=== PATIENT | male | born 1960 | race Caucasian/White ===

== ENCOUNTER → 2017-10-03 15:28 | Outpatient (CLI) | payer OTHER, SELFPAY | PROVIDERS: Family Provider Family Medicine; PCP Family Medicine; Visit Provider Family Medicine | DX: N41.0 Acute prostatitis (principal) | CPT/HCPCS: 87086 ==

== ENCOUNTER → 2018-04-12 16:28 | Outpatient (CLI) | payer OTHER, SELFPAY ==
[2017-07-09 08:09] VITALS: BMI 24.7
[2018-04-12 18:41] LABS: Anion Gap 7 (5-15); BUN 17 mg/dL (7-18); Calcium,Total 8.6 mg/dL (8.5-10.1); Chloride 108 mmol/L (98-107); Creatinine, Serum 1.06 mg/dL (0.70-1.30); EST Glomerular Filtration Rate 77 mL/min (>60); Est Glom Filt Rate - Afr Amer 93 mL/min (>60); Glucose 85 mg/dL (74-106); PSA,Total - Annual Screen 2.54 ng/mL (0.00-4.00); Potassium 3.8 mmol/L (3.5-5.1); Sodium Level 142 mmol/L (136-145)
== END ==
PROVIDERS: Family Provider Family Medicine; PCP Family Medicine; Visit Provider Family Medicine
DX: I10 Essential (primary) hypertension (principal); Z12.5 Encounter for screening for malignant neoplasm of prostate
CPT/HCPCS: 36415; 80048; 84153; G0103

== ENCOUNTER → 2018-04-24 07:01 | Outpatient (CLI) | payer OTHER, SELFPAY ==
--- NOTE | 2018-04-24 07:23 | MRI_ITS ---
STUDY: MRI LUMBAR SPINE WITHOUT CONTRAST REASON FOR EXAM: Male, 58 years old. lumbago,sciatica, numbness off and on bilat legs; hx prior surgery 2014 TECHNIQUE: Standardized fat and water weighted pulse sequences were obtained in the sagittal and axial planes. COMPARISON: 10/16/2014 FINDINGS: T12-L1: Normal endplates. Normal disc height, hydration and morphology. Normal bilateral facet joints. Normal central canal and bilateral lateral recesses. Normal bilateral intervertebral neural foramina. Normal lumbar lordosis. There is no substantial scoliosis. Normal conus medullaris that terminates at the L1 level. L1-2: Disc desiccation. Bilateral facet hypertrophy without compressive sequelae. L2-3: Bulging annulus and broad right paracentral disc protrusion without compressive sequelae. L3-4: Bulging annulus and bilateral facet hypertrophy with mild central canal and bilateral foraminal stenoses. L4-5: Disc space narrowing and desiccation with discogenic endplate changes and anterior osteophytes. Bulging annulus and bilateral facet hypertrophy with mild bilateral foraminal stenoses. L5-S1: Disc space narrowing and desiccation with discogenic endplate changes and anterior osteophytes. Left laminotomy defect. Bulging annulus and bilateral facet hypertrophy with mild bilateral foraminal stenoses. Normal visualized sacral ala. Normal visualized paraspinous soft tissue structures. MRI/Spine Lumbar (Routine) IMPRESSION: Multilevel degenerative disease as described. No evidence of nerve root impingement. Electronically Signed: Adán Liu MD at 9:16 EST Tel , Service support ,
--- OUTSIDE RECORDS SUMMARY | 2018-06-17 05:00 | XMS RPT_ITS ---
:1960 Author Organization OHIP Care Team Providers Name Role Phone ALCIDES VARGAS (PA) Attending Unavailable HARSHA DUARTE Referring Unavailable ALCIDES VARGAS (PA) Referring Unavailable JOSHUA MCDOWELL Admitting Unavailable JOSHUA MCDOWELL Attending Unavailable ALCIDES VARGAS (PA) Referring Unavailable OUMAR MONK (OD) Attending Unavailable TIESHA CHOI Attending Unavailable TIESHA CHOI Referring Unavailable OUMAR MONK (OD) Attending Unavailable Abiola Chiu Attending Unavailable Harsha Duarte Referring Unavailable Harsha Duarte Primary Care Unavailable Harsha Duarte Attending Unavailable Harsha Duarte Primary Care Unavailable Harsha Duarte Referring Unavailable Harsha Duarte Attending Unavailable Harsha Duarte Primary Care Unavailable Harsha Duarte Attending Unavailable Harsha Duarte Referring Unavailable Harsha Duarte Primary Care Unavailable PROBLEMS PROBLEMS DATE TYPE CONDITION / CODE ATTENDING STATUS SOURCE 10/04/2017 Unknown N41.0 - Acute Felicia, Active [place] prostatitis / [facility] N41.0(ICD-10) Hospital Repository 10/04/2017 Unknown 601.0 - Acute Felicia, Active [place] prostatitis / [facility] 601.0(ICD-9) Hospital Repository 07/08/2017 Active Diverticulitis of JOSHUA MCDOWELL Active [place] intestine, part T Clinic Main unspecified, without [place] perforation or Repository abscess without bleeding / K57.92(ICD-10) 06/20/2017 Active Lower abdominal NA Active [place] pain, unspecified / [facility] R10.30(ICD-10) [place] Repository PROCEDURES PROCEDURES No Procedure Records FoundRESULTS RESULTS SPINE LUMBAR Observed: 04/24/2018 Status: F Source: [place] (ROUTINE) 7:23 AM [facility] REPOSITORY [facility] Imaging Services [address] [place] [address] Spine Lumbar (Routine) MR#: [id number] Acct: [id number] Name: RAFAEL UNGER Rep #: [id number] : 1960 M 58 From: Adán Liu MD PCP: Harsha Duarte MD Status: REG CLI Study: Spine Lumbar (Routine) Date of Exam: 04/24/18 Exam# [id number] Ordering Dr: Syed Duarte MD STUDY: MRI LUMBAR SPINE WITHOUT CONTRAST REASON FOR EXAM: Male, 58 years old. lumbago,sciatica, numbness off and on bilat legs; hx prior surgery 2014 TECHNIQUE: Standardized fat and water weighted pulse sequences were obtained in the sagittal and axial planes. COMPARISON: 10/16/2014 FINDINGS: T12-L1: Normal endplates. Normal disc height, hydration and morphology. Normal bilateral facet joints. Normal central canal and bilateral lateral recesses. Normal bilateral intervertebral neural foramina. Normal lumbar lordosis. There is no substantial scoliosis. Normal conus medullaris that terminates at the L1 level. L1-2: Disc desiccation. Bilateral facet hypertrophy without compressive sequelae. L2-3: Bulging annulus and broad right paracentral disc protrusion without compressive sequelae. L3-4: Bulging annulus and bilateral facet hypertrophy with mild central canal and bilateral foraminal stenoses. L4-5: Disc space narrowing and desiccation with discogenic endplate changes and anterior osteophytes. Bulging annulus and bilateral facet hypertrophy with mild bilateral foraminal stenoses. L5-S1: Disc space narrowing and desiccation with discogenic endplate changes and anterior osteophytes. Left laminotomy defect. Bulging annulus and bilateral facet hypertrophy with mild bilateral foraminal stenoses. Normal visualized sacral ala. Normal visualized paraspinous soft tissue structures. MRI/Spine Lumbar (Routine) IMPRESSION: Multilevel degenerative disease as described. No evidence of nerve root impingement. Electronically Signed: Adán Liu MD at 9:16 EST Tel , Service support , CC: Harsha Duarte MD Pv Installer Tech: Signed BASIC METABOLIC Collected: 04/12/2018 Status: F Source: [place] PROFILE (BMP) 4:29 PM [facility] REPOSITORY TYPE CODE TESTS RESULT OUT OF RANGE REFERENCE UNITS LAB L501.0100 74-106 mg/dL Normal GLU 85 Result Comment: Please note revised GLUCOSE reference range effective 2017. LAB L501.1000 7-18 mg/dL Normal BUN 17 LAB L501.1100 0.70-1.30 mg/dL Normal CREAT,SERUM 1.06 Result Comment: The validity of the calculated GFR AND GFRAA in patients over 70 years has not been determined. Clinical correlation is essential. LAB L501.1110 >60 mL/min Normal EST GFR 77 Result Comment: Non- GFR Calc LAB L501.1115 >60 mL/min Normal EST GFR - AA 93 Result Comment: GFR Calc LAB L501.1300 10-20 RATIO Normal BUN/CRE 16.0 LAB L501.2200 8.5-10.1 mg/dL CA Normal 8.6 LAB L501.5300 136-145 mmol/L NA Normal 142 LAB L501.5600 3.5-5.1 mmol/L K Normal 3.8 LAB L501.5900 98-107 mmol/L High CL 108 LAB L501.6100 21.0-32.0 mmol/L Normal CO2 27.0 LAB L501.6200 5-15 Normal GAP 7 Performed By: #### L500.2500, L501.9910 #### [facility] [address] [place], [address] PSA,TOTAL - ANNUAL Collected: 04/12/2018 Status: F Source: [place] SCREEN 4:29 PM [facility] REPOSITORY TYPE CODE TESTS RESULT OUT OF RANGE REFERENCE UNITS LAB L501.9910 0.00-4.00 ng/mL Normal PSA,TOT 2.54 SCREEN Result Comment: This test was performed using the TPSA assay method for the 9+ chemistry system. Values obtained with different assay methods cannot be used interchangably. When changing PSA assays in the course of monitoring a patient, additional sequential testing should be carried out to confirm baseline values. Performed By: #### L500.2500, L501.9910 #### [facility] [address] [place], [address] PROGRESS Observed: 02/01/2018 Status: COMPLETED Source: [place] 10:17 AM [facility] REPOSITORY HNO ID: [id number] Author: Oumar (Od) Lissette Service: (none) Author Type: COMMUNITY AIDE Type: Progress Notes Filed: 02/01/2018 10:18 AM Note Text: ASSESSMENT/PLAN: 1. Vitreous floaters of both eyes - ICD9: 379.24, ICD10: H43.393 (primary diagnosis) Patient was given both written and verbal information on flashes and floaters. Patient was instructed to call the office ([phone]) immediately upon noticing flashes of light, increase in floaters, or changes in vision. 2. Punctate keratitis, bilateral - ICD9: 370.21, ICD10: H16.143 Blink Lubricating Eye Drops, 1 drop, three times a day, both eyes. 3. S/P LASIK (laser assisted in situ keratomileusis) of both eyes - ICD9: V45.69, ICD10: Z98.890 Stable / Observe Oumar Monk, JAY I have confirmed and edited as necessary the relevant ophthalmic history, review of systems, surgical history, and ophthalmological examination findings as obtained by the ophthalmic technical staff. I have seen and examined Rafael Unger. I have discussed the examination findings, diagnosis, and treatment options with Rafael Unger and/or his family. I have also reviewed and agree with the assessment and plan as stated above and agree with all its relevant components. I gave the patient the opportunity to ask questions about the findings, diagnosis, and treatment options. PROGRESS Observed: 12/16/2017 Status: COMPLETED Source: [place] 4:49 PM [facility] REPOSITORY O ID: [id number] Author: Oumar (Jay) Lissette Service: (none) Author Type: COMMUNITY AIDE Type: Progress Notes Filed: 12/16/2017 4:50 PM Note Text: ASSESSMENT/PLAN: 1. Vitreous floaters of both eyes - ICD9: 379.24, ICD10: H43.393 (primary diagnosis) Patient was given both written and verbal information on flashes and floaters. Patient was instructed to call the office ([phone]) immediately upon noticing flashes of light, increase in floaters, or changes in vision. 2. Punctate keratitis, bilateral - ICD9: 370.21, ICD10: H16.143 Blink Lubricating Eye Drops, 1 drop, four times a day, both eyes. 3. S/P LASIK (laser assisted in situ keratomileusis) of both eyes - ICD9: V45.69, ICD10: Z98.890 Stable / Observe Oumar Monk, OD I have confirmed and edited as necessary the relevant ophthalmic history, review of systems, surgical history, and ophthalmological examination findings as obtained by the ophthalmic technical staff. I have seen and examined Rafael Unger. I have discussed the examination findings, diagnosis, and treatment options with Rafael Unger and/or his family. I have also reviewed and agree with the assessment and plan as stated above and agree with all its relevant components. I gave the patient the opportunity to ask questions about the findings, diagnosis, and treatment options. Observed: 10/03/2017 Status: F Source: [place] CULTURE, URINE 3:30 PM [facility] REPOSITORY Order Date: 10/03/17 Order Info: 630-4 - CUUR Urine Culture Culture exhibits no growth. Performed By: #### M100.0650 #### [facility] [address] [place], [address] PROGRESS Observed: 09/22/2017 Status: COMPLETED Source: [place] 12:05 PM [facility] REPOSITORY HNO ID: [id number] Author: Oumar Monk (Od) Service: (none) Author Type: COMMUNITY AIDE Type: Progress Notes Filed: 09/22/2017 12:06 PM Note Text: ASSESSMENT/PLAN: 1. Subconjunctival hemorrhage of left eye - ICD9: 372.72, ICD10: H11.32 (primary diagnosis) Ice packs x 10 minutes x 2-3 Times per day Left eye 2. Vitreous floaters of both eyes - ICD9: 379.24, ICD10: H43.393 Stable / Observe 3. S/P LASIK (laser assisted in situ keratomileusis) of both eyes - ICD9: V45.69, ICD10: Z98.890 Stable / Observe Oumar Monk, JAY I have confirmed and edited as necessary the relevant ophthalmic history, review of systems, surgical history, and ophthalmological examination findings as obtained by the ophthalmic technical staff. I have seen and examined Rafael Noe Cornel. I have discussed the examination findings, diagnosis, and treatment options with Rafael Unger and/or his family. I have also reviewed and agree with the assessment and plan as stated above and agree with all its relevant components. I gave the patient the opportunity to ask questions about the findings, diagnosis, and treatment options. CNCO Observed: 07/23/2017 Status: COMPLETED Source: [place] 12:00 AM [facility] REPOSITORY Letter Text Department of General Surgery [address] [place], [place] [address] 07/23/2017 Harsha Duarte MD - (Active), In Basket (Active) - User (Inactive) ? [address] ? [facility] [address] ? [phone] (Ph) ? Re: Rafael Unger : [address] Duarte: Thank you for allowing me to participate in the care of your patient, Rafael Unger. I saw Rafael on 07/23/2017 and performed lower endoscopy. Enclosed is a copy of my procedure dictation for Rafael. The colonoscopy was unremarkable. The patient falls into a high risk category. I recommend 5 year follow-up endoscopy Again, thank you for the referral of Rafael Unger. If I can be of any assistance to you in the future, please don't hesitate to call. Sincerely yours, Joshua Mcdowell MD, FACS URGENT CARE VISIT Observed: 07/09/2017 Status: F Source: [place] REPORT 8:38 AM [facility] [address] [place] [address] [address] [place] [address] OFFICE VISIT Date of Service: 07/09/17 MR#: [id number] Acct: [id number] Name: RAFAEL UNGER Rep #: [id number] : 1960 Provider: Abiola Chiu Age/Sex: 57/M Location: [facility] Status: Signed Intake Vital Signs07/09/17 Height 6 ft 3 in Intake Visit Reasons: Cough Is patient in pain?: No Allergies ANTIDEPRESSANTS Adverse Reaction (Uncoded 07/09/17 08:10) Other ANTIHISTAMINES Adverse Reaction (Uncoded 07/09/17 08:10) Other Medications Metoprolol Tartrate [Lopressor (Beta Deb)] 25 mg PO BID 12/01/14 [History Confirmed 07/09/17] azithromycin 250 mg tablet See Label Instructions PO .COMPLEX #6 tab 05/07/17 [Rx Confirmed 07/09/17] buspirone 5 mg tablet 5 mg PO ONCE 05/07/17 [History Confirmed 07/09/17] ibuprofen 200 mg capsule 200 mg PO ONCE 05/07/17 [History Confirmed 07/09/17] amoxicillin 875 mg tablet See Label Instructions PO BID 10 Days #20 tab 07/09/17 [Rx Confirmed 07/09/17] [facility] Medical History HTN (hypertension), benign (Chronic) Social History Smoking Status: Never smoker HPI HPI Details: RAFAEL UNGER, is a 57 M who presents to the office today for here today for an urgent appointment for sinusitis. He states that his symptoms started approximately a week to 10 days ago. He does have a history of chronic sinusitis and which she had surgery for in the past. He states that he has been working around concrete dust at work and this is been an irritant. He has tried to use saline spray at home with no relief. He is intolerant to antihistamines. He notes that he has a significant cough that keeps him up at night. He has constant drainage. He does have a headache. He does have some body aches. His throat does hurt. ROS Const Constitutional: Positive for body ache, fatigue, fever(s) and headache(s) Eyes Eyes: No visual disturbances or eye pain ENT ENT: Positive for headache(s), nasal congestion, nasal discharge, sinus pressure, post nasal drip and sore throat Resp Respiratory: Positive for cough Cardio Cardiology: No chest pain at rest, chest pain with exertion or shortness of breath Gastro GI: No diarrhea, nausea/dyspepsia or Vomiting blood/hematemesis Neuro Neurology: Positive for headache(s); no visual disturbances Endo Endocrine: Positive for fatigue Exam Const General: cooperative, no acute distress Orientation: alert, oriented x3 HENMT Head: normal to inspection, normocephalic Ears: TM's normal bilaterally Nose: mucous membranes and turbinates abnormal erythematous, nasal discharge purulent Face and sinus: sinus tenderness frontal and maxillary Throat: postnasal drainage Eyes Sclera: sclerae normal Cornea: corneas normal Pupils: PERRL EOM: EOM intact bilaterally Neck Neck: no lymphadenopathy, trachea midline, supple Neck mass: No Thyroid: thyroid normal Resp Effort AND Inspection: normal respiratory effort Auscultation: Bilateral: Clear to Auscultation Cardio Palpation: normal PMI Rate: regular rate Rhythm: regular rhythm Heart Sounds: S1 normal, S2 normal, no click, no gallops, no murmurs, no rubs GI Auscultation: normal bowel sounds Percussion: normal to percussion Palpation: soft, no hepatosplenomegaly, nontender Skin General: no rashes or lesions noted Neuro General: alert, oriented x3, CN's II-XI intact bilaterally, no focal motor deficits Assessment AND Plan Problems 1. Acute recurrent pansinusitis J01.41 Plan Advised patient to keep himself hydrated. Advised that he use his saline spray in addition to his Flonase. Advised that if he continues to have issues with sinusitis that he consider seeing ENT again. We will treat patient with amoxicillin for 10 days. Medications New: Coding Level of Care Code Off vis,est,level 4 Diagnoses Acute recurrent pansinusitis J01.41 Sinusitis location: pansinusitis Chronicity: acute Recurrence: recurrent 07/09/17 0838 <Electronically signed by Abiola CARDOSO> Date Abiola CARDOSO Cosigner Signature: Date (if applicable) CC: NURSING PROG Observed: 07/08/2017 Status: COMPLETED Source: [place] 8:50 AM [facility] REPOSITORY HNO ID: [id number] Author: Conchis Thomason RN Service: (none) Author Type: Registered Nurse Type: Nursing Progress Note Filed: 07/08/2017 8:55 AM Note Text: Patient did not experience a fall prior to discharge. Patient did not experience a burn prior to discharge. Conchis Thomason RN PT ED Observed: 07/08/2017 Status: COMPLETED Source: [place] 8:33 AM [facility] REPOSITORY HNO ID: [id number] Author: Conchis Thomason RN Service: (none) Author Type: Registered Nurse Type: Patient Education Filed: 07/08/2017 8:33 AM Note Text: POST OP LEARNING RESPONSE INSTRUCTION PROVIDED TO: Patient and family member METHOD OF INSTRUCTION: Individual instruction Written instruction - handouts Verbal instruction PATIENT / FAMILY RESPONSE: Information received as demonstrated by interest and questions FOLLOW-UP PLAN: Follow up phone call. Contact information given. SUPPLEMENTAL MATERIAL: Procedure discharge instructions REFERRAL (RECOMMENDATION): None Electronically Signed By: Conchis Thomason RN In Department: AMBULATORY SURGERY NURSING PROG Observed: 07/08/2017 Status: COMPLETED Source: [place] 8:08 AM [facility] REPOSITORY HNO ID: [id number] Author: Shelby WellsRnDeloris Singh RN Service: Nursing Author Type: Registered Nurse Type: Nursing Progress Note Filed: 07/08/2017 8:08 AM Note Text: Preoperative order for IV Antibiotic Prophylaxis is N/A. Patient did not experience a fall within the Intraoperative procedural area. Patient did not experience a burn within the Intraoperative procedural area. Shelby Singh RN NURSING PROG Observed: 07/08/2017 Status: COMPLETED Source: [place] 8:08 AM [facility] REPOSITORY HNO ID: [id number] Author: Conchis Thomason RN Service: (none) Author Type: Registered Nurse Type: Nursing Progress Note Filed: 07/08/2017 8:28 AM Note Text: Arrived in phase II via cart. Left lateral position. Sedated, but responds to verbal stimuli. Color normal; skin warm and dry. Respirations wnl and unlabored. Abdomen soft and with + bowel sounds in quads X 4. Family at bedside. Patient resting comfortably. Dr. Mcdowell at bedside to review procedure and recommendations . Conchis Thomason RN NURSING PROG Observed: 07/08/2017 Status: COMPLETED Source: [place] 7:44 AM [facility] REPOSITORY HNO ID: [id number] Author: Conchis Thomason RN Service: (none) Author Type: Registered Nurse Type: Nursing Progress Note Filed: 07/08/2017 7:56 AM Note Text: [facility] PRE-OP NURSING HAND OFF NOTE SBAR Hand off given to Shelby Singh RN. Hand off was communicated verbally and at the patient's bedside and all questions were answered. FALLS/ARNETT Patient did not experience a fall within the Preoperative area. Patient did not experience a burn within the Preoperative area. Conchis Thomason RN HISTORY PHYSICAL Observed: 07/08/2017 Status: COMPLETED Source: [place] 6:57 AM [facility] REPOSITORY HNO ID: [id number] Author: Joshua Mcdowell Service: General Surgery Author Type: Physician Type: HANDP Filed: 07/08/2017 6:57 AM Note Text: HISTORY AND PHYSICAL ? Rafael Unger 1960 ? REFERRING PHYSICIAN: Harsha Duarte, * ? CHIEF COMPLAINT: family history of colon cancer ? HPI: The patient is a 57 year old male referred for endoscopy. Rafael notes a family history of colon cancer as well as a personal history of polyps. His last screening colonoscopy was in 11/[address] Mcdowell with findings of sigmoid diverticulosis, otherwise normal with five-year follow-up recommended. The patient notes that he is currently being treated for a possible diverticulitis episode, and that he had a similar episode about three months ago. He notes lower abdominal discomfort, points to infraumbilical area with some radiation to left side of abdomen. Notes no particular aggravating or alleviating factors. He states he was started on Augmentin this past Tuesday and has noticed some improvement, denies pain at rest currently. Denies fever or chills. Denies nausea, vomiting, blood in stools or changes in bowel habits. He has not had laboratory or imaging studies. The patient notes no upper GI complaints currently. He denies cardiac or respiratory issues, and denies any problems with sedation in the past. ? PAST?MEDICAL?HISTORY PAST MEDICAL HISTORY Diagnosis Date - Anxiety ? - Environmental allergies ? - Family history of malignant neoplasm of gastrointestinal tract ? ? ? PAST?SURGICAL?HISTORY PAST SURGICAL HISTORY Procedure Laterality Date - CARPAL TUNNEL ? ? ? left - COLONOSCOP W/ OR W/O [facility] SPEC ? 06/17/09 ? Repeat in - CUSTOM BASIC PRK/LASIK SURGERY ? ? ? both eyes - Deviated septum ? ? - EGD ? 11/28/12 - EGD W/O [facility] SPECIMEN W/BX ? 01-30-10 - EXCISION GANGLION CYST, FOOT ? ? ? right - G-ESOPH REFLX TST W/ELECTROD ? 01-30-10 - hemmorrhoidectomy ? ? - LAP CHOLECYSTECT/CHOLANGIOGRAPHY ? 12/26/12 ? normal IOC - RT AND LT HEART CATHETERIZATION ? 2003 ? ? ? CURRENT?MEDICATIONS ? Current Outpatient Prescriptions: amoxicillin-clavulanic acid (AUGMENTIN) 875-125 mg per tablet Take 1 tablet by mouth twice daily. busPIRone HCl 7.5 mg tablet once daily. metoprolol tartrate, short acting, (LOPRESSOR) 25 mg tablet Take 12.5 mg by mouth twice daily. ? No current facility-administered medications for this visit. ? ALLERGIES: Antihistimine ? PERSONAL HISTORY: SOCIAL?HISTORY Social History Marital status: Spouse name: Years of education: Number of children: ? Social History Main Topics Smoking status: Never Smoker ? Smokeless status: Current User Types: Chew Comment: 46 years Alcohol use: No Comment: 2-3 beer per day,quit Drug use: No ? FAMILY HISTORY: FAMILY?HISTORY FAMILY HISTORY Problem Relation Age of Onset - Arthritis Mother ? - Asthma Son ? - Breast Cancer Maternal Aunt ? - Cancer Maternal Aunt ? ? ? bone cancer - Colon Cancer Father ? - Colon Cancer Maternal Uncle ? - Diabetes Mother ? - Diabetes Maternal Grandmother ? - Heart Maternal Uncle ? - Heart Maternal Grandmother ? - Hypertension Mother ? - Hypertension Maternal Grandmother ? - Hypertension Maternal Grandfather ? - Ischemic Heart Disease Maternal Uncle ? - Prostate Cancer Maternal Grandfather ? - Stroke Maternal Grandfather ? ? ? REVIEW OF SYMPTOMS: The review of systems data was entered by the nurse and reviewed by me ? Nursing Notes: Jose Peter LPN 06/20/2017 9:55 AM Signed REVIEW OF SYSTEMS: General: The patient denies fatigue, denies weight loss, denies weight gain, denies feeling hot, and denies feelings of cold. Eyes: The patient denies glaucoma, NOTES eye injury/surgery, does not wear glasses or contacts. Ear/Nose/Throat: The patient denies allergies, denies hayfever, NOTES ear infections, and denies bloody noses. Cardiovascular: The patient denies chest pain, denies heart disease, NOTES high blood pressure,denies cardiac stent, denies prior heart attack, denies irregular heart beat, denies high cholesterol, denies poor circulation, denies heart failure, other cardiac issues, denies claudication, denies cold feet, denies peripheral arterial stent. Respiratory: The patient denies tuberculosis, denies pneumonia, denies frequent cough, denies pulmonary embolism, denies shortness of breath, and denies coughing up blood. Gastrointestinal: The patient denies difficulty swallowing, denies acid reflux, denies ulcers, denies vomiting, denies jaundice/hepatitis, denies gallbladder problems, denies black or tarry stools, denies hemorrhoids, denies bleeding from rectum, NOTES diverticulitis, NOTES constipation, denies diarrhea, denies loss of stool control, and denies hernias. Kidney/Bladder: The patient denies kidney stones, denies urine infections, and denies bloody urine. Skin: The patient denies a history of skin cancer, denies bleeding/changing moles, and denies a history of skin rash. Neurologic: The patient denies a history of epilepsy/convulsions, denies headaches, NOTES head/spinal injuries, and denies stroke/TIA. Psychiatric: The patient denies psychiatric medications, denies depression, and denies voices, denies substance abuse. Endocrine: The patient denies thyroid disorders, denies diabetes, and denies hormonal problems. Hematologic: The patient denies a history of bruising, denies bleeding, and denies anemia, denies blood clots. Infections: The patient denies a history of measles and mumps, denies rheumatic fever, and denies sexually transmitted diseases. Musculoskeletal: The patient NOTES back pain/injury, denies back problems, NOTES sciatica, denies knee/foot trouble, NOTES arthritis, or denies gout. ? ? When was patient's last Mammogram screening? N/A ? Last Colonoscopy: 2012 ? Jose Vargas PA-C ? ?? PHYSICAL EXAMINATION: ? General: The patient is 57 year old male, well nourished, well hydrated in no acute distress. The patient is oriented to time, place, and person. ? VITALS: Blood pressure 126/80, pulse 60, weight 91.2 kg (201 lb). Body mass index is 26.52 kg/(m2). ? HEENT: Normal cephalic, ataumatic, pupils are equally round, sclera are anicteric, mucous membranes are moist, oropharynx is clear. Neck has no masses, asymmetry or lymphadenopathy. ? Respiratory: Clear to auscultation and percussion. Normal respiratory excursion and pattern. ? Cardiac: Examination is regular rate and rhythm. ? Abdominal exam: Soft, +mild diffuse TTP infraumbilical area and lower abdomen without rebound or guarding. No hepatosplenomegaly. No palpable hernias. ? Rectal exam: exam deferred ? Extremities: no clubbing, cyanosis or edema. No adenopathy. ? Other: ? LABORATORY VALUES: As Noted ? RADIOLOGIC STUDIES: As Noted ? Assessment IMPRESSION: lower abdominal pain, patient currently being treated empirically for possible diverticulitis. Family history of colon cancer ? PLAN: Due to the concern for possible diverticulitis, will obtain laboratory studies today, if abnormal would plan for CT scan prior to colonoscopy. Will plan to delay colonoscopy 5-6 weeks to allow possible inflammation to resolve. We discussed the risks and benefits of the planned endoscopy. I have informed the patient that complications can occur including failure to complete the endoscopy and perforation. The patient had the opportunity to ask questions concerning the planned endoscopy. My staff has also explained the procedure to the patient in understandable terms and has given the patient printed material concerning the procedure. The patient freely consents to surgery. ? I plan to use golytely bowel preparation for endoscopy ? Diagnoses: (R10.30) Lower abdominal pain, unspecified (primary encounter diagnosis) (Z80.0) Family history of colon cancer ? This note will be forwarded to Dr. Harsha Duarte MD. ?? Return to Clinic: The patient is instructed to follow-up with me 1 week post operatively. ? Alcides Vargas PA-C PT ED Observed: 07/08/2017 Status: COMPLETED Source: [place] 6:31 AM [facility] REPOSITORY HNO ID: [id number] Author: Conchis WellsRn) SHAUNNA Thomason Service: (none) Author Type: Registered Nurse Type: Patient Education Filed: 07/08/2017 6:31 AM Note Text: Discharge Instructions were reviewed pre-operatively with the patient. All questions and concerns were addressed. Conchis Thomason RN PRE OP LEARNING ASSESSMENT PROCEDURE/SURGERY: GI PROCEDURES: Colonoscopy READINESS TO LEARN COGNITIVE ABILITY: Alert and oriented MOTIVATION TO LEARN: Interested FAMILY SUPPORT: Unable to assess - Family not present PATIENT LEARNS BEST BY: Multiple Methods FACTORS AFFECTING LEARNING: None PHYSICAL LIMITATIONS AFFECTING LEARNING: None Electronically Signed By: Conchis Thomason RN In Department: AMBULATORY SURGERY HOSP Observed: 06/21/2017 Status: COMPLETED Source: [place] 12:00 AM [facility] REPOSITORY Patient:Rafael Unger MRN: <[id number]> Height:6' 1(1.854 m) Weight:201 lb 1 oz (91.2 kg) Outpatient Medications as of 07/08/17: busPIRone HCl 7.5 mg tablet metoprolol tartrate, short acting, (LOPRESSOR) 25 mg tablet Admission/Clinic Administered Medications as of 07/08/17: lactated ringers infusion Problem List: Carpal tunnel syndrome [G56.00] Osteoarthritis of hand [M19.049] Raynaud's phenomenon [I73.00] GERD (gastroesophageal reflux disease) [K21.9] Family history of colon cancer [Z80.0] Abdominal pain, right upper quadrant [R10.11] Cholelithiasis [K80.20] Other vitreous opacities - Both Eyes [H43.399] Tear film insufficiency, unspecified - Both Eyes [H04.129] Acute conjunctivitis, unspecified - Right Eye [H10.30] S/P LASIK (laser assisted in situ keratomileusis) of both eyes [Z98.890] Chronic pain syndrome [G89.4] Pain disorders related to psychological factors [F45.41] Lumbar post-laminectomy syndrome [M96.1] 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): Lew Almonte Surg Coord 06/21/2017 4:40 PM Signed 07-08-2017 Colon [facility] Lew Almonte Surg Coord Lew Almonte Surg Coord 07/04/2017 3:50 PM Signed Please send Golytely to [facility] pharmacy in [facility] Lew Almonte Surg Coord Alcides Vargas PA-C 07/04/2017 4:00 PM Signed Prescription e-filed Progress Notes ([facility]): Lew Almonte Surg Coord 06/20/2017 8:49 AM Signed Patient to call and schedule after lab work comes back. Patient has all colonoscopy information and direct number to call once he is ready to schedule Lew Almonte Surg Coord Jose Peter LPN 06/20/2017 2:04 PM Signed ----- Message from Alcidse Vargas (Pa) sent at 06/20/2017 1:54 PM EST ----- Please notify patient labs within normal limits, will hold off on imaging studies at this time. If his lower abdominal pain worsens or he develops fever or chills, he should notify us immediately. Otherwise as long as this is resolving we will get him set up for a colonoscopy in 5-6 weeks Jose Peter DINORA 06/20/2017 2:05 PM Signed Detailed message left with information. PROGRESS Observed: 06/20/2017 Status: COMPLETED Source: [place] 2:51 PM [facility] [place] REPOSITORY HNO ID: [id number] Author: Alcides Vargas (Pa) Service: (none) Author Type: Physician Economic Manager Type: Progress Notes Filed: 06/20/2017 3:14 PM Note Text: HISTORY AND PHYSICAL Rafael Kusum Cornel 1960 REFERRING PHYSICIAN: Harsha Duarte, * CHIEF COMPLAINT: family history of colon cancer HPI: The patient is a 57 year old male referred for endoscopy. Rafael notes a family history of colon cancer as well as a personal history of polyps. His last screening colonoscopy was in 11/[address] Mcdowell with findings of sigmoid diverticulosis, otherwise normal with five-year follow-up recommended. The patient notes that he is currently being treated for a possible diverticulitis episode, and that he had a similar episode about three months ago. He notes lower abdominal discomfort, points to infraumbilical area with some radiation to left side of abdomen. Notes no particular aggravating or alleviating factors. He states he was started on Augmentin this past Tuesday and has noticed some improvement, denies pain at rest currently. Denies fever or chills. Denies nausea, vomiting, blood in stools or changes in bowel habits. He has not had laboratory or imaging studies. The patient notes no upper GI complaints currently. He denies cardiac or respiratory issues, and denies any problems with sedation in the past. PAST MEDICAL HISTORY Diagnosis Date - Anxiety - Environmental allergies - Family history of malignant neoplasm of gastrointestinal tract PAST SURGICAL HISTORY Procedure Laterality Date - CARPAL TUNNEL left - COLONOSCOP W/ [place] W/O [facility] SPEC 06/17/09 Repeat in - CUSTOM BASIC PRK/LASIK SURGERY both eyes - Deviated septum - EGD 11/28/12 - EGD W/O [facility] SPECIMEN W/BX 01-30-10 - EXCISION GANGLION CYST, FOOT right - G-ESOPH REFLX TST W/ELECTROD 01-30-10 - hemmorrhoidectomy - LAP CHOLECYSTECT/CHOLANGIOGRAPHY 12/26/12 normal IOC - RT AND LT HEART CATHETERIZATION 2003 Current Outpatient Prescriptions: amoxicillin-clavulanic acid (AUGMENTIN) 875-125 mg per tablet Take 1 tablet by mouth twice daily. busPIRone HCl 7.5 mg tablet once daily. metoprolol tartrate, short acting, (LOPRESSOR) 25 mg tablet Take 12.5 mg by mouth twice daily. No current facility-administered medications for this visit. ALLERGIES: Antihistimine PERSONAL HISTORY: Social History Marital status: Spouse name: Years of education: Number of children: Social History Main Topics Smoking status: Never Smoker Smokeless status: Current User Types: Chew Comment: 46 years Alcohol use: No Comment: 2-3 beer per day,quit Drug use: No FAMILY HISTORY: FAMILY HISTORY Problem Relation Age of Onset - Arthritis Mother - Asthma Son - Breast Cancer Maternal Aunt - Cancer Maternal Aunt bone cancer - Colon Cancer Father - Colon Cancer Maternal Uncle - Diabetes Mother - Diabetes Maternal Grandmother - Heart Maternal Uncle - Heart Maternal Grandmother - Hypertension Mother - Hypertension Maternal Grandmother - Hypertension Maternal Grandfather - Ischemic Heart Disease Maternal Uncle - Prostate Cancer Maternal Grandfather - Stroke Maternal Grandfather REVIEW OF SYMPTOMS: The review of systems data was entered by the nurse and reviewed by me Nursing Notes: Jose Peter LPN 06/20/2017 9:55 AM Signed REVIEW OF SYSTEMS: General: The patient denies fatigue, denies weight loss, denies weight gain, denies feeling hot, and denies feelings of cold. Eyes: The patient denies glaucoma, NOTES eye injury/surgery, does not wear glasses or contacts. Ear/Nose/Throat: The patient denies allergies, denies hayfever, NOTES ear infections, and denies bloody noses. Cardiovascular: The patient denies chest pain, denies heart disease, NOTES high blood pressure,denies cardiac stent, denies prior heart attack, denies irregular heart beat, denies high cholesterol, denies poor circulation, denies heart failure, other cardiac issues, denies claudication, denies cold feet, denies peripheral arterial stent. Respiratory: The patient denies tuberculosis, denies pneumonia, denies frequent cough, denies pulmonary embolism, denies shortness of breath, and denies coughing up blood. Gastrointestinal: The patient denies difficulty swallowing, denies acid reflux, denies ulcers, denies vomiting, denies jaundice/hepatitis, denies gallbladder problems, denies black or tarry stools, denies hemorrhoids, denies bleeding from rectum, NOTES diverticulitis, NOTES constipation, denies diarrhea, denies loss of stool control, and denies hernias. Kidney/Bladder: The patient denies kidney stones, denies urine infections, and denies bloody urine. Skin: The patient denies a history of skin cancer, denies bleeding/changing moles, and denies a history of skin rash. Neurologic: The patient denies a history of epilepsy/convulsions, denies headaches, NOTES head/spinal injuries, and denies stroke/TIA. Psychiatric: The patient denies psychiatric medications, denies depression, and denies voices, denies substance abuse. Endocrine: The patient denies thyroid disorders, denies diabetes, and denies hormonal problems. Hematologic: The patient denies a history of bruising, denies bleeding, and denies anemia, denies blood clots. Infections: The patient denies a history of measles and mumps, denies rheumatic fever, and denies sexually transmitted diseases. Musculoskeletal: The patient NOTES back pain/injury, denies back problems, NOTES sciatica, denies knee/foot trouble, NOTES arthritis, or denies gout. When was patient's last Mammogram screening? N/A Last Colonoscopy: 2012 Jose Vargas PA-C PHYSICAL EXAMINATION: General: The patient is 57 year old male, well nourished, well hydrated in no acute distress. The patient is oriented to time, place, and person. VITALS: Blood pressure 126/80, pulse 60, weight 91.2 kg (201 lb). Body mass index is 26.52 kg/(m2). HEENT: Normal cephalic, ataumatic, pupils are equally round, sclera are anicteric, mucous membranes are moist, oropharynx is clear. Neck has no masses, asymmetry or lymphadenopathy. Respiratory: Clear to auscultation and percussion. Normal respiratory excursion and pattern. Cardiac: Examination is regular rate and rhythm. Abdominal exam: Soft, +mild diffuse TTP infraumbilical area and lower abdomen without rebound or guarding. No hepatosplenomegaly. No palpable hernias. Rectal exam: exam deferred Extremities: no clubbing, cyanosis or edema. No adenopathy. Other: LABORATORY VALUES: As Noted RADIOLOGIC STUDIES: As Noted Assessment IMPRESSION: lower abdominal pain, patient currently being treated empirically for possible diverticulitis. Family history of colon cancer PLAN: Due to the concern for possible diverticulitis, will obtain laboratory studies today, if abnormal would plan for CT scan prior to colonoscopy. Will plan to delay colonoscopy 5-6 weeks to allow possible inflammation to resolve. We discussed the risks and benefits of the planned endoscopy. I have informed the patient that complications can occur including failure to complete the endoscopy and perforation. The patient had the opportunity to ask questions concerning the planned endoscopy. My staff has also explained the procedure to the patient in understandable terms and has given the patient printed material concerning the procedure. The patient freely consents to surgery. I plan to use golytely bowel preparation for endoscopy Diagnoses: (R10.30) Lower abdominal pain, unspecified (primary encounter diagnosis) (Z80.0) Family history of colon cancer This note will be forwarded to Dr. Harsha Duarte MD. Return to Clinic: The patient is instructed to follow-up with me 1 week post operatively. Alcides Vargas PA-C [facility] CBC AND DIFF Collected: 06/20/2017 Status: F Source: [place] 8:51 AM [facility] REPOSITORY TYPE CODE TESTS RESULT OUT OF REFERENCE UNITS RANGE LAB WWBC 3.70-11.00 k/uL [place] WBC 5.92 LAB WRBC 4.20-6.00 m/uL [place] RBC 4.76 LAB WHGB 13.0-17.0 g/dL [place] Hemoglobin 14.4 LAB WHCT 39.0-51.0 % [place] Hematocrit 42.6 LAB WMCV 80.0-100.0 fL [place] MCV 89.5 LAB WMCH 26.0-34.0 pg [place] MCH 30.3 LAB WMCHC 30.5-36.0 g/dL [place] MCHC 33.8 LAB WRDW 11.5-15.0 % [place] RDW 12.6 LAB WPLT 150-400 k/uL [place] Platelet Cnt 298 LAB WMPV 9.0-12.7 fL [place] MPV 9.4 Result Comment: Test performed at: [facility], [address] [place] [address]. LAB WNEUT % [place] Neut% 62.6 LAB WLYMP % [place] Lymp% 26.4 LAB WMONOC % [place] Furnas% 7.4 LAB WEOS % [place] Eos% 2.9 LAB WBASO % [place] Baso% 0.7 LAB WANEUT 1.45-7.50 k/uL [place] Abs Neut 3.71 LAB WALYMP 1.00-4.00 k/uL [place] Abs Lymp 1.56 LAB WAMONO <0.87 k/uL [place] Abs Furnas 0.44 LAB WAEOS <0.46 k/uL [place] Abs Eos 0.17 LAB WABASO <0.11 k/uL [place] Abs Baso 0.04 CNOV Observed: 06/20/2017 Status: COMPLETED Source: [place] 8:15 AM [facility] REPOSITORY Office Visit (GENSWS) RAFAEL UNGER ([id number]) 1960 [facility] Date Time Provider Department 06/20/17 8:15 AM ALCIDES VARGAS) GENSWS During your visit today, we recorded the following information about you: Pulse Blood pressure Weight 60/minute 126/80 91.2 kg Jose Rome FARIAS 06/20/2017 9:55 AM Signed REVIEW OF SYSTEMS: General: The patient denies fatigue, denies weight loss, denies weight gain, denies feeling hot, and denies feelings of cold. Eyes: The patient denies glaucoma, NOTES eye injury/surgery, does not wear glasses or contacts. Ear/Nose/Throat: The patient denies allergies, denies hayfever, NOTES ear infections, and denies bloody noses. Cardiovascular: The patient denies chest pain, denies heart disease, NOTES high blood pressure,denies cardiac stent, denies prior heart attack, denies irregular heart beat, denies high cholesterol, denies poor circulation, denies heart failure, other cardiac issues, denies claudication, denies cold feet, denies peripheral arterial stent. Respiratory: The patient denies tuberculosis, denies pneumonia, denies frequent cough, denies pulmonary embolism, denies shortness of breath, and denies coughing up blood. Gastrointestinal: The patient denies difficulty swallowing, denies acid reflux, denies ulcers, denies vomiting, denies jaundice/hepatitis, denies gallbladder problems, denies black or tarry stools, denies hemorrhoids, denies bleeding from rectum, NOTES diverticulitis, NOTES constipation, denies diarrhea, denies loss of stool control, and denies hernias. Kidney/Bladder: The patient denies kidney stones, denies urine infections, and denies bloody urine. Skin: The patient denies a history of skin cancer, denies bleeding/changing moles, and denies a history of skin rash. Neurologic: The patient denies a history of epilepsy/convulsions, denies headaches, NOTES head/spinal injuries, and denies stroke/TIA. Psychiatric: The patient denies psychiatric medications, denies depression, and denies voices, denies substance abuse. Endocrine: The patient denies thyroid disorders, denies diabetes, and denies hormonal problems. Hematologic: The patient denies a history of bruising, denies bleeding, and denies anemia, denies blood clots. Infections: The patient denies a history of measles and mumps, denies rheumatic fever, and denies sexually transmitted diseases. Musculoskeletal: The patient NOTES back pain/injury, denies back problems, NOTES sciatica, denies knee/foot trouble, NOTES arthritis, or denies gout. When was patient's last Mammogram screening? N/A Last Colonoscopy: 2012 Jose Vargas PA-C 06/20/2017 3:14 PM Signed HISTORY AND PHYSICAL Rafael Noe Cornel 1960 REFERRING PHYSICIAN: Harsha Duarte, * CHIEF COMPLAINT: family history of colon cancer HPI: The patient is a 57 year old male referred for endoscopy. Rafael notes a family history of colon cancer as well as a personal history of polyps. His last screening colonoscopy was in 11/[address] Mcdowell with findings of sigmoid diverticulosis, otherwise normal with five-year follow- up recommended. The patient notes that he is currently being treated for a possible diverticulitis episode, and that he had a similar episode about three months ago. He notes lower abdominal discomfort, points to infraumbilical area with some radiation to left side of abdomen. Notes no particular aggravating or alleviating factors. He states he was started on Augmentin this past Tuesday and has noticed some improvement, denies pain at rest currently. Denies fever or chills. Denies nausea, vomiting, blood in stools or changes in bowel habits. He has not had laboratory or imaging studies. The patient notes no upper GI complaints currently. He denies cardiac or respiratory issues, and denies any problems with sedation in the past. PAST MEDICAL HISTORY Diagnosis Date - Anxiety - Environmental allergies - Family history of malignant neoplasm of gastrointestinal tract PAST SURGICAL HISTORY Procedure Laterality Date - CARPAL TUNNEL left - COLONOSCOP W/ [place] W/O [facility] SPEC 06/17/09 Repeat in - CUSTOM BASIC PRK/LASIK SURGERY both eyes - Deviated septum - EGD 11/28/12 - EGD W/O [facility] SPECIMEN W/BX 01-30-10 - EXCISION GANGLION CYST, FOOT right - G-ESOPH REFLX TST W/ELECTROD 01-30-10 - hemmorrhoidectomy - LAP CHOLECYSTECT/CHOLANGIOGRAPHY 12/26/12 normal IOC - RT ANDamp; LT HEART CATHETERIZATION 2003 Current Outpatient Prescriptions: amoxicillin-clavulanic acid (AUGMENTIN) 875-125 mg per tablet Take 1 tablet by mouth twice daily. busPIRone HCl 7.5 mg tablet once daily. metoprolol tartrate, short acting, (LOPRESSOR) 25 mg tablet Take 12.5 mg by mouth twice daily. No current facility-administered medications for this visit. ALLERGIES: Antihistimine PERSONAL HISTORY: Social History Marital status: Spouse name: Years of education: Number of children: Social History Main Topics Smoking status: Never Smoker Smokeless status: Current User Types: Chew Comment: 46 years Alcohol use: No Comment: 2-3 beer per day,quit Drug use: No FAMILY HISTORY: FAMILY HISTORY Problem Relation Age of Onset - Arthritis Mother - Asthma Son - Breast Cancer Maternal Aunt - Cancer Maternal Aunt bone cancer - Colon Cancer Father - Colon Cancer Maternal Uncle - Diabetes Mother - Diabetes Maternal Grandmother - Heart Maternal Uncle - Heart Maternal Grandmother - Hypertension Mother - Hypertension Maternal Grandmother - Hypertension Maternal Grandfather - Ischemic Heart Disease Maternal Uncle - Prostate Cancer Maternal Grandfather - Stroke Maternal Grandfather REVIEW OF SYMPTOMS: The review of systems data was entered by the nurse and reviewed by me Nursing Notes: Jose Peter LPN 06/20/2017 9:55 AM Signed REVIEW OF SYSTEMS: General: The patient denies fatigue, denies weight loss, denies weight gain, denies feeling hot, and denies feelings of cold. Eyes: The patient denies glaucoma, NOTES eye injury/surgery, does not wear glasses or contacts. Ear/Nose/Throat: The patient denies allergies, denies hayfever, NOTES ear infections, and denies bloody noses. Cardiovascular: The patient denies chest pain, denies heart disease, NOTES high blood pressure,denies cardiac stent, denies prior heart attack, denies irregular heart beat, denies high cholesterol, denies poor circulation, denies heart failure, other cardiac issues, denies claudication, denies cold feet, denies peripheral arterial stent. Respiratory: The patient denies tuberculosis, denies pneumonia, denies frequent cough, denies pulmonary embolism, denies shortness of breath, and denies coughing up blood. Gastrointestinal: The patient denies difficulty swallowing, denies acid reflux, denies ulcers, denies vomiting, denies jaundice/hepatitis, denies gallbladder problems, denies black or tarry stools, denies hemorrhoids, denies bleeding from rectum, NOTES diverticulitis, NOTES constipation, denies diarrhea, denies loss of stool control, and denies hernias. Kidney/Bladder: The patient denies kidney stones, denies urine infections, and denies bloody urine. Skin: The patient denies a history of skin cancer, denies bleeding/changing moles, and denies a history of skin rash. Neurologic: The patient denies a history of epilepsy/convulsions, denies headaches, NOTES head/spinal injuries, and denies stroke/TIA. Psychiatric: The patient denies psychiatric medications, denies depression, and denies voices, denies substance abuse. Endocrine: The patient denies thyroid disorders, denies diabetes, and denies hormonal problems. Hematologic: The patient denies a history of bruising, denies bleeding, and denies anemia, denies blood clots. Infections: The patient denies a history of measles and mumps, denies rheumatic fever, and denies sexually transmitted diseases. Musculoskeletal: The patient NOTES back pain/injury, denies back problems, NOTES sciatica, denies knee/foot trouble, NOTES arthritis, or denies gout. When was patient's last Mammogram screening? N/A Last Colonoscopy: 2012 Jose Vargas PA-C PHYSICAL EXAMINATION: General: The patient is 57 year old male, well nourished, well hydrated in no acute distress. The patient is oriented to time, place, and person. VITALS: Blood pressure 126/80, pulse 60, weight 91.2 kg (201 lb). Body mass index is 26.52 kg/(m2). HEENT: Normal cephalic, ataumatic, pupils are equally round, sclera are anicteric, mucous membranes are moist, oropharynx is clear. Neck has no masses, asymmetry or lymphadenopathy. Respiratory: Clear to auscultation and percussion. Normal respiratory excursion and pattern. Cardiac: Examination is regular rate and rhythm. Abdominal exam: Soft, +mild diffuse TTP infraumbilical area and lower abdomen without rebound or guarding. No hepatosplenomegaly. No palpable hernias. Rectal exam: exam deferred Extremities: no clubbing, cyanosis or edema. No adenopathy. Other: LABORATORY VALUES: As Noted RADIOLOGIC STUDIES: As Noted Assessment IMPRESSION: lower abdominal pain, patient currently being treated empirically for possible diverticulitis. Family history of colon cancer PLAN: Due to the concern for possible diverticulitis, will obtain laboratory studies today, if abnormal would plan for CT scan prior to colonoscopy. Will plan to delay colonoscopy 5-6 weeks to allow possible inflammation to resolve. We discussed the risks and benefits of the planned endoscopy. I have informed the patient that complications can occur including failure to complete the endoscopy and perforation. The patient had the opportunity to ask questions concerning the planned endoscopy. My staff has also explained the procedure to the patient in understandable terms and has given the patient printed material concerning the procedure. The patient freely consents to surgery. I plan to use golytely bowel preparation for endoscopy Diagnoses: (R10.30) Lower abdominal pain, unspecified (primary encounter diagnosis) (Z80.0) Family history of colon cancer This note will be forwarded to Dr. Harsha Duarte MD. Return to Clinic: The patient is instructed to follow-up with me 1 week post operatively. Alcides Vargas PA-C Referring Provider: HARSHA DUARTE [[id number]] Allergies As of Date: 06/20/2017 Noted Allergy Reaction ANTIHISTIMINE 07/22/2010 14 - Other: See Comments Comments: Reports becoming too energetic Date Reviewed: 06/20/2017 Reviewed by: Alcides Vargas (Pa) - Fully Assessed Reason for Visit: family history of colon cancer [Other] Primary Visit Diagnosis:Lower abdominal pain, unspecified [R10.30] Other Visit Diagnosis:Family history of colon cancer [Z80.0] Order(s):POOJA CBC AND DIFF [SQWCBCDF] Order #: [id number] FUTURE COLONOSCOPY - DIAGNOSTIC [[id number]] Order #: [id number] FUTURE Prescriptions as of 06/20/2017 Sig: AMOXICILLIN 875 MG-POTASSIUM * Take 1 tablet by mouth twice * BUSPIRONE 7.5 MG TABLET once daily. 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] INVALID FOR* Raynaud's phenomenon [I73.00] INVALID FOR* GERD (gastroesophageal reflux disease) [K21.9] INVALID FOR* Family history of colon cancer [Z80.0] INVALID FOR* Abdominal pain, right upper quadrant [R10.11] INVALID FOR* Cholelithiasis [K80.20] INVALID FOR* Other vitreous opacities - Both Eyes [H43.399] INVALID FOR* Tear film insufficiency, unspecified - Both Eye*INVALID FOR* Acute conjunctivitis, unspecified - Right Eye [*INVALID FOR* S/P LASIK (laser assisted in situ keratomileusi*INVALID FOR* Chronic pain syndrome [G89.4] INVALID FOR* Pain disorders related to psychological factors*INVALID FOR* Lumbar post-laminectomy syndrome [M96.1] INVALID FOR* Pain disorder associated with psychological and*INVALID FOR* Midline low back pain without sciatica [M54.5] INVALID FOR* Left leg pain [M79.605] INVALID FOR* Constipation [K59.00] INVALID FOR* Vitreous floaters of both eyes [H43.393] INVALID FOR* Dry eye syndrome [H04.129] INVALID FOR* Acute bacterial conjunctivitis of left eye [H10*INVALID FOR* Optic disc cupping [H47.239] INVALID FOR* Glaucoma suspect of both eyes [H40.003] INVALID FOR* Visit Notes: >> Jose Peter LPN Mon Jun 20, 2017 9:54 AM Status: Signed REVIEW OF SYSTEMS: General: The patient denies fatigue, denies weight loss, denies weight gain, denies feeling hot, and denies feelings of cold. Eyes: The patient denies glaucoma, NOTES eye injury/surgery, does not wear glasses or contacts. Ear/Nose/Throat: The patient denies allergies, denies hayfever, NOTES ear infections, and denies bloody noses. Cardiovascular: The patient denies chest pain, denies heart disease, NOTES high blood pressure,denies cardiac stent, denies prior heart attack, denies irregular heart beat, denies high cholesterol, denies poor circulation, denies heart failure, other cardiac issues, denies claudication, denies cold feet, denies peripheral arterial stent. Respiratory: The patient denies tuberculosis, denies pneumonia, denies frequent cough, denies pulmonary embolism, denies shortness of breath, and denies coughing up blood. Gastrointestinal: The patient denies difficulty swallowing, denies acid reflux, denies ulcers, denies vomiting, denies jaundice/hepatitis, denies gallbladder problems, denies black or tarry stools, denies hemorrhoids, denies bleeding from rectum, NOTES diverticulitis, NOTES constipation, denies diarrhea, denies loss of stool control, and denies hernias. Kidney/Bladder: The patient denies kidney stones, denies urine infections, and denies bloody urine. Skin: The patient denies a history of skin cancer, denies bleeding/changing moles, and denies a history of skin rash. Neurologic: The patient denies a history of epilepsy/convulsions, denies headaches, NOTES head/spinal injuries, and denies stroke/TIA. Psychiatric: The patient denies psychiatric medications, denies depression, and denies voices, denies substance abuse. Endocrine: The patient denies thyroid disorders, denies diabetes, and denies hormonal problems. Hematologic: The patient denies a history of bruising, denies bleeding, and denies anemia, denies blood clots. Infections: The patient denies a history of measles and mumps, denies rheumatic fever, and denies sexually transmitted diseases. Musculoskeletal: The patient NOTES back pain/injury, denies back problems, NOTES sciatica, denies knee/foot trouble, NOTES arthritis, or denies gout. When was patient's last Mammogram screening? N/A Last Colonoscopy: 2012 Jose Rome [facility] Encounter Status:Closed by ALCIDES VARGAS PA-C on 06/20/17 ALLERGIES ALLERGIES DATE TYPE / CODE NAME / CODE REACTION SEVERITY SOURCE Miscellaneous ANTIDEPRESSANTS Other Unknown [place] 8 Allergy/[id number]( [facility] SNOM[facility]) Hospital Repository Miscellaneous ANTIHISTAMINES Other Unknown [place] 8 Allergy/[id number]( [facility] SNOM[facility]) Hospital Repository DRUG/[id number](SNO ANTIHISTIMINE OTHER: SEE [place] [address]) [facility] Repository ENCOUNTERS ENCOUNTERS ADMIT/DISCHARGE ACCOUNT ADMITTING ENCOUNTER LOCATION SOURCE NUMBER CLASS 04/24/2018 [id number] [facility] ing:MRI Repository 04/12/2018 [id number] [facility] ing:MFPLAB Repository 02/01/2018/02/03/[id number] Repository 12/16/2017/12/20/[id number] Repository 10/03/2017 [id number] [facility] ing:LABSPEC Repository 09/22/2017/09/24/[id number] Repository 07/09/2017/07/09/19 [id number] Ambulatory BMSBuilding:Dani [place] 18 MS.NOW [facility] Repository 07/08/2017/07/08/19 [id number] JEREMIAS, Ambulatory [address] Repository 06/20/2017/06/21/19 [id number] Ambulatory [address] Repository 06/20/2017/06/20/19 [id number] Ambulatory [address] Repository PAYERS PAYERS ENCOUNTER GUARANTOR PAYER SUBSCRIBER SOURCE 04/24/2018 RAFAEL Noe Primary Insurance:MED RAFAEL E [place] [id number] MUTUAL TPAPolicy THOMPSONDOB: [facility] Number: [id number] [id number] Repository [address]Lwz: (330) Date:6243-17-89YS [phone] (HP) [address]CTQZTIVEK, [place] [address]BE: CHECK WEBSITE 04/24/2018 Secondary NOT GIVENUNK [place]ja Insurance:SELF PAY [facility] Number: Effective Repository Date:2018-04-19 04/12/2018 RAFAEL Noe Primary Insurance:MED RAFAEL E [place]ja [id number] MUTUAL TPAPolicy THOMPSONDOB: [facility] Number: [id number], [place] [id number] Repository [address]Tlc: (330) Date:1886-35-21JS [phone] (HP) [address]WDRQKGZBY, [place] [address]RY: CHECK WEBSITE 04/12/2018 Secondary NOT GIVENUNK [place]ja Insurance:SELF PAY [facility] Number: Effective Repository Date:2018-04-12 10/03/2017 RAFAEL E Primary Insurance:MED RAFAEL E [place] [id number] MUTUAL TPAPolicy THOMPSONDOB: [facility] Number: [id number], [place] [id number] Repository [address]38[address]Wru: Date:7264-31-81EI [phone] [address]VZGLBIAMN, [place] -4 (HP) [phone]: CHECK WEBSITE 10/03/2017 Secondary NOT GIVENUNK [place] Insurance:SELF PAY [facility] Number: Effective Repository Date:2017-10-03 07/09/2017 RAFAEL Noe Primary Insurance:MED RAFAEL [place] [id number] [place] TPAPolicy THOMPSONDOB: [facility] Number: [id number], [place] [id number] Repository [address]Kcm: Date:7936-40-31DO [phone]~330 [address]MKEBICTWQ, [place] -4 () [phone]: CHECK WEBSITE 07/09/2017 Secondary NOT GIVENOSMIN [place] Insurance:SELF PAY [facility] Number: Effective Repository Date:2017-07-09
== END ==
PROVIDERS: Family Provider Family Medicine; PCP Family Medicine; Referring Provider Family Medicine; Visit Provider Family Medicine
DX: M54.40 Lumbago with sciatica, unspecified side (principal)
CPT/HCPCS: 72148

== ENCOUNTER → 2018-05-10 16:43 | Outpatient (CLI) | payer OTHER, SELFPAY ==
[2017-07-09 08:09] VITALS: BMI 24.7
--- NOTE | 2018-05-10 16:45 | RAD_ITS ---
STUDY: X-RAY - CERVICAL SPINE REASON FOR EXAM: Male, 58 years old. Pain TECHNIQUE: 10/17/2014 view(s) of the cervical spine were obtained. COMPARISON: 10/04/2014 FINDINGS: There is no evidence of fracture or dislocation in the cervical spine. The dens is intact. The vertebral body heights are well-maintained. There are stable mild degenerative changes. The prevertebral soft tissues are unremarkable. There is no radiodense foreign body. RAD/Cerv Spine 4 or 5 Views IMPRESSION: No fracture or dislocation in the cervical spine. Stable mild degenerative changes. Electronically Signed: Kofi Luis, at 15:36 EST Tel , Service support ,
== END ==
PROVIDERS: Family Provider Family Medicine; PCP Family Medicine; Referring Provider Nurse Practitioner Family; Visit Provider Nurse Practitioner Family
DX: M54.2 Cervicalgia (principal)
CPT/HCPCS: 72050

== ENCOUNTER → 2018-05-29 07:02 | Outpatient (CLI) | payer OTHER, SELFPAY ==
[2018-05-29 10:23] LABS: Hematocrit 43.2 % (40-54); Hemoglobin 14.4 g/dl (13.0-16.5); Mean Corp Hgb Conc 33.3 g/gl (32-36); Mean Corpuscular Hgb 29.6 pg (27.0-32.0); Mean Corpuscular Volume 88.9 fL (80-94); Mean Platelet Vol. 10.3 fl (6.2-12.0); Platelet Count 251 K/mm3 (150-450); RBC Distribution Width CV 12.9 % (11.6-14.6); RBC Distribution Width SD 41.7 fl (35.1-43.9); Red Blood Count 4.86 M/mm3 (4.6-6.2); White Blood Count 5.9 K/mm3 (4.4-11.0)
[2018-05-29 10:27] LABS: Scan Indicated on CBC? Y/N NO
[2018-05-29 10:42] LABS: Progesterone Level 0.18 ng/mL (See Comment); Vitamin B12 566 pg/mL (211-911); Vitamin D,25 Hydroxy 35.8 ng/mL (29.95-100.01)
[2018-05-29 10:46] LABS: Homocysteine 9.2 umol/L (3.2-10.7)
[2018-05-29 10:53] LABS: ALB/GLOB Ratio 1.2 RATIO (0.9-2.4); AST(SGOT) 28 U/L (15-37); Alanine Aminotransfer ALT/SGPT 58 U/L (16-61); Albumin, Serum 4.2 g/dL (3.2-5.0); Alkaline Phosphatase 71 U/L (45-117); Anion Gap 8 (5-15); BUN 16 mg/dL (7-18); BUN/Creat Ratio 15.5 RATIO (10-20); CRP, High Sensitivity Cardiac 0.78 mg/L; Calcium,Total 8.8 mg/dL (8.5-10.1); Chloride 107 mmol/L (98-107); Cholesterol 234 mg/dL (200); Creatinine, Serum 1.03 mg/dL (0.70-1.30); EST Glomerular Filtration Rate 79 mL/min (>60); Est Glom Filt Rate - Afr Amer 96 mL/min (>60); Estradiol 23.5 pg/mL; Follicle Stimulating Hormone 4.1 mIU/mL; Free T3 2.8 pg/mL (2.18-3.98); Globulin 3.4 g/dL (2.2-4.2); Glucose 94 mg/dL (74-106); High Density Lipoprotein 49 mg/dL; Iron 125 ug/dL (65-175); Luteinizing Hormone 3.3 mIU/mL; Magnesium 2.1 mg/dL (1.6-2.6); Protein, Total 7.6 g/dL (6.4-8.2); Sodium Level 140 mmol/L (136-145); T4 Free Direct 0.89 ng/dL (0.76-1.46); T4 Total, Thyroxin 8.8 ug/dL (4.5-12.1); Thyroid Stim Hormone (TSH) 2.04 uIU/mL (0.358-3.74); Triglycerides 161 mg/dL; Very Low Density Lipoprotein 32 mg/dL (5-40)
[2018-06-01 08:13] LABS: DHEA Sulfate 9.7 ug/dL (48.9-344.2); Insulin Like Growth Factor 169 ng/mL (54-194); Testosterone, % Free 1.35 % (1.50-4.20)
[2018-06-01 14:41] LABS: Sex Hormone-binding Globulin 64.5 nmol/L (19.3-76.4); Testosterone, Total 526 ng/dL (264-916)
== END ==
PROVIDERS: Family Provider Family Medicine; PCP Family Medicine
DX: R53.82 Chronic fatigue, unspecified (principal)
CPT/HCPCS: 36415; 80053; 80061; 82306; 82533; 82607; 82627; 82670; 82746; 83001; 83002; 83036; 83090; 83540; 83735; 84144; 84146; 84270; 84305; 84402; 84403; 84436; 84439; 84443; 84481; 85027; 86141; 82626

== ENCOUNTER → 2018-07-26 11:03 | Outpatient (CLI) | payer OTHER, SELFPAY ==
--- NOTE | 2018-07-26 11:17 | MRI_ITS ---
STUDY: MRI CERVICAL SPINE WITHOUT CONTRAST REASON FOR EXAM: Male, 58 years old. Neck pain with numbness on left side TECHNIQUE: Standardized fat and water weighted pulse sequences were obtained in the sagittal and axial planes. COMPARISON: October 17, 2014 FINDINGS: Normal foramen magnum and brainstem-cervical cord junction. Normal craniovertebral junction. Normal anterior atlantoaxial articulation. Normal odontoid process. Decreased cervical lordosis. Normal vertebral bodies and posterior osseous elements. C2-3: Normal endplates. Normal disc height, signal and morphology. Normal central canal and intervertebral neural foramina. C3-4: Normal endplates. Normal disc height, signal and minimal bulging of the disc. Normal central canal and intervertebral neural foramina. C4-5: Normal endplates. Normal disc height, signal and morphology. Normal central canal. Mild left neural foraminal encroachment secondary to bony hypertrophy. C5-6: Normal endplates. Normal disc height, signal and mild bulging of the disc with small right posterolateral/foraminal disc protrusion.. Normal central canal. Mild right neuroforaminal stenosis. C6-7: Normal endplates. Normal disc height, signal and morphology. Normal central canal and intervertebral neural foramina. C7-T1: Normal endplates. Normal disc height, signal and morphology. Normal central canal and intervertebral neural foramina. Normal cervical cord. Normal visualized soft tissue structures. There is mild progression of the disc disease at C5-6 when compared with prior study MRI/Spine Cervical (Routine) IMPRESSION: No evidence for acute fracture or subluxation. Minimal bulging of the disc at C3-4 without spinal stenosis Mild left neuroforaminal stenosis at C4-5 secondary to bony hypertrophy Spinal stenosis at C6-7 greater on the right secondary to right posterolateral/foraminal disc protrusion and bony hypertrophy Electronically Signed: Owen Royal MD at 22:37 EST , Service support ,
== END ==
PROVIDERS: Family Provider Family Medicine; PCP Family Medicine; Referring Provider Anesthesiology Pain Medicine; Visit Provider Anesthesiology Pain Medicine
DX: M50.30 Other cervical disc degeneration, unspecified cervical region (principal); M47.812 Spondylosis without myelopathy or radiculopathy, cervical region
CPT/HCPCS: 72141

== ENCOUNTER → 2018-08-30 07:04 | Outpatient (CLI) | payer OTHER, SELFPAY ==
[2018-08-30 10:30] LABS: Hematocrit 39.8 % (40-54); Hemoglobin 13.6 g/dl (13.0-16.5); Mean Corp Hgb Conc 34.2 g/gl (32-36); Mean Corpuscular Hgb 30.4 pg (27.0-32.0); Mean Corpuscular Volume 88.8 fL (80-94); Mean Platelet Vol. 10.1 fl (6.2-12.0); Platelet Count 272 K/mm3 (150-450); RBC Distribution Width CV 13.4 % (11.6-14.6); RBC Distribution Width SD 43.2 fl (35.1-43.9); Red Blood Count 4.48 M/mm3 (4.6-6.2); White Blood Count 4.7 K/mm3 (4.4-11.0)
[2018-08-30 10:32] LABS: Scan Indicated on CBC? Y/N NO
[2018-08-30 10:53] LABS: Progesterone Level 0.08 ng/mL (See Comment); Vitamin B12 330 pg/mL (211-911); Vitamin D,25 Hydroxy 59.7 ng/mL (29.95-100.01)
[2018-08-30 12:11] LABS: ALB/GLOB Ratio 1.3 RATIO (0.9-2.4); AST(SGOT) 27 U/L (15-37); Alanine Aminotransfer ALT/SGPT 36 U/L (16-61); Albumin, Serum 4.1 g/dL (3.2-5.0); Alkaline Phosphatase 54 U/L (45-117); Anion Gap 7 (5-15); BUN 16 mg/dL (7-18); BUN/Creat Ratio 14.7 RATIO (10-20); Calcium,Total 8.8 mg/dL (8.5-10.1); Chloride 108 mmol/L (98-107); Cholesterol 206 mg/dL (200); Creatinine, Serum 1.09 mg/dL (0.70-1.30); EST Glomerular Filtration Rate 74 mL/min (>60); Est Glom Filt Rate - Afr Amer 90 mL/min (>60); Estradiol 13.7 pg/mL; Globulin 3.1 g/dL (2.2-4.2); Glucose 99 mg/dL (74-106); High Density Lipoprotein 48 mg/dL; Potassium 4.1 mmol/L (3.5-5.1); Protein, Total 7.2 g/dL (6.4-8.2); Sodium Level 142 mmol/L (136-145); Triglycerides 119 mg/dL; Very Low Density Lipoprotein 24 mg/dL (5-40)
[2018-09-04 09:06] LABS: Testosterone, % Free 1.85 % (1.50-4.20); Testosterone, Free 7.97 ng/dL (5.00-21.00)
[2018-09-04 09:59] LABS: DHEA Sulfate 174.7 ug/dL (48.9-344.2); Testosterone, Total 431 ng/dL (264-916)
== END ==
PROVIDERS: Family Provider Family Medicine; PCP Family Medicine; Referring Provider Registered Nurse; Visit Provider Registered Nurse
DX: R53.83 Other fatigue (principal)
CPT/HCPCS: 36415; 80053; 80061; 82306; 82607; 82627; 82670; 82746; 84144; 84402; 84403; 85027; 82626

== ENCOUNTER 2018-11-09 07:00 | Outpatient (RCR) | payer OTHER, SELFPAY ==
--- NOTE | 2018-10-11 11:45 | HP.PTEVAL_ITS ---
Patient's Visit Information MERLENE GUNTER is a 58 year old M referred to Physical Therapy by Syed Duarte MD with a diagnosis of cervicalDDD, L UT tightness.. Date of Evaluation: 10/11/18 Physical Therapist: Ronny Marsh, DPT, OCS, CSCS - Visit Plan Frequency: 2-3x /Week Duration: 4-6 Weeks Plan: Pt shown stretches of UT, cervical flexion, lev scap, rhomboids and mid trap today adn ball roll on rhomboids for self release all to be done 30 4 x daily. Will see Dry needling therapist for DN as found appropriate a nd manual as needed as well as progression of stretches and postural strenghtening as needed. - Subjective Findings: Got issues with L arm. it tingles at times in the whole arem adn part of L face. This is insidious in onset and about 14 years old. Worsening and is now constant. Getting more intense. Has had multiple injections in neck and shoulders and massage and chirpractic. Some of them help for a while. Comes back in a few days. Had MRI of neck this year which showed OA and bulging discs. Pushing on c45. Scans of head in past when it started and they were fine. Dull achy numb pain in the arm L neck down to arm down to hand. Had therapy prior for this which helps temporarily. gets golf sized knots under L shoulder blade. 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 Sleep is OK. Has h/o back surgery. Works all the time. Basic aDLsa re oK. - Pain L arm Pain Intensity (Out of 10): 3 Pain Intensity Range: 2, 4 Comment: work worsens - Objective Posture is forward head slightly but otherwise unremarkable, better than normal posture. Tender to the touch minimally in R>L UT but more so in mid traps and rhomboids R>L with palpable knots. L UT and rhomboids mildly tight. UE aROM is WNL but stiff and sore elevating OH trasniently. Strength is 5/5 except L ext rotation which is 4+ with mild scapular discomfort. Sensation UE is WNL to gross light touch in UE. reflexes 2/3 in bi and tri. repeated motion unremarkable today with full cervical ROM without pain or symptom changes with flexion or extension/retraction. - c/s compression. - VAT - Goals Goal 1:: rid knots in LB Goal Time Frame: 4-6 Weeks Goal 2:: Pt feel 75% better overall with L arm symptoms and scapular tightness. Goal Time Frame: 4-6 Weeks Goal 3:: I in appropriate management of condition with stretches and ex. Goal Time Frame: 4-6 Weeks - Rehabilitation Potential Rehabilitation Potential: Fair - Anticipated Interventions Patient/Client Instruction: Educate patient on: Condition, Plan of Care For the Purpose of:: To decrease pain, To increase tolerance to act ivity/condition/position Therapeutic Exercise to Include: Strength training, Flexibilty training, Passive ROM, Active ROM For the Purpose of:: To decrease pain, To increase tolerance to activity/condition/position, To improve ability of physical actions for home/community/work/leisure Manual Therapy Techniques to Include: Soft tissue mobilization Comment: dry needle as appropriate For the Purpose of:: To increase tolerance to activity/condition/position, To improve ability of physical actions for home/community/work/leisure Thank you for the opportunity to evaluate your patient. For Medicare and Medicare HMO plans, please review the plan of care and approve it. It will need to be FAXED BACK to us at [phone] for Medicare purposes. For Medicare only, by signing this I certify the plan of care. Please let me know if there are questions or concerns regarding this plan of care. Physician Signature: Date:
--- NOTE | 2018-11-09 07:22 | HP.PTREVAL ---
Syed Duarte MD, It has been my pleasure to treat MERLENE GUNTER over the last 4 visits for cervicalDDD, L UT tightness.. Please see the progress note below for an update on the physical therapy plan of care! Subjective: Pt. reports having [address] and being put back in by local chiropractor. Pt. reprots ribs are doing much better, but still has some tightness in his L UT/levator scap region and in his low back as well. Objective/Function: No issues noted post PT this date. Pt. continues to progress with DN, manual activities. Plan Plan: Pt. has done well with PT. Pt. is now to trial exercises and stretching on own for 2-3 weeks. If we starts to regress he is to come back and follow up, if I have not heard from him in ~1 month I will DC him back to physician. Goals Goal 1:: rid knots in LB Goal Time Frame: 4-6 Weeks Goal Progress: Goal Met Goal 2:: Pt feel 75% better overall with L arm symptoms and scapular tightness. Goal Time Frame: 4-6 Weeks Goal Progress: Goal Met Goal 3:: I in appropriate management of condition with stretches and ex. Goal Time Frame: 4-6 Weeks Goal Progress: Goal Met Anticipated Interventions Patient/Client Instruction: Educate patient on: Condition, Plan of Care For the Purpose of:: To decrease pain, To increase tolerance to activity/condition/position Therapeutic Exercise to Include: Strength training, Flexibilty training, Passive ROM, Active ROM For the Purpose of:: To decrease pain, To increase tolerance to activity/condition/position, To improve ability of physical actions for home/community/work/leisure Manual Therapy Techniques to Include: Soft tissue mobilization Comment: dry needle as appropriate For the Purpose of:: To increase tolerance to activity/condition/position, To improve ability of physical actions for home/community/work/leisure Please do not hesitate to contact me at [phone] by phone or if you have questions or concerns regarding this new plan of care! Sincerely, Isaias Palomo DPT
== END 2018-11-09 19:00 | disposition home or self-care (01) ==
LOC: PT 07:00
PROVIDERS: Family Provider Family Medicine; PCP Family Medicine; Visit Provider Family Medicine
DX: M50.30 Other cervical disc degeneration, unspecified cervical region (principal); M62.9 Disorder of muscle, unspecified; R20.2 Paresthesia of skin
CPT/HCPCS: 97014; 97110; 97140; 97162; G0283

== ENCOUNTER → 2018-12-23 | Outpatient (CLI) | payer OTHER, SELFPAY ==
[2018-12-23 07:46] LABS: Hematocrit 42.7 % (40-54); Hemoglobin 14.1 g/dL (13.0-16.5); Mean Corpuscular Hgb 30.3 pg (27.0-32.0); Mean Corpuscular Volume 91.6 fL (80-94); Mean Platelet Vol. 9.5 fl (6.2-12.0); Platelet Count 243 K/mm3 (150-450); RBC Distribution Width CV 12.7 % (11.6-14.6); RBC Distribution Width SD 42.4 fl (35.1-43.9); Red Blood Count 4.66 M/mm3 (4.6-6.2)
[2018-12-23 08:43] LABS: ALB/GLOB Ratio 1.3 RATIO (0.9-2.4); AST(SGOT) 26 U/L (15-37); Alanine Aminotransfer ALT/SGPT 46 U/L (16-61); Albumin, Serum 3.9 g/dL (3.2-5.0); Alkaline Phosphatase 65 U/L (45-117); Anion Gap 5 (5-15); BUN 18 mg/dL (7-18); BUN/Creat Ratio 16.8 RATIO (10-20); Calcium,Total 8.6 mg/dL (8.5-10.1); Chloride 108 mmol/L (98-107); Cholesterol 210 mg/dL (200); Creatinine, Serum 1.07 mg/dL (0.70-1.30); EST Glomerular Filtration Rate 76 mL/min (>60); Est Glom Filt Rate - Afr Amer 91 mL/min (>60); Estradiol < 11.0 pg/mL; Globulin 3.1 g/dL (2.2-4.2); Glucose 95 mg/dL (74-106); High Density Lipoprotein 49 mg/dL; Potassium 4.2 mmol/L (3.5-5.1); Sodium Level 142 mmol/L (136-145); Triglycerides 103 mg/dL; Very Low Density Lipoprotein 21 mg/dL (5-40)
[2018-12-25 09:42] LABS: Progesterone Level 0.03 ng/mL (See Comment); Vitamin B12 234 pg/mL (211-911); Vitamin D,25 Hydroxy 62.8 ng/mL (29.95-100.01)
[2018-12-26 09:07] LABS: Testosterone, % Free 1.68 % (1.50-4.20)
[2018-12-26 16:39] LABS: DHEA Sulfate 35.3 ug/dL (48.9-344.2); Testosterone, Total 536 ng/dL (264-916)
== END | disposition home or self-care (01) ==
LOC: LAB 07:10
PROVIDERS: Family Provider Family Medicine; PCP Family Medicine
DX: R53.82 Chronic fatigue, unspecified (principal); E29.1 Testicular hypofunction
CPT/HCPCS: 36415; 80053; 80061; 82306; 82607; 82627; 82670; 82746; 84144; 84402; 84403; 85027; 82626

== ENCOUNTER → 2019-02-01 09:49 | Outpatient (CLI) | payer OTHER, SELFPAY ==
--- NOTE | 2019-02-01 09:53 | RAD_ITS ---
STUDY: X-RAY - RIGHT FOOT CLINICAL: Male, 59 years old. Pain. TECHNIQUE: 3 view(s) of the foot. COMPARISON: None. FINDINGS: There is a plantar calcaneal spur. Normal talus and tarsal bones. There is minimal arthrosis of the visualized subtalar, talonavicular, calcaneocuboid, tarsal and tarsometatarsal articulations. Normal metatarsi. There is degenerative arthrosis of the metatarsophalangeal joint of the hallux . Normal tibial and fibular sesamoid bones. Normal interphalangeal joint of the great toe. Normal phalanges of the great toe. Normal second through fifth metatarsophalangeal joints. Normal interphalangeal joints and phalanges of the lesser toes. The soft tissue structures are unremarkable. RAD/Foot min 3 Views IMPRESSION: Mild arthrosis of the right foot. Electronically Signed: Pascual Duran DO at 21:02 EDT Tel [phone], Service support ,
== END ==
PROVIDERS: Family Provider Family Medicine; PCP Family Medicine; Referring Provider Podiatrist; Visit Provider Podiatrist
DX: M19.071 Primary osteoarthritis, right ankle and foot (principal)
CPT/HCPCS: 73630

== ENCOUNTER → 2019-03-21 15:48 | Outpatient (CLI) | payer OTHER, SELFPAY ==
--- NOTE | 2019-03-21 15:54 | MRI_ITS ---
STUDY: MRI RIGHT FOREFOOT WITH AND WITHOUT CONTRAST REASON FOR EXAM: Male, 59 years old. Pain. TECHNIQUE: Standardized fat and water weighted pulse sequences were obtained in all 3 orthogonal planes, post contrast administration. IV Dotarem 20 was administered for the contrast portion of the examination. COMPARISON: X-ray February 01, 2018 FINDINGS: There is arthrosis of the metatarsophalangeal joint of the hallux. There is moderate joint effusion with synovial enhancement. There is spurring with edema and enhancement of the distal first metatarsal and the first proximal phalanx. There are subchondral cysts or erosions of the first metatarsal head, series 7 image 21/40. Normal tibial and fibular sesamoids, with normal sesamoids-first metatarsal articulations. Normal interphalangeal joint of the hallux. Normal medial and lateral heads of the flexor hallucis brevis tendons. Normal flexor and extensor hallucis longus tendons. Normal second through fifth metatarsophalangeal (MTP) joints. Normal interphalangeal joints of the second through fifth toes. Normal proximal, middle and distal phalanges of the second through fifth toes. Normal flexor and extensor tendons of the second through fifth toes. Normal first through fourth intermetatarsal spaces. There is cyst or erosion of the fifth metatarsal head, series 7 image 14/40. Normal intrinsic muscles of the forefoot. There is no demonstrated soft tissue abnormality. MRI/Lower Ext No Joint W/WO Cont IMPRESSION: Arthritic change at the first MTP joint with edema and enhancement, cysts or erosions, and effusion with synovitis suggesting inflammatory component. Electronically Signed: Tony Villa MD at 17:51 EDT , Service support ,
== END ==
PROVIDERS: Family Provider Family Medicine; PCP Family Medicine; Referring Provider Podiatrist; Visit Provider Podiatrist
DX: D49.2 Neoplasm of unspecified behavior of bone, soft tissue, and skin (principal)
CPT/HCPCS: 73720; A9575

== ENCOUNTER → 2019-04-25 08:51 | Outpatient (CLI) | payer OTHER, SELFPAY ==
[2019-04-25 10:09] LABS: Hematocrit 42.5 % (40-54); Mean Corp Hgb Conc 32.9 g/dL (32-36); Mean Platelet Vol. 9.9 fl (6.2-12.0); Platelet Count 266 K/mm3 (150-450); RBC Distribution Width CV 12.7 % (11.6-14.6); Red Blood Count 4.67 M/mm3 (4.6-6.2); White Blood Count 5.1 K/mm3 (4.4-11.0)
[2019-04-25 10:49] LABS: ALB/GLOB Ratio 1.3 RATIO (0.9-2.4); AST(SGOT) 42 U/L (15-37); Alanine Aminotransfer ALT/SGPT 69 U/L (16-61); Albumin, Serum 4.2 g/dL (3.2-5.0); Alkaline Phosphatase 71 U/L (45-117); Anion Gap 6 (5-15); BUN 16 mg/dL (7-18); BUN/Creat Ratio 15.4 RATIO (10-20); Calcium,Total 8.6 mg/dL (8.5-10.1); Chloride 109 mmol/L (98-107); Cholesterol 231 mg/dL (200); Creatinine, Serum 1.04 mg/dL (0.70-1.30); EST Glomerular Filtration Rate 78 mL/min (>60); Est Glom Filt Rate - Afr Amer 94 mL/min (>60); Globulin 3.2 g/dL (2.2-4.2); Glucose 91 mg/dL (74-106); High Density Lipoprotein 54 mg/dL; PSA,Total - Annual Screen 2.27 ng/mL (0.00-4.00); Potassium 4.6 mmol/L (3.5-5.1); Protein, Total 7.4 g/dL (6.4-8.2); Sodium Level 141 mmol/L (136-145); Triglycerides 98 mg/dL; Very Low Density Lipoprotein 20 mg/dL (5-40)
[2019-04-25 11:17] LABS: Progesterone Level 0.04 ng/mL (See Comment); Vitamin B12 593 pg/mL (211-911); Vitamin D,25 Hydroxy 64.4 ng/mL (29.95-100.01)
[2019-04-28 14:07] LABS: Testosterone, % Free 2.05 % (1.50-4.20); Testosterone, Free 12.46 ng/dL (5.00-21.00)
[2019-04-30 20:27] LABS: DHEA Sulfate 12.3 ug/dL (48.9-344.2); Testosterone, Total 608 ng/dL (264-916)
== END ==
PROVIDERS: Family Provider Family Medicine; PCP Family Medicine; Referring Provider Family Medicine; Visit Provider Nurse Practitioner Family
DX: Z00.00 Encounter for general adult medical examination without abnormal findings (principal)
CPT/HCPCS: 36415; 80053; 80061; 82306; 82607; 82627; 82670; 82746; 84144; 84153; 84402; 84403; 85027; 82626; G0103

== ENCOUNTER → 2019-11-13 16:39 | Outpatient (CLI) | payer OTHER, SELFPAY ==
[2019-06-24 10:40] VITALS: BMI 24.7
--- NOTE | 2019-11-13 16:43 | RAD_ITS ---
STUDY: X-RAY - LUMBAR SPINE REASON FOR EXAM: Male, 59 years old. Acute exacerbation of chronic low back pain TECHNIQUE: 5 view(s) of the lumbar spine were obtained. COMPARISON: 2016 FINDINGS: There is straightening of the normal lumbar lordosis. There is no substantial scoliosis. There is a normal alignment of the vertebrae. There is multilevel endplate spondylosis of the lumbar vertebrae. There is multi-level degenerative disc disease with multi-level disc space narrowing. There is no demonstrated fracture. The soft tissue structures are unremarkable. RAD/L/S Spine Min 4 Views IMPRESSION: Degenerative changes of the spine, as detailed above. Electronically Signed: David Caldwell MD at 7:40 EDT , Service support ,
[2019-11-13 16:50] LABS: Bacteria 0 SEEN /hpf (None Seen); Mucous, Urine 0 SEEN /hpf (<or=2+); Red Blood Cells-Urine 0 SEEN /hpf (0-5); White Blood Cells 0 SEEN /hpf (0-5)
[2019-11-13 18:01] LABS: Absolute Lymphocyte Count 2.48 X10^3/uL (0.83-4.51); Absolute Neutrophil Count 4.2 X10^3/uL (2.0-7.7); Basophil# 0.05 X10^3/uL; Basophil% 0.7 % (0-1); Eosinophil# 0.26 X10^3/uL; Eosinophils% 3.4 % (0-5); Hematocrit 41.7 % (40-54); Hemoglobin 13.7 g/dL (13.0-16.5); Lymphocyte # 2.48 X10^3/ul (4.0); Lymphocyte % 32.7 % (19-41); Mean Corp Hgb Conc 32.9 g/dL (32-36); Mean Corpuscular Hgb 30.4 pg (27.0-32.0); Mean Corpuscular Volume 92.5 fL (80-94); Monocyte# 0.59 X10^3/uL; Monocyte% 7.8 % (0-10); NRBC Flagged by Analyzer 0 % (0-5); Neutrophil # 4.18 X10^3/uL (2.7-7.7); Neutrophil % 55.1 % (47-70); Platelet Count 262 K/mm3 (150-450); RBC Distribution Width CV 13.1 % (11.6-14.6); RBC Distribution Width SD 43.7 fl (35.1-43.9); Red Blood Count 4.51 M/mm3 (4.6-6.2); White Blood Count 7.6 K/mm3 (4.4-11.0)
[2019-11-13 18:03] LABS: Color, Urine Straw (Yellow); Glucose, Dipstick Normal (Normal); Ketone-Dipstick Negative (Negative); Leukocyte Esterase-Dipstick Negative /ul (Negative); Nitrite-Dipstick Negative (Negative); Occult Blood-Urine Negative /ul (Negative); Protein-Dipstick Negative (Negative); Urine Bilirubin Dipstick Negative (Negative); Urine Clarity Clear (Clear); Urine Urobilinogen Normal (Normal)
[2019-11-13 18:15] LABS: Erythrocyte Sedimentation Rate 1 mm/hr (0-20)
[2019-11-13 18:29] LABS: Squamous Epithelial Cells - UA 0-5 SEEN /hpf (0-5)
[2019-11-13 18:55] LABS: ALB/GLOB Ratio 1.2 RATIO (0.9-2.4); AST(SGOT) 29 U/L (15-37); Alanine Aminotransfer ALT/SGPT 48 U/L (16-61); Albumin, Serum 4.2 g/dL (3.2-5.0); Alkaline Phosphatase 73 U/L (45-117); Anion Gap 5 (5-15); BUN 18 mg/dL (7-18); BUN/Creat Ratio 16.5 RATIO (10-20); CRP < 2.90 mg/L (0.0-3.0); Calcium,Total 9.3 mg/dL (8.5-10.1); Chloride 103 mmol/L (98-107); Creatinine, Serum 1.09 mg/dL (0.70-1.30); EST Glomerular Filtration Rate 74 mL/min (>60); Est Glom Filt Rate - Afr Amer 89 mL/min (>60); Globulin 3.5 g/dL (2.2-4.2); Glucose 81 mg/dL (74-106); Potassium 3.7 mmol/L (3.5-5.1); Protein, Total 7.7 g/dL (6.4-8.2); Sodium Level 139 mmol/L (136-145)
== END ==
PROVIDERS: PCP Family Medicine; Referring Provider Family Medicine; Visit Provider Family Medicine
DX: M54.5 Low back pain (principal)
CPT/HCPCS: 36415; 72110; 80053; 81001; 85025; 85652; 86140; 87086

== ENCOUNTER → 2020-02-16 07:14 | Outpatient (CLI) | payer OTHER, SELFPAY ==
[2019-06-24 10:40] VITALS: BMI 24.7
[2020-02-16 08:21] LABS: Anion Gap 3 (5-15); BUN 14 mg/dL (7-18); BUN/Creat Ratio 11.9 RATIO (10-20); Calcium,Total 8.8 mg/dL (8.5-10.1); Chloride 108 mmol/L (98-107); Cholesterol 217 mg/dL (200); Creatinine, Serum 1.18 mg/dL (0.70-1.30); EST Glomerular Filtration Rate 67 mL/min (>60); Est Glom Filt Rate - Afr Amer 81 mL/min (>60); Glucose 94 mg/dL (74-106); High Density Lipoprotein 43 mg/dL; PSA,Total - Annual Screen 3.42 ng/mL (0.00-4.00); Potassium 4.2 mmol/L (3.5-5.1); Sodium Level 140 mmol/L (136-145); Triglycerides 138 mg/dL; Very Low Density Lipoprotein 28 mg/dL (5-40)
== END ==
PROVIDERS: PCP Family Medicine; Referring Provider Family Medicine; Visit Provider Family Medicine
DX: Z00.00 Encounter for general adult medical examination without abnormal findings (principal)
CPT/HCPCS: 36415; 80048; 80061; 84153; G0103

== ENCOUNTER → 2021-03-07 07:10 | Outpatient (CLI) | payer OTHER, SELFPAY ==
[2021-03-07 07:48] LABS: AST(SGOT) 23 U/L (15-37); Alanine Aminotransfer ALT/SGPT 42 U/L (16-61); Albumin, Serum 3.7 g/dL (3.2-5.0); Alkaline Phosphatase 71 U/L (45-117); Anion Gap 5 (5-15); BUN 17 mg/dL (7-18); BUN/Creat Ratio 14.7 RATIO (10-20); Calcium,Total 8.9 mg/dL (8.5-10.1); Chloride 107 mmol/L (98-107); Cholesterol 215 mg/dL (200); Creatinine, Serum 1.16 mg/dL (0.70-1.30); EST Glomerular Filtration Rate 68 mL/min (>60); Est Glom Filt Rate - Afr Amer 83 mL/min (>60); Globulin 3.6 g/dL (2.2-4.2); Glucose 103 mg/dL (74-106); High Density Lipoprotein 45 mg/dL; PSA,Total - Annual Screen 4.01 ng/mL (0.00-4.00); Potassium 4.4 mmol/L (3.5-5.1); Protein, Total 7.3 g/dL (6.4-8.2); Sodium Level 140 mmol/L (136-145); Triglycerides 158 mg/dL; Very Low Density Lipoprotein 32 mg/dL (5-40)
== END ==
PROVIDERS: PCP Family Medicine; Referring Provider Family Medicine; Visit Provider Family Medicine
DX: I10 Essential (primary) hypertension (principal); Z12.5 Encounter for screening for malignant neoplasm of prostate; K58.9 Irritable bowel syndrome, unspecified
CPT/HCPCS: 36415; 80053; 80061; 84153; G0103

== ENCOUNTER 2021-06-09 16:49 | Outpatient (CLI) | payer OTHER, SELFPAY | END 2021-06-09 23:59 | disposition short-term general hospital (02) | PROVIDERS: PCP Family Medicine; Referring Provider Family Medicine; Visit Provider Family Medicine | DX: U07.1 COVID-19 (principal) | CPT/HCPCS: 87635; U0003; U0005 ==

== ENCOUNTER 2021-06-13 09:29 | Outpatient (CLI) | payer OTHER, SELFPAY ==
[2021-06-13 09:38] VITALS: BP 142/104; PULSE 68; RESP 16; TEMP 36.4; O2SAT 99; BMI 27.7
[2021-06-13] MEDS: 0.9% Saline Lock 10 ML Syringe IV (09:43)
[2021-06-13 10:14] VITALS: BP 141/93; PULSE 60; RESP 16; TEMP 36.8; O2SAT 99
[2021-06-13 11:00] VITALS: BP 155/101; PULSE 56; RESP 16; TEMP 36.6; O2SAT 95
== END 2021-06-13 23:59 | disposition home or self-care (01) ==
LOC: MS3OUT 09:29 → MS3 09:30
PROVIDERS: PCP Family Medicine; Referring Provider Nurse Practitioner Adult Health; Visit Provider Nurse Practitioner Adult Health
DX: Z23 Encounter for immunization (principal); U07.1 COVID-19
CPT/HCPCS: J7050; M0245; Q0245; A4216

== ENCOUNTER → 2021-11-13 | Outpatient (CLI) | payer OTHER, SELFPAY ==
--- NOTE | 2021-11-13 17:44 | CT_ITS ---
EXAM: CT CHEST WITH INTRAVENOUS CONTRAST CLINICAL INDICATION: PAIN, TECHNIQUE: Helically acquired images were obtained of the chest with intravenous contrast. This CT exam was performed using one or more of the following dose reduction techniques: automated exposure control, adjustment of the mA and/or kV according to patient size, and/or use of iterative reconstruction technique. This report was created using [employer] report generation technology. CONTRAST: isovue 370 75 ml RADIATION DOSE: CTDIvol = 18.9 mGy, DLP = 541.25 mGy-cm COMPARISON: CT abdomen and pelvis 01/19/2015 FINDINGS: LUNGS AND PLEURAL SPACES: Unremarkable. No mass. No consolidation or edema. No pleural effusion or thickening. No pneumothorax. HEART: Unremarkable. Heart size is normal. No pericardial effusion. No significant coronary artery calcifications. MEDIASTINUM: Unremarkable. No mediastinal or hilar adenopathy. Esophagus is unremarkable. No hiatal hernia. THYROID: Unremarkable. No thyroid lesions. BONES/JOINTS: Unremarkable. No suspicious lytic or blastic abnormality. VASCULATURE: Unremarkable. Thoracic aorta is non-dilated. No thoracic aortic dissection. No obvious central pulmonary embolism although this study was not performed with the pulmonary embolism protocol. LIVER: Poorly defined 15 mm hypodensity in the inferior right lobe of the liver. This is stable since 2015 and is likely benign. ACR White Paper guidelines (Morris Chapel, et al. JACR 2017; 14(11):2236-3160.) suggest no follow-up is necessary. OTHER FINDINGS: No acute findings in the chest. CT/Chest WITH Contrast IMPRESSION: No acute findings in the chest. Electronically Signed: Blayne Mccormack MD at 22:04 EDT ,
[2021-11-13 17:50] LABS: CREATININE FINGERSTICK 1.3 mg/dL (0.70-1.30); EGFR FINGERSTICK > 60.0000 mL/min (>60)
== END | disposition home or self-care (01) ==
LOC: CT 17:40
PROVIDERS: PCP Family Medicine; Visit Provider Family Medicine
DX: R07.89 Other chest pain (principal)
CPT/HCPCS: 71260; Q9967

== ENCOUNTER → 2021-12-07 | Outpatient (CLI) | payer OTHER, SELFPAY ==
--- NOTE | 2021-12-07 12:36 | RAD_ITS ---
STUDY: XR Knee Complete 4 Views or More 12/07/2021 5:19 PM REASON FOR EXAM: Male, 61 years old. PAIN left knee pain TECHNIQUE: XR Knee Complete 4 Views or More LEFT COMPARISON: None FINDINGS: Normal visualized distal femur. Normal visualized proximal tibia and fibula. Normal proximal tibiofibular articulation. Normal medial femorotibial compartment. Normal lateral femorotibial compartment. Normal patellofemoral articulation. The soft tissue structures are unremarkable. RAD/Knee 4 or More Views IMPRESSION: There are no acute findings. Electronically Signed: Blayne Mccormack MD at 17:19 EDT ,
== END | disposition home or self-care (01) ==
PROVIDERS: PCP Family Medicine; Referring Provider Family Medicine; Visit Provider Family Medicine
DX: M25.562 Pain in left knee (principal)
CPT/HCPCS: 73564

== ENCOUNTER → 2022-02-02 | Outpatient (CLI) | payer OTHER, SELFPAY ==
--- NOTE | 2022-02-02 15:20 | RAD_ITS ---
STUDY: X-RAY CHEST REASON FOR EXAM: Male, 62 years old. Cough 3 days. TECHNIQUE: Frontal and lateral views of the chest. COMPARISON: None. FINDINGS: Low volume inspiration with patchy opacities at both bases, right greater than left, most compatible with atelectasis. Early/developing pneumonia cannot be excluded and follow-up chest imaging to resolution recommended. There is no demonstrated pleural abnormality. Cardiomegaly. Normal mediastinum and markell. Normal visualized pulmonary arteries. Aortic tortuosity. Normal visualized thoracic spine. Normal visualized ribs, clavicles, and shoulders. There is no demonstrated abnormality of the visualized soft tissue structures of the upper abdomen. RAD/Chest PA and Lateral IMPRESSION: Cardiomegaly with low volume inspiration and bilateral patchy opacities, right greater than left, most compatible with atelectasis. Early/developing pneumonia cannot be excluded and follow up chest imaging to resolution recommended. Electronically Signed: Soham Taveras, at 9:25 EDT ,
== END | disposition home or self-care (01) ==
LOC: MTRAD 15:18
PROVIDERS: PCP Family Medicine; Referring Provider Family Medicine; Visit Provider Family Medicine
DX: J39.9 Disease of upper respiratory tract, unspecified (principal)
CPT/HCPCS: 71046

== ENCOUNTER → 2022-02-08 | Outpatient (CLI) | payer OTHER, SELFPAY ==
--- NOTE | 2022-02-08 16:56 | RAD_ITS ---
INDICATION: PNEUMONIA EXAMINATION/TECHNIQUE: X-RAY - XR Chest 2 Views COMPARISON: 02/02/2022. FINDINGS: LINES/DEVICES: None. LUNGS: Peribronchial cuffing bilateral hilar prominence is seen. This demonstrates no significant change in comparison to the prior study. Mild perihilar bronchovascular prominence is seen that demonstrates no change, the bronchovascular markings otherwise unremarkable with no evidence of focal infiltrate or consolidation. No evidence of pneumothorax or pleural effusion. The costophrenic angles are clear bilaterally. MEDIASTINUM AND CARDIOVASCULAR STRUCTURES: Cardiac silhouette not enlarged. BONES AND SOFT TISSUES: Unremarkable. RAD/Chest PA and Lateral IMPRESSION: Peribronchial cuffing and perihilar prominence demonstrate no change, no evidence of acute cardiopulmonary disease is seen. Electronically Signed: Cosmo Phelps MD at 10:18 EDT ,
== END | disposition home or self-care (01) ==
LOC: MTRAD 16:55
PROVIDERS: PCP Family Medicine; Referring Provider Family Medicine; Visit Provider Family Medicine
DX: J18.9 Pneumonia, unspecified organism (principal)
CPT/HCPCS: 71046

== ENCOUNTER → 2022-03-05 | Outpatient (CLI) | payer OTHER, SELFPAY ==
--- NOTE | 2022-03-05 07:05 | RAD_ITS ---
STUDY: X-RAY CHEST REASON FOR EXAM: Male, 62 years old. Pneumonia. TECHNIQUE: PA and lateral views of the chest. COMPARISON: 02/08/2022 FINDINGS: The lungs are clear and expanded. There is evidence of peribronchial thickening and perihilar prominence unchanged from prior study. There is no demonstrated pleural abnormality. Normal size heart. Normal mediastinum and markell. Normal visualized pulmonary arteries. Normal visualized aortic arch and descending thoracic aorta. No osseous changes. There is no demonstrated abnormality of the visualized soft tissue structures of the upper abdomen. RAD/Chest PA and Lateral IMPRESSION: Stable findings when compared to prior study. Question bronchitis versus reactive airway disease. Electronically Signed: Pascual Duran DO at 16:15 EDT ,
[2022-03-05 10:53] LABS: ALB/GLOB Ratio 1.1 RATIO (0.9-2.4); AST(SGOT) 21 U/L (15-37); Alanine Aminotransfer ALT/SGPT 42 U/L (16-61); Albumin, Serum 3.8 g/dL (3.2-5.0); Alkaline Phosphatase 69 U/L (45-117); Anion Gap 5 (5-15); BUN 12 mg/dL (7-18); BUN/Creat Ratio 10.8 RATIO (10-20); Chloride 109 mmol/L (98-107); Cholesterol 200 mg/dL (200); Creatinine, Serum 1.11 mg/dL (0.70-1.30); EST Glomerular Filtration Rate 72 mL/min (>60); Est Glom Filt Rate - Afr Amer 87 mL/min (>60); Globulin 3.6 g/dL (2.2-4.2); Glucose 95 mg/dL (74-106); High Density Lipoprotein 45 mg/dL; PSA,Total- Diagnostic 3.53 ng/mL (0.0-4.0); Potassium 4.3 mmol/L (3.5-5.1); Protein, Total 7.4 g/dL (6.4-8.2); Sodium Level 141 mmol/L (136-145); Triglycerides 131 mg/dL; Very Low Density Lipoprotein 26 mg/dL (5-40)
[2022-03-07 11:37] LABS: PSA, Free 0.89 ng/mL; PSA, Free % 29.1 % (.)
== END | disposition home or self-care (01) ==
LOC: MTLAB 07:05
PROVIDERS: PCP Family Medicine; Referring Provider Family Medicine; Visit Provider Family Medicine
DX: J18.9 Pneumonia, unspecified organism (principal); R97.20 Elevated prostate specific antigen [PSA]; I10 Essential (primary) hypertension
CPT/HCPCS: 71046; 80053; 80061; 84153; 84154

== ENCOUNTER 2022-04-23 17:44 | Outpatient (CLI) | payer OTHER, SELFPAY ==
--- NOTE | 2022-04-23 17:50 | CT_ITS ---
STUDY: CT ABDOMEN WITHOUT CONTRAST REASON FOR EXAM: Male, 62 years old. History esophageal reflux disease. RADIATION DOSAGE (If Supplied By Facility): CTDIvol = ( 15.86 ) mGy, DLP = ( 725.27 ) mGycm TECHNIQUE: Transaxial images were obtained without intravenous contrast, and without oral contrast. Sagittal and coronal images were reconstructed. Individualized dose optimization techniques were used for this CT. COMPARISON: January 19, 2015. FINDINGS: The visualized lung bases are unremarkable. The visualized portions of the heart are within normal limits. Normal liver. Normal gallbladder and extrahepatic biliary system. Normal spleen. Normal pancreas. Normal bilateral adrenal glands. Normal right kidney. Normal left kidney. Normal bilateral ureters. Normal visualized stomach. Normal small intestine. Sigmoid diverticulosis without acute inflammatory change. The proximal colon is unremarkable. The appendix is visualized and appears normal. Normal abdominal aorta. Normal inferior vena cava. Normal retroperitoneum. The upper urinary bladder appears grossly normal. Normal abdominal wall. Normal osseous structures. CT/Abdomen without IV Contrast IMPRESSION: 1. No evidence of acute intraabdominal process. 2. Diverticulosis without inflammatory change. This appears stable. Electronically Signed: Pascual Duran DO at 18:21 EST ,
== END 2022-04-23 23:59 | disposition home or self-care (01) ==
PROVIDERS: PCP Family Medicine; Visit Provider Family Medicine
DX: K21.9 Gastro-esophageal reflux disease without esophagitis (principal); K57.90 Diverticulosis of intestine, part unspecified, without perforation or abscess without bleeding
CPT/HCPCS: 74150

== ENCOUNTER → 2022-08-13 | Outpatient (CLI) | payer OTHER, SELFPAY ==
[2022-08-13 10:05] LABS: Absolute Lymphocyte Count 1.61 X10^3/uL (0.83-4.51); Absolute Neutrophil Count 2.9 X10^3/uL (2.0-7.7); Basophil# 0.04 X10^3/uL; Basophil% 0.8 % (0-1); Eosinophil# 0.13 X10^3/uL; Eosinophils% 2.5 % (0-5); Hematocrit 42.3 % (40-54); Hemoglobin 13.8 g/dL (13.0-16.5); Lymphocyte # 1.61 X10^3/ul (0.83-4.51); Lymphocyte % 31.6 % (19-41); Mean Corp Hgb Conc 32.6 g/dL (32-36); Mean Corpuscular Hgb 30.4 pg (27.0-32.0); Mean Corpuscular Volume 93.2 fL (80-94); Mean Platelet Vol. 9.9 fl (6.2-12.0); Monocyte# 0.39 X10^3/uL; Monocyte% 7.6 % (0-10); NRBC Flagged by Analyzer 0 % (0-5); Neutrophil # 2.92 X10^3/uL (2.7-7.7); Neutrophil % 57.3 % (47-70); Platelet Count 298 K/mm3 (150-450); RBC Distribution Width SD 44.3 fl (35.1-43.9); Red Blood Count 4.54 M/mm3 (4.6-6.2); White Blood Count 5.1 K/mm3 (4.4-11.0)
[2022-08-13 10:29] LABS: ALB/GLOB Ratio 1.1 RATIO (0.9-2.4); AST(SGOT) 28 U/L (15-37); Alanine Aminotransfer ALT/SGPT 45 U/L (16-61); Albumin, Serum 3.9 g/dL (3.2-5.0); Alkaline Phosphatase 63 U/L (45-117); Anion Gap 8 (5-15); BUN 18 mg/dL (7-18); Calcium,Total 9.3 mg/dL (8.5-10.1); Chloride 105 mmol/L (98-107); Cholesterol 189 mg/dL (200); EST Glomerular Filtration Rate 81 mL/min (>60); Est Glom Filt Rate - Afr Amer 98 mL/min (>60); Globulin 3.5 g/dL (2.2-4.2); Glucose 95 mg/dL (74-106); High Density Lipoprotein 58 mg/dL; Potassium 4.4 mmol/L (3.5-5.1); Protein, Total 7.4 g/dL (6.4-8.2); Sodium Level 140 mmol/L (136-145); Triglycerides 80 mg/dL; Very Low Density Lipoprotein 16 mg/dL (5-40)
[2022-08-13 11:46] LABS: Vitamin B12 > 2000 pg/mL (211-911)
== END | disposition home or self-care (01) ==
LOC: MTLAB 07:00
PROVIDERS: PCP Family Medicine; Referring Provider Family Medicine; Visit Provider Family Medicine
DX: Z00.00 Encounter for general adult medical examination without abnormal findings (principal); V70.0XXA Driver of bus injured in collision with pedestrian or animal in nontraffic accident, initial encounter
CPT/HCPCS: 36415; 80053; 80061; 82306; 82607; 85025

== ENCOUNTER 2023-08-27 08:24 | Outpatient (CLI) | payer OTHER, SELFPAY ==
[2023-08-27 09:54] LABS: ALB/GLOB Ratio 1.1 RATIO (0.9-2.4); AST(SGOT) 25 U/L (15-37); Alanine Aminotransfer ALT/SGPT 38 U/L (16-61); Albumin, Serum 3.7 g/dL (3.2-5.0); Alkaline Phosphatase 57 U/L (45-117); Anion Gap 5 (5-15); BUN 15 mg/dL (7-18); BUN/Creat Ratio 13.3 RATIO (10-20); Calcium,Total 8.8 mg/dL (8.5-10.1); Chloride 109 mmol/L (98-107); Cholesterol 234 mg/dL (200); Creatinine, Serum 1.13 mg/dL (0.70-1.30); EST Glomerular Filtration Rate 70 mL/min (>60); Est Glom Filt Rate - Afr Amer 84 mL/min (>60); Globulin 3.4 g/dL (2.2-4.2); Glucose 102 mg/dL (74-106); High Density Lipoprotein 49 mg/dL; PSA,Total - Annual Screen 3.64 ng/mL (0.00-4.00); Potassium 4.3 mmol/L (3.5-5.1); Protein, Total 7.1 g/dL (6.4-8.2); Sodium Level 140 mmol/L (136-145); Triglycerides 146 mg/dL; Very Low Density Lipoprotein 29 mg/dL (5-40)
[2023-08-29 09:22] LABS: Vitamin B12 806 pg/mL (211-911); Vitamin D,25 Hydroxy 49.5 ng/mL
== END 2023-08-27 23:59 | disposition home or self-care (01) ==
PROVIDERS: PCP Family Medicine; Referring Provider Family Medicine; Visit Provider Family Medicine
DX: Z00.00 Encounter for general adult medical examination without abnormal findings (principal)
CPT/HCPCS: 36415; 80053; 80061; 82306; 82607; 84153; G0103

== ENCOUNTER → 2024-06-25 | Outpatient (CLI) | payer OTHER, SELFPAY ==
[2024-06-25 16:49] LABS: PSA,Total- Diagnostic 5.63 ng/mL (0.0-4.0)
== END | disposition home or self-care (01) ==
LOC: LAB 15:05
PROVIDERS: PCP Family Medicine; Referring Provider Urology; Visit Provider Urology
DX: R97.20 Elevated prostate specific antigen [PSA] (principal)
CPT/HCPCS: 36415; 84153

== ENCOUNTER → 2024-07-03 | Outpatient (CLI) | payer OTHER, SELFPAY ==
--- NOTE | 2024-07-03 | IMM_PTH ---
PATIENT: MERLENE GUNTER LOC: [facility] U#:[id number] AGE/SX: 64/M ROOM: RE07/03/[address]: Dr. Immanuel Centeno MD : 1960 BED: DIS: 07/03/2024 SPEC #: [id number] RECD: 07/05/24 11:15 STATUS: CHANEL REQ #: [id number] MADDY: 07/03/24 00:[address]: Immanuel Centeno DEPT: IMMUNOHISTOCHEMISTRY RECD BY: Juan Miguel Crowder ENTERED: 07/05/24 11:16 SP TYPE: IMMUNO OTHR DR: Dr. Pacheco Duarte MD Tissues: E - PROSTATE LEFT F - PROSTATE LEFT Procedures: 34BE12 (add) P40 (add) P40 (initial) PHYSICIAN & INSTITUTION [place] [id number] SPECIMEN INFORMATION: Tissue Source: E- Left mid, F- Left base Clinical Info: Elevated PSA Specimen Number: [id number] E, F CPT code: 30913,24986l1 METHODOLOGY: Deparaffinized sections of prefer/formalin-fixed tissue or PAP/DQ stained slides are incubated with monoclonal/polyclonal antibodies/oligonucleotide probes. Localization is made via biotin free immunoperoxidase method. Appropriate controls are performed and reacted as expected. Results on target cell population are indicated in the following table: RESULTS: ANTIBODY / CLONE RESULT Block E P40 (BC28) positive 34BE12 (34BE12) positive Block F P40 (BC28) positive 34BE12 (34BE12) positive These tests were developed and their performance characteristics determined by [facility]. They may not have been cleared or approved by the U.S. Food and Drug Administration. The FDA has determined that such clearance or approval is not necessary. The above immunohistochemical/dualISH markers are ordered and reviewed by the Pathologist. INTERPRETATION: E. Prostate, left mid, core biopsy: Focal high-grade prostatic intraepithelial neoplasia (HGPIN). F. Prostate, left base, core biopsy: Focal high-grade prostatic intraepithelial neoplasia (HGPIN). 07/06/2024
--- NOTE | 2024-07-03 08:00 | PROSBIL_PTH ---
PATIENT: MERLENE GUNTER LOC: [facility] U#:[id number] AGE/SX: 64/M ROOM: RE07/03/[address]: Dr. Immanuel Centeno MD : 1960 BED: DIS: 07/03/2024 SPEC #: [id number] RECD: 07/03/24 15:34 STATUS: CHANEL RELauren #: [id number] MADDY: 07/03/24 08:[address]: Immanuel Centeno DEPT: SURGICAL PATHOLOGY RECD BY: Addie Ledezma ENTERED: 07/04/24 09:37 SP TYPE: PROST BX ROBIN DR: Dr. Pacheco Duarte MD Tissues: A - PROSTATE RIGHT B - PROSTATE RIGHT C - PROSTATE RIGHT D - PROSTATE LEFT E - PROSTATE LEFT F - PROSTATE LEFT Procedures: PROSTATE BX HEADER OPERATION: Prostate biopsy PRE-OP DIAGNOSIS: Elevated PSA TISSUE SUBMITTED: A - Right apex, B - Right mid, C - Right base, D - Left apex, E - Left mid, F - Left base MICROSCOPIC DIAGNOSIS A. Right prostate, apex, core biopsy: Prostatic tissue, negative for malignancy. B. Right prostate, mid, core biopsy: Prostatic tissue, negative for malignancy. C. Right prostate, base, core biopsy: Prostatic tissue, negative for malignancy. D. Left prostate, apex, core biopsy: Prostatic tissue, negative for malignancy. Focal mild chronic inflammation. E. Left prostate, mid, core biopsy: Focal high-grade prostatic intraepithelial neoplasia (HGPIN). See comment. F. Left prostate, base, core biopsy: Focal high-grade prostatic intraepithelial neoplasia (HGPIN). See comment. 07/05/2024 COMMENT E, F. Immunohistochemistry ([id number]) supports the above diagnosis. MICROSCOPIC DESCRIPTION Slides are reviewed. GROSS DESCRIPTION A - Received is one container designated prostate, right apex. The specimen consists of one elongated fragments of light knapp-white soft tissue measuring 1 cm in length and 0.1 cm in diameter. The specimen is totally submitted in one cassette. B - Received is one container designated prostate, right mid. The specimen consists of one elongated fragments of light knapp-white soft tissue measuring 1 cm in length and 0.1 cm in diameter. The specimen is totally submitted in one cassette. C - Received is one container designated prostate, right base. The specimen consists of one elongated fragments of light knapp-white soft tissue measuring 0.7 cm in length and 0.1 cm in diameter. The specimen is totally submitted in one cassette. D - Received is one container designated prostate, left apex. The specimen consists of one elongated fragments of light knapp-white soft tissue measuring 0.5 cm in length and 0.1 cm in diameter. The specimen is totally submitted in one cassette. E - Received is one container designated prostate, left mid. The specimen consists of one elongated fragments of light knapp-white soft tissue measuring 0.5 cm in length and 0.1 cm in diameter. The specimen is totally submitted in one cassette. F - Received is one container designated prostate, left base. The specimen consists of one elongated fragments of light knapp-white soft tissue measuring 0.4 cm in length and 0.1 cm in diameter. The specimen is totally submitted in one cassette. / SJ.mr 07/04/2024 TC:5 CPT: 04478 x6
== END | disposition home or self-care (01) ==
LOC: LABSPEC 15:38
PROVIDERS: PCP Family Medicine; Referring Provider Urology; Visit Provider Urology
DX: R97.20 Elevated prostate specific antigen [PSA] (principal)
CPT/HCPCS: 88305; 88341; 88342; G0416

== ENCOUNTER 2024-08-31 07:07 | Outpatient (CLI) | payer OTHER, SELFPAY ==
[2024-08-31 10:30] LABS: Hemoglobin 14.4 g/dL (13.0-16.5); Mean Corp Hgb Conc 33.5 g/dL (32-36); Mean Corpuscular Hgb 31.8 pg (27.0-32.0); Mean Corpuscular Volume 94.9 fL (80-94); Mean Platelet Vol. 9.7 fl (6.2-12.0); Platelet Count 272 K/mm3 (150-450); RBC Distribution Width CV 12.7 % (11.6-14.6); RBC Distribution Width SD 43.8 fl (35.1-43.9); Red Blood Count 4.53 M/mm3 (4.6-6.2); White Blood Count 7.5 K/mm3 (4.4-11.0)
[2024-08-31 11:16] LABS: ALB/GLOB Ratio 1.8 RATIO (0.9-2.4); AST(SGOT) 25 U/L (<=37); Alanine Aminotransfer ALT/SGPT 34 U/L (<=46); Albumin, Serum 4.5 g/dL (3.4-4.8); Alkaline Phosphatase 54 U/L (40-129); Anion Gap 12 (5-15); BUN 15 mg/dL (4-19); BUN/Creat Ratio 14.6 RATIO (10-20); Calcium,Total 9.5 mg/dL (7.6-11.0); Carbon Dioxide 24.7 mmol/L (21.0-32.0); Chloride 104 mmol/L (98-108); Cholesterol 252 mg/dL (<=200); Creatinine, Serum 1.02 mg/dL (0.70-1.20); EST Glomerular Filtration Rate 83 (>60); Globulin 2.5 g/dL (2.2-4.2); Glucose 94 mg/dL (70-99); High Density Lipoprotein 56 mg/dL; Low Density Lipoprotein Calc. 163 mg/dL; Potassium 4.5 mmol/L (3.3-5.1); Protein, Total 6.9 g/dL (5.9-8.4); Sodium Level 140 mmol/L (133-145); Total Bilirubin 0.74 mg/dL (0.00-1.30); Triglycerides 168 mg/dL; Very Low Density Lipoprotein 34 mg/dL (5-40); Vitamin D,25 Hydroxy 58.1 ng/mL (30-100); cholesterol:hdl ratio screen 4.52
[2024-09-02 04:06] LABS: PSA, Free 1.26 ng/mL
== END 2024-08-31 23:59 | disposition home or self-care (01) ==
LOC: MTLAB 07:08
PROVIDERS: PCP Family Medicine; Referring Provider Family Medicine; Visit Provider Family Medicine
DX: I10 Essential (primary) hypertension (principal); R97.20 Elevated prostate specific antigen [PSA]; M79.7 Fibromyalgia; E56.9 Vitamin deficiency, unspecified
CPT/HCPCS: 36415; 80053; 80061; 82306; 84153; 84154; 85027

== ENCOUNTER 2024-10-03 09:39 | Day surgery (SDC) | payer OTHER, SELFPAY ==
[2024-10-03] VITALS (8 sets, daily range): BP systolic 122–133; BP diastolic 82–94; PULSE 61–67; RESP 16–20; TEMP 36.2–36.7; O2SAT 92–95; BMI 26.9
[2024-10-03] MEDS: Lactated Ringers 1,000 ML 15 ML IV (10:32)
--- NOTE | 2024-10-03 10:54 | PCM.PRE.AN2 ---
ASA Classification* ASA Classification ASA Classification: 2 Assessment & Plan Anesthesia* Anesthesia Assessment Anesthesia Assessment: Discussed sedation and/or anesthesia options, risks, benefits, and alternatives with patient/parents/legal guardian/POA. Questions invited. The patient/parents/legal guardian/POA seems to understand and agrees to proceed with anesthesia plan. Reviewed the physical assessment, medical history, allergy history and patient home medications list prior to surgery/procedure/anesthetic and documented any changes. Performed airway and anesthesia risk assessments. Anesthesia Type Anesthesia Type: General (Patient chewed tobacco 830. Will not be able to go until 2:30 PM.) History Source History Obtained from:: Patient and Chart Anesthesia Focused Assessment* Temperature: 97.2 F Pulse Rate: 63 Blood Pressure: 130/84 Respiratory Rate: 16 Pulse Ox: 95 Oxygen Delivery Method: Room Air Airway Assessment Mouth opens: >3 cm Mallampati Score: II Teeth Condition: Caps/Crowns (Patient has a couple crowns. They are tight) Neck Range of motion (ROM): Full ROM Focused Labs Anesthesia Preop lab: CBC WBC 7.5 K/mm3 (4.4-11.0) 08/31/24 07:12 08/31/24 RBC 4.53 M/mm3 (4.6-6.2) L 08/31/24 07:12 08/31/24 Hgb 14.4 g/dL (13.0-16.5) 08/31/24 07:12 08/31/24 Hct 43.0 % (40-54) 08/31/24 07:12 08/31/24 Plt Count 272 K/mm3 (150-450) 08/31/24 07:12 08/31/24 CHEMISTRY Potassium 4.5 mmol/L (3.3-5.1) 08/31/24 07:12 08/31/24 Sodium 140 mmol/L (133-145) 08/31/24 07:12 08/31/24 Magnesium 2.1 mg/dL (1.6-2.6) 05/29/18 07:09 05/29/18 BUN 15 mg/dL (4-19) 08/31/24 07:12 08/31/24 Creatinine 1.02 mg/dL (0.70-1.20) 08/31/24 07:12 08/31/24 Glucose 94 mg/dL (70-99) 08/31/24 07:12 08/31/24 TSH 2.04 uIU/mL (0.358-3.74) 05/29/18 07:09 05/29/18 COAG Pre-Assessment Diagnosis/Proposed Procedure Planned Operative Procedure(s): Ultrasound Guided Transperineal Prostate Biospy Anesthesia History Anesthesia History - women's ministry director: Anesthesia History - women's ministry director Hx Hospitalization No 09/26/24 13:48 Any Problems With Anesthesia No 09/26/24 13:48 Cholinesterase deficiency No 09/26/24 13:48 You/Your Family Experience No 09/26/24 13:48 fever (hyperthermia) with Relationship Recent Exposure to Contagious No 10/03/24 10:15 Disease Does patient have nerve No 09/26/24 13:48 stimulator Patient instructed to have device shut off --Does patient have Pacemaker No 10/03/24 10:15 or ICD? When Was Last Pacemaker Check QUESTION #4 FULL TEXT: You/Your Family Experience fever (hyperthermia) with Anesthesia Last Oral Intake Last Oral intake: Last Oral Intake NPO since 08:30 10/03/24 10:15 Meds taken in AM with sips of Yes 10/03/24 10:15 water? Meds patient instructed to take am of surgery Any additional information?: Yes NPO since: 08:00 (Patient has metoprolol at 8 AM.) Meds taken in AM with sips of water?: Yes PONV PONV - women's ministry director: PONV - women's ministry director Female No 09/26/24 13:48 HX of Motion Sickness No 09/26/24 13:48 HX of N/V After Surgery No 09/26/24 13:48 Non-Smoker Yes 09/26/24 13:48 Duration of Surgery greater No 09/26/24 13:48 than 60 minutes Number of Risk Factors 1 09/26/24 13:48 PONV Score Low Risk 09/26/24 13:48 Height & Weight Height & Weight: Anesthesia: Height & Weight Height 6 ft 1 in 10/03/24 10:15 Weight: 92.4 kg 10/03/24 10:15 Body Mass Index (BMI) 26.9 10/03/24 10:15 Respiratory Assessment Respiratory Assessment - women's ministry director: Respiratory Tract Infection Hx - women's ministry director Hx Respiratory Tract Infection No 09/26/24 13:48 STOP Sleep Apnea STOP Sleep Apnea - women's ministry director: STOP Sleep Apnea - women's ministry director Hx Hypertension Yes: CONTROLLED ON MED 09/26/24 13:48 Hx Sleep Apnea No 09/26/24 13:48 CPAP BIPAP Do you snore loudly (louder No 09/26/24 13:48 than talking or can be heard Do you often feel tired/ No 09/26/24 13:48 fatigued/ sleepy during daytime? Has anyone observed you stop No 09/26/24 13:48 breathing during sleep? STOP Results Negative 09/26/24 13:48 QUESTION #5 FULL TEXT : Do you snore loudly (louder than talking or can be heard through closed doors)? Tobacco Use History Tobacco Use History - women's ministry director: Tobacco Use History - women's ministry director Tobacco Use Smoking Status Never smoker 09/26/24 13:48 Hx Tobacco Use Yes 09/26/24 13:48 Years Smoking Packs Smoked per Day Smoking Cessation Date was within the last 15 years Hx Smoking Cessation Date Hx Smoking Cessation Counseling Hematologic Medial History Hematologic Hx - women's ministry director: Hematologic Medical Hx - business services analyst Hx of Blood Transfusion No 09/26/24 13:48 Hx of Transfusion in last 3 No 09/26/24 13:48 Months Date of Last Transfusion (if within last 3 months) Ever experience any problems No 09/26/24 13:48 with transfusion(s)? Specify any problems Hx of Preganancy in last 3 N/A 09/26/24 13:48 Months Nurse Filling Out Transfusion VCHRISTIN 09/26/24 13:48 & Questions: Date: 09/26/24 09/26/24 13:48 Time: 13:49 09/26/24 13:48 Patient unable to answer at this time (ie. confused, unrespo /Reproduction History /Reproductive History - women's ministry director: /Reproductive Hx- women's ministry director Hx Now Gestational Age (in weeks): EDC: Hx Hx Para Hx Section SAB Active Medications Active Medications: Current Medications Generic Name Dose Route Start Last Admin Trade Name Freq PRN Reason Stop Dose Admin Cefazolin Sodium 2 gm/ Sodium 110 mls @ 150 mls/hr 10/03/24 12:05 Chloride IV 10/03/24 12:48 INTRAOP ONE Lactated Ringer's 1,000 mls @ 15 mls/hr 10/03/24 10:00 10/03/24 10:32 IV 15 mls/hr .Q48H ALFREDO Administration PFSH Medical History Wears hearing aid Depression Anxiety Back pain Injury of back History of diverticulitis Chewing tobacco dependence History of stress test HTN (hypertension), benign Home Medications ?Medication ?Instructions ?Recorded ?Last Taken ?Type metoprolol tartrate 25 mg tablet 12.5 mg PO BID 12/01/14 10/03/24 06:00 History cholecalciferol (vit D3) 1,000 1 tab PO DAILY 09/26/24 Unknown History unit-vitamin K2 (MK4) 100 mcg tablet (K2 Plus D3) cyanocobalamin (vitamin B-12) 50 50 mcg PO DAILY 09/26/24 Unknown History mcg tablet (Vitamin B-12) linaclotide 145 mcg capsule 145 mcg PO DAILY 09/26/24 Unknown History (Linzess) magnesium glycinate (LC-655) 150 mg PO DAILY 09/26/24 Unknown History zinc gluconate 30 mg tablet 30 mg PO DAILY 09/26/24 Unknown History Allergy/AdvReac Type Severity Reaction Status Date / Time Histamine H2 Inhibitors AdvReac anxiety Verified 10/03/24 10:05 Phenylpiperazine AdvReac NEEDS Verified 10/03/24 10:05 Antidepressant FOLLOW-UP Tetracyclic Antidepressants AdvReac NEEDS Verified 10/03/24 10:05 FOLLOW-UP Tricyclic Antidepressants AdvReac NEEDS Verified 10/03/24 10:05 and Tricy FOLLOW-UP Surgical History History of cardiac catheterization Hx of hemorrhoidectomy History of carpal tunnel surgery of left wrist Hx laparoscopic cholecystectomy History of uvulectomy History of back surgery Social History Smoking Status: Never smoker Review of Systems (Anesthesia) ROS Narrative System reviewed and no additional complaints, except as documented.
--- NOTE | 2024-10-03 12:05 | PROSBIL_PTH ---
PATIENT: MERLENE GUNTER LOC: [facility] [place] U#:[id number] AGE/SX: 64/M ROOM: RE10/03/[address]: Dr. Immanuel Centeno MD : 1960 BED: DIS: 10/03/2024 SPEC #: [id number] RECD: 10/03/24 17:52 STATUS: CHANEL REQ #: [id number] MADDY: 10/03/24 12:[address]: Immanuel Centeno DEPT: SURGICAL PATHOLOGY RECD BY: Juan Miguel Crowder ENTERED: 10/04/24 09:14 SP TYPE: PROST BX ROBIN DR: Dr. Pacheco Duarte MD Tissues: A - PROSTATE RIGHT B - PROSTATE LEFT C - PROSTATE LEFT D - PROSTATE LEFT E - PROSTATE BIOPSY F - PROSTATE RIGHT G - PROSTATE LEFT Procedures: PROSTATE BX Immunohistochemical Stains HEADER OPERATION: Ultrasound guided transperineal prostate biopsy PRE-OP DIAGNOSIS: Elevated PSA, abnormal MRI TISSUE SUBMITTED: A- Right anterior, B- Left mid, C- Left anterior, D- Left posterior, E- Right posterior, F- Deep right anterior, G- Deep left anterior MICROSCOPIC DIAGNOSIS A. Prostate, right anterior, biopsy: * Benign prostate tissue. * Focal acute inflammation. B. 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 C. Prostate, left anterior, biopsy: * Benign prostate tissue. D. Prostate, left posterior, biopsy: * Focal atypical small acinar proliferation. * IHC for 34be12 supports the diagnosis. E. Prostate, right posterior, biopsy: * Benign prostate tissue. F. Prostate, deep right anterior, biopsy: * Benign fibromuscular stroma with scant adipose. * No glandular epithelium observed. G. Prostate, deep left anterior, biopsy: * Benign fibromuscular stroma. * No glandular epithelium seen. MICROSCOPIC DESCRIPTION Slides are reviewed All matched controls reacted appropriately. These tests were developed and their performance characteristics determined by [facility]. They may not have been cleared or approved by the U.S. Food and Drug Administration. The FDA has determined that such clearance or approval is not necessary.? The above immunohistochemical/dualISH?markers are ordered and reviewed by the Pathologist.. GROSS DESCRIPTION A. Received in formalin in a container labeled with the patient's name, date of , and right anterior prostate biopsy are 5 white and wispy core biopsies of soft tissue ranging from 1.1 x 0.1 cm to 1.5 x 0.1 cm. Submitted in toto as follows:A1. 3 coresA2. 2 cores B. Received in formalin in a container labeled with the patient's name, date of , and left mid prostate biopsy are 2 white and wispy core biopsies of soft tissue measuring 1.0 x 0.1 cm and 1.8 x 0.1 cm. Submitted in toto in B1. C. Received in formalin in a container labeled with the patient's name, date of , and left anterior prostate biopsy are 3 white and wispy core biopsies of soft tissue ranging from 0.7 x 0.1 cm to 1.3 x 0.1 cm. Submitted in toto in C1. D. Received in formalin in a container labeled with the patient's name, date of , and left posterior prostate biopsy are 2 white and wispy core biopsies of soft tissue each measuring 1.1 x 0.1 cm. Submitted in toto in D1. E. Received in formalin in a container labeled with the patient's name, date of , and right posterior prostate biopsy are 2 white and wispy core biopsies of soft tissue measuring 0.6 x 0.1 cm and 1.2 x 0.1 cm. Submitted in toto in E1. F. Received in formalin in a container labeled with the patient's name, date of , and deep right anterior prostate is a 0.5 x 0.1 cm core biopsy of white and wispy soft tissue. Submitted in toto in F1. G. Received in formalin in a container labeled with the patient's name, date of , and deep left anterior prostate biopsy is a 0.6 x 0.1 cm white and wispy core biopsy of soft tissue. Submitted in toto in G1. [facility] 10-04-2024 CPT:39106n8, 20720
--- NOTE | 2024-10-03 15:13 | PCM.HP.STD ---
HPI - General General Date of Service: 10/03/24 Chief Complaint: Elevated PSA abnormal MRI HPI Narrative MERLENE GUNTER, is a 64 M who presents for a perineal prostate biopsy has an abnormal MRI with anterior lesion seen in the MRI [place] do a perineal approach for a prostate biopsy in hopes of getting better biopsies of the anterior sample of the prostate this will be done under general anesthesia. [facility] Medical History Wears hearing aid Depression Anxiety Back pain Injury of back History of diverticulitis Chewing tobacco dependence History of stress test HTN (hypertension), benign Home Medications ?Medication ?Instructions ?Recorded ?Last Taken ?Type metoprolol tartrate 25 mg tablet 12.5 mg PO BID 12/01/14 10/03/24 06:00 History cholecalciferol (vit D3) 1,000 1 tab PO DAILY 09/26/24 Unknown History unit-vitamin K2 (MK4) 100 mcg tablet (K2 Plus D3) cyanocobalamin (vitamin B-12) 50 50 mcg PO DAILY 09/26/24 Unknown History mcg tablet (Vitamin B-12) linaclotide 145 mcg capsule 145 mcg PO DAILY 09/26/24 Unknown History (Linzess) magnesium glycinate (LC-655) 150 mg PO DAILY 09/26/24 Unknown History zinc gluconate 30 mg tablet 30 mg PO DAILY 09/26/24 Unknown History Allergy/AdvReac Type Severity Reaction Status Date / Time Histamine H2 Inhibitors AdvReac anxiety Verified 10/03/24 10:05 Phenylpiperazine AdvReac NEEDS Verified 10/03/24 10:05 Antidepressant FOLLOW-UP Tetracyclic Antidepressants AdvReac NEEDS Verified 10/03/24 10:05 FOLLOW-UP Tricyclic Antidepressants AdvReac NEEDS Verified 10/03/24 10:05 and Tricy FOLLOW-UP Surgical History History of cardiac catheterization Hx of hemorrhoidectomy History of carpal tunnel surgery of left wrist Hx laparoscopic cholecystectomy History of uvulectomy History of back surgery Social History Smoking Status: Never smoker Vital Signs Vital Signs Vital Signs: 10/03/24 10:15 10/03/24 10:15 10/03/24 11:01 Temperature 97.2 F L 97.2 F L Temperature Source Temporal Pulse Rate 63 63 Respiratory Rate 16 16 Respiratory Pattern Normal Blood Pressure 130/84 H 130/84 H Blood Pressure Mean 99 Blood Pressure Source Monitor Blood Pressure Position Semi-Fowlers Blood Pressure Location Left Arm Pulse Ox 95 95 Oxygen Delivery Method Room Air Room Air Weight Weight: 92.4 kg Body Mass Index (BMI) 26.9
--- NOTE | 2024-10-03 15:14 | PCM.DC ---
Discharge Instructions Diet Discharge Diet: No restrictions DC O2, CPAP, BIPAP needs Home O2 Discharge instructions: No Dressing / Incision Discharge Activity: Return to Normal Activity and May Not Drive (while taking narcotic pain medications.) Dressing / Incision Call your doctor if you observe: Fever of 101 or Higher Follow Up Care Please Follow Up With: Immanuel Centeno MD When: Call [phone] for an appointment Test Results: Test results from this visit will be discussed in further detail at your follow-up appointment, if applicable. Discharge Plan Admission Attending Provider: Immanuel Centeno Primary Care Provider: Pacheco Duarte Instructions Print Language: [place] Discharge Orders/Prescriptions Prescriptions: No Action metoprolol tartrate 25 MG tablet 12.5 mg PO BID zinc gluconate 30 mg tablet 30 mg PO DAILY Vitamin B-12 50 mcg tablet 50 mcg PO DAILY K2 Plus D3 1,000-100 unit-mcg tablet 1 tab PO DAILY LC-655 118 mg magnesium capsule 150 mg PO DAILY Linzess 145 mcg capsule 145 mcg PO DAILY Referrals / Follow Up: Pacheco Duarte MD [Primary Care Provider] - Disposition Disposition (needs filled in before D/C Order can be placed): Home, Self Care
[2024-10-03] MEDS: Cefazolin 2 GM in 0.9% Normal Saline (100mL Bag) 100 ML IV (16:05)
--- NOTE | 2024-10-03 16:13 | PCM.OPRPT ---
Operative Report (Standard) Operative Information Date of Procedure: 10/03/24 Pre-Operative Diagnosis: Elevated PSA abnormal MRI Post-Operative Diagnosis: The same Surgery/Procedure Performed: Transperineal prostate biopsy photogrammetry airplane pilot: No Type of Anesthesia: General RN Documented Start/Stop Times: Operation Date: 10/03/24 12:05 Case Time Into Pre-Op 10/03/24 09:54 Procedure Start Time: 16:02 Procedure Stop Time: 16:13 Select all DRAINS/GRAFTS/IMPLANTS that apply: None Estimated Blood Loss: 1 Specimen collected: Yes Description of specimen(s) removed: Prostate tissue Description of surgery: Indication 64-year-old male history of elevated PSA MRI was read as anterior lesions on the prostate so today we will do a transperineal prostate biopsy deceiving get a bit better sampling of the anterior part of the prostate. Patient was taken back to the operating room after induction of anesthesia he was placed in dorsolithotomy position. The perineum was prepped and draped in usual fashion using trans bipolar biplanar trans rectal ultrasound probe placed into the rectum could see the prostate and then guide the needles we then did biopsies transperitoneally to the prostate we did at the right anterior right mid and right posterior left anterior left mid left posterior and deep left anterior and deep right anterior after all the biopsies were done pressure was held in the perineum patient's anesthetic was versed taken back to PACU in good condition plan to see him back in a few weeks to review the results of the biopsies. Surgical Findings: Normal size prostate tissue sent off Complications Complications: No Admit VTE Documentation VTE Present on Admission: No VTE Mechan Device Prophylaxis: SCD's VTE Pharm Prophylaxis ordered?: No
--- NOTE | 2024-10-03 16:24 | PCM.POST.ANE ---
Anesthesia: Postop Eval I Current Vital Signs Temperature: 97.5 F Pulse Rate: 67 Blood Pressure: 125/94 Respiratory Rate: 20 Pulse Ox: 95 Oxygen Delivery Method: Room Air Assessment Airway patent: Yes Spontaneous unlabored respirations: Yes Mental status: Awake and Calm nausea: No Vomiting: No Anesthesia Complication: No Fluid Hydration Crystalloid volume administer (ml): 900 Total IV fluid infused: 900 Progress Note Anesthesia document: Postop Eval 1 completed: Yes
--- NOTE | 2024-10-03 17:55 | POSTOPAN2_ITS ---
Anesthesia Postop Eval I Sum Postop Eval Completion status Anesthesia document: Postop Eval 1 completed: Yes Anesthesia Postop Eval I Summary Anesthesia Postop Eval I Summary: Anesthesia Postop Eval I: Assessment Summary Airway patent Yes 10/03/24 16:24 [email or web address] [email or web address] Spontaneous unlabored Yes 10/03/24 16:24 [email or web address] [email or web address] respirations Mental status Awake,Calm 10/03/24 16:24 [email or web address] [email or web address] nausea No 10/03/24 16:24 [email or web address] Vomiting No 10/03/24 16:24 [email or web address] [email or web address] Anesthesia Postop Eval I: Fluid Summary Crystalloid volume administer 900 10/03/24 16:24 [email or web address] (ml) Colloids volume administered ( ml) Blood Product volume administered (ml) Total IV fluid infused 900 10/03/24 16:24 [email or web address] [email or web address] Anesthesia Postop Eval I: Summary Notes Anesthesia Complication No 10/03/24 16:24 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
--- NOTE | 2024-10-03 17:55 | PCM.POSTANE2 ---
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
== END 2024-10-03 17:17 | disposition home or self-care (01) ==
LOC: SDC 09:40 → AC 09:43
PROVIDERS: PCP Family Medicine; Referring Provider Urology; Visit Provider Urology
PROC: (CPT 55700; principal; 2024-10-03 11:55)
DX: R97.20 Elevated prostate specific antigen [PSA] (principal); R93.89 Abnormal findings on diagnostic imaging of other specified body structures; I10 Essential (primary) hypertension; Z90.49 Acquired absence of other specified parts of digestive tract; Z87.19 Personal history of other diseases of the digestive system
CPT/HCPCS: 55700; 00902; 88305; 88342; G0416; J2405

== ENCOUNTER → 2025-01-05 | Outpatient (CLI) | payer OTHER, SELFPAY ==
--- OUTSIDE RECORDS SUMMARY | 2025-01-05 07:16 | XMS RPT_ITS | CCD ---
Author Organization [facility] Care Team Providers Care Hospice Case Manager Name Role Phone Kristyn Manning LPN N Unavailable Kristyn Manning LPN Unavailable [phone] Felicia LYLES, Harsha Gautam Primary Care Provider Harsha Duarte MD Primary Care Provider Harsha Duarte MD Primary Care Provider Harsha Duarte MD Primary Care Provider Harsha Duarte MD Primary Care Provider Harsha Duarte MD Primary Care Provider TIESHA CHOI Attending Unavailable SELF Referring Unavailable HARSHA DUARTE Primary Care UnavailPRASANNA Kraft Attending Unavailable TIESHA CHOI Referring Unavailable HARSHA DUARTE Primary Care Unavailkyler SAUCEDO MD, DR IMMANUEL HAGER Attending Matilda DUARTE MD, DR MCLEOD Primary Care Matilda DUARTE MD, DR MCLEOD Primary Care IMMANUEL Joseph Attending Unavailable IMMANUEL SAUCEDO Attending Unavailable FELICIA LYLES, DR MCLEOD Primary Care IMMANUEL Joseph Admitting Unavailable Harsha Duarte Primary Care Unavailable Harsha Duarte Attending Unavailable Harsha Duarte Referring Unavailable Harsha Duarte Referring Unavailable Harsha Duarte Primary Care Unavailable Judy Oconnor Attending Unavailable Kofi Delaney Attending Unavailable Harsha Duarte Primary Care Unavailable Kofi Delaney Attending Unavailable Harsha Duarte Primary Care Unavailable Refugio, Luke Attending Unavailable [facility], [facility] Referring Unavailable [place] Unavailable JacoboImmanuel Attending Unavailable Jacobo, Immanuel Hager Referring Unavailable [place] Unavailable Jacobo, Immanuel Hager Attending Unavailable [place] Unavailable Jacobo, Magno Referring Unavailable Jacobo, Immanuel Hager Attending Unavailable Jacobo, Magno Referring Unavailable [place] Unavailable [place], [place] Attending Unavailable [place] Referring Unavailable [facility], [place] Primary Care Unavailable Allergies Allergy Classification Reported Allergen(s) Allergy Type Date of Onset Reaction(s) Facility (2 sources) ANTIHISTIMINES drug allergy Hyperactivity [facility] Work Phone: (10 sources) Antihistimine; Translations: [ANTIHISTIMINE] Drug Intolerance 07-23-19 11 Other: See Comments [facility] (5 sources) Antidepressants Propensity to adverse reactions 06-10-19 Other [facility] (5 sources) Antihistamines Propensity to adverse reactions 06-10-19 22 Other [facility] (2 sources) traZODone Drug Allergy 04-09-20 Intolerance [facility] (1 source) Histamine H2 Inhibitors Propensity to adverse reactions 04-09-20 23 NEEDS FOLLOW-UP [facility] (2 sources) Tetracyclic Antidepressants Propensity to adverse reactions 04-09-20 23 Intolerance [facility] (1 source) Tricyclic Antidepressants and Tricy Propensity to adverse reactions 04-09-20 NEEDS FOLLOW-UP [facility] (1 source) Histamine Drug Allergy 04-09-[address] [facility] (1 source) Histamine H>2< antagonist Drug Allergy 04-09-[address] [facility] (1 source) Tricyclic Antidepressants And Tricyclic Compounds Drug Allergy 04-09-[address] [facility] (1 source) Citalopram Drug Allergy 12-12-19 [facility] Repository (1 source) Doxepin Drug Allergy 12-12-19 [facility] Repository (1 source) fentaNYL Drug Allergy 12-12-19 [facility] Repository (1 source) Histamine Drug Allergy 12-12-19 [facility] Repository (1 source) Sertraline Drug Allergy 12-12-19 [facility] Repository (1 source) venlafaxine Drug Allergy 12-12-19 [facility] Repository (1 source) zolpidem Drug Allergy 12-12-19 [facility] Repository (1 source) Tricyclic Antidepressants and Tricy Drug allergy (disorder) 12-12-19 [facility] Repository (1 source) Tetracyclic Antidepressants Drug allergy (disorder) 12-12-19 [facility] Repository (1 source) Phenylpiperazine Antidepressant Drug allergy (disorder) 12-12-19 [facility] Repository Medications Current Medications Medication Drug Class(es) Dates Sig (Normalized) Sig (Original) benoxinate hydrochloride 4 mg/ml / fluorescein sodium 2.5 mg/ml ophthalmic solution (1 source) Diagnostic Dye Start: 02-17-2022 End: 02-17-2022 fluorescein-benox inate 0.25-0.4 % 1 Drop (FLURESS) benzonatate 200 mg oral capsule (1 source) Non-narcotic Antitussive Start: 04-09-2023 take 200 mg by mouth three times daily Benzonatate Active 200 MG PO THREE TIMES A DAY April 09, 2023 1:00am busPIRone hydrochloride 5 mg oral tablet (17 sources) Start: 05-07-2017 take 10 mg by mouth twice daily Buspirone Active 10 MG PO TWICE A DAY May 07, 2017 1:00am Start: 12-15-2015 End: 01-31-2023 take 10 mg by mouth three times daily busPIRone HCl 7.5 mg tablet Take 10 mg by mouth three times daily. 0 12/15/2015 01/31/2023 Discontinued (Other) Start: 12-15-2015 take 10 mg by mouth once daily busPIRone HCl 7.5 mg tablet Take 10 mg by mouth once daily. 0 12/15/2015 Active Start: 12-13-2011 take 1 tablet by olivia twice daily BUSPIRONE HCL 15 MG TABS One tablet by mouth twice daily BUSPIRONE HCL [id number] Jasmyn Molina MD Start: 07-22-2011 take 1 tablet by olivia th twice daily BUSPIRONE HCL 7.5 MG TABS One tablet by mouth twice daily BUSPIRONE HCL [id number] Monse Rosales Comment on above: Take 10 mg by mouth once daily. Take 10 mg by mouth three times daily. dexamethasone 6 mg oral tablet (1 source) Corticosteroid Start: 04-09-20 take 6 mg by mouth once daily Dexamethasone Active 6 MG PO DAILY April 09, 2023 1:00am ibuprofen 200 mg oral capsule (12 sources) Nonsteroidal Anti-inflammatory Drug Start: 05-07-20 take 200 mg by mouth once Ibuprofen Active 200 MG PO ONCE May 07, 2017 1:00am Start: 11-13-2016 ADDAPRIN 200 M G TABS as directed IBUPROFEN [id number] Kristyn Iverson Kerri VARGASN Start: 06-08-2011 IBUPROFEN TABS IBUPROFEN TABS [id number] Monse Rosales Start: 06-08-2011 End: 12-13-2011 IBUPROFEN TABS 20 04/28/23 IBUPROFEN TABS [id number] Jasmyn Molina MD linaclotide 0.072 mg oral capsule (3 sources) Guanylate Cyclase-C Agonist Start: 11-22-2022 LINZESS 72 mcg capsule as needed (patient only takes as needed). 11/22/2022 Active LORazepam 0.5 mg oral tablet (4 sources) Benzodiazepine Start: 12-24-2021 LORazepam (ATIVAN) 0.5 mg as needed (as needed). 12/24/2021 Active Comment on above: as needed. omeprazole 40 mg delayed release oral capsule (13 sources) Proton Pump Inhibitor Start: 06-13-2021 End: 01-31-2023 take 40 mg by mouth once daily Omeprazole Active 40 MG PO DAILY June 13, 2021 1:00am Comment on above: Take 40 mg by mouth once daily. phenylephrine hydrochloride 25 mg/ml ophthalmic solution (3 sources) alpha-1 Adrenergic Agonist Start: 12-30-2023 End: 12-30-2023 PHENYLephrine 2.5 % 1 Drop (AK-DILATE, SIVA-SYNEPHRINE) Start: 02-17-2022 End: 02-17-2022 PHENYLephrine 2.5 % 1 Drop ( AK-DILATE, SIVA-SYNEPHRINE) proparacaine hydrochloride 5 mg/ml ophthalmic solution (5 sources) Local Anesthetic Start: 08-07-2024 End: 08-07-2024 proparacaine 0.5 % 1 Drop (ALCAINE) Start: 12-30-2023 End: 12-30-2023 proparacaine 0.5 % 1 Drop (A LCAINE) Start: 01-31-2023 End: 01-31-2023 proparacaine 0.5 % 1 Drop (A LCAINE) Start: 02-17-2022 End: 02-17-2022 proparacaine 0.5 % 1 Drop (A LCAINE) tropicamide 10 mg/ml ophthalmic solution (5 sources) Anticholinergic Start: 08-07-2024 End: 08-07-2024 tropicamide 1 % 1 Drop (MYDRIACYL) Start: 12-30-2023 End: 12-30-2023 tropicamide 1 % 1 Drop (MYDR IACYL) Start: 01-31-2023 End: 01-31-2023 tropicamide 1 % 1 Drop (MYDR IACYL) Start: 02-17-2022 End: 02-17-2022 tropicamide 1 % 1 Drop (MYDR IACYL) Completed/Discontinued Medications Medication Drug Class(es) Dates Sig (Normalized) Sig (Original) amoxicillin 500 mg oral capsule (12 sources) Penicillin-class Antibacterial Start: 06-24-2019 End: 07-01-2019 take 500 mg by mouth twice daily Amoxicillin Discontinued 500 MG PO TWICE A DAY 14 June 24, 2019 1:00am July 01, 2019 1:08am Start: 07-09-2017 End: 07-19-2017 take 1 tablet by mouth twice daily Amoxicillin Discontinued 0 PO TWICE A DAY 20 July 09, 2017 1:00am July 19, 2017 1:05am 1 tab PO BID azithromycin 250 mg oral tablet (6 sources) Macrolide Antimicrobial Start: 05-07-2017 End: 06-24-2019 Azithromycin Discontinued 0 PO .COMPLEX May 07, 2017 1:00am June 24, 2019 11:27am take 2 tablets today and then one for the next 4 days buPROPion hydrochloride 75 mg oral tablet (4 sources) Aminoketone Start: 06-28-2011 End: 07-22-2011 BUPROPION HCL 75 MG TABS BUPROPION HCL [id number] Monse Rosales clonazePAM 0.5 mg oral tablet (8 sources) Benzodiazepine Start: 12-13-2011 End: 05-07-2017 take 0.5 mg by mouth twice daily Clonazepam Discontinued 0.5 MG PO TWICE A DAY December 01, 2014 12:00am May 07, 2017 11:48am diclofenac sodium 0.01 mg/mg topical gel (2 sources) Nonsteroidal Anti-inflammatory Drug Start: 12-13-2011 VOLTAREN 1 % GEL 2gram apply to affected area twice daily to three times a day DICLOFENAC SODIUM [id number] Jasmyn Molina MD Start: 12-13-2011 VOLTAREN 1 % G EL 2gram apply to affected area twice daily to three times a day DICLOFENAC SODIUM [id number] Jasmyn Molina MD DULoxetine 60 mg delayed release oral capsule (6 sources) Serotonin and Norepinephrine Reuptake Inhibitor Start: 12-01-2014 End: 05-07-2017 take 60 mg by mouth once daily Duloxetine Discontinued 60 MG PO DAILY December 01, 2014 12:00am May 07, 2017 11:49am hydrocortisone 10 mg/ml / neomycin 3.5 mg/ml / polymyxin b 23218 unt/ml otic solution (2 sources) Aminoglycoside Antibacterial, Polymyxin-class Antibacterial, Corticosteroid Start: 11-13-2016 End: 11-20-2016 CORTISPORIN 3.5-04743-8 SOLN 4 drops left ear three times per day NEOMYCIN-POLYMYXIN -HC [id number] Taras Alonso Noriega ASSOCIATE PROFESSOR OF MEDICINE-C Start: 11-13-2016 End: 11-20-2016 CORTISPORIN 3.5-27435-3 SOLN 4 drops left ear three times per day AJBTDFMN-FCOWPBOLM-EQ [id number] Taras Celeste Noriega ASSOCIATE PROFESSOR OF MEDICINE-C 24 hr HYDROmorphone hydrochloride 16 mg extended release oral tablet (6 sources) Opioid Agonist Start: 12-01-2014 End: 05-07-2017 take 16 mg by mouth once daily Hydromorphone Discontinued 16 MG PO DAILY December 01, 2014 12:00am May 07, 2017 11:49am meloxicam 7.5 mg oral tablet (6 sources) Nonsteroidal Anti-inflammatory Drug Start: 12-01-2014 End: 05-07-2017 take 7.5 mg by mouth once daily Meloxicam Discontinued 7.5 MG PO DAILY December 01, 2014 12:00am May 07, 2017 11:48am metoprolol tartrate 75 mg oral tablet (17 sources) beta-Adrenergic Deb Start: 11-13-2016 METOPROLOL TARTRATE 75 MG TABS as directed METOPROLOL TARTRATE [id number] Kristyn Manning DINORA Start: 12-01-2014 take 12.5 mg by mout h twice daily Metoprolol Tartrate Active 12.5 MG PO TWICE A DAY December 01, 2014 12:00am metoprolol tartr ate, short acting, (LOPRESSOR) 25 mg tablet Take 12.5 mg by mouth twice daily. Active Comment on above: Take 12.5 mg by mout h twice daily. metroNIDAZOLE 500 mg oral tablet (6 sources) Nitroimidazole Antimicrobial Start: 06-24-19 End: 07-01-19 take 1 tablet by mouth twice daily Metronidazole (Flagyl) 500 mg tablet Discontinued 500 MG PO TWICE A DAY 03 12June 24, 2019 1:00am July 01, 2019 1:08am polyethylene glycol 3350 822945 mg / potassium chloride 2970 mg / sodium bicarbonate 6740 mg / sodium chloride 5860 mg / sodium sulfate 06838 mg powder for oral solution (4 sources) Osmotic Laxative Start: 10-07-19 End: 01-12-20 peg 3350-Electrolytes (GOLYTELY) 236-22.74-6.74 -5.86 gram suspension Refer to printed prep instructions from your provider. 4000 mL 0 10/06/2021 01/11/2022 Discontinued Comment on above: Refer to printed pre p instructions from your provider. prazosin 1 mg oral capsule (7 sources) alpha-Adrenergic Deb Start: 07-23-19 End: 02-01-20 take 1 capsule by mouth once daily prazosin (MINIPRESS) 1 mg cap Take 1 mg by mouth once daily. 0 07/22/2021 01/31/2023 Discontinued (Other) Comment on above: Take 1 mg by mouth o nce daily. tiZANidine 4 mg oral tablet (1 source) Central alpha-2 Adrenergic Agonist Start: 02-05-20 End: 10-07-19 take 1 tablet by mouth once daily at bedtime tiZANidine (ZANAFLEX) 4 mg tablet Take 4 mg by mouth daily at bedtime. 0 02/04/2021 10/06/2021 Discontinued Comment on above: Take 4 mg by mouth d aily at bedtime. Problems Active Problems Problem Classification Problem Date Documented Date Episodic/Chronic Cataract (1 source) Bilateral age-related nuclear cataracts; Translations: [Age-related nuclear cataract, bilateral] 08-07-2024 Chronic Diverticulosis and diverticulitis (1 source) Diverticular disease; Translations: [Diverticulosis of intestine, part unspecified, without perforation or abscess without bleeding] Chronic Esophageal disorders (12 sources) Gastroesophageal reflux disease without esophagitis; Translations: [Gastro-esophageal reflux disease without esophagitis] Onset: 11-28-2012 Chronic Essential hypertension (19 sources) Hypertensive disorder; Translations: [Essential hypertension] Onset: 02-03-2019 11-13-2016 Chronic Glaucoma (9 sources) Suspected bilateral glaucoma; Translations: [Preglaucoma, unspecified, bilateral] Onset: 01-20-2017 01-20-2017 Chronic Inflammation; infection of eye (except that caused by tuberculosis or sexually transmitteddisease) (11 sources) Bilateral punctate keratitis of eyes; Translations: [Punctate keratitis, bilateral] Onset: 12-16-2017 12-16-2017 Chronic Miscellaneous mental health disorders (18 sources) Pain disorder with psychological factor; Translations: [Pain disorder with related psychological factors] Onset: 03-12-2015 03-12-2015 Chronic Osteoarthritis (9 sources) Degenerative joint disease of thumb; Translations: [Primary osteoarthritis, unspecified hand] Onset: 09-16-2010 09-16-2010 Chronic Other and unspecified benign neoplasm (1 source) Tubular adenoma ; Translations: [Benign neoplasm, unspecified site] Episodic Other circulatory disease (9 sources) Raynaud's phenomenon; Translations: [Raynaud's syndrome without gangrene] Onset: 09-16-2010 09-16-2010 Chronic Other eye disorders (9 sources) Vitreous opacities; Translations: [Other vitreous opacities, unspecified eye] Onset: 01-14-2014 01-14-2014 Chronic Other eye disorders (13 sources) Bilateral vitreous floaters; Translations: [Other vitreous opacities, bilateral] Onset: 01-20-2016 01-20-2016 Chronic Other eye disorders (9 sources) Optic cupping; Translations: [Glaucomatous optic atrophy, unspecified eye] Onset: 01-20-2017 01-20-2017 Chronic Other eye disorders (4 sources) Bilateral posterior vitreous detachment; Translations: [Vitreous degeneration, bilateral] Onset: 12-30-2023 12-30-2023 Chronic Other eye disorders (20 sources) Tear film insufficiency; Translations: [Dry eye syndrome of unspecified lacrimal gland] Onset: 01-14-2014 01-14-2014 Episodic Other eye disorders (3 sources) Bilateral pinguecula of eyes; Translations: [Pinguecula, bilateral] Episodic Other nervous system disorders (15 sources) Carpal tunnel syndrome; Translations: [Carpal tunnel syndrome, unspecified upper limb] Onset: 08-27-2010 Resolved: 06-09-2011 06-09-2011 Chronic Other nervous system disorders (9 sources) Chronic pain syndrome; Translations: [Chronic pain syndrome] Onset: 03-12-2015 03-12-2015 Chronic Other screening for suspected conditions (not mental disorders or infectious disease) (1 source) Elevated prostate specific antigen [PSA]; Translations: [Elevated prostate specific antigen [PSA]] Onset: 10-09-2024 Episodic Spondylosis; intervertebral disc disorders; other back problems (9 sources) Lumbar post-laminectomy syndrome; Translations: [Postlaminectomy syndrome, not elsewhere classified] Onset: 03-25-2015 03-25-2015 Chronic Unclassified (2 sources) Sprain of unspecified acromioclavicular joint; Translations: [Sprain of unspecified acromioclavicular joint] Onset: 12-13-2011 12-13-2011 Viral infection (6 sources) Disease caused by 2019-nCoV; Translations: [COVID-19] 06-10-2021 Episodic Past or Other Problems Problem Classification Problem Date Documented Da te Episodic/Chronic Abdominal pain (15 sources) Right upper quadrant pain; Translations: [Right upper quadrant pain] Onset: 12-20-2012 12-20-2012 Episodic Biliary tract disease (9 sources) Biliary calculus; Translations: [Calculus of gallbladder without cholecystitis without obstruction] Onset: 12-20-2012 12-20-2012 Episodic Blindness and vision defects (3 sources) Visual disturbance; Translations: [Unspecified visual disturbance] Onset: 12-30-2023 12-30-2023 Episodic Inflammation; infection of eye (except that caused by tuberculosis or sexually transmitteddisease) (18 sources) Acute conjunctivitis; Translations: [Unspecified acute conjunctivitis, unspecified eye] Onset: 04-03-2014 04-03-2014 Episodic Other connective tissue disease (9 sources) Pain in left lower limb; Translations: [Pain in left leg] Onset: 03-25-2015 03-25-2015 Episodic Other ear and sense organ disorders (2 sources) Acute otitis externa; Translations: [Unspecified acute noninfective otitis externa, left ear] Onset: 11-13-2016 11-13-2016 Episodic Other eye disorders (9 sources) Subconjunctival hemorrhage of left eye; Translations: [Conjunctival hemorrhage, left eye] Onset: 09-22-2017 09-22-2017 Episodic Other eye disorders (9 sources) Subconjunctival hemorrhage of right eye; Translations: [Conjunctival hemorrhage, right eye] Onset: 07-30-2019 07-30-2019 Episodic Other gastrointestinal disorders (9 sources) Constipation; Translations: [Constipation, unspecified] Onset: 03-28-2015 03-28-2015 Episodic Other injuries and conditions due to external causes (9 sources) Foreign body in right cornea; Translations: [Foreign body in cornea, right eye, initial encounter] Onset: 04-02-2020 04-02-2020 Episodic Residual codes; unclassified (12 sources) Family history of cancer of colon; Translations: [Family history of malignant neoplasm of digestive organs] Onset: 11-28-2012 Episodic Spondylosis; intervertebral disc disorders; other back problems (11 sources) Neck pain; Translations: [Low back pain] Onset: 03-25-2015 04-14-2011 Episodic Superficial injury; contusion (4 sources) Contusion of abdominal wall; Translations: [Contusion of foot] Onset: 11-06-2010 11-06-2010 Episodic Results Test Name Value Interpretation Reference Range Facility Surgery Visit Reporton 12-11 Surgery Visit Report [facility] [address] [place] [address] OFFICE VISIT Date of Service: 12/11/24 MR#: [id number] Acct: [id number] Name: MERLENE UNGER Rep #: [id number] : 1960 Provider: Dr. Judy hanley MD Age/Sex: 64/M Location: [facility] Status: Signed Intake Vital Signs 11/21/24 14:55 12/11/24 09:28 Height 6 ft 1 in 6 ft 1 in Weight: 205 lb 209 lb BMI 27.0 27.6 BP 124/76 H 150/86 H Blood Pressure Location Lt brachial Rt brachial Position Sitting Sitting Respiration 16 18 Pulse 82 Pulse Source Monitor Intake Visit Reasons: INGUINAL HERNIA Chief Complaint: inguinal hernia Fashion Illustrator Required: No Is patient in pain?: No Allergies citalopram (From Celexa) Allergy (Mild, Verified 12/11/24 09:35) Nausea/Vom/Diarrhea doxepin Allergy (Mild, Verified 12/11/24 09:35) Constipation fentanyl Allergy (Mild, Verified 12/11/24 09:35) Itching sertraline (From Zoloft) Allergy (Mild, Verified 12/11/24 09:35) Other venlafaxine (From Effexor) Allergy (Mild, Verified 12/11/24 09:35) Other zolpidem (From Ambien) Allergy (Mild, Verified 12/11/24 09:35) Other Histamine H2 Inhibitors Adverse Reaction (Verified 12/11/24 09:35) anxiety Phenylpiperazine Antidepressant Adverse Reaction (Verified 12/11/24 09:35) NEEDS FOLLOW-UP Tetracyclic Antidepressants Adverse Reaction (Verified 12/11/24 09:35) NEEDS FOLLOW-UP Tricyclic Antidepressants and Tricy Adverse Reaction (Verified 12/11/24 09:35) NEEDS FOLLOW-UP Medications ???Medication ???Instructions ???Recorded ???Confirmed ???Type metoprolol tartrate 25 mg tablet 12.5 mg PO BID 12/01/14 12/11/24 H istory cholecalciferol (vit D3) 1,000 1 tab PO DAILY 09/26/24 12/11/24 H istory unit-vitamin K2 (MK4) 100 mcg tablet (K2 Plus D3) cyanocobalamin (vitamin B-12) 50 50 mcg PO DAILY 09/26/24 12/11/24 History mcg tablet (Vitamin B-12) linaclotide 145 mcg capsule 145 mcg PO DAILY 09/26/24 12/11/24 History (Linzess) magnesium glycinate (LC-655) 150 mg PO DAILY 09/26/24 12/11/24 History zinc gluconate 30 mg tablet 30 mg PO DAILY 09/26/24 12/11/24 H istory lorazepam 0.5 mg tablet 0.5 mg PO QHS PRN anxiety 30 days 10/10/24 12/11/24 Rx #30 tabs tamsulosin 0.4 mg capsule 0.8 mg PO QDAY 10/10/24 12/11/24 H istory calcium carb, citrate, malate mg PO 12/11/24 12/11/24 History diclofenac sodium 1 % topical gel 4.5 inch topical ONCE 12/11/24 History Have you fallen in the past year?: No PFSH Medical History (Updated 12/12/24 @ 12:[address] Judy Oconnor MD) Bilateral inguinal hernia Prostate cancer Alcohol use disorder Panic disorder Wears hearing aid Depression Anxiety Back pain Injury of back History of diverticulitis Chewing tobacco dependence History of stress test HTN (hypertension), benign Surgical History (Updated 12/11/24 @ 09:27 by Love Montilla) H/O prostate biopsy History of cardiac catheterization Hx of hemorrhoidectomy History of carpal tunnel surgery of left wrist Hx laparoscopic cholecystectomy History of uvulectomy History of back surgery Family History (Updated 12/11/24 @ 09:28 by Love Montilla) Father Colon cancer Mother Breast cancer Colon cancer Grandfather Cancer prostate Grandmother Diabetes Social History (Updated 12/11/24 @ 09:28 by Love Montilla) Smoking Status: Never smoker Smokeless tobacco user: chewing tobacco alcohol intake: former HPI HPI HPI: 64-year-old male presents due to MRI calling bilateral inguinal hernias. Patient states he does have occasional suprapubic pressure denies any bulge in either groin. Patient is currently getting worked up for prostate cancer. Patient is on Flomax but does state that he does have a weak urinary stream. ROS General General: Yes weight change and fatigue; No appetite, colon cancer or breast cancer HEENT HEENT: No difficulty swallowing, eye injury, eye surgery, swollen glands or hoarseness Endo Endocrine: No thyroid disease, diabetes mellitus, thyroid cancer, Hair loss, heat intolerance or cold intolerance Skin Skin: No rash or changing moles Musc Musculoskeletal: No back problems, arthritis, rheumatoid arthritis, gout or joint pain Cardio Cardiovascular: No murmur, pacemaker, heart disease, atrial fibrillation, high blood pressure, heart attack, heart stent, palpitations, shortness of breath with exertion or chest pain Psych Psychiatric: Yes anxiety; No depression or hearing voices Resp Respiratory: No shortness of breath, No sleep apnea, No cough, No COPD, No asthma, No emphysema and No wheezing Gastro Gastrointestinal: Yes abdominal pain, No nausea or vomiting, No diarrhea, Yes constipation, No blood in stool, No acid reflux, No hemorrhoids, (more content not included)... Normal [facility] MR/BMS.BPon 11-21-2024 MR/BMS.BP [facility] [address] [place] [address], [address] [place] [address] OFFICE VISIT Date of Service: 11/21/24 MR#: [id number] Acct: [id number] Name: MERLENE UNGER Rep #: [id number] : 1960 Provider: Dr. Kofi Niño se DO Age/Sex: 64/M [place] [facility]: Signed Intake Vital Signs 10/10/24 15:01 11/21/24 14:55 Height 6 ft 1 in 6 ft 1 in Weight: 208 lb 205 lb BMI 27.4 27.0 BP 121/84 H 124/76 H Blood Pressure Location Lt brachial Lt brachial Position Sitting Sitting Respiration 16 16 Pulse 76 82 Pulse Source Monitor Monitor BP Intake Visit Reasons: 6 wk FU Accompanied by: Self Allergies Histamine H2 Inhibitors Adverse Reaction (Verified 11/21/24 14:58) anxiety Phenylpiperazine Antidepressant Adverse Reaction (Verified 11/21/24 14:58) NEEDS FOLLOW-UP Tetracyclic Antidepressants Adverse Reaction (Verified 11/21/24 14:58) NEEDS FOLLOW-UP Tricyclic Antidepressants and Tricy Adverse Reaction (Verified 11/21/24 14:58) NEEDS FOLLOW-UP Medications ???Medication ???Instructions ???Recorded ???Confirmed ???Type metoprolol tartrate 25 mg tablet 12.5 mg PO BID 12/01/14 11/21/24 H istory cholecalciferol (vit D3) 1,000 1 tab PO DAILY 05/07/25 07/02/25 H istory unit-vitamin K2 (MK4) 100 mcg tablet (K2 Plus D3) cyanocobalamin (vitamin B-12) 50 50 mcg PO DAILY 09/26/24 11/21/24 History mcg tablet (Vitamin B-12) linaclotide 145 mcg capsule 145 mcg PO DAILY 09/26/24 11/21/24 History (Linzess) magnesium glycinate (LC-655) 150 mg PO DAILY 09/26/24 11/21/24 History zinc gluconate 30 mg tablet 30 mg PO DAILY 09/26/24 11/21/24 H istory lorazepam 0.5 mg tablet 0.5 mg PO QHS PRN anxiety 30 days 10/10/24 11/21/24 Rx #30 tabs tamsulosin 0.4 mg capsule 0.8 mg PO QDAY 10/10/24 11/21/24 H istory [facility] History (Updated 10/11/24 @ 06:[address] Kofi Delaney, DO) Alcohol use disorder Panic disorder Wears hearing aid Depression Anxiety Back pain Injury of back History of diverticulitis Chewing tobacco dependence History of stress test HTN (hypertension), benign Surgical History History of cardiac catheterization Hx of hemorrhoidectomy History of carpal tunnel surgery of left wrist Hx laparoscopic cholecystectomy History of uvulectomy History of back surgery Social History Smoking Status: Never smoker HPI History of Present Illness History provided by: patient HPI: Rafael Unger is a 64 year old male who presents today for follow up evaluation. Patient reports that he was diagnosed with prostate cancer in recent past. Will now actively surveil. Does find it hard that friends seem more concerned for him than his family outside his . Has taken about 10 lorazepam in the last 6 weeks. Has also had some increased stress regarding having put father in law in the longterm in the last 6 months or so. Lorazepam is still effective when he takes. Denies SI/HI or AVH. Review of Systems Constitutional Denies: fever(s), chills, change in weight or fatigue Eyes Denies: change in vision or blurry vision Ears, Nose, Mouth, Throat Denies: throat pain, neck pain or change in hearing Cardiovascular Denies: chest pain, palpitations or dyspnea Respiratory Denies: dyspnea, cough or wheezing Gastrointestinal Denies: abdominal pain, nausea, vomiting, diarrhea or constipation Genitourinary Denies: dysuria or urinary frequency Musculoskeletal Denies: back pain, neck pain, joint pain or muscle weakness Integumentary/Breast Denies: rash or new lesions Neurological Denies: headache(s), dizziness or confusion Endocrine Denies: fatigue or excessive sweating Hematologic/Lymphatic Denies: easy bruising or easy bleeding Allergic/Immunologic Denies: wheezing Exam Mental Status Exam - Psych Appearance casually dressed and no apparent distress Attitude cooperative and calm Activity/Motor Behavior MSE activity/motor behavior finding no adventitious movements Speech regular rate, regular volume and regular prosody Mood anxious Affect congruent Thought Process linear, logical and coherent Thought Content no delusions and no hallucinations Suicidal Ideation none Homicidal Ideation none Attention intact Concentration intact Sensorium/Orientation awake, alert and oriented x3 Memory/Cognition other (appropriate for stated age) Insight good Judgement good Assessment Plan Assessment Plan (1) Panic disorder: Plan: - Has had some increased anxiety secondary to recent prostate cancer diagnosis; however managing better than expected from himself - Continue to use lorazepam as needed (2) Alcohol use disorder: (more content not included)... Normal [facility] MR/BMS.BPon 10-10-2024 MR/BMS.BP [address], [address] [place] [address] OFFICE VISIT Date of Service: 10/10/24 MR#: [id number] Acct: [id number] Name: MERLENE UNGER Rep #: [id number] : 1960 Provider: Dr. Kofi Niño se, DO Age/Sex: 64/M [place] [facility]: Signed Intake Vital Signs 04/09/23 08:10 10/03/24 10:15 10/10/24 14:55 10/10/24 15:01 Height 6 ft 1 in 6 ft 1 in 6 ft 1 in Weight: 208 lb 208 lb BMI 27.4 27.4 BP 121/84 H 121/84 H Blood Pressure Location Lt brachial Lt brachial Position Sitting Sitting Respiration 16 16 Pulse 76 76 Pulse Source Monitor Monitor BP Intake Visit Reasons: New PT Accompanied by: Self Allergies Histamine H2 Inhibitors Adverse Reaction (Verified 10/10/24 14:57) anxiety Phenylpiperazine Antidepressant Adverse Reaction (Verified 10/10/24 14:57) NEEDS FOLLOW-UP Tetracyclic Antidepressants Adverse Reaction (Verified 10/10/24 14:57) NEEDS FOLLOW-UP Tricyclic Antidepressants and Tricy Adverse Reaction (Verified 10/10/24 14:57) NEEDS FOLLOW-UP Medications ???Medication ???Instructions ???Recorded ???Confirmed ???Type metoprolol tartrate 25 mg tablet 12.5 mg PO BID 12/01/14 10/10/24 H istory cholecalciferol (vit D3) 1,000 1 tab PO DAILY 09/26/24 10/10/24 H istory unit-vitamin K2 (MK4) 100 mcg tablet (K2 Plus D3) cyanocobalamin (vitamin B-12) 50 50 mcg PO DAILY 09/26/24 10/10/24 History mcg tablet (Vitamin B-12) linaclotide 145 mcg capsule 145 mcg PO DAILY 09/26/24 10/10/24 History (Linzess) magnesium glycinate (LC-655) 150 mg PO DAILY 09/26/24 10/10/24 History zinc gluconate 30 mg tablet 30 mg PO DAILY 09/26/24 10/10/24 H istory lorazepam 0.5 mg tablet 0.5 mg PO QHS PRN anxiety 30 days 10/10/24 10/10/24 Rx #30 tabs tamsulosin 0.4 mg capsule 0.8 mg PO QDAY 10/10/24 10/10/24 H istory PFSH Medical History (Updated 10/11/24 @ 06:[address] Kofi Delaney, DO) Alcohol use disorder Panic disorder Wears hearing aid Depression Anxiety Back pain Injury of back History of diverticulitis Chewing tobacco dependence History of stress test HTN (hypertension), benign Surgical History History of cardiac catheterization Hx of hemorrhoidectomy History of carpal tunnel surgery of left wrist Hx laparoscopic cholecystectomy History of uvulectomy History of back surgery Social History Smoking Status: Never smoker HPI History of Present Illness History provided by: patient Chief complaint: Anxiety HPI: Rafael Unger is a 64 year old male who presents today for new patient evaluation. Patient admits to being referred by his PCP, Dr. Duarte. Patient admits to having longstanding history of anxiety, since about 2007. Remembers having a panic attack when driving on [address] towards [place]. Stopped in the ER in [place] and had workup which was largely normal. Ended up having cardiac workup which was also largely normal. Had another similar episode when driving [place] a long bridge [place] driving into to [place]. Was drinking a fair amount of beer around this same time, but has since stopped drinking entirely. Tried several antidepressants and felt that all of them caused significant side effects. These include sertraline, citalopram, duloxetine, effexor. Eventually trialed lorazepam which has been effective. Largely utilizes lorazepam now PRN when he knows that he is going somewhere. Just recently had some blood work in June and found that his PSA was elevated and now has concern that he may have prostate cancer. Has been getting worked up for this and is awaiting results. Has been taking lorazepam with more frequently since this time. Sleep: if gets 6 hours this is a good night Interest: is able to find bridger in things, back pain can limit this Guilt: denies Energy: largely good Concentration: fair to good Appetite: appetite has been largely stable, has been losing weight without trying Psychomotor: WNL Suicide: denies any current or memory Memory: really good Anxiety: admits to having panic attacks as above Obsessions: denies Compulsions: denies Trey:denies symptoms of trey in the past PTSD: admits to losing father to colon cancer in April 1996 Psychosis: denies history of auditory or visual hallucinations, denies disorganized thoughts, denies disorganized speech Developmental History Developmental History: Siblings - 2 brothers Born/Raised - [place] and 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 Normal [facility] Urgent Care Visit Reporton 0 10-06-2024 Urgent Care Visit Report [facility] [address], [address] [place] [address] OFFICE VISIT Date of Service: 10/06/24 MR#: [id number] Acct: [id number] Name: MERLENE UNGER Rep #: [id number] : 1960 Provider: WALKER Collado Age/Sex: 64/M Location[place] [facility] Status: Signed Intake Vital Signs 10/03/24 10:15 10/06/24 08:07 Height 6 ft 1 in BP 120/70 Position Sitting Pulse 58 L Temp 98.4 F Temp Source Oral Pulse Oximetry (%) 98 Oxygen Delivery Method room air Intake Visit Reasons: COUGH, CONGESTION Accompanied by: Self Allergies Histamine H2 Inhibitors Adverse Reaction (Verified 10/06/24 08:11) anxiety Phenylpiperazine Antidepressant Adverse Reaction (Verified 10/06/24 08:11) NEEDS FOLLOW-UP Tetracyclic Antidepressants Adverse Reaction (Verified 10/06/24 08:11) NEEDS FOLLOW-UP Tricyclic Antidepressants and Tricy Adverse Reaction (Verified 10/06/24 08:11) NEEDS FOLLOW-UP Medications ???Medication ???Instructions ???Recorded ???Confirmed ???Type metoprolol tartrate 25 mg tablet 12.5 mg PO BID 12/01/14 10/06/24 H istory cholecalciferol (vit D3) 1,000 1 tab PO DAILY 09/26/24 10/06/24 H istory unit-vitamin K2 (MK4) 100 mcg tablet (K2 Plus D3) cyanocobalamin (vitamin B-12) 50 50 mcg PO DAILY 09/26/24 10/06/24 History mcg tablet (Vitamin B-12) linaclotide 145 mcg capsule 145 mcg PO DAILY 09/26/24 10/06/24 History (Linzess) magnesium glycinate (LC-655) 150 mg PO DAILY 09/26/24 10/06/24 History zinc gluconate 30 mg tablet 30 mg PO DAILY 09/26/24 10/06/24 H istory benzonatate 100 mg capsule 100 mg PO TID PRN cough #21 caps 0 10/06/24 10/06/24 Rx Nurse's Note: Patient has a cough and he is congested. Patient states this has been going on since Tue. [facility] Medical History Wears hearing aid Depression Anxiety Back pain Injury of back History of diverticulitis Chewing tobacco dependence History of stress test HTN (hypertension), benign Surgical History History of cardiac catheterization Hx of hemorrhoidectomy History of carpal tunnel surgery of left wrist Hx laparoscopic cholecystectomy History of uvulectomy History of back surgery Social History Smoking Status: Never smoker HPI HPI Details: MERLENE UNGER, is a 64 M who presents to the office today for evaluation of cough and sore throat. Patient states that his symptoms have been mild and persistent for the past 2-3 days. He states that following prostate biopsy on Tuesday he noticed increased coughing (dry tickle) and PND. He states that he was on Cipro at the time of the procedure and has completed it since, he denies other treatment for current symptoms. He denies nasal congestion, ear pain, SOB, wheezing, chest pain, and fever. ROS Const Constitutional: No chills or fever(s) ENT ENT: Positive for post nasal drip and sore throat; No ear or mastoid pain, ear discharge, nasal congestion, sinus pressure, sinus pain or nasal discharge Resp Respiratory: Positive for cough; No chest congestion, excessive phlegm production, shortness of breath or wheezing Cardio Cardiology: No chest pain at rest, chest pain with exertion, dyspnea on exertion, irregular heart rhythm or palpitations Aller/Imm Allergy/Immunologic: No seasonal allergy symptoms or wheezing Exam Const General: cooperative and no acute distress HENMT Ears: external ears normal and TM's normal bilaterally Nose: nares normal, nasal mucous membranes and turbinates normal and no nasal discharge Face and sinus: sinuses nontender Mouth: oral mucosae normal Throat: posterior oropharynx normal Neck Lymphatic: no lymphadenopathy noted Resp Auscultation: Bilateral: Clear to Auscultation Cardio Rate: regular rate Rhythm: regular rhythm Heart Sounds: S1 normal and S2 normal Coding Level of Care Code Established Pt Off vis,est,level 2 Patient Type Established History Problem Focused Exam Problem Focused Medical Decision Making Low Complexity Diagnoses Acute cough R05.1 Cough type: acute Assessment and Plan Assessment and Plan (1) Cough: Status: Acute Qualifiers: Cough type: acute Qualified Code(s): R05.1 - Acute cough Plan: Well appearing on exam without concerning features. Suspect seasonal allergies or viral source based on normal exam and short duration of symptoms. Provide benzonatate for antitussive effect along with OTC options for sinus congestion. F/u with PCP or back in the [facility] with persistent or worsening symptoms despite management. Medications: New benzonatate 100 mg PO TID PRN 21 caps 0RF cough (more content not included)... Normal [facility] Discharge Instructionon 09-20 Discharge Instruction [facility] Medical Records Department [address] [place] [address] Instructions for Home/Discharge Instructions 10/03/24 1514 MR#: [id number] Acct: [id number] Name: MERLENE UNGER Rep #: [id number] : 1960 64 From: Immanuel Saucedo MD PCP: Dr. Harsha Duarte MD Status:REG SDC Discharge Instructions Diet Discharge Diet: No restrictions DC O2, CPAP, BIPAP needs Home O2 Discharge instructions: No Dressing / Incision Discharge Activity: Return to Normal Activity and May Not Drive (while taking narcotic pain medications.) Dressing / Incision Call your doctor if you observe: Fever of 101 or Higher Follow Up Care Please Follow Up With: Immanuel Saucedo MD When: Call [phone] for an appointment Test Results: Test results from this visit will be discussed in further detail at your follow-up appointment, if applicable. Discharge Plan Admission Attending Provider: Immanuel Saucedo Primary Care Provider: Harsha Duarte Instructions Print Language: German Discharge Orders/Prescriptions Prescriptions: No Action metoprolol tartrate 25 MG tablet 12.5 mg PO BID zinc gluconate 30 mg tablet 30 mg PO DAILY Vitamin B-12 50 mcg tablet 50 mcg PO DAILY K2 Plus D3 1,000-100 unit-mcg tablet 1 tab PO DAILY LC-655 118 mg magnesium capsule 150 mg PO DAILY Linzess 145 mcg capsule 145 mcg PO DAILY Referrals / Follow Up: Harsha Duarte MD [Primary Care Provider] - Disposition Disposition (needs filled in before D/C Order can be placed): Home, Self Care 10/03/24 1514 Immanuel Saucedo MD CC: Dr. Harsha Duarte MD Signed [facility] Immunohistochemical Stainson 10-03-2024 Immunohistochemical Stains Patient Age/Sex Location Account Attending Physician MERLENE UNGER 64/M [facility] [id number] Dr. Immanuel Saucedo MD Specimen: [id number] Received: 10/03/24 Status: CHANEL Lepe Num: [id number] Spec Type: PROST BX Subm Dr: Dr. Immanuel Saucedo MD HEADER OPERATION: Ultrasound guided transperineal prostate biopsy PRE-OP DIAGNOSIS: Elevated PSA, abnormal MRI TISSUE SUBMITTED: A- Right anterior, B- Left mid, C- Left anterior, D- Left posterior, E- Right posterior, F- Deep right anterior, G- Deep left anterior MICROSCOPIC DIAGNOSIS A. Prostate, right anterior, biopsy: * Benign prostate tissue. * Focal acute inflammation. B. Prostate, left mid, biopsy: * Adenocarcinoma [place] 3+3=6, 1 of 2 cores, involving 7% of the tissue. C. Prostate, left anterior, biopsy: * Benign prostate tissue. D. Prostate, left posterior, biopsy: * Focal atypical small acinar proliferation. * IHC for [id number] supports the diagnosis. E. Prostate, right posterior, biopsy: * Benign prostate tissue. F. Prostate, deep right anterior, biopsy: * Benign fibromuscular stroma with scant adipose. * No glandular epithelium observed. G. Prostate, deep left anterior, biopsy: * Benign fibromuscular stroma. * No glandular epithelium seen. MICROSCOPIC DESCRIPTION Slides are reviewed All matched controls reacted appropriately. These tests were developed and their performance characteristics determined by [facility]. They may not have been cleared or approved by the U.S. Food and Drug Administration. The FDA has determined that such clearance or approval is not necessary.??? The above immunohistochemical/dual WILY???markers are ordered and reviewed by the Pathologist.. Patient Age/Sex Location Account Attending Physician MERLENE UNGER 64/M [facility] [id number] Dr. Immanuel Saucedo MD GROSS DESCRIPTION A. Received in formalin in a container labeled with the patient's name, date of , and right anterior prostate biopsy are 5 white and wispy core biopsies of soft tissue ranging from 1.1 x 0.1 cm to 1.5 x 0.1 cm. Submitted in toto as follows:A1. 3 coresA2. 2 cores B. Received in formalin in a container labeled with the patient's name, date of , and left mid prostate biopsy are 2 white and wispy core biopsies of soft tissue measuring 1.0 x 0.1 cm and 1.8 x 0.1 cm. Submitted in toto in B1. C. Received in formalin in a container labeled with the patient's name, date of , and left anterior prostate biopsy are 3 white and wispy core biopsies of soft tissue ranging from 0.7 x 0.1 cm to 1.3 x 0.1 cm. Submitted in toto in C1. D. Received in formalin in a container labeled with the patient's name, date of , and left posterior prostate biopsy are 2 white and wispy core biopsies of soft tissue each measuring 1.1 x 0.1 cm. Submitted in toto in D1. E. Received in formalin in a container labeled with the patient's name, date of , and right posterior prostate biopsy are 2 white and wispy core biopsies of soft tissue measuring 0.6 x 0.1 cm and 1.2 x 0.1 cm. Submitted in toto in E1. F. Received in formalin in a container labeled with the patient's name, date of , and deep right anterior prostate is a 0.5 x 0.1 cm core biopsy of white and wispy soft tissue. Submitted in toto in F1. G. Received in formalin in a container labeled with the patient's name, date of , and deep left anterior prostate biopsy is a 0.6 x 0.1 cm white and wispy core biopsy of soft tissue. Submitted in toto in G1. [facility] 10-04-2024 [facility]:[id number], [id number] Patient Age/Sex Location Account Attending Physician MERLENE UNGER 64/M [facility] [id number] Dr. Immanuel Saucedo MD Signed (signature on file) Dr. Bella Gerber MD 10/08/24 1402 Normal [facility] Comment on above: Performed By: #### P BOBY #### [facility] [address] [place], [place], [id number] MR/POSTOP.ANEon 10-03-2024 MR/POSTOP.[facility] Medical Records Department [address] [place] [address] Anesthesia Postop Eval I 10/03/241623 MR#: [id number] Acct: [id number] Name: MERLENE UNGER Rep #: [id number] : 1960 64 From: Abraham Peraza CRNA PCP: Dr. Harsha Duarte MD Status:[facility] Y Race: C Location: [place] [address] Anesthesia: Postop Eval I Current Vital Signs Temperature: 97.5 F Pulse Rate: 67 Blood Pressure: 125/94 Respiratory Rate: 20 Pulse Ox: 95 Oxygen Delivery Method: Room Air Assessment Airway patent: Yes Spontaneous unlabored respirations: Yes Mental status: Awake and Calm nausea: No Vomiting: No Anesthesia Complication: No Fluid Hydration Crystalloid volume administer (ml): 900 Total IV fluid infused: 900 Progress Note Anesthesia document: Postop Eval 1 completed: Yes 10/03/241623 Date Abraham Cisneros Signature: Date CC: Signed Normal [facility] MR/ERPWOWVQ7as 10-03-2024 /POST[address] Medical Records Department [address] [place] [address] Anesthesia Postop Eval II 10/03/24 1755 MR#: [id number] Acct: [id number] Name: MERLENE UNGER LAXMI Rep #: [id number] : 1960 64 From: Conner Guzman MD PCP: Dr. Harsha Duarte MD Status:[facility] Y Race: C Location[place] [facility] Anesthesia Postop Eval I Sum Postop Eval Completion status Anesthesia document: Postop Eval 1 completed: Yes Anesthesia Postop Eval I Summary Anesthesia Postop Eval I Summary: Anesthesia Postop Eval I: Assessment Summary Airway patent Yes 10/03/24 16:24 PRESALES CONSULTANT.PKEL Spontaneous unlabored Yes 10/03/24 16:24 PRESALES CONSULTANT.PKEL respirations Mental status Awake,Calm 10/03/24 16:24 PRESALES CONSULTANT.PKEL nausea No 10/03/24 16:24 PRESALES CONSULTANT.PKEL Vomiting No 10/03/24 16:24 PRESALES CONSULTANT.PKEL Anesthesia Postop Eval I: Fluid Summary Crystalloid volume administer 900 10/03/24 16:24 PRESALES CONSULTANT.PKEL (ml) Colloids volume administered ( ml) Blood Product volume administered (ml) Total IV fluid infused 900 10/03/24 16:24 PRESALES CONSULTANT.PKEL Anesthesia Postop Eval I: Summary Notes Anesthesia Complication No 10/03/24 16:24 PRESALES CONSULTANT.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 10/03/24 1756 Date Conner Guzman MD Cosigner Signature: Date CC: Signed Normal [facility] Operative Reporton 5 Operative Report [facility] Medical Records Department [address] [place] [id number] Operative Report 10/03/24 1613 MR#: [id number] Acct: [id number] Name: MERLENE UNGER Rep #: [id number] : 1960 64 From: Immanuel Saucedo MD PCP: Dr. Hasrha Duarte MD Status:[facility] Location: [place] [address] Operative Report (Standard) Operative Information Date of Procedure: 10/03/24 Pre-Operative Diagnosis: Elevated PSA abnormal MRI Post-Operative Diagnosis: The same Surgery/Procedure Performed: Transperineal prostate biopsy antenna installer: No Type of Anesthesia: General RN Documented Start/Stop Times: Operation Date: 10/03/24 12:05 Case Time Into Pre-Op 10/03/24 09:54 Procedure Start Time: 16:02 Procedure Stop Time: 16:13 Select all DRAINS/GRAFTS/IMPLANTS that apply: None Estimated Blood Loss: 1 Specimen collected: Yes Description of specimen(s) removed: Prostate tissue Description of surgery: Indication 64-year-old male history of elevated PSA MRI was read as anterior lesions on the prostate so today we will do a transperineal prostate biopsy deceiving get a bit better sampling of the anterior part of the prostate. Patient was taken back to the operating room after induction of anesthesia he was placed in dorsolithotomy position. The perineum was prepped and draped in usual fashion using trans bipolar biplanar trans rectal ultrasound probe placed into the rectum could see the prostate and then guide the needles we then did biopsies transperitoneally to the prostate we did at the right anterior right mid and right posterior left anterior left mid left posterior and deep left anterior and deep right anterior after all the biopsies were done pressure was held in the perineum patient's anesthetic was versed taken back to PACU in good condition plan to see him back in a few weeks to review the results of the biopsies. Surgical Findings: Normal size prostate tissue sent off Complications Complications: No Admit VTE Documentation VTE Present on Admission: No VTE Mechan Device Prophylaxis: SCD's VTE Pharm Prophylaxis ordered?: No 10/03/24 1615 Cosigner Signature (if applicable): CC: Dr. Harsha Duarte MD; Dr. Immanuel Saucedo MD Signed [facility] MRI PROSTATE W/ +W/O CONTRAS Ton 09-24-2024 MRI PROSTATE W/ +W/O CONTRAST ORIGINAL EXAMINATION: MRI OF THE PROSTATE WITH AND WITHOUT CONTRAST09/19/2024 3:24 pm MRI pelvis with and without contrast (Prostate protocol) TECHNIQUE: MRI of the prostate with and without contrast including 3D post processing on an independent bettermarks workstation with active physician supervision and interpretation. Precontrast T1 weighted images were obtained from the superior iliac crest to the inferior pubic ramus. Subsequently, 3 planes of high resolution T2 weighted imaging was performed. 18 mL of MultiHance was administered. High B value diffusion-weighted images were obtained through the prostate. Dynamic contrast enhancement images were performed after the administration of IV contrast. Furthermore, postcontrast T1 images through the pelvis were performed. This test is designed to evaluate for clinically significant prostate cancer defined as Trenton 7 or greater including either Trenton 4 + 3, or Delisa 3 + 4 with a significant Trenton 4 component. Patients with Trenton 7 (3 + 4) cancer without significant Delisa 4 component, and Delisa 6 or less prostate cancer are not expected to have significant abnormal imaging findings. COMPARISON: None. HISTORY: ORDERING SYSTEM PROVIDED HISTORY: Reason for Exam: ELEVATED PSA FINDINGS: RIGHT PERIPHERAL ZONE: ------ -------- Right base and mid gland: MERLIN 1: Centered upon the right anterior peripheral zone of the gland base extending to the mid gland and the anterior transition zone of the mid gland is a 1.4 x 0.7 x 0.9 cm T2 hypointense lesion with associated restricted diffusion. There is no definite suspicious early contrast enhancement. PI-RADS 4. The lesion abuts and mildly blurs the adjacent capsule. Microinvasion cannot be excluded. (11:14). Right apex: No evidence of clinically significant neoplasm. LEFT PERIPHERAL ZONE: ------ -------- Left base: No evidence of clinically significant neoplasm. Left mid: There is T1 hyperintensity within the posteromedial right peripheral zone of the midgland, most consistent with hemorrhage. No evidence of clinically significant neoplasm. Left apex: No evidence of clinically significant neoplasm. ------ --------- Central gland: MERLIN 2: Within the left anterior transition zone of the gland base is a 1.1 x 0.9 x 0.9 cm of T2 hypointensity within a largely circumscribed nodule with associated restricted diffusion and early contrast enhancement, possibly an atypical nodule, PI-RADS 3. (11:14). Multiple additional circumscribed heterogenous nodules are seen within the central gland most compatible with BPH change (PI-RADS 2 - clinically significant cancer is unlikely to be present). Seminal vesicles: Unremarkable. Adjacent structures/Neurovascular Bundle: Unremarkable. Lymph nodes: No lymphadenopathy. Bones: No suspicious osseus lesion. Prostate volume: The prostate measures 5.2 x 4.1 x 4.9 cm.. This corresponds to a volume of 57 cc. Other: Colonic diverticulosis. Small left larger than right fat containing inguinal hernias. IMPRESSION: 1. PI-RADS 4 lesion in the right anterior peripheral zone extending to the adjacent right anterior transition zone. The lesion abuts and mildly blurs the adjacent capsule. Microinvasion cannot be excluded. 2. PI-RADS 3 lesion within the left anterior transition zone of the gland base. 3. No lymphadenopathy or suspicious osseous lesion. Interpreted by: Liz Lozano Preliminary Report By: Liz Lozano Electronically signed By Liz Lozano Dictated Date: 09/24/2024 6:26:39 AM Prelim Date: 09/24/2024 8:55:45 AM Sign Date: 09/24/2024 8:55:45 AM Ordering Provider: IMMANUEL Abobtt [facility] XR FOREIGN BODY LOC EYE BILA Claritzazoe 09-19-2024 XR FOREIGN BODY LOC EYE BILATERAL ORIGINAL EXAMINATION: XR OR FOREIGN BODY 09/19/2024 1:26 pm COMPARISON: None. HISTORY: ORDERING SYSTEM PROVIDED HISTORY: Reason for Exam: MRI CLEARANCE, PRIOR METAL REMOVED FROM EYES FINDINGS: Dental amalgam is present. No additional radiodense foreign bodies visualized. IMPRESSION: No radiodense foreign bodies visualized. I have personally reviewed the images of this examination and agree with the resident's findings and interpretation. Interpreted by: Prasanna Roland MD Preliminary Report By: Tennille Dolan Electronically signed By Prasanna Roland MD Dictated Date: 09/19/2024 2:00:39 PM Prelim Date: 09/19/2024 2:02:37 PM Sign Date: 09/19/2024 2:02:37 PM Ordering Provider: IMMANUEL Abbott [facility] PSA Total+%Freeon 09-02-2024 PSA, FREE 1.26 ng/mL Normal N/A [facility] Comment on above: Order Comment: Order Date: 08/08/24Order Info: [id number] - PSAT%F Result Comment: Esme MARTE methodology. Performed By: #### L 3110.0500, L500.4100, L500.4050, L100.0500 ####[facility] [address] [place], [address](015) PSA, FREE % 17.0 Normal . [facility] Comment on above: Order Comment: Order Date: 08/08/24Order Info: [id number] - PSAT%F Result Comment: The table below lists the probability of prostate cancer for men with non-suspicious VIKASH results and total PSA between 4 and 10 ng/mL, by patient age (Ranjit et al, HIGINIO 1998, 279:1542). % Free PSA 50-64 yr 65-75 yr 0.00-10.00% 56% 55% 10.01-15.00% 24% 35% 15.01-20.00% 17% 23% 20.01-25.00% 10% 20% >25.00% 5% 9% Please note: Ranjit et al did not make specific recommendations regarding the use of percent free PSA for any other population of men. Performed at: - [address] [id number] Position Clerk: Matt Vieira PhD, Phone: [phone] Performed By: #### L 3110.0500, L500.4100, L500.4050, L100.0500 ####[facility] [address] [place], [address] PSA, TOTAL ULTR 7.400 ng/mL Abnormal 0.000-4.000 [facility] Comment on above: Order Comment: Order Date: 08/08/24Order Info: [id number] - PSAT%F Result Comment: Esme law ECLVILMA methodology. According to the [employer] [place] [employer], Serum PSA should decrease and remain at undetectable levels after radical prostatectomy. The AUA defines biochemical recurrence as an initial PSA value 0.200 ng/mL or greater followed by a subsequent confirmatory PSA value 0.200 ng/mL or greater. Values obtained with different assay methods or kits cannot be used interchangeably. Results cannot be interpreted as absolute evidence of the presence or absence of malignant disease. Performed By: #### L 3110.0500, L500.4100, L500.4050, L100.0500 ####[facility] [address] [place], [place], [id number] CBC-Complete Blood Cnt No Di ffon 08-31-2024 Erythrocyte distribution width (RBC) [Ratio] 12.7 % Normal 11.6-14.6 [facility] Comment on above: Order Comment: Order Date: 08/08/24 Order Info: [id number] - CBC Performed By: #### L 3110.0500, L500.4100, L500.4050, L100.0500 #### [facility] [address] [place], [address] Hematocrit (Bld) [Volume fraction] 43.0 % Normal 40-54 [facility] Comment on above: Order Comment: Order Date: 08/08/24 Order Info: [id number] - CBC Performed By: #### L 3110.0500, L500.4100, L500.4050, L100.0500 #### [facility] [address] [place], [place], [address] Hemoglobin (Bld) [Mass/Vol] 14.4 g/dL Normal 13.0-16.5 [facility] Comment on above: Order Comment: Order Date: 08/08/24 Order Info: [id number] - CBC Performed By: #### L 3110.0500, L500.4100, L500.4050, L100.0500 #### [facility] [address] [place], [address] MCH (RBC) [Entitic mass] 31.8 pg Normal 27.0-32.0 [facility] Comment on above: Order Comment: Order Date: 08/08/24 Order Info: [id number] - CBC Performed By: #### L 3110.0500, L500.4100, L500.4050, L100.0500 #### [facility] [address] [place], [address] MCHC (RBC) [Mass/Vol] 33.5 g/dL Normal 32-36 [facility] Comment on above: Order Comment: Order Date: 08/08/24 Order Info: [id number] - CBC Performed By: #### L 3110.0500, L500.4100, L500.4050, L100.0500 #### [facility] [address] [place], [address] MCV (RBC) [Entitic vol] 94.9 fL High 80-94 [facility] Comment on above: Order Comment: Order Date: 08/08/24 Order Info: [id number] - CBC Performed By: #### L 3110.0500, L500.4100, L500.4050, L100.0500 #### [facility] [address] [place], [address] Platelet mean volume (Bld) [Entitic vol] 9.7 fL Normal 6.2-12.0 [facility] Comment on above: Order Comment: Order Date: 08/08/24 Order Info: [id number] - CBC Performed By: #### L 3110.0500, L500.4100, L500.4050, L100.0500 #### [facility] [address] [place], [address] Platelets (Bld) [#/Vol] 272 10*3/uL Normal 150-450 [facility] Comment on above: Order Comment: Order Date: 08/08/24 Order Info: [id number] - CBC Performed By: #### L 3110.0500, L500.4100, L500.4050, L100.0500 #### [facility] [address] [place], [address] RBC (Bld) [#/Vol] 4.53 10*6/uL Low 4.6-6.2 [facility] Comment on above: Order Comment: Order Date: 08/08/24 Order Info: [id number] - CBC Performed By: #### L 3110.0500, L500.4100, L500.4050, L100.0500 #### [facility] [address] [place], [address] RDW SD 43.8 fl Normal 35.1-43.9 [facility] Comment on above: Order Comment: Order Date: 08/08/24 Order Info: [id number] - CBC Performed By: #### L 3110.0500, L500.4100, L500.4050, L100.0500 #### [facility] [address] [place], [address] WBC (Bld) [#/Vol] 7.5 10*3/uL Normal 4.4-11.0 [facility] Comment on above: Order Comment: Order Date: 08/08/24 Order Info: [id number] - CBC Performed By: #### L 3110.0500, L500.4100, L500.4050, L100.0500 #### [facility] [address] [place], [address] Comprehensive Metabolic Prof ilon 08-31-2024 Albumin [Mass/Vol] 4.5 g/dL Normal 3.4-4.8 [facility] Comment on above: Order Comment: Order Date: 08/08/24Order Info: [id number] - CMPOrder Info: [id number] - LIPID Performed By: #### L 3110.0500, L500.4100, L500.4050, L100.0500 ####[facility] [address] [place], [address] Albumin/Globulin [Mass ratio] 1.8 {ratio} Normal 0.9-2.4 [facility] Comment on above: Order Comment: Order Date: 08/08/24Order Info: [id number]- - CMPOrder Info: [id number] - LIPID Performed By: #### L 3110.0500, L500.4100, L500.4050, L100.0500 ####[facility] [address] [place], [address] ALK PHOS 54 U/L Normal 40-129 [facility] Comment on above: Order Comment: Order Date: 08/08/24Order Info: [id number]- - CMPOrder Info: [id number] - LIPID Performed By: #### L 3110.0500, L500.4100, L500.4050, L100.0500 ####[facility] [address] [place], [address] ALT [Catalytic activity/Vol] 34 U/L Normal <=46 [facility] Comment on above: Order Comment: Order Date: 08/08/24Order Info: [id number]- - CMPOrder Info: [id number] - LIPID Performed By: #### L 3110.0500, L500.4100, L500.4050, L100.0500 ####[facility] [address] [place], [address] AST [Catalytic activity/Vol] 25 U/L Normal <=37 [facility] Comment on above: Order Comment: Order Date: 08/08/24Order Info: [id number]- - CMPOrder Info: [id number] - LIPID Performed By: #### L 3110.0500, L500.4100, L500.4050, L100.0500 ####[facility] [address] [place], [address] Bilirubin [Mass/Vol] 0.74 mg/dL Normal 0.00-1.30 [facility] Comment on above: Order Comment: Order Date: 08/08/24Order Info: [id number] - CMPOrder Info: [id number] - LIPID Performed By: #### L 3110.0500, L500.4100, L500.4050, L100.0500 ####[facility] [address] [place], [address] BUN/CRE 14.6 RATIO Normal 10-20 [facility] Comment on above: Order Comment: Order Date: 08/08/24Order Info: [id number] - CMPOrder Info: [id number] - LIPID Performed By: #### L 3110.0500, L500.4100, L500.4050, L100.0500 ####[facility] [address] [place], [address] Calcium [Mass/Vol] 9.5 mg/dL Normal 7.6-11.0 [facility] Comment on above: Order Comment: Order Date: 08/08/24Order Info: [id number] - CMPOrder Info: [id number] - LIPID Performed By: #### L 3110.0500, L500.4100, L500.4050, L100.0500 ####[facility] [address] [place], [address] Chloride [Moles/Vol] 104 mmol/L Normal 98-108 [facility] Comment on above: Order Comment: Order Date: 08/08/24Order Info: [id number] - CMPOrder Info: [id number] - LIPID Performed By: #### L 3110.0500, L500.4100, L500.4050, L100.0500 ####[facility] [address] [place], [address] CO2 [Moles/Vol] 24.7 mmol/L Normal 21.0-32.0 [facility] Comment on above: Order Comment: Order Date: 08/08/24Order Info: [id number] - CMPOrder Info: [id number] - LIPID Performed By: #### L 3110.0500, L500.4100, L500.4050, L100.0500 ####[facility] [address] [place], [address] Creatinine [Mass/Vol] 1.02 mg/dL Normal 0.70-1.20 [facility] Comment on above: Order Comment: Order Date: 08/08/24Order Info: [id number] - CMPOrder Info: [id number] - LIPID Performed By: #### L 3110.0500, L500.4100, L500.4050, L100.0500 ####[facility] [address] [place], [address] GAP 12 Normal 5-15 [facility] Comment on above: Order Comment: Order Date: 08/08/24Order Info: [id number] - CMPOrder Info: [id number] - LIPID Performed By: #### L 3110.0500, L500.4100, L500.4050, L100.0500 ####[facility] [address] [place], [address] GFR/1.73 sq M.predicted among non-blacks MDRD (S/P/Bld) [Vol rate/Area] 83 mL/min/{1.73_m2} Normal >60 [facility] Comment on above: Order Comment: Order Date: 08/08/24Order Info: [id number] - CMPOrder Info: [id number] - LIPID Result Comment: mL/m in/1.73m2 CKD-EPI Creatinine Equation (2020) Performed By: #### L 3110.0500, L500.4100, L500.4050, L100.0500 ####[facility] [address] [place], [address] Globulin (S) [Mass/Vol] 2.5 g/dL Normal 2.2-4.2 [facility] Comment on above: Order Comment: Order Date: 08/08/24Order Info: [id number] - CMPOrder Info: [id number] - LIPID Performed By: #### L 3110.0500, L500.4100, L500.4050, L100.0500 ####[facility] [address] [place], [address] Glucose [Mass/Vol] 94 mg/dL Normal 70-99 [facility] Comment on above: Order Comment: Order Date: 08/08/24Order Info: [id number] - CMPOrder Info: [id number] - LIPID Performed By: #### L 3110.0500, L500.4100, L500.4050, L100.0500 ####[facility] [address] [place], [address] Potassium [Moles/Vol] 4.5 mmol/L Normal 3.3-5.1 [facility] Comment on above: Order Comment: Order Date: 08/08/24Order Info: [id number] - CMPOrder Info: [id number] - LIPID Performed By: #### L 3110.0500, L500.4100, L500.4050, L100.0500 ####[facility] [address] [place], [address] Sodium [Moles/Vol] 140 mmol/L Normal 133-145 [facility] Comment on above: Order Comment: Order Date: 08/08/24Order Info: [id number] - CMPOrder Info: [id number] - LIPID Performed By: #### L 3110.0500, L500.4100, L500.4050, L100.0500 ####[facility] [address] [place], [address] T PROT 6.9 g/dL Normal 5.9-8.4 [facility] Comment on above: Order Comment: Order Date: 08/08/24Order Info: [id number] - CMPOrder Info: [id number] - LIPID Performed By: #### L 3110.0500, L500.4100, L500.4050, L100.0500 ####[facility] [address] [place], [address] Urea nitrogen [Mass/Vol] 15 mg/dL Normal 4-19 [facility] Comment on above: Order Comment: Order Date: 08/08/24Order Info: [id number] - CMPOrder Info: [id number] - LIPID Performed By: #### L 3110.0500, L500.4100, L500.4050, L100.0500 ####[facility] [address] [place], [address] Lipid Profileon 08-31-2024 CHOL:HDL 4.52 Normal [facility] Comment on above: Order Comment: Order Date: 08/08/24Order Info: [id number] - CMPOrder Info: [id number] - LIPID Performed By: #### L 3110.0500, L500.4100, L500.4050, L100.0500 ####[facility] [address] [place], [address] Cholesterol [Mass/Vol] 252 mg/dL High <=200 [facility] Comment on above: Order Comment: Order Date: 08/08/24Order Info: [id number] - CMPOrder Info: [id number] - LIPID Result Comment: Chol esterol level, Desirable <200 mg/dL Borderline high cholesterol 200-239 mg/dL High cholesterol >=240 mg/dL Recommendations of the NCEP Adult Treatment Panel for the following risk-cutoff thresholds for the [place] population. Performed By: #### L 3110.0500, L500.4100, L500.4050, L100.0500 ####[facility] [address] [place], [address] Cholesterol in HDL [Mass/Vol] 56 mg/dL Normal [facility] Comment on above: Order Comment: Order Date: 08/08/24Order Info: [id number] - CMPOrder Info: [id number] - LIPID Result Comment: Cindy onal Cholesterol Education Program (NCEP) guidelines: <40 mg/dL: Low HDL-cholesterol (major risk factor for CHD) >= 60 mg/dL: High HDL-cholesterol (negative risk factor for CHD) HDL-cholesterol is affected by a number of factors, e.g. smoking, exercise, hormones, sex and age. Performed By: #### L 3110.0500, L500.4100, L500.4050, L100.0500 ####[facility] [address] [place], [address] Cholesterol in LDL [Mass/Vol] 163 mg/dL Normal [facility] Comment on above: Order Comment: Order Date: 08/08/24Order Info: [id number] - CMPOrder Info: [id number] - LIPID Result Comment: Bord dunuzr=756-507 mg/dL Higher Pszv=709 mg/dL or greater Performed By: #### L 3110.0500, L500.4100, L500.4050, L100.0500 ####[facility] [address] [place], [address] Cholesterol in VLDL [Mass/Vol] 34 mg/dL Normal 5-40 [facility] Comment on above: Order Comment: Order Date: 08/08/24Order Info: [id number] - CMPOrder Info: [id number] - LIPID Performed By: #### L 3110.0500, L500.4100, L500.4050, L100.0500 ####[facility] [address] [place], [address] Triglyceride [Mass/Vol] 168 mg/dL Normal [facility] Comment on above: Order Comment: Order Date: 08/08/24Order Info: [id number] - CMPOrder Info: [id number] - LIPID Result Comment: The drugs N-Acetylcysteine and Metamizole may falsely depress this assay. Normal range: <150 mg/dL Borderline High: 150-199 mg/dL High: 200-499 mg/dL Very High: >500 mg/dL Performed By: #### L 3110.0500, L500.4100, L500.4050, L100.0500 ####[facility] [address] [place], [place], [address] Vitamin D,25 Hydroxyon 08-31 Vitamin D 25-OH 58.1 ng/mL Normal 30-100 [facility] Comment on above: Order Comment: Order Date: 08/08/24Order Info: [id number] - CMPOrder Info: [id number] - LIPID Result Comment: Eva min D Status Deficiency: <20 ng/mL (50nmol/L) Insufficiency: 20-30 ng/mL (50-75 nmol/L) Sufficiency: 30-100 ng/mL (75-250 nmol/L) Toxicity: >100 ng/mL (>250 nmol/L) Performed By: #### L 506.1001 ####[facility] [address] [place], [place], [id number] PT D/C Summary (1)on 025 PT D/C Summary (1) [facility] Physical Therapy [facility] [address] [place] [address] / REHABILITATION SERVICES DISCHARGE SUMMARY MR#: [id number] Acct: [id number] Name: MERLENE UNGER Rep #: [id number] : 1960 64 From: Blayne Patten PT, ATC Referring Dr.: Dr. Harsha Duarte MD Status: REG [facility] Insurance: [facility] SEL[employer] PAY INSURANCE Discharge Summary D/C summary: It has been my pleasure to treat MERLENE UNGER referred by Dr. Harsha Duarte MD, with the diagnosis of L shoulder rot cuff/biceps strain for a total of 4 visit(s). Discharge Date: Please see the following information for a summary of their discharge status. Subjective Subjective: Pt reports his pain is about the same overall Pain L shoulder: Pain Intensity (Out of 10): 4 Overall Improvement % Improvement: 10 Objective Objective/Function: L shoulder pain ranges from 0-4/10 Pt is I with HEP L shoulder ROM: flex= 155, abd= 140 degrees L shoulder MMT: flex= 17, abd= 30, ER= 12, IR= 26 #F Goals Goal 1:: Pt will be I with HEP in 2 visits Goal Progress: Goal Met Goal 2:: Decrease L shoulder pain x 50% to aid with sleep Goal Progress: Not Progressing Goal 3:: Increase L shoulder flex and abd ROM x 20-30 degrees to aid with overhead lifting Plan Plan: Discontinue Skilled PT at this time. Continue with HEP. Return to doctor. D/C Information d/c sentence: If there are questions or concerns regarding this patient's physical therapy, please feel free to call me at [phone]. Thank you for the referral of this patient. Sincerely, Blayne Patten, PT, ATC Balance/Gait/Functional tests Balance/Special Test Scores Quick DASH Score: 29.5450 Improvement % Improvement: 10 08/08/24 0800 CC: Dr. Harsha Duarte MD [facility] Signed Normal [facility] PT D/C Summary (1) [facility] Physical Therapy [facility] [address] [place] [address] [address] [place] [address] / REHABILITATION SERVICES DISCHARGE SUMMARY MR#: [id number] Acct: [id number] Name: MERLENE UNGER Rep #: [id number] : 1960 64 From: Blayne Patten PT, ATC Referring Dr.: Dr. Harsha Duarte MD Status: REG [facility]CR Insurance: [facility] SELF PAY INSURANCE Discharge Summary D/C summary: It has been my pleasure to treat MERLENE UNGER referred by Dr. Harsha Duarte MD, with the diagnosis of L shoulder rot cuff/biceps strain for a total of 4 visit(s). Discharge Date: Please see the following information for a summary of their discharge status. Subjective Subjective: Pt reports his pain is about the same overall Pain L shoulder: Pain Intensity (Out of 10): 4 Overall Improvement % Improvement: 10 Objective Objective/Function: L shoulder pain ranges from 0-4/10 Pt is I with HEP L shoulder ROM: flex= 155, abd= 140 degrees L shoulder MMT: flex= 17, abd= 30, ER= 12, IR= 26 #F Goals Goal 1:: Pt will be I with HEP in 2 visits Goal Progress: Goal Met Goal 2:: Decrease L shoulder pain x 50% to aid with sleep Goal Progress: Not Progressing Goal 3:: Increase L shoulder flex and abd ROM x 20-30 degrees to aid with overhead lifting Plan Plan: Discontinue Skilled PT at this time. Continue with HEP. Return to doctor. D/C Information d/c sentence: If there are questions or concerns regarding this patient's physical therapy, please feel free to call me at [phone]. Thank you for the referral of this patient. Sincerely, Blayne Patten PT, ATC Balance/Gait/Functional tests Balance/Special Test Scores Quick DASH Score: 29.5450 Improvement % Improvement: 10 08/08/24 0753 CC: Dr. Harsha Duarte MD [facility] Signed Normal [facility] [facility] OCT MACULA CIRRUS OU (BOTH E YES)on 08-07-2024 [facility] Radiology Study observation (narrative) [facility] Inital Evaluation (1) - PTon 07-27-2024 Inital Evaluation (1) - PT [facility] Physical Therapy [facility] [address] [place] [address] [address] [place] [address] / REHABILITATION SERVICES INITIAL EVALUATION MR#: [id number] Acct: [id number] Name: MERLENE UNGER Rep #: [id number] : 1960 64 From: Blayne Patten PT, ATC Referring Dr.: Dr. Harsha Duarte MD Status: REG RCR Insurance: [facility] SELF PAY INSURANCE Patient's Visit Information Visit Information Visit Information: MERLENE UNGER is a 64 year old M referred to Physical Therapy by Dr. Harsha Duarte MD with a diagnosis of L shoulder rot cuff/biceps strain. Date of Evaluation: 07/27/24 Physical Therapist: Blayne Patten PT, ATC Visit Plan Frequency: 2x /Week Duration: 1 Week Plan: Issue and instruct pt on HEP of rotator cuff strengthening and scap stab ex's over next 2 visits. Then follow up in one month. Subjective Subjective: Pt reports he awoke one morning approximately two weeks ago with his L shoulder swollen and in pain. 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 Pt notes he is L hand dominant. Pt denies L shoulder pain in the past. Pt reports he had a cortisone injection a couple weeks ago that has not made a difference. Pt reports he has not had any diagnostic tests at this time. Pt reports intermittent tingling and numbness down L UE. Pt reports he has difficulty with putting his hand in his pocket and with donning his coat secondary to L shoulder pain. Pt reports he has occasional sleep difficulty secondary to pain. Pt denies cervical spine pain at this time. 1/10 pain while sitting here at rest and after taking IBUprophen, 6/10 pain at worst. Pain L shoulder: Pain Intensity (Out of 10): 1 Pain Intensity Range: 6 Objective Objective: Neuro: B UE sensation is WNL to light touch Palpation: Pt is more sore in the upper trap region. No obvious deformity noted at this time. Pt is the most sore along the anterior GHJ. ROM: R shoulder flex= 180, abd= 180, ER= 50, IR= WNL; L shoulder flex= 150, abd= 130, ER= 45, IR= minimally limited MMT: R shoulder flex= 18, abd= 35, ER= 24, IR= 31 #F; L shoulder flex= 18, abd= 29, ER= 13, IR= 20 #F SPecial tests: Pos empty can, pos speeds test, pos HK Balance/Special Test Scores Quick DASH Score: 29.5450 Goals Goal 1:: Pt will be I with HEP in 2 visits Goal Time Frame: 1 Week Goal 2:: Decrease L shoulder pain x 50% to aid with sleep Goal Time Frame: 2-4 Weeks Goal 3:: Increase L shoulder flex and abd ROM x 20-30 degrees to aid with overhead lifting Goal Time Frame: 2-4 Weeks Rehabilitation Potential Physical Therapy Diagnosis: Pt has L shoulder pain, weakness, and limited ROM secondary to L shoulder strain Rehabilitation Potential: Good Anticipated Interventions Patient/Client Instruction: Educate patient on: Condition and Plan of Care For the Purpose of:: To improve self management Therapeutic Exercise to Include: Strength training, Endurance training, Active ROM and Scapular Strength/Stabilization For the Purpose of:: To decrease pain, To increase ROM and To improve muscle performance and motor function Text: Thank you for the opportunity to evaluate your patient. For Medicare and Medicare HMO plans, please review the plan of care and approve it. It will need to be FAXED BACK to us at [phone] for Medicare purposes. For Medicare only, by signing this I certify the plan of care. Please let me know if there are questions or concerns regarding this plan of care. Physician Signature: Date: ____ 07/27/24 0754 CC: Dr. Harsha Duarte MD [facility] Signed Normal [facility] [id number] (add)on 07-03-2024 [id number] (add) ---- Patient Age/Sex Location Account Attending Physician MERLENE UNGER/M LABSPEC [id number] Dr. Immanuel Saucedo MD Specimen: [id number] Received: 07/05/24 Status: CHANEL Lepe Num: [id number] Spec Type: IMMUNO Subm Dr: Dr. Immanuel Saucedo MD PHYSICIAN INSTITUTION [place] [address] SPECIMEN INFORMATION: Tissue Source: E- Left mid, F- Left base Clinical Info: Elevated PSA Specimen Number: [id number] E, F CPT code: 91994,45386g1 METHODOLOGY: Deparaffinized sections of prefer/formalin-fixed tissue or PAP/DQ stained slides are incubated with monoclonal/polyclonal antibodies/oligonucleoti de probes. Localization is made via biotin free immunoperoxidase method. Appropriate controls are performed and reacted as expected. Results on target cell population are indicated in the following table: RESULTS: ANTIBODY / CLONE RESULT Block E P40 (BC28) positive 34BE12 (34BE12) positive Block F P40 (BC28) positive 34BE12 (34BE12) positive These tests were developed and their performance characteristics determined by [facility]. They may not have been cleared or approved by the U.S. Food and Drug Administration. The FDA has determined that such clearance or approval is not necessary. The above immunohistochemical/dual WILY markers are ordered and reviewed by the Pathologist. INTERPRETATION: E. Prostate, left mid, core biopsy: Focal high-grade prostatic intraepithelial neoplasia (HGPIN). F. Prostate, left base, core biopsy: Focal high-grade prostatic intraepithelial neoplasia (HGPIN). 07/06/2024 Signed (signature on file) Dr. Todd Garcia MD 07/06/24 1150 Normal [facility] Comment on above: Performed By: #### P [id number]. ####[facility] [id number] [place], [place], [id number] PROSTATE BXon 07-03-2024 PROSTATE BX ---- Patient Age/Sex Location Account Attending Physician [facility] UNGER 64[id number]. Immanuel Saucedo MD Specimen: [id number] Received: 07/03/24 Status: CHANEL Lepe Num: [id number] Spec Type: PROST BX Subm Dr: Dr. Immanuel Saucedo MD HEADER OPERATION: Prostate biopsy PRE-OP DIAGNOSIS: Elevated PSA TISSUE SUBMITTED: A - Right apex, B - Right mid, C - Right base, D - Left apex, E - Left mid, F - Left base MICROSCOPIC DIAGNOSIS A. Right prostate, apex, core biopsy: Prostatic tissue, negative for malignancy. B. Right prostate, mid, core biopsy: Prostatic tissue, negative for malignancy. C. Right prostate, base, core biopsy: Prostatic tissue, negative for malignancy. D. Left prostate, apex, core biopsy: Prostatic tissue, negative for malignancy. Focal mild chronic inflammation. E. Left prostate, mid, core biopsy: Focal high-grade prostatic intraepithelial neoplasia (HGPIN). See comment. F. Left prostate, base, core biopsy: Focal high-grade prostatic intraepithelial neoplasia (HGPIN). See comment. SJ. 07/05/2024 COMMENT E, F. Immunohistochemistry ([id number]) supports the above diagnosis. MICROSCOPIC DESCRIPTION Slides are reviewed. GROSS DESCRIPTION A - Received is one container designated prostate, right apex. The specimen consists of one elongated fragments of light knapp-white soft tissue measuring 1 cm in length and 0.1 cm in diameter. The specimen is totally submitted in one cassette. B - Received is one container designated prostate, right mid. The specimen consists of one elongated fragments of light knapp-white soft tissue measuring 1 cm in length and 0.1 cm in diameter. The specimen is totally submitted in one cassette. Patient Age/Sex Location Account Attending Physician JANIMERLENEJosé Antonio HAIR 64/M LABSPEC [id number] Dr. Immanuel Saucedo MD C - Received is one container designated prostate, right base. The specimen consists of one elongated fragments of light knapp-white soft tissue measuring 0.7 cm in length and 0.1 cm in diameter. The specimen is totally submitted in one cassette. D - Received is one container designated prostate, left apex. The specimen consists of one elongated fragments of light knapp-white soft tissue measuring 0.5 cm in length and 0.1 cm in diameter. The specimen is totally submitted in one cassette. E - Received is one container designated prostate, left mid. The specimen consists of one elongated fragments of light knapp-white soft tissue measuring 0.5 cm in length and 0.1 cm in diameter. The specimen is totally submitted in one cassette. F - Received is one container designated prostate, left base. The specimen consists of one elongated fragments of light knapp-white soft tissue measuring 0.4 cm in length and 0.1 cm in diameter. The specimen is totally submitted in one cassette. / SJ.mr 07/04/2024 TC:5 CPT: 63098 x6 Patient Age/Sex Location Account Attending Physician MERLENE UNGER 64/M LABSPEC [id number] Dr. Immanuel Saucedo MD Signed (signature on file) Dr. Todd Garcia MD 07/06/24 0936 Normal [facility] Comment on above: Performed By: #### P PROSB #### [facility] [address] [place], [place], [id number] PSA,Total- Diagnosticon 02-0 PSA, DIAGNOSTIC 5.63 ng/mL High 0.0-4.0 [facility] Comment on above: Result Comment: This test was performed using the TPSA assay method for the [employer] chemistry system. Values obtained with different assay methods cannot be used interchangably. When changing PSA assays in the course of monitoring a patient, additional sequential testing should be carried out to confirm baseline values. Performed By: #### L [id number] ####[facility] [id number] [place], [place], [address] Basophil percentageOrdered B y: Harsha Duarte on 08-27-2023 Bilirubin [Mass/Vol] 0.80 mg/dL 0.20-1.00 [facility] Comment on above: For patients on eltr ombopag therapy, use of Dimension [place] TBIL is not recommended. Chloride [Moles/Vol] 109 mmol/L 98-107 [facility] Cholesterol [Mass/Vol] 234 mg/dL <200 [facility] Comment on above: <200 mg/dL Desirable 200-240 mg/dL Borderline >240 mg/dL High Risk Glucose [Mass/Vol] 102 mg/dL 74-106 [facility] Comment on above: Fasting Glucose resu lt from 100 to 125 mg/dL suggests IMPAIRED HOMEOSTASIS per A.D.A. criteria. Potassium [Moles/Vol] 4.3 mmol/L 3.5-5.1 [facility] Protein [Mass/Vol] 7.1 g/dL 6.4-8.2 [facility] Sodium [Moles/Vol] 140 mmol/L 136-145 [facility] Triglyceride [Mass/Vol] 146 mg/dL <199 [facility] Comment on above: The drugs N-Acetylcy steine and Metamizole may falsely depress this assay.Serum Triglycerides Reference Interval Normal <150 mg/dL Borderline high 150 - 199 mg/dL High 200 - 499 mg/dL Very High > or = 500 mg/dL Laboratory - Chemistry and C hemistry - challengeOrdered By: Harsha Duarte on 08-27-2023 Albumin/Globulin [Mass ratio] 1.1 {ratio} 0.9-2.4 [facility] ALP [Catalytic activity/Vol] 57 U/L 45-117 [facility] ALT [Catalytic activity/Vol] 38 U/L 16-61 [facility] Cholesterol in HDL [Mass/Vol] 49 mg/dL >40 [facility] Comment on above: The drugs N-Acetylcy steine and Metamizole may falsely depress this assay. Reference Range HDL <40 mg/dL Low HDL Cholesterol HDL >or= 60 mg/dL High HDL Cholesterol Cholesterol in LDL [Mass/Vol] 156 mg/dL 0-130 [facility] CO2 [Moles/Vol] 26.0 mmol/L 21.0-32.0 [facility] Cobalamin (Vitamin B12) [Mass/Vol] 806 pg/mL 211-911 [facility] Globulin (S) [Mass/Vol] 3.4 g/dL 2.2-4.2 [facility] Urea nitrogen/Creatinine [Mass ratio] 13.3 mg/mg 10-20 [facility] No Panel InformationOrdered By: Harsha Duarte on 08-27-2023 Estimated GFR (MDRD) Amer 84 mL/min >60 [facility] Comment on above: GFR Calc Estimated GFR (MDRD) Non-Af Amer 70 mL/min >60 [facility] Comment on above: Non- GFR Calc Prostate Specific Antigen Screen 3.64 ng/mL 0.00-4.00 [facility] Comment on above: This test was perfor med using the TPSA assay method for [employer] chemistry system. Values obtained with differentassay methods cannot be used interchangably.When changing PSA assays in the course of monitoring apatient, additional sequential testing should be carriedout to confirm baseline values. Vitamin D 25-Hydroxy 49.5 ng/mL [facility] Comment on above: Vitamin D 25(OH) Sta tus Range Deficiency <20 ng/mL (50nmol/L) Insufficiency 20 - 30 ng/mL (50 - 75 nmol/L) Sufficiency 30 - 100 ng/mL (75 - 250 nmol/L) Toxicity >100 ng/mL (>250 nmol/L) VLDL Cholesterol 29 mg/dL 5-40 [facility] Serum or plasma calcium suyapa urement (mass/volume)Ordered By: Harsha Duarte on 08-27-2023 Calcium [Mass/Vol] 8.8 mg/dL 8.5-10.1 [facility] Serum or plasma creatinine m easurement (mass/volume)Ordered By: Harsha Duarte on 08-27-2023 Creatinine [Mass/Vol] 1.13 mg/dL 0.70-1.30 [facility] Comment on above: The validity of the calculated GFR & GFRAA in patients over 70 years has not been determined. Clinical correlation is essential. Serum or plasma urea nitroge n measurement (mass/volume)Ordered By: Harsha Duarte on 08-27-2023 Urea nitrogen [Mass/Vol] 15 mg/dL 7-18 [facility] Thin prep Papanicolaou smear with manual screeningOrdered By: Harsha Duarte on 08-27-2023 Thin prep Papanicolaou smear with manual screening 3.7 g/dL 3.2-5.0 [facility] Thin prep Papanicolaou smear with manual screening 25 U/L 15-37 [facility] Thin prep Papanicolaou smear with manual screening 5 5-15 [facility] Absolute lymphocyte countOrd ered By: Dr. Duarte on 08-13-2022 Lymphocytes Auto (Unsp spec) [#/Vol] 1.61 10*3/uL 0.83-4.51 [facility] Basophil percentageOrdered B y: Dr. Duarte on 08-13-2022 Basophils/100 WBC (Bld) 0.8 % 0-1 [facility] Bilirubin [Mass/Vol] 0.80 mg/dL 0.20-1.00 [facility] Comment on above: For patients on eltr ombopag therapy, use of Dimension [place] TBIL is not recommended. Chloride [Moles/Vol] 105 mmol/L 98-107 [facility] Cholesterol [Mass/Vol] 189 mg/dL <200 [facility] Comment on above: <200 mg/dL Desirable 200-240 mg/dL Borderline >240 mg/dL High Risk Eosinophils/100 WBC (Bld) 2.5 % 0-5 [facility] Glucose [Mass/Vol] 95 mg/dL 74-106 [facility] Neutrophils (Bld) [#/Vol] 2.9 10*3/uL 2.0-7.7 [facility] Neutrophils/100 WBC (Bld) 57.3 % 47-70 [facility] Potassium [Moles/Vol] 4.4 mmol/L 3.5-5.1 [facility] Protein [Mass/Vol] 7.4 g/dL 6.4-8.2 [facility] Sodium [Moles/Vol] 140 mmol/L 136-145 [facility] Triglyceride [Mass/Vol] 80 mg/dL <199 [facility] Comment on above: The drugs N-Acetylcy steine and Metamizole may falsely depress this assay.Serum Triglycerides Reference Interval Normal <150 mg/dL Borderline high 150 - 199 mg/dL High 200 - 499 mg/dL Very High > or = 500 mg/dL WBC (Bld) [#/Vol] 5.1 10*3/uL 4.4-11.0 [facility] Blood erythrocytes count (nu mber/volume)Ordered By: Dr. Duarte on 08-13-2022 RBC (Bld) [#/Vol] 4.54 10*6/uL 4.6-6.2 [facility] Blood hemoglobin measurement (mass/volume)Ordered By: Dr. Duarte on 08-13-2022 Hemoglobin (Bld) [Mass/Vol] 13.8 g/dL 13.0-16.5 [facility] Blood lymphocytes/100 leukoc ytesOrdered By: Dr. Duarte on 08-13-2022 Lymphocytes/100 WBC (Bld) 31.6 % 19-41 [facility] Blood monocytes/100 leukocyt esOrdered By: Dr. Duarte on 08-13-2022 Monocytes/100 WBC (Bld) 7.6 % 0-10 [facility] Blood platelet mean volumeOr dered By: Dr. Duarte on 08-13-2022 Platelet mean volume (Bld) [Entitic vol] 9.9 fL 6.2-12.0 [facility] Determination of erythrocyte mean corpuscular volume (MCV)Ordered By: Dr. Duarte on 08-13-2022 MCV (RBC) [Entitic vol] 93.2 fL 80-94 [facility] Hematocrit Auto (Bld) [Volum e fraction]Ordered By: Dr. Duarte on 08-13-2022 Hematocrit (Bld) [Volume fraction] 42.3 % 40-54 [facility] Laboratory - Chemistry and C hemistry - challengeOrdered By: Dr. Duarte on 08-13-2022 ALP [Catalytic activity/Vol] 63 U/L 45-117 [facility] ALT [Catalytic activity/Vol] 45 U/L 16-61 [facility] CO2 [Moles/Vol] 27.0 mmol/L 21.0-32.0 [facility] Globulin (S) [Mass/Vol] 3.5 g/dL 2.2-4.2 [facility] Urea nitrogen/Creatinine [Mass ratio] 18.0 mg/mg 10-20 [facility] Laboratory - Hematology and Cell countsOrdered By: Dr. Duarte on 08-13-2022 Erythrocyte distribution width (RBC) [Entitic vol] 44.3 fL 35.1-43.9 [facility] Erythrocyte distribution width (RBC) [Ratio] 13.0 % 11.6-14.6 [facility] Immature granulocytes/100 WBC (Bld) 0.200 % 0.0-0.9 [facility] Comment on above: IG% - Immature Granu locytes (promyelocytes, myelocytes and metamyelocytes) > 1% indicates that a LEFT SHIFT is Present. MCH (RBC) [Entitic mass] 30.4 pg 27.0-32.0 [facility] Nucleated RBC/100 WBC (Bld) [Ratio] 0 % 0-5 [facility] MCHC Auto (RBC) [Mass/Vol]Or dered By: Dr. Duarte on 08-13-2022 MCHC (RBC) [Mass/Vol] 32.6 g/dL 32-36 [facility] No Panel InformationOrdered By: Dr. Duarte on 08-13-2022 Estimated GFR (MDRD) Amer 98 mL/min >60 [facility] Comment on above: GFR Calc Estimated GFR (MDRD) Non-Af Amer 81 mL/min >60 [facility] Comment on above: Non- GFR Calc Vitamin B12 Level > 2000 pg/mL 211-911 [facility] Vitamin D 25-Hydroxy 68.0 ng/mL [facility] Comment on above: Vitamin D 25(OH) Sta tus Range Deficiency <20 ng/mL (50nmol/L) Insufficiency 20 - 30 ng/mL (50 - 75 nmol/L) Sufficiency 30 - 100 ng/mL (75 - 250 nmol/L) Toxicity >100 ng/mL (>250 nmol/L) Platelets bldOrdered By: Dr. Duarte on 08-13-2022 Platelets (Bld) [#/Vol] 298 10*3/uL 150-450 [facility] Serum or plasma albumin suyapa urement (mass/volume)Ordered By: Dr. Duarte on 08-13-2022 Albumin [Mass/Vol] 3.9 g/dL 3.2-5.0 [facility] Serum or plasma albumin/glob ulin mass ratioOrdered By: Dr. Duarte on 08-13-2022 Albumin/Globulin [Mass ratio] 1.1 {ratio} 0.9-2.4 [facility] Serum or plasma calcium suyapa urement (mass/volume)Ordered By: Dr. Duarte on 08-13-2022 Calcium [Mass/Vol] 9.3 mg/dL 8.5-10.1 [facility] Serum or plasma cholesterol in HDL measurement (mass/volume)Ordered By: Dr. Duarte on 08-13-2022 Cholesterol in HDL [Mass/Vol] 58 mg/dL >40 [facility] Comment on above: The drugs N-Acetylcy steine and Metamizole may falsely depress this assay. Reference Range HDL <40 mg/dL Low HDL Cholesterol HDL >or= 60 mg/dL High HDL Cholesterol Serum or plasma cholesterol in VLDL measurement (mass/volume)Ordered By: Dr. Duarte on 08-13-2022 Cholesterol in VLDL [Mass/Vol] 16 mg/dL 5-40 [facility] Serum or plasma creatinine m easurement (mass/volume)Ordered By: Dr. Duarte on 08-13-2022 Creatinine [Mass/Vol] 1.00 mg/dL 0.70-1.30 [facility] Comment on above: The validity of the calculated GFR & GFRAA in patients over 70 years has not been determined. Clinical correlation is essential. Serum or plasma low density lipoprotein (LDL) cholesterol measurement (mass/volume)Ordered By: Dr. Duarte on 08-13-2022 Cholesterol in LDL [Mass/Vol] 115 mg/dL 0-130 [facility] Serum or plasma urea nitroge n measurement (mass/volume)Ordered By: Dr. Duarte on 08-13-2022 Urea nitrogen [Mass/Vol] 18 mg/dL 7-18 [facility] Thin prep Papanicolaou smear with manual screeningOrdered By: Dr. Duarte on 08-13-2022 Thin prep Papanicolaou smear with manual screening 28 U/L 15-37 [facility] Thin prep Papanicolaou smear with manual screening 8 5-15 [facility] Basophil percentageon 2021 Bilirubin [Mass/Vol] 0.80 mg/dL 0.20-1.00 [facility] Work Phone: Comment on above: For patients on eltr ombopag therapy, use of Dimension [place] TBIL is not recommended. Chloride [Moles/Vol] 109 mmol/L 98-[address] [facility] Work Phone: Cholesterol [Mass/Vol] 200 mg/dL <200 [facility] Work Phone: Comment on above: <200 mg/dL Desirable 200-240 mg/dL Borderline >240 mg/dL High Risk Glucose [Mass/Vol] 95 mg/dL 74-106 [facility] Work Phone: Potassium [Moles/Vol] 4.3 mmol/L 3.5-5.1 [facility] Work Phone: Protein [Mass/Vol] 7.4 g/dL 6.4-8.2 [facility] Work Phone: Sodium [Moles/Vol] 141 mmol/L 136-145 [facility] Work Phone: Triglyceride [Mass/Vol] 131 mg/dL <199 [facility] Work Phone: Comment on above: The drugs N-Acetylcy steine and Metamizole may falsely depress this assay.Serum Triglycerides Reference Interval Normal <150 mg/dL Borderline high 150 - 199 mg/dL High 200 - 499 mg/dL Very High > or = 500 mg/dL Laboratory - Chemistry and C hemistry - challengeon 03-05-2022 ALP [Catalytic activity/Vol] 69 U/L 45-117 [facility] Work Phone: ALT [Catalytic activity/Vol] 42 U/L 16-61 [facility] Work Phone: CO2 [Moles/Vol] 27.0 mmol/L 21.0-32.0 [facility] Work Phone: Globulin (S) [Mass/Vol] 3.6 g/dL 2.2-4.2 [facility] Work Phone: Urea nitrogen/Creatinine [Mass ratio] 10.8 mg/mg 10-20 [facility] Work Phone: No Panel Informationon 03-05 Estimated GFR (MDRD) Amer 87 mL/min >60 [facility] Work Phone: Comment on above: GFR Calc Estimated GFR (MDRD) Non-Af Amer 72 mL/min >60 [facility] Work Phone: Comment on above: Non- GFR Calc Percent Free Prostate Specific Ag 0.89 ng/mL N/A [facility] Work Phone: Comment on above: [employer] ECLIA methodol ogy. Prostate Specific Ag, Ultra-Sensitv 3.060 ng/mL 0.000-4.000 [facility] Work Phone: Comment on above: [employer] ECLIA methodol ogy.According to the [employer] [employer], Serum PSAshould decrease and remain at undetectable levels afterradical prostatectomy. The AUA defines biochemicalrecurrence as an initial PSA value 0.200 ng/mL or greaterfollowed by a subsequent confirmatory PSA value 0.200 ng/mLor greater. Values obtained with different assay methods orkits cannot be used interchangeably. Results cannot beinterpreted as absolute evidence of the presence or absenceof malignant disease. Prostate Specific Antigen Total 3.53 ng/mL 0.0-4.0 [facility] Work Phone: Comment on above: This test was perfor med using the TPSA assay method for the[employer] chemistry system. Values obtained with differentassay methods cannot be used interchangably.When changing PSA assays in the course of monitoring apatient, additional sequential testing should be carriedout to confirm baseline values. Serum or plasma albumin suyapa urement (mass/volume)on 03-05-2022 Albumin [Mass/Vol] 3.8 g/dL 3.2-5.0 [facility] Work Phone: Serum or plasma albumin/glob ulin mass ratioon 03-05-2022 Albumin/Globulin [Mass ratio] 1.1 {ratio} 0.9-2.4 [facility] Work Phone: Serum or plasma calcium suyapa urement (mass/volume)on 03-05-2022 Calcium [Mass/Vol] 9.0 mg/dL 8.5-10.1 [facility] Work Phone: Serum or plasma cholesterol in HDL measurement (mass/volume)on 03-05-2022 Cholesterol in HDL [Mass/Vol] 45 mg/dL >40 [facility] Work Phone: Comment on above: The drugs N-Acetylcy steine and Metamizole may falsely depress this assay. Reference Range HDL <40 mg/dL Low HDL Cholesterol HDL >or= 60 mg/dL High HDL Cholesterol Serum or plasma cholesterol in VLDL measurement (mass/volume)on 03-05-2022 Cholesterol in VLDL [Mass/Vol] 26 mg/dL 5-40 [facility] Work Phone: Serum or plasma creatinine m easurement (mass/volume)on 03-05-2022 Creatinine [Mass/Vol] 1.11 mg/dL 0.70-1.30 [facility] Work Phone: Comment on above: The validity of the calculated GFR & GFRAA in patients over 70 years has not been determined. Clinical correlation is essential. Serum or plasma free prostat e specific antigen/total prostate specific antigen ratioon 03-05-2022 Free PSA/Total PSA [Mass fraction] 29.1 % . [facility] Work Phone: Comment on above: The table below list s the probability of prostate cancer formen with non-suspicious VIKASH results and total PSA between4 and 10 ng/mL, by patient age (Ranjit et al, HIGINIO 1998,279:1542). % Free PSA 50-64 yr 65-75 yr 0.00-10.00% 56% 55% 10.01-15.00% 24% 35% 15.01-20.00% 17% 23% 20.01-25.00% 10% 20% >25.00% 5% 9%Please note: Ranjit et al did not make specific recommendations regarding the use of percent free PSA for any other population of men.Performed at: [facility] [id number] Director: Matt Vieira PhD, Phone: [phone] Serum or plasma low density lipoprotein (LDL) cholesterol measurement (mass/volume)on 03-05-2022 Cholesterol in LDL [Mass/Vol] 129 mg/dL 0-130 [facility] Work Phone: Serum or plasma urea nitroge n measurement (mass/volume)on 03-05-2022 Urea nitrogen [Mass/Vol] 12 mg/dL 7-18 [facility] Work Phone: Thin prep Papanicolaou smear with manual screeningon 03-05-2022 Thin prep Papanicolaou smear with manual screening 21 U/L 15-37 [facility] Work Phone: Thin prep Papanicolaou smear with manual screening 5 5-15 [facility] Work Phone: COLONOSCOPY SCREENINGon 11-21 [facility] EGD DIAGNOSTICon 12-15-2021 [facility] Basophil percentageon 2021 Creatinine [Mass/Vol] 1.3 mg/dL 0.70-1.30 [facility] Work Phone: No Panel Informationon 11-13 Bedside Estimated GFR (eGFR) > 60.0000 mL/min >60 [facility] Work Phone: Office Visit: UC: L ear pain on 11-13-2016 Documentation of current medications (procedure) Done Invalid Interpretation Code [facility] Work Phone: Protein mass conc Done [facility] Work Phone: Tobacco smoking status NHIS Current [facility] Work Phone: Tobacco smoking status NHIS Never smoker [facility] Work Phone: Tobacco use [facility] Never smoker Invalid Interpretation Code [facility] Work Phone: Vital Signs Date Time Vital Sign Value Performing Clinician Facility 01-11-2022 12:55-0400 Body height 185.4 cm Jillian Vargas PA-C Work Phone: [facility] 01-11-2022 12:55-0400 Body temperature 97.59 [degF] Jillian Vargas PA-C Work Phone: [facility] 01-11-2022 12:55-0400 Body weight 97.98 kg Jillian Catlett PA-C Work Phone: [facility] 01-11-2022 12:55-0400 Diastolic blood pressure 80 mm[Hg] Jillian Alicia PA-C Work Phone: [facility] 01-11-2022 12:55-0400 Heart rate 84 /min Jillian Alicia PA-C Work Phone: [facility] 01-11-2022 12:55-0400 Respiratory rate 14 /min Jillian Alicia PA-C Work Phone: [facility] 01-11-2022 12:55-0400 SaO2% (BldA) [Mass fraction] 99 % Jillian Catlett PA-C Work Phone: [facility] 01-11-2022 12:55-0400 Systolic blood pressure 116 mm[Hg] Jillian Alicia PA-C Work Phone: [facility] 12-15-2021 08:11-0400 Diastolic blood pressure 81 mm[Hg] Joshua Mcmahon MD Work Phone: [facility] 12-15-2021 08:11-0400 Heart rate 56 /min Joshua Mcmahon MD Work Phone: [facility] 12-15-2021 08:11-0400 Respiratory rate 16 /min Joshua Mcmahon MD Work Phone: [facility] 12-15-2021 08:11-0400 SaO2% (BldA) [Mass fraction] 94 % Joshua Mcmahon MD Work Phone: [facility] 12-15-2021 08:11-0400 Systolic blood pressure 122 mm[Hg] Joshua Mcmahon MD Work Phone: [facility] 12-15-2021 06:45-0400 Body temperature 97.3 [degF] Joshua Mcmahon MD Work Phone: [facility] 12-15-2021 06:45-0400 Body weight 99.3 kg Joshua Mcmahon MD Work Phone: [facility] 10-06-2021 14:23-0400 Body height 185.4 cm Joshua Mcmahon MD Work Phone: [facility] 10-06-2021 [id number] Body temperature 97.11 [degF] Joshua Mcmahon MD Work Phone: [facility] 10-06-2021 14:23-0400 Body weight 99.34 kg Joshua Mcmahon MD Work Phone: [facility] 10-06-2021 14:23-0400 Diastolic blood pressure 78 mm[Hg] Joshua Mcmahon MD Work Phone: [facility] 10-06-2021 14:23-0400 Heart rate 67 /min Joshua Mcmahon MD Work Phone: [facility] 10-06-2021 14:23-0400 Respiratory rate 16 /min Joshua Mcmahon MD Work Phone: [facility] 10-06-2021 14:23-0400 SaO2% (BldA) [Mass fraction] 97 % Joshua Mcmahon MD Work Phone: [facility] 10-06-2021 14:23-0400 Systolic blood pressure 112 mm[Hg] Joshua Mcmahon MD Work Phone: [facility] 11-13-2016 08:25-0400 BMI (Body Mass Index) 24.93 kg/m2 Kristyn Manning LPN [facility] Work Phone: 11-13-2016 08:25-0400 Body Temperature 98 [degF] Kristyn Manning LPN [facility] Work Phone: 11-13-2016 08:25-0400 BP Diastolic 82 mm[Hg] Kristyn Manning LPN [facility] Work Phone: 11-13-2016 08:25-0400 BP Systolic 118 mm[Hg] Kristyn Manning LPN [facility] Work Phone: 11-13-2016 08:25-0400 Height 185.42 cm Kristyn Manning LPN [facility] Work Phone: 11-13-2016 08:25-0400 Pulse (Heart Rate) 58 /min Kristyn Manning LPN [facility] Work Phone: 11-13-2016 08:25-0400 Pulse Oximetry 98 % Kristyn Manning LPN [facility] Work Phone: 11-13-2016 08:25-0400 Respiratory Rate 16 /min Kristyn Manning LPN [facility] Work Phone: 11-13-2016 08:25-0400 Weight 85.73 kg Kristyn Manning LPN [facility] Work Phone: 12-20-2011 15:09-0400 BSA (Body Surface Area) 2.15 m2 Kristyn Manning LPN [facility] Work Phone: Encounters Encounter Date Encounter Type Care Provider Facility Start: 12-11-2024 End: 12-11-2024 ambulatory Harsha Duarte Facility:[facility] Start: 11-21-2024 End: 11-21-2024 ambulatory Kofi Delaney Facility:[facility] Start: 10-10-2024 End: 10-10-2024 ambulatory Kofi Delaney Facility:[facility] Start: 10-06-2024 End: 10-06-2024 ambulatory Hira Huff Facility:[facility] Start: 10-03-2024 End: 10-03-2024 ambulatory Immanuel Saucedo Facility:[facility] Start: 09-19-2024 End: 09-19-[address] HARSHA DUARTE MD Facility:[facility] Start: 09-12-2024 ambulatory IMMANUEL SAUCEDO Facility:[facility] Start: 09-10-[address] IMMANUEL SAUCEDO MD Facility:[facility] Start: 08-31-2024 End: 08-31-2024 ambulatory Harsha Duarte Facility:[facility] Start: 08-08-2024 End: 08-08-2024 ambulatory Harsha Duarte Facility:[facility] Start: 08-07-2024 End: 08-07-2024 ambulatory PRASANNA SEBASTIAN Facility:[facility] Start: 08-07-2024 End: 08-07-2024 Patient encounter procedure Prasanna Sebastian OD Work Phone: Ophthalmology Comment on above: Vitreous floaters of both eyes (Primary Dx); Posterior vitreous detachment of both eyes; Dry eye syndrome of both eyes; Pinguecula, bilateral; S/P LASIK (laser assisted in situ keratomileusis) of both eyes; Age-related nuclear cataract of both eyes Start: 07-03-2024 End: 07-03-2024 [facility] Facility:[facility] Start: 06-25-2024 End: 06-25-2024 [facility] Facility:[facility] Start: 12-30-2023 End: 12-30-2023 ambulatory TIESHA CHOI Facility:[facility] Start: 12-30-2023 End: 12-30-2023 Patient encounter procedure Tiesha Choi MD Work Phone: Ophthalmology Comment on above: Visual disturbance o f right eye (Primary Dx); Vitreous floaters of both eyes; Posterior vitreous detachment of both eyes; S/P LASIK (laser assisted in situ keratomileusis) of both eyes; Essential hypertension Start: 08-27-2023 End: 08-27-2023 ambulatory [facility] Work Phone: Start: 08-27-2023 End: 08-27-2023 [facility] Start: 01-31-2023 End: 01-31-2023 Patient encounter procedure Pauline Yañez OD Work Phone: Ophthalmology Comment on above: Dry eye syndrome of both eyes (Primary Dx); Punctate keratitis, bilateral; Pinguecula, bilateral; S/P LASIK (laser assisted in situ keratomileusis) of both eyes; Vitreous floaters of both eyes Start: 08-13-2022 End: 08-13-2022 ambulatory [facility] Work Phone: Start: 08-13-2022 End: 08-13-2022 Patient encounter procedure [facility] Start: 04-23-2022 End: 04-23-2022 ambulatory [facility] Work Phone: Start: 04-23-2022 End: 04-23-2022 Patient encounter procedure [facility] Start: 03-05-2022 End: 03-05-2022 ambulatory [facility] Work Phone: Start: 03-05-2022 End: 03-05-2022 Patient encounter procedure [facility] Start: 02-17-2022 End: 02-17-2022 Patient encounter procedure Goyo Honeycutt MD Work Phone: Ophthalmology Comment on above: Dry eye syndrome of both eyes (Primary Dx); Punctate keratitis, bilateral; Pinguecula, bilateral; S/P LASIK (laser assisted in situ keratomileusis) of both eyes; Vitreous floaters of both eyes Start: 02-08-2022 End: 02-08-2022 Patient encounter procedure [facility] Start: 02-02-2022 End: 02-02-2022 Patient encounter procedure [facility] Start: 01-11-2022 End: 01-11-2022 Patient encounter procedure Jillian Vargas PA-C Work Phone: General Surgery Comment on above: Family history of co harshad cancer (Primary Dx); Tubular adenoma; Diverticulosis; Gastroesophageal reflux disease, unspecified whether esophagitis present Start: 12-15-2021 End: 12-15-2021 Subsequent hospital visit by physician Joshua Mcmahon MD Work Phone: Ambulatory Surgery Comment on above: Gastroesophageal ref lux disease without esophagitis [K21.9] Start: 12-07-2021 ambulatory Joshua harrell MD Work Phone: Ambulatory Surgery Start: 12-07-2021 End: 12-07-2021 Patient encounter procedure [facility] Start: 11-13-2021 End: 11-13-2021 Patient encounter procedure [facility] Start: 10-06-2021 End: 10-06-2021 Patient encounter procedure Joshua Mcmahon MD Work Phone: General Surgery Comment on above: Gastroesophageal ref lux disease without esophagitis (Primary Dx); Family history of colon cancer Start: 10-06-2021 Telephone encounter Joshua Mcmahon MD Work Phone: General Surgery Comment on above: 12/15/21 EGD & Colono scopy Dr. Mcmahon Procedures Date Procedure Procedure Detail Performing Clinician Start: 08-07-2024 Computerized ophthalmic imaging retina Prasanna Sebastian OD Work Phone: Start: 04-23-2022 CT of abdomen without contrast Start: 03-05-2022 Plain chest X-ray Start: 02-08-2022 Plain chest X-ray Start: 02-02-2022 Plain chest X-ray Start: 12-15-2021 Esophagogastroduodenoscopy transoral diagnostic Joshua Mcmahon MD Work Phone: Start: 12-15-2021 Colon ca scrn not hi rsk ind Joshua echols MD Work Phone: Start: 12-15-2021 Colonoscopy Joshua Mcmahon MD Work Phone: Start: 12-07-2021 Radiologic examination of knee Start: 11-13-2021 CT of thorax with contrast Start: 07-08-2017 Colonoscopy Joshua Mcmahon MD Work Phone: Start: 02-25-2015 Adult depression screening assessment Joshua Mcmahon MD Work Phone: Start: 01-15-2015 History of laser assisted in situ keratomileusis S/P LASIK (laser assisted in situ keratomileusis) of both eyes Joshua Mcmahon MD Work Phone: Start: 12-13-2011 End: 12-15-2011 Follow up Appt 1 week Jasmyn Molina MD Start: 12-13-2011 End: 12-15-2011 X-ray exam of shoulder Jasmyn Molina MD History of laser ass isted in situ keratomileusis S/P LASIK (laser assisted in situ keratomileusis) of both eyes Goyo Honeycutt MD Work Phone: History of laser ass isted in situ keratomileusis S/P LASIK (laser assisted in situ keratomileusis) of both eyes Pauline Yañez OD Work Phone: History of laser ass isted in situ keratomileusis S/P LASIK (laser assisted in situ keratomileusis) of both eyes Tiesha Choi MD Work Phone: History of laser ass isted in situ keratomileusis S/P LASIK (laser assisted in situ keratomileusis) of both eyes Prasanna Sebastian OD Work Phone: Plan of Treatment Date Care Activity Detail Author Start: 01-27-2036 RSV Vaccine (1 - 1-dose 75+ series) RSV Vaccine (1 - 1-dose 75+ series) [facility] Start: 02-16-2031 Urine microalbumin profile DTaP,Tdap,Td Vaccine (2 - Td or Tdap) [facility] Start: 12-15-[address] [facility] Start: 12-15-2026 COLORECTAL CANCER SCREENING COLORECTAL CANCER SCREENING [facility] Start: 12-15-2026 Screening for malignant neoplasm of colon [facility] Start: 08-09-2025 End: 08-09-2025 Patient encounter procedure 08/09/2025 8:00 AM EDT Office Visit [facility] [address] [place] [address] Prasanna Sebastian, OD [address] [place] [address] Dilated Fundus Exam Ophthalmology Comment on above: Dilated Fundus Exam Start: 08-07-2024 End: 08-07-2024 Patient encounter procedure 08/07/2024 8:00 AM EDT Office Visit [facility] [address] [place] [address] Maude Wharton, OD [address] [place] [address] pvd/floaters return in 6 months Ophthalmology Comment on above: pvd/floaters return in 6 months Start: 02-02-2024 End: 02-02-2024 Patient encounter procedure 02/02/2024 8:00 AM EDT Office Visit [facility] [address] [place] [address] Pauline Yañez, OD [address] [place] [address] Routine eye exam Ophthalmology Comment on above: Routine eye exam Start: 01-22-2024 Covid-19 Vaccine () Covid-19 Vaccine () [facility] Start: 01-22-2024 Influenza vaccination Influenza Vaccine (#1) [facility] Start: 01-21-2023 Covid-19 Vaccine () Covid-19 Vaccine () [facility] Start: 01-21-2023 Influenza vaccination INFLUENZA (#1) [facility] Start: 10-06-2022 BP CONTROLLED (<130/80) BP CONTROLLED (<130/80) [facility] Start: 07-08-[address] [facility] Start: 07-08-2022 COLORECTAL CANCER SCREENING COLORECTAL CANCER SCREENING [facility] Start: 05-23-2022 DEPRESSION ASSESSMENT DEPRESSION ASSESSMENT [facility] Start: 01-21-[address] [facility] Start: 07-25-2021 COVID-19 VACCINE (3 - Booster for Gabe series) COVID-19 VACCINE (3 - Booster for Gabe series) [facility] Start: 05-23-2021 DEPRESSION ASSESSMENT DEPRESSION ASSESSMENT [facility] Start: 05-22-2021 COVID-19 VACCINE (3 - Booster for Moderna series) COVID-19 VACCINE (3 - Booster for Moderna series) [facility] Start: 05-22-2021 COVID-19 VACCINE (3 - Moderna series) COVID-19 VACCINE (3 - Moderna series) [facility] Start: 2021 RSV Vaccine (1 - 1-dose 60+ series) RSV Vaccine (1 - 1-dose 60+ series) [facility] Start: 03-25-2018 DIABETES SCREEN DIABETES SCREEN [facility] Start: 03-25-2018 Diabetes Screening Diabetes Screening [facility] Start: 11-13-2016 End: 11-13-[address] [facility] Work Phone: Start: 02-26-2016 Adult depression screening assessment DEPRESSION SCREENING [facility] Start: 01-27-2016 PROSTATE CANCER SCREENING DISCUSSION PROSTATE CANCER SCREENING DISCUSSION [facility] Start: 01-27-2016 Prostate specific antigen measurement Prostate Cancer Screening Discussion [facility] Start: 12-13-2011 End: 12-15-2011 Follow up Appt 1 week Follow up Appt [address] [facility] Work Phone: Start: 12-13-2011 End: 12-15-2011 X-ray exam of shoulder X-Ray, Shoulder [facility] Work Phone: Start: 2011 Pneumococcal Vaccine: 50+ (1 of 1 - PCV) Pneumococcal Vaccine: 50+ (1 of 1 - PCV) [facility] Start: 2011 SHINGRIX VACCINE (1 of 2) SHINGRIX VACCINE (1 of 2) [facility] Start: 2006 COLOGUARD (FIT-DNA) COLOGUARD (FIT-DNA) [facility] Start: [address]AP[address] [facility] Start: 2006 FECAL OCCULT BLOOD FECAL OCCULT BLOOD [facility] Start: 2006 Screening for malignant neoplasm of colon [facility] Start: [address] [facility] Start: 01-27-1996 Lipid panel Lipid Screening [facility] Start: 01-27-1996 L[address] SCREEN L[address]ID SCREEN [facility] Start: 01-27-1980 Urine microalbumin profile DTAP,TDAP,TD (1 - Tdap) [facility] Start: 1979 ANNUAL PCP TEAM CHRONIC DISEASE VISIT ANNUAL PCP TEAM CHRONIC DISEASE VISIT [facility] Start: 1979 Anxiety Screening Anxiety Screening [facility] Start: 1979 BP CONTROLLED (<130/80) BP CONTROLLED (<130/80) [facility] Start: 1979 Depression Screening Depression Screening [facility] Start: 1979 HEPATITIS C SCREENING HEPATITIS C SCREENING [facility] Start: 1979 Hepatitis C screening Hepatitis C Screening [facility] Start: 1979 HIV SCREENING HIV SCREENING [facility] Start: 1979 HIV screening HIV Screening [facility] End: 10-06-2022 EGD DIAGNOSTIC EGD DIAGNOSTIC Endoscopy Routine Gastroesophageal reflux disease without esophagitis Family history of colon cancer 1 Occurrences starting 10/06/2021 until 10/06/2022 [facility] Work Phone: Comment on above: 1 Occurrences starting 10/06/2021 until 10/06/2022 Patient Education OTITIS%20EXTERNA [facility] Work Phone: End: 10-06-2022 Screening colonoscopy COLONOSCOPY SCREENING Endoscopy Routine Gastroesophageal reflux disease without esophagitis Family history of colon cancer 1 Occurrences starting 10/06/2021 until 10/06/2022 [facility] Work Phone: Comment on above: 1 Occurrences starting 10/06/2021 until 10/06/2022 SURGICAL PATHOLOGY [facility] Work Phone: Comment on above: Release Upon Ordering for 1 Occurrences starting 12/15/2021, 1 completed [facility] Payers Date Payer Category Payer Self-pay [id number] 2019 Private Health Insurance [employer] A ETNA CHOICE POS II [id number] 2019-Present [phone] [address] [place] [address] POS [id number] 2019 Private Health Insurance [id number] 2019 Private Health Insurance [id number] 2013 Unknown [id number] 1960 Unknown [id number] 27 1961 Unknown [id number] 27 1961 Unknown [id number] 27 Unknown [id number] 62 Unknown [id number] 62 Unknown [id number] 62 Unknown [id number] 62 Unknown [id number] 62 Unknown [id number] 62 Unknown [id number] 62 Unknown [id number] 62 Unknown [id number] 62 Social History Date Type Detail Facility Start: 07-22-2010 End: 01-11-2022 Tobacco smoking status KYIS Never smoked tobacco [facility] Start: 07-22-2010 End: 01-11-2022 Tobacco use and exposure User of smokeless tobacco [facility] History of tobacco use Chews Tobacco [facility] Start: 10-06-2021 Alcohol intake Current non-dr tool sharpener of alcohol (finding) [facility] Start: 10-06-2021 History SDOH Alcohol Comment 2-3 [facility] Start: 07-22-2010 End: 01-11-2022 Tobacco Comment [address] [facility] Start: 1960 Sex Assigned At Male C [facility] Start: 09-26-2021 End: 02-02-2022 Exposure to SARS-CoV-2 (event) Not sure [facility] Start: 06-10-2021 End: 04-09-2023 Tobacco smoking status NHIS Unknown if ever smoked [facility] Start: 11-22-2021 End: 12-02-2021 Exposure to SARS-CoV-2 (event) Unable to assess [facility] Work Phone: Start: 12-15-2021 End: 08-07-2024 Alcohol intake Current drinker of alcohol (finding) [facility] Start: 12-15-2021 History SDOH Alcohol Comment 2-[address] [facility] Start: 01-31-2023 End: 08-07-2024 History of [address] function [facility] Start: 01-31-2023 End: 08-07-[address] [facility] National Score (1-100), lower number is lower risk 52 [facility] Start: 10-05-2021 Gender identity Identifies as male gender (finding) [facility] Clinical Notes 10-06-2021 to 10-03-2024 Prasanna Sebastian, OD - 08/07/2024 8:18 AM Tiesha Oconnor MD - 12/30/2023 9:07 AM Pauline Lacey OD - 01/31/2023 8:59 AM Rose Honeycutt MD - 02/17/2022 8:53 AM EDTPatient Instructions Note Date & Type Note Facility 10-03-2024 Note [facility] Medical Records Department [address] [place] [address] History Physical Exam 10/03/24 1513 MR#: [id number] Acct: [id number] Name: MERLENE UNGER LAXMI Rep #: [id number] : 1960 64 From: Immanuel Saucedo MD PCP: Dr. Harsha Duarte MD Status:REG [facility] Location: [place] [address] HPI - General General Date of Service: 10/03/24 Chief Complaint: Elevated PSA abnormal MRI HPI Narrative MERLENE UNGER, is a 64 M who presents for a perineal prostate biopsy has an abnormal MRI with anterior lesion seen in the MRI [place] do a perineal approach for a prostate biopsy in hopes of getting better biopsies of the anterior sample of the prostate this will be done under general anesthesia. [facility] Medical History Wears hearing aid Depression Anxiety Back pain Injury of back History of diverticulitis Chewing tobacco dependence History of stress test HTN (hypertension), benign Home Medications ???Medication ???Instructions ???Recorded ???Last Taken ???Type metoprolol tartrate 25 mg tablet 12.5 mg PO BID 12/01/14 10/03/24 0 6:00 History cholecalciferol (vit D3) 1,000 1 tab PO DAILY 09/26/24 Unknown Hi story unit-vitamin K2 (MK4) 100 mcg tablet (K2 Plus D3) cyanocobalamin (vitamin B-12) 50 50 mcg PO DAILY 09/26/24 Unknown H istory mcg tablet (Vitamin B-12) linaclotide 145 mcg capsule 145 mcg PO DAILY 09/26/24 Unknown History (Linzess) magnesium glycinate (LC-655) 150 mg PO DAILY 09/26/24 Unknown H istory zinc gluconate 30 mg tablet 30 mg PO DAILY 09/26/24 Unknown Hi story Allergy/AdvReac Type Severity Reaction Status Date / Time Histamine H2 Inhibitors AdvReac anxiety Verified 10/03/24 10:05 Phenylpiperazine AdvReac NEEDS Verified 10/03/24 10:05 Antidepressant FOLLOW-UP Tetracyclic Antidepressants AdvReac NEEDS Verified 10/03/24 10:05 FOLLOW-UP Tricyclic Antidepressants AdvReac NEEDS Verified 10/03/24 10:05 and Tricy FOLLOW-UP Surgical History History of cardiac catheterization Hx of hemorrhoidectomy History of carpal tunnel surgery of left wrist Hx laparoscopic cholecystectomy History of uvulectomy History of back surgery Social History Smoking Status: Never smoker Vital Signs Vital Signs Vital Signs: 10/03/24 10:15 10/03/24 10:15 10/03/24 11:01 Temperature 97.2 F L 97.2 F L Temperature Source Temporal Pulse Rate 63 63 Respiratory Rate 16 16 Respiratory Pattern Normal Blood Pressure 130/84 H 130/84 H Blood Pressure Mean 99 Blood Pressure Source Monitor Blood Pressure Position Semi-Fowlers Blood Pressure Location Left Arm Pulse Ox 95 95 Oxygen Delivery Method Room Air Room Air Weight Weight: 92.4 kg Body Mass Index (BMI) 26.9 10/03/24 1514 Cosigner Signature (if applicable): CC: Dr. Harsha Duarte MD; Dr. Immanuel Saucedo MD Signed [facility] 08-07-2024 Note Date of Procedure 08/07/2024. 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 OCT Macula Interpretation Right Eye Normal without fluid. Left Eye Normal without fluid. Interval Change Right Eye Initial. Left Eye Initial. [facility]EISS 08-07-2024 Note HNO ID: [id number] Author: PRASANNA SEBASTIAN OD Service: ? Author Type: HUNTER SKIN DIVER Type: Progress Notes Filed: 08/07/2024 08:28 Note Text: ASSESSMENT/PLAN: 1. Vitreous floaters of both eyes - ICD9: 379.24, ICD10: H43.393 (primary diagnosis) 2. Posterior vitreous detachment of both eyes - ICD9: 379.21, ICD10: H43.813 - OCT MACULA CIRRUS OU (BOTH EYES) No fluid in both eyes. Educate patient on signs and symptoms of retinal detachment and to return to clinic with increase in flashes/floaters, or decrease in peripheral vision. Monitor. 3. Dry eye syndrome of both eyes - ICD9: 375.15, ICD10: H04.123 4. Pinguecula, bilateral - ICD9: 372.51, ICD10: H11.153 5. S/P LASIK (laser assisted in situ keratomileusis) of both eyes - ICD9: V45.69, ICD10: Z98.890 Educate patient on ultraviolet protection and yearly eye exams. Continue with Systane Complete three times a day in both eyes. Monitor. 6. Age-related nuclear cataract of both eyes: Educate patient on ultraviolet protection and yearly eye exams. Return to clinic sooner with changes in vision, or increase in glare with night time driving. Return to clinic with changes to vision, otherwise follow up yearly. Prasanna Sebastian, CORBY August 07, 2024 8:27 AM [facility] 08-07-2024 History of Presen t illness Narrative ASSESSMENT/PLAN: 1. Vitreous floaters of both eyes - ICD9: 379.24, ICD10: H43.393 (primary diagnosis) 2. Posterior vitreous detachment of both eyes - ICD9: 379.21, ICD10: H43.813 - OCT MACULA CIRRUS OU (BOTH EYES) No fluid in both eyes. Educate patient on signs and symptoms of retinal detachment and to return to clinic with increase in flashes/floaters, or decrease in peripheral vision. Monitor. 3. Dry eye syndrome of both eyes - ICD9: 375.15, ICD10: H04.123 4. Pinguecula, bilateral - ICD9: 372.51, ICD10: H11.153 5. S/P LASIK (laser assisted in situ keratomileusis) of both eyes - ICD9: V45.69, ICD10: Z98.890 Educate patient on ultraviolet protection and yearly eye exams. Continue with Systane Complete three times a day in both eyes. Monitor. 6. Age-related nuclear cataract of both eyes: Educate patient on ultraviolet protection and yearly eye exams. Return to clinic sooner with changes in vision, or increase in glare with night time driving. Return to clinic with changes to vision, otherwise follow up yearly. Prasanna Sebastian, CORBY August 07, 2024 8:27 AM documented in this encounter [facility] 12-30-2023 Note HNO ID: [id number] Author: TIESHA CHOI MD Service: ? Author Type: Physician Type: Progress Notes Filed: 12/30/2023 09:09 Note Text: ASSESSMENT/PLAN: 1. Visual disturbance of right eye - ICD9: 368.9, ICD10: H53.9 (primary diagnosis) Resolved/ monitor 2. Vitreous floaters of both eyes - ICD9: 379.24, ICD10: H43.393 3. Posterior vitreous detachment of both eyes - ICD9: 379.21, ICD10: H43.813 Patient was given both written and verbal information on flashes and floaters. Patient was instructed to call the office ([phone]) immediately upon noticing flashes of light, increase in floaters, or changes in vision. Please call the office ([phone]) immediately if you notice more flashes of light, a sudden increase in floaters, or a sudden change in vision. 4. S/P LASIK (laser assisted in situ keratomileusis) of both eyes - ICD9: V45.69, ICD10: Z98.890 -for high myopia -stable/ monitor 5. Essential hypertension - ICD9: 401.9, ICD10: I10 -continue to monitor with primary care physician I have confirmed and edited as necessary the relevant HPI, ophthalmic history, ROS, and the neuro exam findings as obtained by others. I have seen and examined Rafael Unger. I have discussed the case and the management of this patient's care with the Resident/Fellow, if applicable. I also have reviewed and agree with the assessment and plan as stated above and agree with all of its relevant components. Tiesha Choi MD [facility] 12-30-2023 History of Presen t illness Narrative ASSESSMENT/PLAN: 1. Visual disturbance of right eye - ICD9: 368.9, ICD10: H53.9 (primary diagnosis) Resolved/ monitor 2. Vitreous floaters of both eyes - ICD9: 379.24, ICD10: H43.393 3. Posterior vitreous detachment of both eyes - ICD9: 379.21, ICD10: H43.813 Patient was given both written and verbal information on flashes and floaters. Patient was instructed to call the office ([phone]) immediately upon noticing flashes of light, increase in floaters, or changes in vision. Please call the office ([phone]) immediately if you notice more flashes of light, a sudden increase in floaters, or a sudden change in vision. 4. S/P LASIK (laser assisted in situ keratomileusis) of both eyes - ICD9: V45.69, ICD10: Z98.890 -for high myopia -stable/ monitor 5. Essential hypertension - ICD9: 401.9, ICD10: I10 -continue to monitor with primary care physician I have confirmed and edited as necessary the relevant HPI, ophthalmic history, ROS, and the neuro exam findings as obtained by others. I have seen and examined Rafael Unger. I have discussed the case and the management of this patient's care with the Resident/Fellow, if applicable. I also have reviewed and agree with the assessment and plan as stated above and agree with all of its relevant components. Tiesha Choi MD documented in this encounter [facility] 01-31-2023 History of Presen t illness Narrative 1. Dry eye syndrome of both eyes 2. Punctate keratitis, bilateral Continue artificial tears 3 times daily Add warm compresses daily 3. Pinguecula, bilateral Stable- monitor 4. S/P LASIK (laser assisted in situ keratomileusis) of both eyes Doing well Continue to monitor Continue OTC readers 5. Vitreous floaters of both eyes Stable Warned patient about signs/symptoms of retinal pathology and to call immediately with any sudden increase in flashes/floaters or curtain/veil over vision Follow-up in 1 year for complete eye exam Pauline Yañez, OD January 31, 2023 8:59 AM documented in this encounter [facility] 02-17-2022 History of Presen t illness Narrative Assessment and Plan 1. Dry eye syndrome of both eyes 2. Punctate keratitis, bilateral 3. S/P LASIK (laser assisted in situ keratomileusis) of both eyes -with history of Subconjunctival hemorrhage -stable punctate epithelial erosions both eyes -artificial tears helping 4. Vitreous floaters of both eyes -stable occasional floater 5. History of cornea foreign body -residual scars Plan: -Retina precautions reviewed. Return to clinic as soon as possible if increased floaters, flashes, or shadows. -artificial tears twice a day both eyes -follow-up as scheduled in 1 year with dilated fundus exam both eyes, sooner as needed I have confirmed and edited as necessary the relevant ophthalmic history, ROS, and the neuro exam findings as obtained by others. I have seen and examined Rafael Unger. I have discussed the case and the management of this patient's care with the Resident/Fellow, if applicable. I also have reviewed and agree with the assessment and plan as stated above and agree with all of its relevant components. Goyo Honecyutt MD documented in this encounter [facility] 01-11-2022 Instructions Jillian Vargas PA-C - 01/11/2022 1:15 PM EDT -Recommend continuing omeprazole for at least 2 months, may consider going off of the medication at that time (discuss with prescribing Dr) -Dietary and lifestyle modifications as discussed-avoid alcohol, tobacco, caffeine and acidic foods. Avoid eating or drinking after 7 pm The following instructions are important for you related to your office visit today with the [facility]. INSTRUCTIONS FOLLOWING A POLYP FOUND AT COLONOSCOPY You were found to have adenomatous colon polyps. I recommend you undergo repeat endoscopy in 5 years. If you note bleeding, change in bowel habits, or other suspicious colon related symptoms before that time, those symptoms should be evaluated as necessary. If you have any difficulties or concerns, you should contact our office immediately. INSTRUCTIONS FOR PEPTIC ULCER DISEASE - ESOPHAGITIS I discussed with you the findings of your upper endoscopy. Your upper endoscopy demonstrated signs of acid reflux and stomach irritation Esophagitis may be a form of peptic irritation, with acid moving from the stomach to the esophagus (gastroesophageal reflux) Factors that increase acid production include smoking and stress. If you smoke, stopping smoking will often cure these issues without needing other medications. Over the counter medications including antiacids and acid reducing medications including H2 blockers (Zantac and the like) and proton pump inhibitors (prilosec, prevacid and the like) neutralize or prevent acid production. Prescription strength proton pump inhibitors (PPIs) may be necessary if your symptoms persist. Carafate may be added to PPI treatment in refractory cases. Avoiding smoking, alcohol and antiinflammatory medications are important in the successful treatment of reflux esophagitis and peptic diseases. Other factors that contribute to GERD and esophagitis are being overweight, eating large meals before laying down and certain foods. Weight loss will help improve many GERD complaints. Remaining upright after eating large meals and having a small supper will also help symptoms. Avoiding food that contribute to reflux - chocolate, caffeine, cheddar cheese may also help. Follow up upper endoscopy may be recommended to assure healing of the esophagus. New or worsening symptoms such are epigastric pain, burning, difficulty swallowing or food sticking should be relayed to your physician. Feeling full early after eating, or black, tarry, foul smelling stools are also worrisome. If you have any difficulties or concerns, you should contact our office immediately. If you note any additional difficulties, questions, or concerns, you should contact our office immediately @ [phone] and ask to be transferred to the General Surgery department. documented in this encounter [facility] 01-11-2022 History of Presen t illness Narrative FOLLOW UP VISIT - ENDOSCOPY NAME: Rafael Unger [employer] NO.: [id number] DATE OF SERVICE: 01/11/2022 : 1960 REFERRING PHYSICIAN: Harsha Duarte MD Rafael is a patient I am following with Dr. Mcmahon for GERD and family history of colon cancer. Dr. Mcmahon performed upper and lower endoscopy on 12/15/21. The patient was found to have gastritis and esophagitis on upper endoscopy. Colonoscopy showed sigmoid diverticulosis, as well as two small polyps in the transverse colon and hepatic flexure which were removed. Pathology demonstrated: FINAL DIAGNOSIS A. Stomach, antrum, biopsy: - Gastric antral mucosa with no diagnostic abnormalities. B. Esophagus, distal, biopsy: - Squamous mucosa with no diagnostic abnormalities. C. Esophagus, mid, biopsy: - Squamous mucosa with no diagnostic abnormalities. D. Colon, hepatic flexure, polyp, polypectomy: - Tubular adenoma. E. Colon, transverse, polyp, polypectomy: - Tubular adenoma. The patient notes no complaints since the procedure. VITALS: Blood pressure 116/80, pulse 84, temperature 36.4 C (97.6 F), temperature source Temporal, resp. rate 14, height 185.4 cm (6' 1), weight 98 kg (216 lb), SpO2 99 %. General: patient is alert, cooperative, pleasant and in no acute distress On examination, the abdomen is benign. Assessment IMPRESSION: s/p colonoscopy with polypectomy-small tubular adenomas x 2. Family history of colon cancer. GERD and appearance of gastritis with normal biopsies PLAN: The operative findings and pathology report were reviewed with the patient, and the patient has had the opportunity to ask questions and have questions answered. If the patient notes any problems or changes in bowel function, the patient should contact me immediately. Otherwise I recommend follow up endoscopy in 5 years. HM updated and recall letter generated. Patient verbalized understanding of all above and agreed with the plan Diagnoses: (Z80.0) Family history of colon cancer (primary encounter diagnosis) (D36.9) Tubular adenoma (K57.90) Diverticulosis (K21.9) Gastroesophageal reflux disease, unspecified whether esophagitis present I spent a total of 24 minutes on the date of the service which included preparing to see the patient, [id number] patient care, completing clinical documentation, obtaining and/or reviewing separately obtained history, counseling and educating the patient/family/caregiver, independently interpreting results (not separately reported), and communicating results to the patient/family/caregiver. Jillian Vargas PA-C documented in this encounter [facility] 12-15-2021 Nurse Note Pt received in PACU. Pt awake. Denies pain or nausea. Abd soft and non distended. Keli Forbes RN documented in this encounter [facility] 12-15-2021 History and physical note UPDATED PROCEDURAL SEDATION HISTORY AND PHYSICAL EXAMINATION SERVICE DATE: 12/15/2021 SERVICE TIME: 7:10 AM PHYSICAL EXAM MUST BE COMPLETED ON ADMISSION PROCEDURE: Procedure Indications: The History and Physical (completed in the past 30 days) has been reviewed and the patient has been examined. The contents accurately reflect the patient's condition with the following additions or revisions since the H&P was completed. ASA Class: ASA Class:: Patient with mild systemic disease Examination indicates no changes. AIRWAY: Airway Visualization of Uvula: Yes Mouth opening greater than 2 fingerbreadths: Yes Neck Full Range of Motion: Yes LUNGS: Lungs clear to auscultation CARDIAC: Regular rhythm,Regular rate Provisional Diagnosis/Treatment Plan: dysphagia, family history of colon cancer - EGD and Colonoscopy SEDATION GOAL: Moderate This H&P can be found in the attached. SIGNATURE: Joshua Mcmahon MD PATIENT NAME: Rafael Unger DATE: December 15, 2021 TIME: 7:10 AM Images from the original note were not included. HISTORY AND PHYSICAL Rafael Unger 1960 REFERRING PHYSICIAN: Harsha Duarte, * CHIEF COMPLAINT: New Patient (GERD) HPI: The patient is a 61 year old male referred for endoscopy. Rafael notes no history of colon complaints. The patient notes the following upper complaints: Rafael denies abdominal pain.. Rafael notes heartburn. Rafael notes dysphagia. Rafael denies a history of ulcers/ peptic ulcer disease. Rafael has undergone prior endoscopy. He has a family history of colon cancer. I had last performed colonoscopy 2017 which was unremarkable and recommended 5-year follow-up. I last performed upper endoscopy which demonstrated duodenitis in 2012. The patient is being seen by me today at the request of Dr. Harsha Duarte MD for my opinion and advice regarding reflux and dysphagia. PAST MEDICAL HISTORY PAST MEDICAL HISTORY Diagnosis Date Anxiety Environmental allergies Family history of malignant neoplasm of gastrointestinal tract Hypertension Mental disorder PAST SURGICAL HISTORY PAST SURGICAL HISTORY Procedure Laterality Date CARPAL TUNNEL left COLONOSCOPY FLX DX W/COLLJ SPEC WHEN PFRMD 06/17/2009 Repeat in COLONOSCOPY FLX DX W/COLLJ SPEC WHEN PFRMD 07/08/2017 repeat in 5 years due to family history CUSTOM BASIC PRK/LASIK SURGERY both eyes Deviated septum EGD 11/28/2012 EGD TRANSORAL BIOPSY SINGLE/MULTIPLE 01/30/2010 EXCISION GANGLION CYST, FOOT right GASTROESOPHAG REFLX TEST W/TELEMTRY PH ELTRD 01/30/2010 hemmorrhoidectomy LAPS SURG CHOLECYSTECTOMY W/CHOLANGIOGRAPHY 12/26/2012 normal IOC RT & LT HEART CATHETERIZATION 2004 TONSILLECTOMY & ADENOIDECTOMY <AGE 13 Bilateral 2013 CURRENT MEDICATIONS Current Outpatient Medications Medication Sig prazosin (MINIPRESS) 1 mg cap omeprazole (PRILOSEC) 40 mg capsule busPIRone HCl 7.5 mg tablet Take 10 mg by mouth once daily. metoprolol tartrate, short acting, (LOPRESSOR) 25 mg tablet Take 12.5 mg by mouth twice daily. peg 3350-Electrolytes (GOLYTELY) 236-22.74-6.74 -5.86 gram suspension Refer to printed prep instructions from your provider. tiZANidine (ZANAFLEX) 4 mg tablet Take 4 mg by mouth daily at bedtime. No current facility-administered medications for this visit. ALLERGIES: Antihistimine PERSONAL HISTORY: SOCIAL HISTORY Social History Tobacco Use Smoking status: Never Smoker Smokeless tobacco: Current User Types: Chew Tobacco comment: 46 years Vaping Use Vaping Use: Never used Substance Use Topics Alcohol use: No Comment: 2-3 Drug use: No FAMILY HISTORY: FAMILY HISTORY FAMILY HISTORY Problem Relation Age of Onset Arthritis Mother Diabetes Mother Hypertension Mother Asthma Son Breast Cancer Maternal Aunt Cancer Maternal Aunt bone cancer Colon Cancer Father Colon Cancer Maternal Uncle Diabetes Maternal Grandmother Heart Maternal Grandmother Hypertension Maternal Grandmother Heart Maternal Uncle Hypertension Maternal Grandfather Prostate Cancer Maternal Grandfather Stroke Maternal Grandfather Ischemic Heart Disease Maternal Uncle REVIEW OF SYMPTOMS: The review of systems data was entered by the nurse and reviewed by nm Nursing Notes: Morena Sutton 10/06/2021 2:29 PM Signed REVIEW OF SYSTEMS: General: The patient denies fatigue, denies weight loss, denies weight gain, denies feeling hot, and denies feelings of cold. Eyes: The patient denies glaucoma, denies eye injury/surgery, does not wear glasses or contacts. Ear/Nose/Throat: The patient denies allergies, denies hayfever, denies ear infections, and denies bloody noses. Cardiovascular: The patient denies chest pain, denies heart disease, denies high blood pressure,denies cardiac stent, denies prior heart attack, denies irregular heart beat, denies high cholesterol, denies poor circulation, denies heart failure, other cardiac issues, denies claudication, denies cold feet, denies peripheral arterial stent. Respiratory: The patient denies tuberculosis, denies pneumonia, denies frequent cough, denies pulmonary embolism, denies shortness of breath, and denies coughing up blood. Gastrointestinal: The patient denies difficulty swallowing, NOTES acid reflux, denies ulcers, denies vomiting, denies jaundice/hepatitis, denies gallbladder problems, denies black or tarry stools, denies hemorrhoids, denies bleeding from rectum, denies diverticulitis, denies constipation, denies diarrhea, denies loss of stool [...] patient NOTES back pain/injury, denies back problems, denies sciatica, denies knee/foot trouble, denies arthritis, or denies gout. When was patient's last Mammogram screening? N/A Last Colonoscopy: 07/08/2017 Morena Sutton PHYSICAL EXAMINATION: General: The patient is 61 year old male, well nourished, well hydrated in no acute distress. The patient is oriented to time, place, and person. VITALS: Blood pressure 112/78, pulse 67, temperature 36.2 C (97.1 F), temperature source Temporal, resp. rate 16, height 185.4 cm (6' 1), weight 99.3 kg (219 lb), SpO2 97 %. Body mass index is 28.89 kg/m . HEENT: Normal cephalic, ataumatic, pupils are equally round, sclera are anicteric, mucous membranes are moist, oropharynx is clear. Neck has no masses, asymmetry or lymphadenopathy. Thyroid is unremarkable. Respiratory: Clear to auscultation and percussion. Normal respiratory excursion and pattern. Cardiac: Examination is regular rate and rhythm. Abdominal exam: Soft, nontender, with no palpable masses. No hepatosplenomegaly. No palpable hernias. Rectal exam: exam deferred Extremities: no clubbing, cyanosis or edema. No adenopathy. Other: LABORATORY VALUES: As Noted RADIOLOGIC STUDIES: As Noted Assessment IMPRESSION: ERD, dysphagia, family history of colon cancer PLAN: I plan to perform upper and lower endoscopy. We discussed the risks and benefits of [...] use golytely bowel preparation for endoscopy Diagnoses: (K21.9) Gastroesophageal reflux disease without esophagitis (primary encounter diagnosis) (Z80.0) Family history of colon cancer A letter was sent to Dr. Harsha Duarte MD indicating the above finding for this patient. Return to Clinic: The patient is instructed to follow-up with me after the testing has been completed. Joshua Mcmahon MD documented in this encounter [facility] 10-07-2021 Miscellaneous Notes Called patient and informed soonest opening for [facility] with [facility] is indeed 12/15 - in which is patients scheduled day. Informed [facility] is booked out until March. Patient understood and is okay with 12/15 Radha Gray Patient called back asking if there was anything sooner. Patient willing to go to [place]. Please call patient and advise. 12/15/21 EGD & Colonoscopy Dr. Mcmahon at the [facility] with [facility] prep documented in this encounter [facility] 10-06-2021 History of Presen t illness Narrative HISTORY AND PHYSICAL Rafael Unger 1960 REFERRING PHYSICIAN: Harsha Duarte, * CHIEF COMPLAINT: New Patient (GERD) HPI: The patient is a 61 year old male referred for endoscopy. Rafael notes no history of colon complaints. The patient notes the following upper complaints: Rafael denies abdominal pain.. Rafael notes heartburn. Rafael notes dysphagia. Rafael denies a history of ulcers/ peptic ulcer disease. Rafael has undergone prior endoscopy. He has a family history of colon cancer. I had last performed colonoscopy 2017 which was unremarkable and recommended 5-year follow-up. I last performed upper endoscopy which demonstrated duodenitis in 2012. The patient is being seen by me today at the request of Dr. Harsha Duarte MD for my opinion and advice regarding reflux and dysphagia. PAST MEDICAL HISTORY Diagnosis Date Anxiety Environmental allergies Family history of malignant neoplasm of gastrointestinal tract Hypertension Mental disorder PAST SURGICAL HISTORY Procedure Laterality Date CARPAL TUNNEL left COLONOSCOPY FLX DX W/COLLJ SPEC WHEN PFRMD 06/17/2009 Repeat in COLONOSCOPY FLX DX W/COLLJ SPEC WHEN PFRMD 07/08/2017 repeat in 5 years due to family history CUSTOM BASIC PRK/LASIK SURGERY both eyes Deviated septum EGD 11/28/2012 EGD TRANSORAL BIOPSY SINGLE/MULTIPLE 01/30/2010 EXCISION GANGLION CYST, FOOT right GASTROESOPHAG REFLX TEST W/TELEMTRY PH ELTRD 01/30/2010 hemmorrhoidectomy LAPS SURG CHOLECYSTECTOMY W/CHOLANGIOGRAPHY 12/26/2012 normal IOC RT & LT HEART CATHETERIZATION 2004 TONSILLECTOMY & ADENOIDECTOMY <AGE 13 Bilateral 2014 Current Outpatient Medications Medication Sig prazosin (MINIPRESS) 1 mg cap omeprazole (PRILOSEC) 40 mg capsule busPIRone HCl 7.5 mg tablet Take 10 mg by mouth once daily. metoprolol tartrate, short acting, (LOPRESSOR) 25 mg tablet Take 12.5 mg by mouth twice daily. peg 3350-Electrolytes (GOLYTELY) 236-22.74-6.74 -5.86 gram suspension Refer to printed prep instructions from your provider. tiZANidine (ZANAFLEX) 4 mg tablet Take 4 mg by mouth daily at bedtime. No current facility-administered medications for this visit. ALLERGIES: Antihistimine PERSONAL HISTORY: Social History Tobacco Use Smoking status: Never Smoker Smokeless tobacco: Current User Types: Chew Tobacco comment: 46 years Vaping Use Vaping Use: Never used Substance Use Topics Alcohol use: No Comment: 2-3 Drug use: No FAMILY HISTORY: FAMILY HISTORY Problem Relation Age of Onset Arthritis Mother Diabetes Mother Hypertension Mother Asthma Son Breast Cancer Maternal Aunt Cancer Maternal Aunt bone cancer Colon Cancer Father Colon Cancer Maternal Uncle Diabetes Maternal Grandmother Heart Maternal Grandmother Hypertension Maternal Grandmother Heart Maternal Uncle Hypertension Maternal Grandfather Prostate Cancer Maternal Grandfather Stroke Maternal Grandfather Ischemic Heart Disease Maternal Uncle REVIEW OF SYMPTOMS: The review of systems data was entered by the nurse and reviewed by me Nursing Notes: Morena Sutton 10/06/2021 2:29 PM Signed REVIEW OF SYSTEMS: General: The patient denies fatigue, denies weight loss, denies weight gain, denies feeling hot, and denies feelings of cold. Eyes: The patient denies glaucoma, denies eye injury/surgery, does not wear glasses or contacts. Ear/Nose/Throat: The patient denies allergies, denies hayfever, denies ear infections, and denies bloody noses. Cardiovascular: The patient denies chest pain, denies heart disease, denies high blood pressure,denies cardiac stent, denies prior heart attack, denies irregular heart beat, denies high cholesterol, denies poor circulation, denies heart failure, other cardiac issues, denies claudication, denies cold feet, denies peripheral arterial stent. Respiratory: The patient denies tuberculosis, denies pneumonia, denies frequent cough, denies pulmonary embolism, denies shortness of breath, and denies coughing up blood. Gastrointestinal: The patient denies difficulty swallowing, NOTES acid reflux, denies ulcers, denies vomiting, denies jaundice/hepatitis, denies gallbladder problems, denies black or tarry stools, denies hemorrhoids, denies bleeding from rectum, denies diverticulitis, denies constipation, denies diarrhea, denies loss of stool [...] patient NOTES back pain/injury, denies back problems, denies sciatica, denies knee/foot trouble, denies arthritis, or denies gout. When was patient's last Mammogram screening? N/A Last Colonoscopy: 07/08/2017 Morena Sutton PHYSICAL EXAMINATION: General: The patient is 61 year old male, well nourished, well hydrated in no acute distress. The patient is oriented to time, place, and person. VITALS: Blood pressure 112/78, pulse 67, temperature 36.2 C (97.1 F), temperature source Temporal, resp. rate 16, height 185.4 cm (6' 1), weight 99.3 kg (219 lb), SpO2 97 %. Body mass index is 28.89 kg/m . HEENT: Normal cephalic, ataumatic, pupils are equally round, sclera are anicteric, mucous membranes are moist, oropharynx is clear. Neck has no masses, asymmetry or lymphadenopathy. Thyroid is unremarkable. Respiratory: Clear to auscultation and percussion. Normal respiratory excursion and pattern. Cardiac: Examination is regular rate and rhythm. Abdominal exam: Soft, nontender, with no palpable masses. No hepatosplenomegaly. No palpable hernias. Rectal exam: exam deferred Extremities: no clubbing, cyanosis or edema. No adenopathy. Other: LABORATORY VALUES: As Noted RADIOLOGIC STUDIES: As Noted Assessment IMPRESSION: ERD, dysphagia, family history of colon cancer PLAN: I plan to perform upper and lower endoscopy. We discussed the risks and benefits of [...] use golytely bowel preparation for endoscopy Diagnoses: (K21.9) Gastroesophageal reflux disease without esophagitis (primary encounter diagnosis) (Z80.0) Family history of colon cancer A letter was sent to Dr. Harsha Duarte MD indicating the above finding for this patient. Return to Clinic: The patient is instructed to follow-up with me after the testing has been completed. Joshua Mcmahon MD documented in this encounter [facility] 10-06-2021 Instructions Joshua Mcmahon MD - 10/06/2021 3:24 PM EDT Images from the original note were not included. Bowel Preparation Instructions for: Golytely, Nulytely, Trilyte or Colyte (polyethylene glycol 3350 and electrolytes) IF YOU DO NOT FOLLOW THESE DIRECTIONS, YOUR COLONOSCOPY WILL BE CANCELLED. [place] Instructions: Your bowel must be empty so that your doctor can clearly view your colon. Follow all of the instructions in this handout EXACTLY as they are written. Do NOT eat any solid food the ENTIRE day before your colonoscopy. Drink only clear liquids. Buy your bowel preparation at least 5 days before your colonoscopy. TRANSPORTATION on the Day of Your Exam A responsible person MUST be present with you at Check In prior to your colonoscopy and REMAIN in the endoscopy area until you are discharged. You are NOT ALLOWED to drive, take a taxi or bus, or leave the Endoscopy Center ALONE. If you do not have a responsible bicycle taxi driver (family member or friend) with you to take you home, your exam cannot be done with sedation and will be cancelled. Please bring a list of all of your current medications, including any Over-the Counter medications with you. Medications If you take insulin, diabetic medications or blood thinners such as Coumadin (warfarin), Plavix (clopidogrel), Ticlid (ticlopidine hydrochloride), Agrylin (anagrelide), Xarelto (Rivaroxaban), Pradaxa (Dabigatran), Eliquis (Apixaban), and Effient (Prasugrel). You MUST call the doctors who orders those medicines for instructions on altering the dosage before your colonoscopy. All other medications should be taken the day of the exam with a sip of water including ASPIRIN. Five (5) Days Before Your Colonoscopy Do NOT take medicines that stop diarrhea - such as Imodium, Kaopectate, or Pepto Bismol. Do NOT take fiber supplements - such as Metamucil, Citrucel, or Perdiem. Do NOT take products that contain iron - such as multi-vitamins (the label lists what is in the products). Do NOT take Vitamin E. Buy the prescription bowel preparation solution at your local pharmacy or drugstore pharmacy. 04/2019 Bowel Preparation Instructions for: Golytely, Nulytely, Trilyte or Colyte (polyethylene glycol 3350 and electrolytes) Three (3) Days Before Your Colonoscopy Do NOT eat high-fiber foods - such as popcorn, beans, seeds (flax, sunflower, quinoa), multigrain bread, nuts, salad/vegetables, or fresh and dried fruit. One (1) Day Before Your Colonoscopy Only drink clear liquids the ENTIRE DAY before your colonoscopy. Do NOT eat any solid foods. Drink at least 8 ounces of clear liquids every hour after waking up. The clear liquids you can drink include: Clear Liquid (NO RED LIQUIDS) DO NOT DRINK Gatorade, Pedialyte or Powerade Clear broth or bouillon Coffee or tea (no milk or non-dairy creamer) Carbonated and non-carbonated soft drinks Georgi-Aid or other fruit flavored drinks Strained fruit juices (no pulp) Jell-O, popsicles, hard candy Water Alcohol Milk or non-dairy creamers Noodles or vegetables in soup Juice with pulp Liquid you cannot see through The bowel preparation solution will be consumed in two parts. Mix the solution the evening before your colonoscopy and refrigerate before drinking. You may add the flavor pack that came with the bowel preparation. Do NOT add ice, sugar or any other flavorings to the solution. Part 1 At 6:00 PM - Evening before your colonoscopy Drink an 8-oz glass of bowel preparation every 10 minutes for a total of 8 glasses. You may continue to drink clear liquids until midnight. Part 2 On the day of your colonoscopy you may drink clear liquids up to (three) 3 hours before your procedure. 4 1/2 hours before your colonoscopy Drink an 8-oz glass of bowel preparation every 10 minutes for a total of 8 glasses. Fifteen (15) minutes later, drink an 8-oz glass of clear liquids every 15 minutes for a total of 2 glasses. You may continue to drink clear liquids up to (three) 3 hours before your exam. 3 04/[address] this encounter [facility] 10-06-2021 Nurse Note REVIEW OF SYSTEMS: General: The patient denies fatigue, denies weight loss, denies weight gain, denies feeling hot, and denies feelings of cold. Eyes: The patient denies glaucoma, denies eye injury/surgery, does not wear glasses or contacts. Ear/Nose/Throat: The patient denies allergies, denies hayfever, denies ear infections, and denies bloody noses. Cardiovascular: The patient denies chest pain, denies heart disease, denies high blood pressure,denies cardiac stent, denies prior heart attack, denies irregular heart beat, denies high cholesterol, denies poor circulation, denies heart failure, other cardiac issues, denies claudication, denies cold feet, denies peripheral arterial stent. Respiratory: The patient denies tuberculosis, denies pneumonia, denies frequent cough, denies pulmonary embolism, denies shortness of breath, and denies coughing up blood. Gastrointestinal: The patient denies difficulty swallowing, NOTES acid reflux, denies ulcers, denies vomiting, denies jaundice/hepatitis, denies gallbladder problems, denies black or tarry stools, denies hemorrhoids, denies bleeding from rectum, denies diverticulitis, denies constipation, denies diarrhea, denies loss of stool [...] patient NOTES back pain/injury, denies back problems, denies sciatica, denies knee/foot trouble, denies arthritis, or denies gout. When was patient's last Mammogram screening? N/A Last Colonoscopy: 07/08/2017 Morena Sutton documented in this encounter [facility] Evaluation note Diagnosis Gastroesophageal reflux disease without esophagitis- Primary Esophageal reflux Family history of colon cancer Family history of malignant neoplasm of gastrointestinal tract [facility] noteNo assessment information availableWLake [facility] Work Phone: Evaluation note* Diagnosis Gastroesophageal reflux disease without esophagitis Esophageal reflux Family history of colon cancer Family history of malignant neoplasm of gastrointestinal tract [facility] Diagnosis Family history of colon cancer- Primary Family history of malignant neoplasm of gastrointestinal tract Tubular adenoma Benign neoplasm of unspecified site Diverticulosis Diverticulosis of colon (without mention of hemorrhage) Gastroesophageal reflux disease, unspecified whether esophagitis present [facility] Diagnosis Dry eye syndrome of both eyes- Primary Punctate keratitis, bilateral Pinguecula, bilateral S/P LASIK (laser assisted in situ keratomileusis) of both eyes Vitreous floaters of both eyes [facility] Diagnosis Dry eye syndrome of both eyes- Primary Punctate keratitis, bilateral Pinguecula, bilateral S/P LASIK (laser assisted in situ keratomileusis) of both eyes Vitreous floaters of both eyes [facility] Diagnosis Visual disturbance of right eye- Primary Unspecified visual disturbance Vitreous floaters of both eyes Posterior vitreous detachment of both eyes Vitreous degeneration S/P LASIK (laser assisted in situ keratomileusis) of both eyes Essential hypertension Unspecified essential hypertension [facility] Diagnosis Vitreous floaters of both eyes- Primary Posterior vitreous detachment of both eyes Vitreous degeneration Dry eye syndrome of both eyes Pinguecula, bilateral S/P LASIK (laser assisted in situ keratomileusis) of both eyes Age-related nuclear cataract of both eyes Senile nuclear sclerosis documented in this encounter [facility] for referral (narrative)* Outpatient Procedure (Routine) - Authorized Specialty Diagnoses / Procedures Referred By Cori cho Referred To [facility] Diagnoses Gastroesophageal reflux disease without esophagitis Family history of colon cancer Procedures EGD DIAGNOSTIC ESOPHAGOGASTRODUODENOSC OPY TRANSORAL DIAGNOSTIC Joshua Mcmahon MD [address] [place] [address] [place] [address] Referral ID Status Reason Start Date Expiration Date Visits Requested Visits Authorized [id number] Authorized Auto-Generat ed Referral 10/06/2021 10/06/2022 1 1 * Outpatient Procedure (Routine) - Authorized Specialty Diagnoses / Procedures Referred By Cori cho Referred To [facility] Diagnoses Gastroesophageal reflux disease without esophagitis Family history of colon cancer Procedures COLONOSCOPY SCREENING COLONOSCOPY FLX DX W/COLLJ SPEC WHEN PFRMD Joshua Mcmahon MD [address] [place] [address] [place] [address] Referral ID Status Reason Start Date Expiration Date Visits Requested Visits Authorized [id number] Authorized Auto-Generat ed Referral 10/06/2021 10/06/2022 1 1 [facility] for referral (narrative)* Outpatient Procedure (Routine) - Closed Specialty Diagnoses / Procedures Referred By Cori cho Referred To [facility] Diagnoses Gastroesophageal reflux disease without esophagitis Family history of colon cancer Procedures EGD DIAGNOSTIC ESOPHAGOGASTRODUODENOSC OPY TRANSORAL DIAGNOSTIC Joshua Mcmahon MD [address] [place] [address] [address] Referral ID Status Reason Start Date Expiration Date V isits Requested Visits Authorized [id number] Closed Auto-Generate d Referral 10/06/2021 10/06/2022 1 1 * Outpatient Procedure (Routine) - Closed Specialty Diagnoses / Procedures Referred By Cori cho Referred To Contact [facility] Diagnoses Gastroesophageal reflux disease without esophagitis Family history of colon cancer Procedures COLONOSCOPY SCREENING COLONOSCOPY FLX DX W/COLLJ SPEC WHEN Joshua Baker MD [address] [place] [address] [address] Referral ID Status Reason Start Date Expiration Date V isits Requested Visits Authorized [id number] Closed Auto-Generate d Referral 10/06/2021 10/06/2022 1 1 [facility] for visit Narrative* Outpatient Procedure (Routine) - Closed Specialty Diagnoses / Procedures Referred By Cori cho Referred To Contact [facility] Diagnoses Gastroesophageal reflux disease without esophagitis Family history of colon cancer Procedures COLONOSCOPY SCREENING COLONOSCOPY FLX DX W/COLLJ SPEC WHEN Joshua Baker MD [address] [place] [address] [address] Referral ID Status Reason Start Date Expiration Date V isits Requested Visits Authorized [id number] Closed Auto-Generate d Referral 10/06/2021 10/06/[address] [facility] Advance Directives No Advanced Directives Records FoundDocuments on File Type Date Recorded Patient Multicultural Manager Expl anation Advance Directive(s) 07/08/2017 10:00 AM Advance Directive Response Recorded Date/ Time Living Will No October 04, 2014 1 1:42pm Power of Staffing Executive No October 04, 2014 11:42pm Documents on File Type Date Recorded Patient Multicultural Manager Expl anation Advance Directive(s) 07/08/2017 10:00 AM Documents on File Type Date Recorded Patient Multicultural Manager Expl anation Advance Directive(s) 12/15/2021 6:16 AM Advance Directive(s) 07/08/2017 10:00 AM Advance Directive Response Recorded Date/ Time Living Will No October 04, 2014 1 0:42pm Power of Staffing Executive No October 04, 2014 10:42pm Chief Complaint and Reason for Visit Chief Complaint CHEST DISCOMFORT Chief Complaint CHEST DISCOMFORT EORDER- cough EORDER LABS AND XRAY- pneumonia Chief Complaint EORDER- cough EORDER LABS AND XRAY- pneumonia Gastro-esophageal reflux disease without esophagit Chief Complaint Gastro-esophageal re flux disease without esophagit EORDER Chief Complaint NEED ORDER Medications Administered Section Inactive Administered Medications - up to 3 most recent administrations Medication Order MAR Action Action Date Dose Rate Site benzocaine 20% 1 [place] (TOPEX) 1 [place], TOPICAL, DIRECTED, Starting on Tue12/15/21 at 0730, Until Tue12/15/21 at 1129, DOSING DIRECTED BY PHYSICIAN FOR PROCEDURAL SEDATION ONLY - Pharmaceutical Waste: Aerosol -, Intraprocedure Given 12/15/2021 7:11 AM EDT 5 Sprays fentaNYL 50 mcg/mL 25-100 mcg injection (SUBLIMAZE) 25-100 mcg, INTRAVENOUS, DIRECTED, Starting on Tue12/15/21 at 0730, Until Tue12/15/21 at 1129, DOSING DIRECTED BY PHYSICIAN FOR PROCEDURAL SEDATION ONLY, Intraprocedure Given 12/15/2021 7:14 AM EDT 50 mcg Given by LIP 12/15/2021 7:12 AM EDT 50 mcg lactated ringers iv infusion 30 mL/hr, INTRAVENOUS, CONTINUOUS, Starting on Tue12/15/21 at 0700, Until Tue12/15/21 at 0752, Preprocedure New Bag/Syringe/Bottle 12/15/2021 6:40 AM EDT 30 mL/hr 30 mL/hr Wrist, Right midazolam (PF) 1-5 mg injection (VERSED) 1-5 mg, INTRAVENOUS, DIRECTED, Starting on Tue12/15/21 at 0730, Until Tue12/15/21 at 1129, DOSING DIRECTED BY PHYSICIAN FOR PROCEDURAL SEDATION ONLY, Intraprocedure Given by LIP 12/15/2021 7:30 AM EDT 1 mg Given by LIP 12/15/2021 7:16 AM EDT 1 mg Given 12/15/2021 7:14 AM EDT 1 mg Active Administered Medications - up to 3 most recent administrations Medication Order MAR Action Action Date Dose Rate Site PHENYLephrine 2.5 % 1 Drop (AK-DILATE, SIVA-SYNEPHRINE) 1 Drop, BOTH EYES, DIRECTED, Starting on Tue02/17/22 at 0830, Until Tue02/17/22 at 2028, Administer for dilation PROTECT FROM LIGHT Given 02/17/2022 8:21 AM EDT 1 Drop proparacaine 0.5 % 1 Drop (ALCAINE) 1 Drop, BOTH EYES, DIRECTED, Starting on Tue02/17/22 at 0830, Until Tue02/17/22 at 2028, Administer for pneumo tonometry, tonopen tonometry, or pachymetry. In the event of a proparacaine shortage, administer tetracaine 0.5% ophthalmic drops 1 drop in the left eye as directed for pneumo tonometry, tonopen tonometry, or pachymetry Given 02/17/2022 8:21 AM EDT 1 Drop tropicamide 1 % 1 Drop (MYDRIACYL) 1 Drop, BOTH EYES, DIRECTED, Starting on Tue02/17/22 at 0830, Until Tue02/17/22 at 2028, Administer for dilation Given 02/17/2022 8:21 AM EDT 1 Drop Active Administered Medications - up to 3 most recent administrations Medication Order MAR Action Action Date Dose Rate Site proparacaine 0.5 % 1 Drop (ALCAINE) 1 Drop, BOTH EYES, DIRECTED, Starting on Tue01/31/23 at 0900, Until Tue01/31/23 at 2058, Administer for pneumo tonometry, tonopen tonometry, or pachymetry. In the event of a proparacaine shortage, administer tetracaine 0.5% ophthalmic drops 1 drop in the left eye as directed for pneumo tonometry, tonopen tonometry, or pachymetry Given 01/31/2023 8:38 AM EDT 1 Drop tropicamide 1 % 1 Drop (MYDRIACYL) 1 Drop, BOTH EYES, DIRECTED, Starting on Tue01/31/23 at 0900, Until Tue01/31/23 at 2058, Administer for dilation Given 01/31/2023 8:38 AM EDT 1 Drop Summary Purpose Family History No Family History Records FoundNo Family History Records FoundNo Family History Records FoundNo Family History Records Found Additional Source Comments Source Comments (unrecognize d section and content) In the event this informatio n is protected by the Federal Confidentiality of Alcohol and Drug Abuse Patient Records regulations: The Federal rules restrict any use of the information to criminally investigate or prosecute any alcohol or drug abuse patient.[facility] the event this information is protected by the Federal Confidentiality of Alcohol and Drug Abuse Patient Records regulations: The Federal rules restrict any use of the information to criminally investigate or prosecute any alcohol or drug abuse patient.[facility] the event this information is protected by the Federal Confidentiality of Alcohol and Drug Abuse Patient Records regulations: The Federal rules restrict any use of the information to criminally investigate or prosecute any alcohol or drug abuse patient.[facility] the event this information is protected by the Federal Confidentiality of Alcohol and Drug Abuse Patient Records regulations: The Federal rules restrict any use of the information to criminally investigate or prosecute any alcohol or drug abuse patient.[facility] the event this information is protected by the Federal Confidentiality of Alcohol and Drug Abuse Patient Records regulations: The Federal rules restrict any use of the information to criminally investigate or prosecute any alcohol or drug abuse patient.[facility] the event this information is protected by the Federal Confidentiality of Alcohol and Drug Abuse Patient Records regulations: The Federal rules restrict any use of the information to criminally investigate or prosecute any alcohol or drug abuse patient.[facility] the event this information is protected by the Federal Confidentiality of Alcohol and Drug Abuse Patient Records regulations: The Federal rules restrict any use of the information to criminally investigate or prosecute any alcohol or drug abuse patient.[facility] the event this information is protected by the Federal Confidentiality of Alcohol and Drug Abuse Patient Records regulations: The Federal rules restrict any use of the information to criminally investigate or prosecute any alcohol or drug abuse patient.[facility] the event this information is protected by the Federal Confidentiality of Alcohol and Drug Abuse Patient Records regulations: The Federal rules restrict any use of the information to criminally investigate or prosecute any alcohol or drug abuse patient.[facility] Reason for Visit (unrecogniz ed section and content) Reason Comments New Patient GERD Reason Comments Follow Up Reason Comments Dry Eye Syndrome Follow Up Bilateral Punctate Keratitis Bilateral History of LASIK Vitreous Floaters Follow Up Bilateral Reason Comments 12/15/21 EGD & Colonoscopy Dr. Mcmahon Reason Comments Comprehensive Eye Exam Reason Comments Visual Disturbance Right eye off and on lasting 30 minutes Reason Comments Posterior Vitreous Detachment Follow Up Vitreous Floaters Follow Up Both eyes Care Teams (unrecognized sec tion and content) Hospice Case Manager Relationship Specialty Start Date End Date Harsha Duarte MD [address] [place] [address] PCP - General 05/26/09 Hospice Case Manager Relationship Specialty Start Date End Date Harsha Duarte MD [address] [place], [place] [address] PCP - General 05/26/09 Hospice Case Manager Relationship Specialty Start Date End Date Harsha Duarte MD [address] [place], [place] [id number] PCP - General 05/26/09 Hospice Case Manager Relationship Specialty Start Date End Date Harsha Duarte MD [address] [facility] [place], [place] [id number] PCP - General 05/26/09 Hospice Case Manager Relationship Specialty Start Date End Date Harsha Duarte MD [address] [facility] [place], [place] [id number] PCP - General 05/26/09 Hospice Case Manager Relationship Specialty Start Date End Date Harsha Duarte MD [address] [place] [address], [place] [id number] PCP - General 05/26/09 Team Status: Active Member Role Status Dates Dr. Syed Duarte MD Family Provider Active Dr. Syed Duarte MD Primary Care Provider Activ e Team Status: Inactive Member Role Status Dates Dr. Syed Duarte MD Primary Care Provider Activ e Syed MATA MD Attending Provider Active Team Status: Inactive Member Role Status Dates Dr. Syed Duarte MD Primary Care Provider, Attending Provider, Referring Provider Active Hospice Case Manager Relationship Specialty Start Date End Date Harsha Duarte MD [address] [place] [address], [place] [id number] PCP - General 05/26/09 Team Status: Active Member Role Status Dates Dr. Harsha Duarte MD Family Provider Active Dr. Harsha Duarte MD Primary Care Provider Acti ve Team Status: Inactive Member Role Status Dates Dr. Harsha Duarte MD Primary Care Provider, Attending Provider, Referring Provider Active Hospice Case Manager Relationship Specialty Start Date End Date Harsha Duarte MD [address] [place] [address], [place] [id number] PCP - General 05/26/09 Hospice Case Manager Relationship Specialty Start Date End Date Harsha Duarte MD [address] [place] [address] PCP - General 05/26/09 Goals (unrecognized section and content) Goals may be documented in a n alternate sectionGoals may be documented in an alternate sectionGoals may be documented in an alternate sectionGoals may be documented in an alternate sectionGoals may be documented in an alternate sectionGoals may be documented in an alternate section (unrecognized sect ion and content) No Status Records FoundNo Status Records FoundNo Status Records FoundNo Status Records Found INFORMATION SOURCE (unrecogn ized section and content) DATE CREATED AUTHOR 08/09/2024 [facility] DATE CREATED AUTHOR AUTHOR'S ORGANIZ ATION 09/10/2024 [facility] DATE CREATED AUTHOR AUTHOR'S ORGANIZ ATION 09/24/2024 [facility] DATE CREATED AUTHOR AUTHOR'S ORGANIZ ATION 12/14/2024 [facility] FOR RECORDS PERTAINING TO PATIENTS WHO ARE OR HAVE BEEN ENROLLED IN A CHEMICAL DEPENDENCY/SUBSTANCEABUSE PROGRAM, SOME INFORMATION MAY BE OMITTED. This clinical summary was aggregated from multiple sources. Caution should be exercised in using it in the provision of clinical care. This summary normalizes information from multiple sources, and as a consequence, information in this document may materially change the coding, format and clinical context of patient data. In addition, data may be omitted in some cases. CLINICAL DECISIONS SHOULD BE BASED ON THE PRIMARY CLINICAL RECORDS. [employer] provides no warranty or guarantee of the accuracy or completeness of information in this document.
[2025-01-05 09:04] LABS: PSA,Total- Diagnostic 7.62 ng/mL (0.00-4.00)
== END | disposition home or self-care (01) ==
LOC: LAB 07:14
PROVIDERS: PCP Family Medicine; Referring Provider Nurse Practitioner; Visit Provider Nurse Practitioner
DX: C61 Malignant neoplasm of prostate (principal)
CPT/HCPCS: 36415; 84153

== ENCOUNTER → 2025-01-30 | Outpatient (CLI) | payer OTHER, SELFPAY ==
--- NOTE | 2025-01-30 13:12 | MRI_ITS ---
EXAM: PELVIS W/WO CONTRAST 01/30/2025 CLINICAL HISTORY: RISING PSA LEVELS. History of prostate cancer TECHNIQUE: Procedure Code: [id number] Modality: MR Procedure: PELVIS W/WO CONTRAST Multiplanar and multisequence images were obtained intravenous gadolinium contrast. CONTRAST: Clariscan VOLUME: 18 mL COMPARISON: Previous MRI of the prostate dated 09/19/2024 FINDINGS: Image quality:Diagnostic PSA:7.62ng/mL Prostate size: 5.5 x 4.9 x 4.3cms Prostate volume: 60.68mL PSA density:0.126 ng/mL??? Prostate Peripheral zone: Lenticular shaped lesion in the right peripheral zone midgland measuring 20 by 12 mm and demonstrating slight peripheral restricted diffusion and enhancement. Remaining peripheral zone is within normal limits. T2 weighted imaging score:5 DWI score: 5 DCE: Negative PI-RADS: PI-RADS 5: very high (clinically significant cancer is highly likely to be present) Transitional zone: Benign prostatic hyperplasia with numerous nodules appreciated. There is a dominant well-circumscribed encapsulated nodule measuring 16 x 15 mm within the left transitional zone anterior and posterior towards the base and extending to the midgland with restricted diffusion, dark ADC map and positive contrast enhancement T2 weighted imaging score:3. DWI: 2 DCE: Positive PI-RADS: PI-RADS 5: very high (clinically significant cancer is highly likely to be present) Extra prostatic extension: Capsule is intact. Seminal vesicles: Normal. Neurovascular involvement: None. Lymphadenopathy: No lymphadenopathy. Bladder: Normal. Osseous structures: Normal. Gastrointestinal: Diverticulosis without active diverticulitis.. Soft tissues: Fat containing left inguinal hernia. MRI/Pelvis W/WO Contrast IMPRESSION: Peripheral zone: Previously described PI-RADS 4 lesion obscured by underlying h emorrhage with persistent suspicious features. No definitive evidence of microinvasion on today's exam. Prostatic capsule is bet ter delineated on today's study. No lymphadenopathy or neurovascular extension of disease. Hyperplastic nodule in the left transitional zone anterior gland base. PI-RADS 3: intermediate (the presence of clinically significant cancer is equivocal) Reading Location: [id number]
--- OUTSIDE RECORDS SUMMARY | 2025-01-30 20:49 | XMS RPT_ITS | CCD ---
Author Organization [facility] Care Team Providers Care Country Singer Name Role Phone Kristyn Manning LPN N Unavailable Kristyn Manning LPN Unavailable [phone] Harsha Duarte MD Primary Care Provider Harsha Duarte MD Primary Care Provider Harsha Duarte MD Primary Care Provider Harsha Duarte MD Primary Care Provider Harsha Duarte MD Primary Care Provider Harsha Duarte MD Primary Care Provider TIESHA CHOI Attending Unavailable SELF Referring Unavailable HARSHA DUARTE Primary Care UnavailPRASANNA Kraft Attending Unavailable TEISHA CHOI Referring Unavailable HARHSA DUARTE Primary Care Unavailkyler SAUCEDO MD, DR IMMANUEL DOUGLAS Attending Matilda DUARTE MD, DR MCLEOD Primary Care Matilda DUARTE MD, DR MCLEOD Primary Care IMMANUEL Joseph Attending Unavailable IMMANUEL SAUCEDO Attending Unavailable WENDY LYLES, DR MCLEOD Primary Care IMMANUEL Joseph Admitting Unavailable Immanuel Saucedo Referring Unavailable Harsha Duarte Primary Care Unavailable Immanuel Saucedo Attending Unavailable Harsha Duarte Primary Care Unavailable Immanuel Saucedo Attending Unavailable Immanuel Saucedo Referring Unavailable Harsha Duarte Attending Unavailable Harsha Duarte Referring Unavailable Harsha Duarte Primary Care Unavailable [place], Panfiloer Attending Unavailable [place], Christjoeler Referring Unavailable [place], [place] Primary Care Unavailable [place], Harrison Primary Care Unavailable Immanuel Saucedo Attending Unavailable Jacobo, Magno Referring Unavailable JacoboImmanuel Attending Unavailable [place], Carrier Clinicer Primary Care Unavailable JacoboImmanuel Referring Unavailable Kofi Delaney Attending Unavailable [place], [place] Primary Care Unavailable Hira Huff Attending Unavailable [place], Carrier Clinicer Referring Unavailable [place], [place] Primary Care Unavailable Kofi Delaney Attending Unavailable [place], [place] Primary Care Unavailable Kofi Delaney Attending Unavailable [facility], [place] Primary Care Unavailable [facility], Carrier Clinicer Referring Unavailable [facility], [place] Primary Care Unavailable Judy Oconnor Attending Unavailable [facility] Primary Care Unavailable [place] Attending Unavailable [place], Allyson Referring Unavailable Allergies Allergy Classification Reported Allergen(s) Allergy Type Date of Onset Reaction(s) Facility (2 sources) ANTIHISTIMINES drug allergy [facility] Work Phone: (10 sources) Antihistimine; Translations: [ANTIHISTIMINE] Drug Intolerance 07-23-19 11 Other: See Comments [facility] (5 sources) Antidepressants Propensity to adverse reactions 06-10-19 Other [facility] (5 sources) Antihistamines Propensity to adverse reactions 06-10-19 22 Other [facility] (2 sources) traZODone Drug Allergy 04-09-20 Intolerance [facility] (1 source) Histamine H2 Inhibitors Propensity to adverse reactions 04-09-20 NEEDS FOLLOW-UP [facility] (2 sources) Tetracyclic Antidepressants Propensity to adverse reactions 04-09-20 Intolerance [facility] (1 source) Tricyclic Antidepressants and Tricy Propensity to adverse reactions 04-09-20 NEEDS FOLLOW-UP [facility] (1 source) Histamine Drug Allergy 04-09-20 Intolerance [facility] (1 source) Histamine H>2< antagonist Drug Allergy 04-09-20 23 Intolerance [facility] (1 source) Tricyclic Antidepressants And Tricyclic Compounds Drug Allergy 04-09-20 23 Intolerance [facility] (1 source) Citalopram Drug Allergy 01-08-20 [facility] (1 source) Doxepin Drug Allergy 01-08-20 [facility] (1 source) fentaNYL Drug Allergy 01-08-20 [facility] (1 source) Histamine Drug Allergy 01-08-20 [facility] (1 source) Sertraline Drug Allergy 01-08-20 [facility] (1 source) venlafaxine Drug Allergy 01-08-20 [facility] (1 source) zolpidem Drug Allergy 01-08-20 [facility] (1 source) Tricyclic Antidepressants and Tricy Drug allergy (disorder) 01-08-20 [facility] (1 source) Tetracyclic Antidepressants Drug allergy (disorder) 01-08-20 [facility] (1 source) Phenylpiperazine Antidepressant Drug allergy (disorder) 01-08-20 [facility] Medications Current Medications Medication Drug Class(es) [...] Active Start: 12-13-2011 [facility] BUSPIRONE HCL 15 MG TABS One tablet by mouth twice daily BUSPIRONE HCL [id number] Jasmyn Molina MD Start: 07-22-2011 take 1 tablet by olivia twice daily BUSPIRONE HCL 7.5 MG TABS One tablet by mouth twice daily BUSPIRONE HCL [id number] Monse Rosales Comment on above: Take 10 [...] 200 M G TABS as directed IBUPROFEN [id number] Kristyn Manning LPN Start: 06-08-2011 IBUPROFEN TABS IBUPROFEN TABS [id number] Monse Rosales Start: 06-08-2011 End: 12-13-2011 IBUPROFEN TABS 04/28/23 IBUPROFEN TABS [id number] Jasmyn Molina MD linaclotide 0.072 mg oral [...] sources) alpha-1 Adrenergic Agonist Start: 12-30-2023 End: 08-09-2024 PHENYLephrine 2.5 % 1 Drop (AK-DILATE, SIVA-SYNEPHRINE) [...] BUPROPION HCL 75 MG TABS BUPROPION HCL [id number] Monse Luther Connie clonazePAM 0.5 mg oral tablet (8 sources) [...] to three times a day DICLOFENAC SODIUM [id number] Jasmyn Molina MD Start: 12-13-2011 VOLTAREN 1 % G EL 2gram apply to affected area twice daily to three times a day DICLOFENAC SODIUM 71083427513 Jasmyn Molina MD DULoxetine 60 mg delayed release oral capsule (6 sources) Serotonin and Norepinephrine Reuptake Inhibitor Start: 12-01-2014 End: 05-07-2017 take 60 mg by mouth once daily Duloxetine Discontinued 60 MG PO DAILY December 01, 2014 12:00am May 07, 2017 11:49am hydrocortisone 10 mg/ml / neomycin 3.5 mg/ml / polymyxin b 77608 unt/ml otic solution (2 sources) Aminoglycoside Antibacterial, Polymyxin-class Antibacterial, Corticosteroid Start: 11-13-2016 End: 11-20-2016 CORTISPORIN 3.5-30145-7 SOLN 4 drops left ear three times per day NEOMYCIN-POLYMYXIN -HC [id number] Taras Alonso Noriega DISASTER RECOVERY MANAGER-C Start: 11-13-2016 End: 11-20-2016 CORTISPORIN 3.5-28936-7 SOLN 4 drops left ear three times per day EKYKEIYD-ZQQXQUDLF-WA [id number] Taras Noriega DISASTER RECOVERY MANAGER-C 24 hr HYDROmorphone hydrochloride 16 mg extended [...] 75 MG TABS as directed METOPROLOL TARTRATE [id number] Kristyn Kishor Manning LPN Start: 12-01-2014 take 12.5 mg by mout [...] July 01, 2019 1:08am polyethylene glycol 3350 909606 mg / potassium chloride 2970 mg / sodium bicarbonate 6740 mg / sodium chloride 5860 mg / sodium sulfate 23798 mg powder for oral solution (4 sources) [...] Problem Classification Problem Date Documented Date Episodic/Chronic Anxiety disorders (1 source) Panic disorder [episodic paroxysmal anxiety]; Translations: [Panic disorder [episodic paroxysmal anxiety]] Onset: 01-07-2025 Chronic Cancer of prostate (2 sources) Malignant neoplasm of prostate; Translations: [Malignant neoplasm of prostate] Onset: 01-10-2025 Chronic Cataract (1 source) Bilateral age-related nuclear cataracts; [...] conditions (not mental disorders or infectious disease) (2 sources) Elevated prostate specific antigen [PSA]; Translations: [Elevated [...] Test Name Value Interpretation Reference Range Facility /[facility] 01-07-2025 [facility] [address] [place] [address], [address] [place] [address] OFFICE VISIT Date of Service: 01/07/25 MR#: [id number] Acct: [id number] Name: MERLENE UNGER Rep #: [id number] : 1960 Provider: Dr. Kofi Niño se, DO Age/Sex: 64/M Location[facility] Status: Signed Intake Vital Signs 11/21/24 14:55 12/11/24 09:28 01/07/25 10:55 Height 6 ft 1 in 6 ft 1 in 6 ft 1 in Weight: 205 lb 202 lb BMI 27.0 26.6 BP 124/76 H 146/82 H Blood Pressure Location Lt brachial Lt brachial Position Sitting Sitting Respiration 16 16 Pulse 82 71 Pulse Source Monitor Monitor BP Intake Visit Reasons: 1 M FU Accompanied by: Self Allergies citalopram (From Celexa) Allergy (Mild, Verified 01/07/25 11:00) Nausea/Vom/Diarrhea doxepin Allergy (Mild, Verified 01/07/25 11:00) Constipation fentanyl Allergy (Mild, Verified 01/07/25 11:00) Itching sertraline (From Zoloft) Allergy (Mild, Verified 01/07/25 11:00) Other venlafaxine (From Effexor) Allergy (Mild, Verified 01/07/25 11:00) Other zolpidem (From Ambien) Allergy (Mild, Verified 01/07/25 11:00) Other Histamine H2 Inhibitors Adverse Reaction (Verified 01/07/25 11:00) anxiety Phenylpiperazine Antidepressant Adverse Reaction (Verified 01/07/25 11:00) NEEDS FOLLOW-UP Tetracyclic Antidepressants Adverse Reaction (Verified 01/07/25 11:00) NEEDS FOLLOW-UP Tricyclic Antidepressants and Tricy Adverse Reaction (Verified 01/07/25 11:00) NEEDS FOLLOW-UP Medications ???Medication ???Instructions ???Recorded ???Confirmed ???Type metoprolol tartrate 25 mg tablet 12.5 mg PO BID 12/01/14 01/07/25 H istory cholecalciferol (vit D3) 1,000 1 tab PO DAILY 09/26/24 01/07/25 H istory unit-vitamin K2 (MK4) 100 mcg tablet (K2 Plus D3) cyanocobalamin (vitamin B-12) 50 50 mcg PO DAILY 09/26/24 01/07/25 History mcg tablet (Vitamin B-12) linaclotide 145 mcg capsule 145 mcg PO DAILY 09/26/24 01/07/25 History (Linzess) magnesium glycinate (LC-655) 150 mg PO DAILY 09/26/24 01/07/25 History zinc gluconate 30 mg tablet 30 mg PO DAILY 09/26/24 01/07/25 H istory tamsulosin 0.4 mg capsule 0.8 mg PO QDAY 10/10/24 01/07/25 H istory calcium carb, citrate, malate mg PO 12/11/24 01/07/25 History diclofenac sodium 1 % topical gel 4.5 inch topical ONCE 12/11/24 History amitriptyline 10 mg tablet 10 mg PO QHS #30 tabs 01/07/25 Rx lorazepam 0.5 mg tablet 0.5 mg PO QHS PRN anxiety 30 days 01/07/25 01/07/25 Rx #30 tabs PFSH Medical History (Updated 12/12/24 @ 12:44 [...] user: chewing tobacco alcohol intake: former HPI History of Present Illness History provided by: patient HPI: Rafael Unger is a 64 year old male who presents today for follow up evaluation. Patient reports that he has been doing ok. Recently went on a trip to [place] and was able to drive himself there and back which is a major positive. Has taken 0.25 mg lorazepam for the last 2 weeks to help with sleep but otherwise hadn't taken much otherwise. Did try melatonin in the past without any significant benefit. Getting about 7-8 hours at night. 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 Nearly feels restless on the days where he doesn't have something scheduled. Does believe he took another medication in the past for anxiety which worked but cannot necessarily remember which medication it was. Denies SI/HI or AVH. Review of Systems [...] Musculoskeletal Denies: back pain, neck pain, joint pa (more content not included)... Normal [facility] PSA,Total- Diagnosticon 12-21 PSA, DIAGNOSTIC 7.62 ng/mL High 0.00-4.00 [facility] Comment on above: Result Comment: This test was performed using the [employer] tPSA method. Measured values of a patient??sample can vary depending on the testing procedure used. PSA values determined on patient samples by different testing procedures cannot be used interchangeably. If there is a change in PSA assays while monitoring therapy, sequential testing should be performed to confirm baseline values. Performed By: #### L [id number] #### [facility] [address] [place], [address] Surgery Visit Reporton 12-11 Surgery Visit Report [facility] [address] [place] [address] OFFICE VISIT Date of Service: 12/11/24 MR#: [id number] Acct: [id number] Name: MERLENE UNGER Rep #: [id number] : 1960 Provider: Dr. 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 [facility] MR/BMS.BPon 11-21-2024 MR/BMS.BP [facility] [address], [address] [place] [address] OFFICE VISIT Date of Service: 11/21/24 MR#: [id number] Acct: [id number] Name: MERLENE UNGER Rep #: [id number] : 1960 Provider: Dr. Kofi Niño se, DO Age/Sex: 64/M Location: [facility] Status: Signed Intake Vital Signs 10/10/24 15:01 [...] D3) 1,000 1 tab PO DAILY 09/26/24 11/21/24 H istory unit-vitamin K2 (MK4) 100 mcg [...] mg PO QDAY 10/10/24 11/21/24 H istory [facility] Medical History (Updated 10/11/24 @ 06:42 by [...] having put father in law in the snf in the last 6 months or so. [...] use disorder: (more content not included)... Normal [facility] MR/BMS.BPon 10-10-2024 MR/BMS.BP [address], [address] [place] [address] OFFICE VISIT Date of Service: 10/10/24 MR#: [id number] Acct: [id number] Name: MERLENE UNGER Rep #: [id number] : 1960 Provider: Dr. Kofi Niño se, Age/Sex: 64/M Location: [facility] Status: Signed Intake Vital Signs 04/09/23 08:10 [...] panic attack when driving on [address] towards [place]. Stopped in the ER in [place] and had workup which was largely normal. Ended up having cardiac workup which was also largely normal. Had another similar episode when driving [place] a long [place] driving into to [place]. 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 Normal [facility] Urgent Care Visit Reporton 0 10-06-2024 Urgent Care Visit Report [facility] [address], [address] [place] [address] OFFICE VISIT Date of Service: 10/06/24 MR#: [id number] Acct: [id number] Name: MERLENE UNGER Rep #: [id number] : 1960 Provider: WALKER Collado Age/Sex: 64/M Location: [facility] Status: Signed Intake Vital Signs 10/03/24 10:15 [...] this has been going on since Tue. [facility] Medical History Wears hearing aid Depression Anxiety [...] 0RF cough (more content not included)... Normal [facility] Discharge Instructionon 09-20 Discharge Instruction [facility] Medical Records Department [address] [place] [address] Instructions for Home/Discharge Instructions 10/03/24 1514 MR#: [id number] Acct: [id number] Name: MERLENE UNGER Rep #: [id number] : 1960 64 From: Immanuel Saucedo MD PCP: Dr. Harsha Duarte MD Status:REG NCC Discharge Instructions Diet Discharge Diet: No restrictions DC O2, CPAP, BIPAP needs Home O2 Discharge instructions: No Dressing / Incision Discharge Activity: Return to Normal Activity and May Not Drive (while taking narcotic pain medications.) Dressing / Incision Call your doctor if you observe: Fever of 101 or Higher Follow Up Care Please Follow Up With: Immanuel Saucedo MD When: Call [phone] for an appointment Test Results: Test results from this visit will be discussed in further detail at your follow-up appointment, if applicable. Discharge Plan Admission Attending Provider: Immanuel Saucedo Primary Care Provider: Harsha Duarte Instructions Print Language: Iraqi Discharge Orders/Prescriptions Prescriptions: No Action metoprolol tartrate 25 MG tablet 12.5 mg PO BID zinc gluconate 30 mg tablet 30 mg PO DAILY Vitamin B-12 50 mcg tablet 50 mcg PO DAILY K2 Plus D3 1,000-100 unit-mcg tablet 1 tab PO DAILY LC-655 118 mg magnesium capsule 150 mg PO DAILY Linzess 145 mcg capsule 145 mcg PO DAILY Referrals / Follow Up: Hasrha Duarte MD [Primary Care Provider] - Disposition Disposition (needs filled in before D/C Order can be placed): Home, Self Care 10/03/24 1514 Immanuel Saucedo MD CC: Dr. Harsha Duarte MD Signed Normal [facility] Immunohistochemical Stainson 10-03-2024 Immunohistochemical Stains Patient Age/Sex Location Account Attending Physician MERLENE UNGER /M [facility] [id number] Dr. Immanuel Saucedo MD Specimen: [id number] Received: 10/03/24 Status: CHANEL Keithmyla Num: [id number] Spec Type: PROST BX Subm Dr: Dr. [...] B. Prostate, left mid, biopsy: * Adenocarcinoma Fleming 3+3=6, 1 of 2 cores, involving 7% [...] developed and their performance characteristics determined by [facility]. They may not have been cleared or approved by the U.S. Food and Drug Administration. The FDA has determined that such clearance or approval is not necessary.??? The above immunohistochemical/dual WILY???markers are ordered and reviewed by the Pathologist.. Patient Age/Sex Location Account Attending Physician MERLENE UNGER 64/M [facility] [id number] Dr. Immanuel Saucedo MD GROSS DESCRIPTION A. [...] soft tissue. Submitted in toto in G1. [facility] 10-04-2024 CPT:19470l0, 51378 Patient Age/Sex Location Account Attending Physician MERLENE UNGER 64/M [facility] [id number] Dr. Immanuel Saucedo MD Signed (signature on file) Dr. Bella Gerber MD 10/08/24 1402 [facility] Comment on above: Performed By: #### P [facility] #### [facility] [address] [place], [address] MR/POSTOP.ANEon 10-03-2024 MR/POSTOP.ANE [facility] Medical Records Department [address] [place] [address] Anesthesia Postop Eval I 10/03/24 1624 MR#: [id number] Acct: [id number] Name: MERLENE UNGER Rep #: [id number] : 1960 64 From: Abraham Peraza CRNA PCP: Dr. Harsha Duarte MD Status:[facility] Y Race: C Location: [place] [address] Anesthesia: Postop Eval I Current Vital Signs [...] Anesthesia document: Postop Eval 1 completed: Yes 10/03/24 1624 Date Abraham Cisneros Signature: Date CC: Signed Normal [facility] MR/[id number] 10-03-2024 MR/POSTOPAN2 [facility] Medical Records Department [address] [place] [address] Anesthesia Postop Eval II 10/03/24 1755 MR#: [id number] Acct: [id number] Name: MERLENE UNGER Rep #: [id number] : 1960 64 From: Conner Guzman MD PCP: Dr. Harsha Duarte MD Status:[facility] Y Race: C Location: [facility] Anesthesia Postop Eval I Sum Postop Eval Completion status Anesthesia document: Postop Eval 1 completed: Yes Anesthesia Postop Eval I Summary Anesthesia Postop Eval I Summary: Anesthesia Postop Eval I: Assessment Summary Airway patent Yes 10/03/24 16:24 GROCERY DELIVERER.PKEL Spontaneous unlabored Yes 10/03/24 16:24 GROCERY DELIVERER.PKEL respirations Mental status Awake,Calm 10/03/24 16:24 GROCERY DELIVERER.PKEL nausea No 10/03/24 16:24 GROCERY DELIVERER.PKEL Vomiting No 10/03/24 16:24 GROCERY DELIVERER.PKEL Anesthesia Postop Eval I: Fluid Summary Crystalloid volume administer 900 10/03/24 16:24 GROCERY DELIVERER.PKEL (ml) Colloids volume administered ( ml) Blood Product volume administered (ml) Total IV fluid infused 900 10/03/24 16:24 GROCERY DELIVERER.PKEL Anesthesia Postop Eval I: Summary Notes Anesthesia Complication No 10/03/24 16:24 GROCERY DELIVERER.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 10/03/24 1756 Date Conner Guzman MD Cosigner Signature: Date CC: Signed Normal [facility] Operative Reporton 5 Operative Report [facility] Medical Records Department [address] [place] [address] Operative Report 10/03/24 1613 MR#: [id number] Acct: [id number] Name: MERLENE UNGER Rep #: [id number] : 1960 64 From: Immanuel Saucedo MD PCP: Dr. Harsha Duarte MD Status:REG [facility] Location: [place] [address] Operative Report (Standard) Operative Information Date of Procedure: 10/03/24 Pre-Operative Diagnosis: Elevated PSA abnormal MRI Post-Operative Diagnosis: The same Surgery/Procedure Performed: Transperineal prostate biopsy cheese wrapper: No Type of Anesthesia: General RN Documented [...] Duarte MD; Dr. Immanuel Saucedo MD Signed [facility] MRI PROSTATE W/ +W/O CONTRAS Ton 09-24-2024 MRI PROSTATE W/ +W/O CONTRAST ORIGINAL EXAMINATION: MRI OF THE PROSTATE WITH AND WITHOUT CONTRAST09/19/2024 3:24 pm MRI pelvis with and without contrast (Prostate protocol) TECHNIQUE: MRI of the prostate with and without contrast including 3D post processing on an independent [employer] workstation with active physician supervision and interpretation. [...] for clinically significant prostate cancer defined as Delisa 7 or greater including either Delisa 4 + 3, or Delisa 3 + 4 with a significant Fleming 4 component. Patients with Fleming 7 (3 + 4) cancer without significant Fleming 4 component, and Fleming 6 or less prostate cancer are not [...] Date: 09/24/2024 8:55:45 AM Ordering Provider: IMMANUEL Abbott [facility] XR FOREIGN BODY LOC EYE BILA TERLety 09-19-2024 XR FOREIGN BODY LOC EYE BILATERAL [...] 09/19/2024 2:02:37 PM Ordering Provider: IMMANUEL Abbott [facility] PSA Total+%Freeon 09-02-2024 PSA, FREE 1.26 ng/mL Normal N/A [facility] Comment on above: Order Comment: Order Date: 08/08/24Order Info: 0756-1 - PSAT%F Result Comment: Esme MARTE methodology. Performed By: #### L 3110.0500, L500.4100, L500.4050, L100.0500 ####[facility] [address] [place], [address] PSA, FREE % 17.0 Normal . [facility] Comment on above: Order Comment: Order Date: 08/08/24Order Info: 0756-1 - PSAT%F Result Comment: The table below lists the probability of prostate cancer for men with non-suspicious VIKASH results and total PSA between 4 and 10 ng/mL, by patient age (Catalona et al, HIGINIO 1998, 279:1542). % Free PSA 50-64 yr 65-75 yr 0.00-10.00% 56% 55% 10.01-15.00% 24% 35% 15.01-20.00% 17% 23% 20.01-25.00% 10% 20% >25.00% 5% 9% Please note: Ranjit et al did not make specific recommendations regarding the use of percent free PSA for any other population of men. Performed at: [facility] [id number] Molding Engineer: Matt Vieira PhD, Phone: [phone] Performed By: #### L 3110.0500, L500.4100, L500.4050, L100.0500 ####[facility] [address] [place], [address] PSA, TOTAL ULTR 7.400 ng/mL Abnormal 0.000-4.000 [facility] Comment on above: Order Comment: Order Date: 08/08/24Order Info: 0756-1 - PSAT%F Result Comment: Esme law ECLIA methodology. According to the [employer], Serum PSA should decrease and [...] By: #### L 3110.0500, L500.4100, L500.4050, L100.0500 ####[facility] [id number] [place], [address] CBC-Complete Blood Cnt No Di ffon 08-31-2024 Erythrocyte distribution width (RBC) [Ratio] 12.7 % Normal 11.6-14.6 [facility] Comment on above: Order Comment: Order Date: 08/08/24Order Info: [id number] - CBC Performed By: #### L 3110.0500, L500.4100, L500.4050, L100.0500 ####[facility] [address] [place], [address](859) Hematocrit (Bld) [Volume fraction] 43.0 % Normal 40-54 [facility] Comment on above: Order Comment: Order Date: 08/08/24Order Info: [id number] - CBC Performed By: #### L 3110.0500, L500.4100, L500.4050, L100.0500 ####[facility] [address] [place], [address] Hemoglobin (Bld) [Mass/Vol] 14.4 g/dL Normal 13.0-16.5 [facility] Comment on above: Order Comment: Order Date: 08/08/24Order Info: [id number] - CBC Performed By: #### L 3110.0500, L500.4100, L500.4050, L100.0500 ####[facility] [address] [place], [address] MCH (RBC) [Entitic mass] 31.8 pg Normal 27.0-32.0 [facility] Comment on above: Order Comment: Order Date: 08/08/24Order Info: [id number] - CBC Performed By: #### L 3110.0500, L500.4100, L500.4050, L100.0500 ####[facility] [address] [place], [address] MCHC (RBC) [Mass/Vol] 33.5 g/dL Normal 32-36 [facility] Comment on above: Order Comment: Order Date: 08/08/24Order Info: [id number] - CBC Performed By: #### L 3110.0500, L500.4100, L500.4050, L100.0500 ####[facility] [address] [place], [address] MCV (RBC) [Entitic vol] 94.9 fL High 80-94 [facility] Comment on above: Order Comment: Order Date: 08/08/24Order Info: [id number] - CBC Performed By: #### L 3110.0500, L500.4100, L500.4050, L100.0500 ####[facility] [address] [place], [address] Platelet mean volume (Bld) [Entitic vol] 9.7 fL Normal 6.2-12.0 [facility] Comment on above: Order Comment: Order Date: 08/08/24Order Info: [id number] - CBC Performed By: #### L 3110.0500, L500.4100, L500.4050, L100.0500 ####[facility] [address] [place], [address] Platelets (Bld) [#/Vol] 272 10*3/uL Normal 150-450 [facility] Comment on above: Order Comment: Order Date: 08/08/24Order Info: [id number] - CBC Performed By: #### L 3110.0500, L500.4100, L500.4050, L100.0500 ####[facility] [address] [place], [address] RBC (Bld) [#/Vol] 4.53 10*6/uL Low 4.6-6.2 [facility] Comment on above: Order Comment: Order Date: 08/08/24Order Info: [id number] - CBC Performed By: #### L 3110.0500, L500.4100, L500.4050, L100.0500 ####[facility] [address] [place], [address] RDW SD 43.8 fl Normal 35.1-43.9 [facility] Comment on above: Order Comment: Order Date: 08/08/24Order Info: [id number] - CBC Performed By: #### L 3110.0500, L500.4100, L500.4050, L100.0500 ####[facility] [address] [place], [address] WBC (Bld) [#/Vol] 7.5 10*3/uL Normal 4.4-11.0 [facility] Comment on above: Order Comment: Order Date: 08/08/24Order Info: [id number] - CBC Performed By: #### L 3110.0500, L500.4100, L500.4050, L100.0500 ####[facility] [address] [place], [address] Comprehensive Metabolic Prof ilon 08-31-2024 Albumin [Mass/Vol] 4.5 g/dL Normal 3.4-4.8 [facility] Comment on above: Order Comment: Order Date: 08/08/24Order Info: [id number] - CMPOrder Info: [id number] - LIPID Performed By: #### L 3110.0500, L500.4100, L500.4050, L100.0500 ####[facility] [address] [place], [address] Albumin/Globulin [Mass ratio] 1.8 {ratio} Normal 0.9-2.4 [facility] Comment on above: Order Comment: Order Date: 08/08/24Order Info: [id number] - CMPOrder Info: [id number] - LIPID Performed By: #### L 3110.0500, L500.4100, L500.4050, L100.0500 ####[facility] [address] [place], [address] ALK PHOS 54 U/L Normal 40-129 [facility] Comment on above: Order Comment: Order Date: 08/08/24Order Info: [id number] - CMPOrder Info: [id number] - LIPID Performed By: #### L 3110.0500, L500.4100, L500.4050, L100.0500 ####[facility] [address] [place], [address] ALT [Catalytic activity/Vol] 34 U/L Normal <=46 [facility] Comment on above: Order Comment: Order Date: 08/08/24Order Info: [id number] - CMPOrder Info: [id number] - LIPID Performed By: #### L 3110.0500, L500.4100, L500.4050, L100.0500 ####[facility] [address] [place], [address] AST [Catalytic activity/Vol] 25 U/L Normal <=37 [facility] Comment on above: Order Comment: Order Date: 08/08/24Order Info: [id number] - CMPOrder Info: [id number] - LIPID Performed By: #### L 3110.0500, L500.4100, L500.4050, L100.0500 ####[facility] [address] [place], [address] Bilirubin [Mass/Vol] 0.74 mg/dL Normal 0.00-1.30 [facility] Comment on above: Order Comment: Order Date: 08/08/24Order Info: [id number] - CMPOrder Info: [id number] - LIPID Performed By: #### L 3110.0500, L500.4100, L500.4050, L100.0500 ####[facility] [address] [place], [address] BUN/CRE 14.6 RATIO Normal 10-20 [facility] Comment on above: Order Comment: Order Date: 08/08/24Order Info: [id number]- - CMPOrder Info: [id number] - LIPID Performed By: #### L 3110.0500, L500.4100, L500.4050, L100.0500 ####[facility] [address] [place], [address] Calcium [Mass/Vol] 9.5 mg/dL Normal 7.6-11.0 [facility] Comment on above: Order Comment: Order Date: 08/08/24Order Info: [id number]- - CMPOrder Info: [id number] - LIPID Performed By: #### L 3110.0500, L500.4100, L500.4050, L100.0500 ####[facility] [address] [place], [address] Chloride [Moles/Vol] 104 mmol/L Normal 98-108 [facility] Comment on above: Order Comment: Order Date: 08/08/24Order Info: [id number]- - CMPOrder Info: [id number] - LIPID Performed By: #### L 3110.0500, L500.4100, L500.4050, L100.0500 ####[facility] [address] [place], [place], [address] CO2 [Moles/Vol] 24.7 mmol/L Normal 21.0-32.0 [facility] Comment on above: Order Comment: Order Date: 08/08/24Order Info: [id number] - CMPOrder Info: [id number] - LIPID Performed By: #### L 3110.0500, L500.4100, L500.4050, L100.0500 ####[facility] [address] [place], [address] Creatinine [Mass/Vol] 1.02 mg/dL Normal 0.70-1.20 [facility] Comment on above: Order Comment: Order Date: 08/08/24Order Info: [id number]- - CMPOrder Info: [id number] - LIPID Performed By: #### L 3110.0500, L500.4100, L500.4050, L100.0500 ####[facility] [address] [place], [address] GAP 12 Normal 5-15 [facility] Comment on above: Order Comment: Order Date: 08/08/24Order Info: [id number] - CMPOrder Info: [id number] - LIPID Performed By: #### L 3110.0500, L500.4100, L500.4050, L100.0500 ####[facility] [address] [place], [address] GFR/1.73 sq M.predicted among non-blacks MDRD (S/P/Bld) [Vol rate/Area] 83 mL/min/{1.73_m2} Normal >60 [facility] Comment on above: Order Comment: Order Date: 08/08/24Order Info: [id number] - CMPOrder Info: [id number] - LIPID Result Comment: mL/m in/1.73m2 CKD-EPI Creatinine Equation (2020) Performed By: #### L 3110.0500, L500.4100, L500.4050, L100.0500 ####[facility] [address] [place], [address] Globulin (S) [Mass/Vol] 2.5 g/dL Normal 2.2-4.2 [facility] Comment on above: Order Comment: Order Date: 08/08/24Order Info: [id number] - CMPOrder Info: [id number] - LIPID Performed By: #### L 3110.0500, L500.4100, L500.4050, L100.0500 ####[facility] [address] [place], [address] Glucose [Mass/Vol] 94 mg/dL Normal 70-99 [facility] Comment on above: Order Comment: Order Date: 08/08/24Order Info: [id number] - CMPOrder Info: [id number] - LIPID Performed By: #### L 3110.0500, L500.4100, L500.4050, L100.0500 ####[facility] [address] [place], [address] Potassium [Moles/Vol] 4.5 mmol/L Normal 3.3-5.1 [facility] Comment on above: Order Comment: Order Date: 08/08/24Order Info: [id number]- - CMPOrder Info: [id number] - LIPID Performed By: #### L 3110.0500, L500.4100, L500.4050, L100.0500 ####[facility] [address] [place], [address] Sodium [Moles/Vol] 140 mmol/L Normal 133-145 [facility] Comment on above: Order Comment: Order Date: 08/08/24Order Info: [id number] - CMPOrder Info: [id number] - LIPID Performed By: #### L 3110.0500, L500.4100, L500.4050, L100.0500 ####[facility] [address] [place], [address] T PROT 6.9 g/dL Normal 5.9-8.4 [facility] Comment on above: Order Comment: Order Date: 08/08/24Order Info: [id number] - CMPOrder Info: [id number] - LIPID Performed By: #### L 3110.0500, L500.4100, L500.4050, L100.0500 ####[facility] [address] [place], [address] Urea nitrogen [Mass/Vol] 15 mg/dL Normal -19 [facility] Comment on above: Order Comment: Order Date: 08/08/24Order Info: [id number] - CMPOrder Info: [id number] - LIPID Performed By: #### L 3110.0500, L500.4100, L500.4050, L100.0500 ####[facility] [address] [place], [address] Lipid Profileon 08-31-2024 CHOL:HDL 4.52 Normal [facility] Comment on above: Order Comment: Order Date: 08/08/24Order Info: [id number] - CMPOrder Info: [id number] - LIPID Performed By: #### L 3110.0500, L500.4100, L500.4050, L100.0500 ####[facility] [address] [place], [address] Cholesterol [Mass/Vol] 252 mg/dL High <=200 [facility] Comment on above: Order Comment: Order Date: 08/08/24Order Info: [id number] - CMPOrder Info: [id number] - LIPID Result Comment: Chol esterol level, Desirable <200 mg/dL Borderline high cholesterol 200-239 mg/dL High cholesterol >=240 mg/dL Recommendations of the NCEP Adult Treatment Panel for the following risk-cutoff thresholds for the [place] population. Performed By: #### L 3110.0500, L500.4100, L500.4050, L100.0500 ####[facility] [address] [place], [address] Cholesterol in HDL [Mass/Vol] 56 mg/dL Normal [facility] Comment on above: Order Comment: Order Date: 08/08/24Order Info: [id number] - CMPOrder Info: [id number] - LIPID Result Comment: Cindy onal Cholesterol Education Program (NCEP) guidelines: <40 mg/dL: Low HDL-cholesterol (major risk factor for CHD) >= 60 mg/dL: High HDL-cholesterol (negative risk factor for CHD) HDL-cholesterol is affected by a number of factors, e.g. smoking, exercise, hormones, sex and age. Performed By: #### L 3110.0500, L500.4100, L500.4050, L100.0500 ####[facility] [address] [place], [address] Cholesterol in LDL [Mass/Vol] 163 mg/dL Normal [facility] Comment on above: Order Comment: Order Date: 08/08/24Order Info: [id number] - CMPOrder Info: [id number] - LIPID Result Comment: Bord cbrzgc=968-054 mg/dL Higher Llee=966 mg/dL or greater Performed By: #### L 3110.0500, L500.4100, L500.4050, L100.0500 ####[facility] [address] [place], [address] Cholesterol in VLDL [Mass/Vol] 34 mg/dL Normal 5-40 [facility] Comment on above: Order Comment: Order Date: 08/08/24Order Info: [id number] - CMPOrder Info: [id number] - LIPID Performed By: #### L 3110.0500, L500.4100, L500.4050, L100.0500 ####[facility] [address] [place], [address] Triglyceride [Mass/Vol] 168 mg/dL Normal [facility] Comment on above: Order Comment: Order Date: 08/08/24Order Info: [id number] - CMPOrder Info: [id number] - LIPID Result Comment: The drugs N-Acetylcysteine and Metamizole may falsely depress this assay. Normal range: <150 mg/dL Borderline High: 150-199 mg/dL High: 200-499 mg/dL Very High: >500 mg/dL Performed By: #### L 3110.0500, L500.4100, L500.4050, L100.0500 ####[facility] [address] [place], [address] Vitamin D,25 Hydroxyon 08-31 Vitamin D 25-OH 58.1 ng/mL Normal 30-100 [facility] Comment on above: Order Comment: Order Date: 08/08/24Order Info: [id number] - CMPOrder Info: [id number] - LIPID Result Comment: Eva min D Status Deficiency: <20 ng/mL (50nmol/L) Insufficiency: 20-30 ng/mL (50-75 nmol/L) Sufficiency: 30-100 ng/mL (75-250 nmol/L) Toxicity: >100 ng/mL (>250 nmol/L) Performed By: #### L 506.1001 ####[facility] [address] [place], [address] PT D/C Summary (1)on 025 PT D/C Summary (1) [facility] Physical Therapy [facility] [address] [place] [address]. [address] [place] [address] / REHABILITATION SERVICES DISCHARGE SUMMARY MR#: [id number] Acct: [id number] Name: MERLENE UNGER Rep #: [id number] : 1960 64 From: Blayne Patten PT, ATC Referring Dr.: Dr. Harsha Duarte MD Status: REG RCR Insurance: [facility] SELF PAY INSURANCE Discharge Summary D/C summary: [...] please feel free to call me at [phone]. Thank you for the referral of this patient. Sincerely, Blayne Patten, PT, ATC Balance/Gait/Functional tests Balance/Special Test Scores Quick DASH Score: 29.5450 Improvement % Improvement: 10 08/08/24 0800 CC: Dr. Harsha Duarte MD [facility] Signed Normal [facility] PT D/C Summary (1) [facility] [address] [place] [address] [address] [place] [address] / REHABILITATION SERVICES DISCHARGE SUMMARY MR#: [id number] Acct: [id number] Name: MERLENE UNGER Rep #: [id number] : 1960 64 From: Blayne Patten PT, ATC Referring Dr.: Dr. Harsha Duarte MD Status: REG R Insurance: [facility] SELF PAY INSURANCE Discharge Summary D/C summary: [...] please feel free to call me at [phone]. Thank you for the referral of this patient. Sincerely, Blayne Patten, PT, ATC Balance/Gait/Functional tests Balance/Special Test Scores Quick DASH Score: 29.5450 Improvement % Improvement: 10 08/08/24 0753 CC: Dr. Harsha Duarte MD [facility] Signed Normal [facility] OCT MACULA CIRRUS OU (BOTH E YES)on 08-07-2024 [facility] Radiology Study observation (narrative) [facility] Inital Evaluation (1) - PTon 07-27-2024 Inital Evaluation (1) - PT [facility] [address] [place] [address] [address] [place] [address] / REHABILITATION SERVICES INITIAL EVALUATION MR#: [id number] Acct: [id number] Name: MERLENE UNGER Rep #: [id number] : 1960 64 From: Blayne Patten PT, ATC Referring Dr.: Dr. Harsha Duarte MD Status: REG RCR Insurance: [facility] SELF PAY INSURANCE Patient's Visit Information Visit Information Visit Information: EMRLENE UNGER is a 64 year old M referred to Physical Therapy by Dr. Harsha Duarte MD with a diagnosis of L shoulder rot cuff/biceps strain. Date of Evaluation: 07/27/24 Physical Therapist: Blayne M Hartzler, PT, ATC Visit Plan Frequency: 2x /Week [...] to be FAXED BACK to us at [phone] for Medicare purposes. For Medicare only, by signing this I certify the plan of care. Please let me know if there are questions or concerns regarding this plan of care. Physician Signature: Date: ____ 07/27/24 0754 CC: Dr. Harsha Duarte MD [facility] Signed Normal [facility] 34BE12 (add)on 07-03-2024 34BE12 (add) ---- Patient Age/Sex Location Account Attending Physician MERLENE UNGER/M LABSPEC [id number] Dr. Immanuel Saucedo MD Specimen: [id number] Received: 07/05/24 Status: CHANEL Lepe Num: [id number] Spec Type: IMMUNO Subm Dr: Dr. Immanuel Saucedo MD PHYSICIAN INSTITUTION [place] [address] SPECIMEN INFORMATION: Tissue Source: E- Left mid, F- Left base Clinical Info: Elevated PSA Specimen Number: [id number] E, F CPT code: 75218,93047o2 METHODOLOGY: Deparaffinized sections of prefer/formalin-fixed tissue or [...] developed and their performance characteristics determined by [facility]. 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 SJ.mr 07/06/2024 Signed (signature on file) Dr. Todd Garcia MD 07/06/24 1150 Normal [facility] Comment on above: Performed By: #### P [id number]. ####[facility] [address] [place], [address] PROSTATE BXon 07-03-2024 PROSTATE BX ---- Patient Age/Sex Location Account Attending Physician MERLENE UNGER 64/M LABSPEC [id number] Dr. Immanuel Sauecdo MD Specimen: [id number] Received: 07/03/24 Status: CHANEL Lepe Num: [id number] Spec Type: PROST BX Subm Dr: Dr. [...] comment. SJ. 07/05/2024 COMMENT E, F. Immunohistochemistry ([id number]) supports the above diagnosis. MICROSCOPIC DESCRIPTION Slides [...] cassette. Patient Age/Sex Location Account Attending Physician MERLENE UNGER 64/M [facility]SPEC [id number] Dr. Immanuel Saucedo MD C - Received [...] is totally submitted in one cassette. / 07/04/2024 TC:5 [facility]: 23879 x6 Patient Age/Sex Location Account Attending Physician MERLENE UNGER 64/M LABSPEC [id number] Dr. Immanuel Saucedo MD Signed (signature on file) Dr. Todd Garcia MD 07/06/24 0936 Normal [facility] Comment on above: Performed By: #### P PROSB #### [facility] [address] [place], [address] PSA,Total- Diagnosticon 02-0 PSA, DIAGNOSTIC 5.63 ng/mL High 0.0-4.0 [facility] Comment on above: Result Comment: This test was performed using the TPSA assay method for the P[employer] system. Values obtained with different assay methods cannot be used interchangably. When changing PSA assays in the course of monitoring a patient, additional sequential testing should be carried out to confirm baseline values. Performed By: #### L 501.9940 #### [facility] [address] [facility] [place], [address] Basophil percentageOrdered B y: Harsha Duarte on 08-27-2023 Bilirubin [Mass/Vol] 0.80 mg/dL 0.20-1.00 [facility] Comment on above: For patients on eltr ombopag therapy, use of Dimension Neal TBIL is not recommended. Chloride [Moles/Vol] 109 mmol/L 98-107 [facility] Cholesterol [Mass/Vol] 234 mg/dL <200 [facility] Comment on above: <200 mg/dL Desirable 200-240 mg/dL Borderline >240 mg/dL High Risk Glucose [Mass/Vol] 102 mg/dL 74-106 [facility] Comment on above: Fasting Glucose resu lt from 100 to 125 mg/dL suggests IMPAIRED HOMEOSTASIS per A.D.A. criteria. Potassium [Moles/Vol] 4.3 mmol/L 3.5-5.1 [facility] Protein [Mass/Vol] 7.1 g/dL 6.4-8.2 [facility] Sodium [Moles/Vol] 140 mmol/L 136-145 [facility] Triglyceride [Mass/Vol] 146 mg/dL <199 [facility] Comment on above: The drugs N-Acetylcy steine and Metamizole may falsely depress this assay.Serum Triglycerides Reference Interval Normal <150 mg/dL Borderline high 150 - 199 mg/dL High 200 - 499 mg/dL Very High > or = 500 mg/dL Laboratory - Chemistry and C hemistry - challengeOrdered By: Harsha Duarte on 08-27-2023 Albumin/Globulin [Mass ratio] 1.1 {ratio} 0.9-2.4 [facility] ALP [Catalytic activity/Vol] 57 U/L 45-117 [facility] ALT [Catalytic activity/Vol] 38 U/L 16-61 [facility] Cholesterol in HDL [Mass/Vol] 49 mg/dL >40 [facility] Comment on above: The drugs N-Acetylcy steine and Metamizole may falsely depress this assay. Reference Range HDL <40 mg/dL Low HDL Cholesterol HDL >or= 60 mg/dL High HDL Cholesterol Cholesterol in LDL [Mass/Vol] 156 mg/dL 0-130 [facility] CO2 [Moles/Vol] 26.0 mmol/L 21.0-32.0 [facility] Cobalamin (Vitamin B12) [Mass/Vol] 806 pg/mL 211-911 [facility] Globulin (S) [Mass/Vol] 3.4 g/dL 2.2-4.2 [facility] Urea nitrogen/Creatinine [Mass ratio] 13.3 mg/mg 10-20 [facility] No Panel InformationOrdered By: Harsha Duarte on 08-27-2023 Estimated GFR (MDRD) Amer 84 mL/min >60 [facility] Comment on above: GFR Calc Estimated GFR (MDRD) Non-Af Amer 70 mL/min >60 [facility] Comment on above: Non- GFR Calc Prostate Specific Antigen Screen 3.64 ng/mL 0.00-4.00 [facility] Comment on above: This test was perfor med using the TPSA assay method for the[employer]IQ chemistry system. Values obtained with differentassay methods cannot be used interchangably.When changing PSA assays in the course of monitoring apatient, additional sequential testing should be carriedout to confirm baseline values. Vitamin D 25-Hydroxy 49.5 ng/mL [facility] Comment on above: Vitamin D 25(OH) Sta tus Range Deficiency <20 ng/mL (50nmol/L) Insufficiency 20 - 30 ng/mL (50 - 75 nmol/L) Sufficiency 30 - 100 ng/mL (75 - 250 nmol/L) Toxicity >100 ng/mL (>250 nmol/L) VLDL Cholesterol 29 mg/dL 5-40 [facility] Serum or plasma calcium suyapa urement (mass/volume)Ordered By: Harsha Duarte on 08-27-2023 Calcium [Mass/Vol] 8.8 mg/dL 8.5-10.1 [facility] Serum or plasma creatinine m easurement (mass/volume)Ordered By: Harsha Duarte on 08-27-2023 Creatinine [Mass/Vol] 1.13 mg/dL 0.70-1.30 [facility] Comment on above: The validity of the calculated GFR & GFRAA in patients over 70 years has not been determined. Clinical correlation is essential. Serum or plasma urea nitroge n measurement (mass/volume)Ordered By: Harsha Duarte on 08-27-2023 Urea nitrogen [Mass/Vol] 15 mg/dL 7-18 [facility] Thin prep Papanicolaou smear with manual screeningOrdered By: Harsha Duarte on 08-27-2023 Thin prep Papanicolaou smear with manual screening 3.7 g/dL 3.2-5.0 [facility] Thin prep Papanicolaou smear with manual screening 25 U/L 15-37 [facility] Thin prep Papanicolaou smear with manual screening 5 5-15 [facility] Absolute lymphocyte countOrd ered By: Dr. Duarte on 08-13-2022 Lymphocytes Auto (Unsp spec) [#/Vol] 1.61 10*3/uL 0.83-4.51 [facility] Basophil percentageOrdered B y: Dr. Duarte on 08-13-2022 Basophils/100 WBC (Bld) 0.8 % 0-1 [facility] Bilirubin [Mass/Vol] 0.80 mg/dL 0.20-1.00 [facility] Comment on above: For patients on eltr ombopag therapy, use of Dimension Neal TBIL is not recommended. Chloride [Moles/Vol] 105 mmol/L 98-107 [facility] Cholesterol [Mass/Vol] 189 mg/dL <200 [facility] Comment on above: <200 mg/dL Desirable 200-240 mg/dL Borderline >240 mg/dL High Risk Eosinophils/100 WBC (Bld) 2.5 % 0-5 [facility] Glucose [Mass/Vol] 95 mg/dL 74-106 [facility] Neutrophils (Bld) [#/Vol] 2.9 10*3/uL 2.0-7.7 [facility] Neutrophils/100 WBC (Bld) 57.3 % 47-70 [facility] Potassium [Moles/Vol] 4.4 mmol/L 3.5-5.1 [facility] Protein [Mass/Vol] 7.4 g/dL 6.4-8.2 [facility] Sodium [Moles/Vol] 140 mmol/L 136-145 [facility] Triglyceride [Mass/Vol] 80 mg/dL <199 [facility] Comment on above: The drugs N-Acetylcy steine and Metamizole may falsely depress this assay.Serum Triglycerides Reference Interval Normal <150 mg/dL Borderline high 150 - 199 mg/dL High 200 - 499 mg/dL Very High > or = 500 mg/dL WBC (Bld) [#/Vol] 5.1 10*3/uL 4.4-11.0 [facility] Blood erythrocytes count (nu mber/volume)Ordered By: Dr. Duarte on 08-13-2022 RBC (Bld) [#/Vol] 4.54 10*6/uL 4.6-6.2 [facility] Blood hemoglobin measurement (mass/volume)Ordered By: Dr. Duarte on 08-13-2022 Hemoglobin (Bld) [Mass/Vol] 13.8 g/dL 13.0-16.5 [facility] Blood lymphocytes/100 leukoc ytesOrdered By: Dr. Duarte on 08-13-2022 Lymphocytes/100 WBC (Bld) 31.6 % 19-41 [facility] Blood monocytes/100 leukocyt esOrdered By: Dr. Duarte on 08-13-2022 Monocytes/100 WBC (Bld) 7.6 % 0-10 [facility] Blood platelet mean volumeOr dered By: Dr. Duarte on 08-13-2022 Platelet mean volume (Bld) [Entitic vol] 9.9 fL 6.2-12.0 [facility] Determination of erythrocyte mean corpuscular volume (MCV)Ordered By: Dr. Duarte on 08-13-2022 MCV (RBC) [Entitic vol] 93.2 fL 80-94 [facility] Hematocrit Auto (Bld) [Volum e fraction]Ordered By: Dr. Duarte on 08-13-2022 Hematocrit (Bld) [Volume fraction] 42.3 % 40-54 [facility] Laboratory - Chemistry and C hemistry - challengeOrdered By: Dr. Duarte on 08-13-2022 ALP [Catalytic activity/Vol] 63 U/L 45-117 [facility] ALT [Catalytic activity/Vol] 45 U/L 16-61 [facility] CO2 [Moles/Vol] 27.0 mmol/L 21.0-32.0 [facility] Globulin (S) [Mass/Vol] 3.5 g/dL 2.2-4.2 [facility] Urea nitrogen/Creatinine [Mass ratio] 18.0 mg/mg 10-20 [facility] Laboratory - Hematology and Cell countsOrdered By: Dr. Duarte on 08-13-2022 Erythrocyte distribution width (RBC) [Entitic vol] 44.3 fL 35.1-43.9 [facility] Erythrocyte distribution width (RBC) [Ratio] 13.0 % 11.6-14.6 [facility] Immature granulocytes/100 WBC (Bld) 0.200 % 0.0-0.9 [facility] Comment on above: IG% - Immature Granu locytes (promyelocytes, myelocytes and metamyelocytes) > 1% indicates that a LEFT SHIFT is Present. MCH (RBC) [Entitic mass] 30.4 pg 27.0-32.0 [facility] Nucleated RBC/100 WBC (Bld) [Ratio] 0 % 0-5 [facility] MCHC Auto (RBC) [Mass/Vol]Or dered By: Dr. Duarte on 08-13-2022 MCHC (RBC) [Mass/Vol] 32.6 g/dL 32-36 [facility] No Panel InformationOrdered By: Dr. Duarte on 08-13-2022 Estimated GFR (MDRD) Amer 98 mL/min >60 [facility] Comment on above: GFR Calc Estimated GFR (MDRD) Non-Af Amer 81 mL/min >60 [facility] Comment on above: Non- GFR Calc Vitamin B12 Level > 2000 pg/mL 211-911 [facility] Vitamin D 25-Hydroxy 68.0 ng/mL [facility] Comment on above: Vitamin D 25(OH) Sta tus Range Deficiency <20 ng/mL (50nmol/L) Insufficiency 20 - 30 ng/mL (50 - 75 nmol/L) Sufficiency 30 - 100 ng/mL (75 - 250 nmol/L) Toxicity >100 ng/mL (>250 nmol/L) Platelets bldOrdered By: Dr. Duarte on 08-13-2022 Platelets (Bld) [#/Vol] 298 10*3/uL 150-450 [facility] Serum or plasma albumin suyapa urement (mass/volume)Ordered By: Dr. Duarte on 08-13-2022 Albumin [Mass/Vol] 3.9 g/dL 3.2-5.0 [facility] Serum or plasma albumin/glob ulin mass ratioOrdered By: Dr. Duarte on 08-13-2022 Albumin/Globulin [Mass ratio] 1.1 {ratio} 0.9-2.4 [facility] Serum or plasma calcium suyapa urement (mass/volume)Ordered By: Dr. Duarte on 08-13-2022 Calcium [Mass/Vol] 9.3 mg/dL 8.5-10.1 [facility] Serum or plasma cholesterol in HDL measurement (mass/volume)Ordered By: Dr. Duarte on 08-13-2022 Cholesterol in HDL [Mass/Vol] 58 mg/dL >40 [facility] Comment on above: The drugs N-Acetylcy steine and Metamizole may falsely depress this assay. Reference Range HDL <40 mg/dL Low HDL Cholesterol HDL >or= 60 mg/dL High HDL Cholesterol Serum or plasma cholesterol in VLDL measurement (mass/volume)Ordered By: Dr. Duarte on 08-13-2022 Cholesterol in VLDL [Mass/Vol] 16 mg/dL 5-40 [facility] Serum or plasma creatinine m easurement (mass/volume)Ordered By: Dr. Duarte on 08-13-2022 Creatinine [Mass/Vol] 1.00 mg/dL 0.70-1.30 [facility] Comment on above: The validity of the calculated GFR & GFRAA in patients over 70 years has not been determined. Clinical correlation is essential. Serum or plasma low density lipoprotein (LDL) cholesterol measurement (mass/volume)Ordered By: Dr. Duarte on 08-13-2022 Cholesterol in LDL [Mass/Vol] 115 mg/dL 0-130 [facility] Serum or plasma urea nitroge n measurement (mass/volume)Ordered By: Dr. Duarte on 08-13-2022 Urea nitrogen [Mass/Vol] 18 mg/dL 7-18 [facility] Thin prep Papanicolaou smear with manual screeningOrdered By: Dr. Duarte on 08-13-2022 Thin prep Papanicolaou smear with manual screening 28 U/L 15-37 [facility] Thin prep Papanicolaou smear with manual screening 8 5-15 [facility] Basophil percentageon 10-14- 2022 Bilirubin [Mass/Vol] 0.80 mg/dL 0.20-1.00 [facility] Work Phone: Comment on above: For patients on eltr ombopag therapy, use of Dimension Neal TBIL is not recommended. Chloride [Moles/Vol] 109 mmol/L 98-107 [facility] Work Phone: Cholesterol [Mass/Vol] 200 mg/dL <200 [facility] Work Phone: Comment on above: <200 mg/dL Desirable 200-240 mg/dL Borderline >240 mg/dL High Risk Glucose [Mass/Vol] 95 mg/dL 74-106 [facility] Work Phone: Potassium [Moles/Vol] 4.3 mmol/L 3.5-5.1 [facility] Work Phone: Protein [Mass/Vol] 7.4 g/dL 6.4-8.2 [facility] Work Phone: Sodium [Moles/Vol] 141 mmol/L 136-145 [facility] Work Phone: Triglyceride [Mass/Vol] 131 mg/dL <199 [facility] Work Phone: Comment on above: The drugs N-Acetylcy steine and Metamizole may falsely depress this assay.Serum Triglycerides Reference Interval Normal <150 mg/dL Borderline high 150 - 199 mg/dL High 200 - 499 mg/dL Very High > or = 500 mg/dL Laboratory - Chemistry and C hemistry - challengeon 03-05-2022 ALP [Catalytic activity/Vol] 69 U/L 45-117 [facility] Work Phone: ALT [Catalytic activity/Vol] 42 U/L 16-61 [facility] Work Phone: CO2 [Moles/Vol] 27.0 mmol/L 21.0-32.0 [facility] Work Phone: Globulin (S) [Mass/Vol] 3.6 g/dL 2.2-4.2 [facility] Work Phone: Urea nitrogen/Creatinine [Mass ratio] 10.8 mg/mg 10-20 [facility] Work Phone: No Panel Informationon 03-05 Estimated GFR (MDRD) Amer 87 mL/min >60 [facility] Work Phone: Comment on above: GFR Calc Estimated GFR (MDRD) Non-Af Amer 72 mL/min >60 [facility] Work Phone: Comment on above: Non- GFR Calc Percent Free Prostate Specific Ag 0.89 ng/mL N/A [facility] Work Phone: Comment on above: Cubicle ECLIA methodol ogy. Prostate Specific Ag, Ultra-Sensitv 3.060 ng/mL 0.000-4.000 [facility] Work Phone: Comment on above: Cubicle ECLIA methodol ogy.According to the [employer], Serum PSAshould decrease and remain [...] Prostate Specific Antigen Total 3.53 ng/mL 0.0-4.0 [facility] Work Phone: Comment on above: This test was perfor med using the TPSA assay method for the[facility] system. Values obtained with differentassay methods cannot be used interchangably.When changing PSA assays in the course of monitoring apatient, additional sequential testing should be carriedout to confirm baseline values. Serum or plasma albumin suyapa urement (mass/volume)on 03-05-2022 Albumin [Mass/Vol] 3.8 g/dL 3.2-5.0 [facility] Work Phone: Serum or plasma albumin/glob ulin mass ratioon 03-05-2022 Albumin/Globulin [Mass ratio] 1.1 {ratio} 0.9-2.4 [facility] Work Phone: Serum or plasma calcium suyapa urement (mass/volume)on 03-05-2022 Calcium [Mass/Vol] 9.0 mg/dL 8.5-10.1 [facility] Work Phone: Serum or plasma cholesterol in HDL measurement (mass/volume)on 03-05-2022 Cholesterol in HDL [Mass/Vol] 45 mg/dL >40 [facility] Work Phone: Comment on above: The drugs N-Acetylcy steine and Metamizole may falsely depress this assay. Reference Range HDL <40 mg/dL Low HDL Cholesterol HDL >or= 60 mg/dL High HDL Cholesterol Serum or plasma cholesterol in VLDL measurement (mass/volume)on 03-05-2022 Cholesterol in VLDL [Mass/Vol] 26 mg/dL 5-40 [facility] Work Phone: Serum or plasma creatinine m easurement (mass/volume)on 03-05-2022 Creatinine [Mass/Vol] 1.11 mg/dL 0.70-1.30 [facility] Work Phone: Comment on above: The validity of the calculated GFR & GFRAA in patients over 70 years has not been determined. Clinical correlation is essential. Serum or plasma free prostat e specific antigen/total prostate specific antigen ratioon 03-05-2022 Free PSA/Total PSA [Mass fraction] 29.1 % . [facility] Work Phone: Comment on above: The table [...] for any other population of men.[facility]formed [facility] [id number] [place], [place] [id number] Director: Matt Vieira PhD, Phone: [phone] Serum or plasma low density lipoprotein (LDL) cholesterol measurement (mass/volume)on 03-05-2022 Cholesterol in LDL [Mass/Vol] 129 mg/dL 0-130 [facility] Work Phone: Serum or plasma urea nitroge n measurement (mass/volume)on 03-05-2022 Urea nitrogen [Mass/Vol] 12 mg/dL 7-18 [facility] Work Phone: Thin prep Papanicolaou smear with manual screeningon 03-05-2022 Thin prep Papanicolaou smear with manual screening 21 U/L 15-37 [facility] Work Phone: Thin prep Papanicolaou smear with manual screening 5 5-15 [facility] Work Phone: COLONOSCOPY SCREENINGon 11-21 [facility] EGD DIAGNOSTICon 12-15-2021 [facility] Basophil percentageon 2021 Creatinine [Mass/Vol] 1.3 mg/dL 0.70-1.30 [facility] Work Phone: No Panel Informationon 11-13 Bedside Estimated GFR (eGFR) > 60.0000 mL/min >60 [facility] Work Phone: Office Visit: UC: L ear pain on 11-13-2016 Documentation of current medications (procedure) Done Invalid Interpretation Code [facility] Work Phone: Protein mass conc Done [facility] Work Phone: Tobacco smoking status NHIS Current [facility] Work Phone: Tobacco smoking status NHIS Never smoker [facility] Work Phone: Tobacco use HS Never smoker Invalid Interpretation Code [facility] Work Phone: Vital Signs Date Time Vital Sign Value Performing Clinician Facility 01-11-2022 12:55-0400 Body height 185.4 cm Jillian Vargas PA-C Work Phone: [place] [address]-22-2022 12:55-0400 Body temperature 97.59 [degF] Jillian Barwick PA-C Work Phone: [facility] 01-11-2022 12:55-0400 Body weight 97.98 kg Jillian Alicia PA-C Work Phone: [facility] 01-11-2022 12:55-0400 Diastolic blood pressure 80 mm[Hg] Jillian Barwick PA-C Work Phone: [facility] 01-11-2022 12:55-0400 Heart rate 84 /min Jillian Barwick PA-C Work Phone: [facility] 01-11-2022 12:55-0400 Respiratory rate 14 /min Jillian Barwick PA-C Work Phone: [facility] 01-11-2022 12:55-0400 SaO2% (BldA) [Mass fraction] 99 % Jillian Alicia PA-C Work Phone: [facility] 01-11-2022 12:55-0400 Systolic blood pressure 116 mm[Hg] Jillian Barwick PA-C Work Phone: [facility] 12-15-2021 08:11-0400 Diastolic blood pressure 81 mm[Hg] Joshua Mcmahon MD Work Phone: [facility] 12-15-2021 08:11-0400 Heart rate 56 /min Joshua Mcmahon MD Work Phone: [facility] 12-15-2021 08:11-0400 Respiratory rate 16 /min Joshua Mcmahon MD Work Phone: [facility] 12-15-2021 08:11-0400 SaO2% (BldA) [Mass fraction] 94 % Joshua Mcmahon MD Work Phone: [facility] 12-15-2021 08:11-0400 Systolic blood pressure 122 mm[Hg] Joshua Mcmahon MD Work Phone: [facility] 12-15-2021 06:45-0400 Body temperature 97.3 [degF] Joshua Mcmahon MD Work Phone: [facility] 12-15-2021 06:45-0400 Body weight 99.3 kg Joshua Mcmahon MD Work Phone: [facility] 10-06-2021 14:23-0400 Body height 185.4 cm Joshua Mcmahon MD Work Phone: [facility] 10-06-2021 14:23-0400 Body temperature 97.11 [degF] Joshua Mcmahon MD Work Phone: [facility] 10-06-2021 14:23-0400 Body weight 99.34 kg Joshua Mcmahon MD Work Phone: [facility] 10-06-2021 14:23-0400 Diastolic blood pressure 78 mm[Hg] Joshua Mcmahon MD Work Phone: [facility] 10-06-2021 14:23-0400 Heart rate 67 /min Joshua Mcmahon MD Work Phone: [facility] 10-06-2021 14:23-0400 Respiratory rate 16 /min Joshua Mcmahon MD Work Phone: [facility] 10-06-2021 14:23-0400 SaO2% (BldA) [Mass fraction] 97 % Joshua Mcmahon MD Work Phone: [facility] 10-06-2021 14:23-0400 Systolic blood pressure 112 mm[Hg] Joshua Mcmahon MD Work Phone: [facility] 11-13-2016 08:25-0400 BMI (Body Mass Index) 24.93 kg/m2 Kristyn Manning LPN [facility] Work Phone: 11-13-2016 08:25-0400 Body Temperature 98 [degF] Kristyn Manning LPN [facility] Work Phone: 11-13-2016 08:25-0400 BP Diastolic 82 mm[Hg] Kristyn Manning LPN [facility] Work Phone: 11-13-2016 08:25-0400 BP Systolic 118 mm[Hg] Kristyn Manning LPN [facility] Work Phone: 11-13-2016 08:25-0400 Height 185.42 cm Kristyn Manning LPN [facility] Work Phone: 11-13-2016 08:25-0400 Pulse (Heart Rate) 58 /min Kristyn Manning LPN [facility] Work Phone: 11-13-2016 08:25-0400 Pulse Oximetry 98 % Kristyn Manning LPN [facility] Work Phone: 11-13-2016 08:25-0400 Respiratory Rate 16 /min Kristyn Manning LPN [facility] Work Phone: 11-13-2016 08:25-0400 Weight 85.73 kg Kristyn Manning LPN [facility] Work Phone: 12-20-2011 15:09-0400 BSA (Body Surface Area) 2.15 m2 Kristyn Manning LPN [facility] Work Phone: Encounters Encounter Date Encounter Type Care Provider Facility Start: 01-30-2025 ambulatory Immanuel Camejo lity:[facility] Start: 01-07-2025 End: 01-07-2025 ambulatory Kofi Delaney Facility:[facility] Start: 01-05-2025 End: 01-05-2025 ambulatory Harsha Duarte Facility:[facility] Start: 12-11-2024 End: 12-11-2024 ambulatory Harsha Duarte Facility:[facility] Start: 11-21-2024 End: 11-21-2024 ambulatory Kofi Delaney Facility:[facility] Start: 10-10-2024 End: 10-10-2024 ambulatory Kofi Delaney Facility:[facility] Start: 10-06-2024 End: 10-06-2024 ambulatory Hira Huff Facility:[facility] Start: 10-03-2024 End: 10-03-2024 ambulatory Harsha Duarte Facility:[facility] Start: 09-19-2024 End: 09-19-[address] HARSHA DUARTE MD Facility:[facility] Start: 09-12-2024 ambulatory IMMANUEL SAUCEDO Facility:[facility] Start: 09-10-[address] IMMANUEL SAUCEDO MD Facility:[facility] Start: 08-31-2024 End: 08-31-2024 ambulatory Harsha Duarte Facility:[facility] Start: 08-08-2024 End: 08-08-2024 ambulatory Harsha Duarte Facility:[facility] Start: 08-07-2024 End: 08-07-2024 ambulatory PRASANNA SEBASTIAN Facility:[facility] Start: 08-07-2024 End: 08-07-2024 Patient encounter procedure Prasanna Sebastian OD Work Phone: Ophthalmology Comment on above: Vitreous floaters of both eyes (Primary Dx); Posterior vitreous detachment of both eyes; Dry eye syndrome of both eyes; Pinguecula, bilateral; S/P LASIK (laser assisted in situ keratomileusis) of both eyes; Age-related nuclear cataract of both eyes Start: 07-03-2024 End: 07-03-2024 ambulatory Harsha Duarte Facility:[facility] Start: 06-25-2024 End: 06-25-2024 ambulatory Immanuel Saucedo Facility:[facility] Start: 12-30-2023 End: 12-30-2023 ambulatory TIESHA CHOI Facility:[facility] Start: 12-30-2023 End: 12-30-2023 Patient encounter procedure Tiesha Choi MD Work Phone: Ophthalmology Comment on above: Visual disturbance o f right eye (Primary Dx); Vitreous floaters of both eyes; Posterior vitreous detachment of both eyes; S/P LASIK (laser assisted in situ keratomileusis) of both eyes; Essential hypertension Start: 08-27-2023 End: 08-27-2023 ambulatory [facility] Work Phone: Start: 08-27-2023 End: 08-27-2023 Patient encounter procedure [facility] Work Phone: Start: 01-31-2023 End: 01-31-2023 Patient encounter procedure Pauline Yañez OD Work Phone: Ophthalmology Comment on above: Dry eye syndrome of both eyes (Primary Dx); Punctate keratitis, bilateral; Pinguecula, bilateral; S/P LASIK (laser assisted in situ keratomileusis) of both eyes; Vitreous floaters of both eyes Start: 08-13-2022 End: 08-13-2022 ambulatory [facility] Work Phone: Start: 08-13-2022 End: 08-13-2022 Patient encounter procedure [facility] Start: 04-23-2022 End: 04-23-2022 ambulatory [facility] Work Phone: Start: 04-23-2022 End: 04-23-2022 Patient encounter procedure [facility], [facility] Start: 03-05-2022 End: 03-05-2022 ambulatory [facility] Work Phone: Start: 03-05-2022 End: 03-05-2022 Patient encounter procedure [facility] Start: 02-17-2022 End: 02-17-2022 Patient encounter procedure Goyo Honeycutt MD Work Phone: Ophthalmology Comment on above: Dry eye syndrome of both eyes (Primary Dx); Punctate keratitis, bilateral; Pinguecula, bilateral; S/P LASIK (laser assisted in situ keratomileusis) of both eyes; Vitreous floaters of both eyes Start: 02-08-2022 End: 02-08-2022 [facility] Start: 02-02-2022 End: 02-02-2022 [facility] Start: 01-11-2022 End: 01-11-2022 Patient encounter procedure [...] Start: 12-07-2021 End: 12-07-2021 Patient encounter procedure [facility], [place] Start: 11-13-2021 End: 11-13-2021 Patient encounter procedure [facility], [facility] Start: 10-06-2021 End: 10-06-2021 Patient encounter procedure [...] End: 12-15-2011 Follow up Appt 1 week Jasmny Molina MD Start: 12-13-2011 End: 12-15-2011 X-ray [...] RSV Vaccine (1 - 1-dose 75+ series) [facility] Start: 02-16-2031 Urine microalbumin profile DTaP,Tdap,Td Vaccine (2 - Td or Tdap) [facility] Start: 12-15-2026 Colonoscopy COLONOSCOPY [facility] Start: 12-15-2026 COLORECTAL CANCER SCREENING COLORECTAL CANCER SCREENING [facility] Start: 12-15-2026 Screening for malignant neoplasm of colon [facility] Start: 08-09-2025 End: 08-09-2025 Patient encounter procedure 08/09/2025 8:00 AM EDT Office Visit [facility] [address] [place] [address] Prasanna Sebastian, OD [address] [place] [address] Dilated Fundus Exam Ophthalmology Comment on above: Dilated Fundus Exam Start: 08-07-2024 End: 08-07-2024 Patient encounter procedure 08/07/2024 8:00 AM EDT Office Visit [facility] [address] [place] [address] Maude Wharton, OD [address] [address] pvd/floaters return in 6 months Ophthalmology Comment on above: pvd/floaters return in 6 months Start: 02-02-2024 End: 02-02-2024 Patient encounter procedure 02/02/2024 8:00 AM EDT Office Visit [facility] [address] [place] [address] Pauline Yañez, OD [address] [place], [place] [id number] Routine eye exam Ophthalmology Comment on above: Routine eye exam Start: 01-22-2024 Covid-19 Vaccine ( season) Covid-19 Vaccine ( season) [facility] Start: 01-22-2024 Influenza vaccination Influenza Vaccine (#1) [facility] Start: 01-21-2023 Covid-19 Vaccine ( season) Covid-19 Vaccine ( season) [facility] Start: 01-21-2023 Influenza vaccination INFLUENZA (#1) [facility] Start: 10-06-2022 BP CONTROLLED (<130/80) BP CONTROLLED (<130/80) [facility] Start: 07-08-2022 Colonoscopy COLONOSCOPY [facility] Start: 07-08-2022 COLORECTAL CANCER SCREENING COLORECTAL CANCER SCREENING [facility] Start: 05-23-2022 DEPRESSION ASSESSMENT DEPRESSION ASSESSMENT [facility] Start: 01-21-2022 Influenza vaccination [facility] Start: 07-25-2021 COVID-19 VACCINE (3 - Booster for Gabe series) COVID-19 VACCINE (3 - Booster for Gabe series) [facility] Start: 05-23-2021 DEPRESSION ASSESSMENT DEPRESSION ASSESSMENT [facility] Start: 05-22-2021 COVID-19 VACCINE (3 - Booster for Moderna series) COVID-19 VACCINE (3 - Booster for Moderna series) [facility] Start: 05-22-2021 COVID-19 VACCINE (3 - Moderna series) COVID-19 VACCINE (3 - Moderna series) [facility] Start: 2021 RSV Vaccine (1 - 1-dose 60+ series) RSV Vaccine (1 - 1-dose 60+ series) [facility] Start: 03-25-2018 DIABETES SCREEN DIABETES SCREEN [facility] Start: 03-25-2018 Diabetes Screening Diabetes Screening [facility] Start: 11-13-2016 End: 11-13-2016 Appointment Appointment [facility] Work Phone: Start: 02-26-2016 Adult depression screening assessment DEPRESSION SCREENING [facility] Start: 01-27-2016 PROSTATE CANCER SCREENING DISCUSSION PROSTATE CANCER SCREENING DISCUSSION [facility] Start: 01-27-2016 Prostate specific antigen measurement Prostate Cancer Screening Discussion [facility] Start: 12-13-2011 End: 12-15-2011 Follow up Appt 1 week Follow up Appt 1 week [facility] Work Phone: Start: 12-13-2011 End: 12-15-2011 X-ray exam of shoulder X-Ray, Shoulder [facility] Work Phone: Start: 2011 Pneumococcal Vaccine: 50+ (1 of 1 - PCV) Pneumococcal Vaccine: 50+ (1 of 1 - PCV) [facility] Start: 2011 SHINGRIX VACCINE (1 of 2) SHINGRIX VACCINE (1 of 2) [facility] Start: 2006 COLOGUARD (FIT-DNA) COLOGUARD (FIT-DNA) [facility] Start: [address] COLONOGRAPHY [facility] Start: 2006 FECAL OCCULT BLOOD FECAL OCCULT BLOOD [facility] Start: 2006 Screening for malignant neoplasm of colon [facility] Start: 2006 SIGMOIDOSCOPY SIGMOIDOSCOPY [facility] Start: 01-27-1996 Lipid panel Lipid Screening [facility] Start: 01-27-1996 LIPID SCREEN LIPID SCREEN [facility] Start: 01-27-1980 Urine microalbumin profile DTAP,TDAP,TD (1 - Tdap) [facility] Start: 1979 ANNUAL PCP TEAM CHRONIC DISEASE VISIT ANNUAL PCP TEAM CHRONIC DISEASE VISIT [facility] Start: 1979 Anxiety Screening Anxiety Screening [facility] Start: 1979 BP CONTROLLED (<130/80) BP CONTROLLED (<130/80) [facility] Start: 1979 Depression Screening Depression Screening [facility] Start: 1979 HEPATITIS C SCREENING HEPATITIS C SCREENING [facility] Start: 1979 Hepatitis C screening Hepatitis C Screening [facility] Start: 1979 HIV SCREENING HIV SCREENING [facility] Start: 1979 HIV screening HIV Screening [facility] End: 10-06-2022 EGD DIAGNOSTIC EGD DIAGNOSTIC Endoscopy Routine Gastroesophageal reflux disease without esophagitis Family history of colon cancer 1 Occurrences starting 10/06/2021 until 10/06/2022 [facility] Work Phone: Comment on above: 1 Occurrences starting 10/06/2021 until 10/06/2022 Patient Education OTITIS%[email or web address] [facility] Work Phone: End: 10-06-2022 Screening colonoscopy COLONOSCOPY SCREENING Endoscopy Routine Gastroesophageal reflux disease without esophagitis Family history of colon cancer 1 Occurrences starting 10/06/2021 until 10/06/2022 [facility] Work Phone: Comment on above: 1 Occurrences starting 10/06/2021 until 10/06/2022 SURGICAL PATHOLOGY [facility] Work Phone: Comment on above: Release Upon Ordering for 1 Occurrences starting 12/15/2021, 1 completed [facility] Payers Date Payer Category Payer Self-pay [id number] 2019 Private Health Insurance [employer] A ETNA CHOICE POS II [id number] 2019-Present [phone] [address] [place] [address] POS [id number] 2019 Private Health Insurance [id number] 2019 Private Health Insurance [id number] 2013 Unknown [id number] 1961 Unknown [id number] 27 1961 Unknown [id number] 27 1961 Unknown [id number] 27 Unknown [id number] 62 Unknown [id number] 62 Unknown [id number] 62 Unknown [id number] 62 Unknown [id number] 63 Unknown [id number] 63 Unknown [id number] 63 Unknown [id number] 63 Unknown [id number] 63 Unknown [id number] 63 Unknown [id number] 63 Unknown [id number] 63 Social History Date Type Detail Facility Start: 07-22-2010 End: 01-11-2022 Tobacco smoking status NHIS Never smoked tobacco [facility] Start: 07-22-2010 End: 01-11-2022 Tobacco use and exposure User of smokeless tobacco [facility] History of tobacco use Chews Tobacco [facility] Start: 10-06-2021 Alcohol intake Current non-dr brief writer of alcohol (finding) [facility] Start: 10-06-2021 History SDOH Alcohol Comment 2-3 [facility] Start: 07-22-2010 End: 01-11-2022 Tobacco Comment 47 years [facility] Start: 1960 Sex Assigned At Male C [facility] Start: 09-26-2021 End: 02-02-2022 Exposure to SARS-CoV-2 (event) Not sure [facility] Start: 06-10-2021 End: 04-09-2023 Tobacco smoking status NHIS Unknown if ever smoked [facility] Start: 11-22-2021 End: 12-02-2021 Exposure to SARS-CoV-2 (event) Unable to assess [facility] Work Phone: Start: 12-15-2021 End: 08-07-2024 Alcohol intake Current drinker of alcohol (finding) [facility] Start: 12-15-2021 History SDOH Alcohol Comment 2-3 beers daily [facility] Start: 01-31-2023 End: 08-07-2024 History of Social function [facility] Start: 01-31-2023 End: 08-07-2024 Tobacco use panel [facility] National Score (1-100), lower number is lower risk 52 [facility] Start: 10-05-2021 Gender identity Identifies as male gender (finding) [facility] Clinical Notes 10-06-2021 to 10-03-2024 Prasanna Sebastian, CORBY - 08/07/2024 8:18 AM Tiesha Oconnor MD - 12/30/2023 9:07 AM Pauline Lacey OD - 01/31/2023 8:59 AM Rose Honeycutt MD - 02/17/2022 8:53 AM EDTPatient Instructions Note Date & Type Note Facility 10-03-2024 Note [facility] Medical Records Department [address] [place] [address] History Physical Exam 10/03/24 1513 MR#: [id number] Acct: [id number] Name: MERLENE UNGER Rep #: [id number] : 1960 64 From: Immanuel Saucedo MD PCP: Dr. Harsha Duarte MD Status:[facility] Location: [place] [address] HPI - General General Date of Service: [...] this will be done under general anesthesia. [facility] Medical History Wears hearing aid Depression Anxiety [...] Duarte MD; Dr. Immanuel Saucedo MD Signed [facility] 08-07-2024 Note Date of Procedure 08/07/2024. [employer]: RE. OCT Macula Interpretation Right Eye Normal without fluid. Left Eye Normal without fluid. Interval Change Right Eye Initial. Left Eye Initial. [facility] 08-07-2024 Note HNO ID: [id number] Author: PRASANNA SEBASTIAN, CORBY Service: ? Author Type: QUALITY ASSURANCE LEAD Type: Progress Notes Filed: 08/07/2024 08:28 Note [...] vision, otherwise follow up yearly. Prasanna Sebastian, OD August 07, 2024 8:27 AM [facility] 08-07-2024 History of Presen t illness Narrative [...] vision, otherwise follow up yearly. Prasanna Sebastian, OD August 07, 2024 8:27 AM documented in this encounter [facility] 12-30-2023 Note HNO ID: [id number] Author: TIESHA CHOI MD Service: ? Author [...] Patient was instructed to call the office ([phone]) immediately upon noticing flashes of light, increase in floaters, or changes in vision. Please call the office ([phone]) immediately if you notice more flashes of [...] of its relevant components. Tiesha Choi MD [facility] 12-30-2023 History of Presen t illness Narrative [...] Patient was instructed to call the office ([phone]) immediately upon noticing flashes of light, increase in floaters, or changes in vision. Please call the office ([phone]) immediately if you notice more flashes of [...] Tiesha Choi MD documented in this encounter [facility] 01-31-2023 History of Presen t illness [...] 2023 8:59 AM documented in this encounter [facility] 02-17-2022 History of Presen t illness [...] others. I have seen and examined Rafael Law Cornel. I have discussed the case and the management of this patient's care with the Resident/Fellow, if applicable. I also have reviewed and agree with the assessment and plan as stated above and agree with all of its relevant components. Goyo Honeycutt MD documented in this encounter [facility] 01-11-2022 Instructions Jillian Vargas PA-C - [...] office visit today with the [facility]. INSTRUCTIONS FOLLOWING A POLYP FOUND [...] you should contact our office immediately @ [phone] and ask to be transferred to the General Surgery department. documented in this encounter [facility] 01-11-2022 History of Presen t illness Narrative FOLLOW UP VISIT - ENDOSCOPY NAME: Rafael [facility] NO.: [id number] DATE OF SERVICE: 01/11/2022 : 1960 REFERRING [...] which included preparing to see the patient, [id number] patient care, completing clinical documentation, obtaining and/or reviewing separately obtained history, counseling and educating the patient/family/caregiver, independently interpreting results (not separately reported), and communicating results to the patient/family/caregiver. Jillian Vargas PA-C documented in this encounter [facility] 12-15-2021 Nurse Note Pt received in PACU. Pt awake. Denies pain or nausea. Abd soft and non distended. Keli Forbes RN documented in this encounter [facility] 12-15-2021 History and physical note UPDATED [...] TONSILLECTOMY & ADENOIDECTOMY <AGE 13 Bilateral 2014 CURRENT MEDICATIONS Current Outpatient Medications Medication Sig [...] entered by the nurse and reviewed by wi Nursing Notes: Morena Sutton 10/06/2021 2:29 PM [...] Joshua Mcmahon MD documented in this encounter [facility] 10-07-2021 Miscellaneous Notes Called patient and informed soonest opening for [facility] with Salome is indeed 12/15 - in which is patients scheduled day. Informed [facility] is booked out until March. Patient understood and is okay with 12/15 Radha Gray Patient called back asking if there was anything sooner. Patient willing to go to [place]. Please call patient and advise. 12/15/21 EGD & Colonoscopy Dr. Mcmahon at the [facility] with Kaushik calloway documented in this encounter [facility] 10-06-2021 History of Presen t illness [...] TONSILLECTOMY & ADENOIDECTOMY <AGE 13 Bilateral 2013 Current Outpatient Medications Medication Sig prazosin (MINIPRESS) [...] entered by the nurse and reviewed by wi Nursing Notes: Morena Sutton 10/06/2021 2:29 PM [...] Joshua Mcmahon MD documented in this encounter [facility] 10-06-2021 Instructions Joshua Mcmahon MD - [...] If you do not have a responsible straddle bug driver (family member or friend) with you [...] exam. 3 04/2019 documented in this encounter [facility] 10-06-2021 Nurse Note REVIEW OF SYSTEMS: [...] 07/08/2017 Morena Sutton documented in this encounter [facility] Evaluation note Diagnosis Gastroesophageal reflux disease without esophagitis- Primary Esophageal reflux Family history of colon cancer Family history of malignant neoplasm of gastrointestinal tract documented [facility] this encounter [facility] noteNo assessment information availableWC[facility] Work Phone: Evaluation note* Diagnosis Gastroesophageal reflux disease without esophagitis Esophageal reflux Family history of colon cancer Family history of malignant neoplasm of gastrointestinal tract [facility] Diagnosis Family history of colon cancer- Primary Family history of malignant neoplasm of gastrointestinal tract Tubular adenoma Benign neoplasm of unspecified site Diverticulosis Diverticulosis of colon (without mention of hemorrhage) Gastroesophageal reflux disease, unspecified whether esophagitis present [facility]* Diagnosis Dry eye syndrome of both eyes- Primary Punctate keratitis, bilateral Pinguecula, bilateral S/P LASIK (laser assisted in situ keratomileusis) of both eyes Vitreous floaters of both eyes [facility] this encounter [facility]* Diagnosis Dry eye syndrome of both eyes- Primary Punctate keratitis, bilateral Pinguecula, bilateral S/P LASIK (laser assisted in situ keratomileusis) of both eyes Vitreous floaters of both eyes [facility] this encounter [facility]* Diagnosis Visual disturbance of right eye- Primary Unspecified visual disturbance Vitreous floaters of both eyes Posterior vitreous detachment of both eyes Vitreous degeneration S/P LASIK (laser assisted in situ keratomileusis) of both eyes Essential hypertension Unspecified essential hypertension documented [facility] this encounter [facility]* Diagnosis Vitreous floaters of both eyes- Primary Posterior vitreous detachment of both eyes Vitreous degeneration Dry eye syndrome of both eyes Pinguecula, bilateral S/P LASIK (laser assisted in situ keratomileusis) of both eyes Age-related nuclear cataract of both eyes Senile nuclear sclerosis [facility] Outpatient Procedure (Routine) - Authorized Specialty Diagnoses / Procedures Referred By Cori cho Referred To Contact [facility] Diagnoses Gastroesophageal reflux disease without esophagitis Family history of colon cancer Procedures EGD DIAGNOSTIC ESOPHAGOGASTRODUODENOSC OPY TRANSORAL DIAGNOSTIC Joshua Mcmahon MD [address] [place] [address] [facility] Disease [address] [address] Referral ID Status Reason Start Date Expiration Date Visits Requested Visits Authorized [id number] Authorized Auto-Generat ed Referral 10/06/2021 10/06/2022 1 1 * Outpatient Procedure (Routine) - Authorized Specialty Diagnoses / Procedures Referred By Cori cho Referred To Contact [facility] Diagnoses Gastroesophageal reflux disease without esophagitis Family history of colon cancer Procedures COLONOSCOPY SCREENING COLONOSCOPY FLX DX W/COLLJ SPEC WHEN Joshua Baker MD [address] [place] [address] [address] Referral ID Status Reason Start Date Expiration Date Visits Requested Visits Authorized [id number] Authorized Auto-Generat ed Referral 10/06/2021 10/06/2022 1 1 [facility] for referral (narrative)* Outpatient Procedure (Routine) - Closed Specialty Diagnoses / Procedures Referred By Cori cho Referred To [facility] Diagnoses Gastroesophageal reflux disease without esophagitis Family history of colon cancer Procedures EGD DIAGNOSTIC ESOPHAGOGASTRODUODENOSC OPY TRANSORAL DIAGNOSTIC Joshua Mcmahon MD [address] [place] [address] [address] Referral ID Status Reason Start Date Expiration Date V isits Requested Visits Authorized [id number] Closed Auto-Generate d Referral 10/06/2021 10/06/2022 1 1 * Outpatient Procedure (Routine) - Closed Specialty Diagnoses / Procedures Referred By Cori cho Referred To [facility] Diagnoses Gastroesophageal reflux disease without esophagitis Family history of colon cancer Procedures COLONOSCOPY SCREENING COLONOSCOPY FLX DX W/COLLJ SPEC WHEN Joshua Baker MD [address] [place] [address] [address] Referral ID Status Reason Start Date Expiration Date V isits Requested Visits Authorized [id number] Closed Auto-Generate d Referral 10/06/2021 10/06/2022 1 1 [facility] for visit Narrative* Outpatient Procedure (Routine) - Closed Specialty Diagnoses / Procedures Referred By Cori cho Referred To Contact [facility] Diagnoses Gastroesophageal reflux disease without esophagitis Family history of colon cancer Procedures COLONOSCOPY SCREENING COLONOSCOPY FLX DX W/COLLJ SPEC WHEN Joshua Baker MD [address] [place] [address] [facility] [address] [place] [address] Referral ID Status Reason Start Date Expiration Date V isits Requested Visits Authorized [id number] Closed Auto-Generate d Referral 10/06/2021 10/06/2022 1 1 [facility] Advance Directives No Advanced Directives Records FoundDocuments on File Type Date Recorded Patient Rn Case Management Expl anation Advance Directive(s) 07/08/2017 10:00 AM Advance Directive Response Recorded Date/ Time Living Will No October 04, 2014 1 1:42pm Power of Auctioneer Automobile No October 04, 2014 11:42pm Documents on File Type Date Recorded Patient Rn Case Management Expl anation Advance Directive(s) 07/08/2017 10:00 AM Documents on File Type Date Recorded Patient Rn Case Management Expl anation Advance Directive(s) 12/15/2021 6:16 AM Advance Directive(s) 07/08/2017 10:00 AM Advance Directive Response Recorded Date/ Time Living Will No October 04, 2014 1 0:42pm Power of Auctioneer Automobile No October 04, 2014 10:42pm Chief Complaint [...] Date Dose Rate Site benzocaine 20% 1 [place] (TOPEX) 1 [place], TOPICAL, DIRECTED, Starting on Tue12/15/21 at 0730, [...] FOR PROCEDURAL SEDATION ONLY, Intraprocedure Given by [facility] 12/15/2021 7:30 AM EDT 1 mg Given by [facility] 12/15/2021 7:16 AM EDT 1 mg Given [...] or prosecute any alcohol or drug abuse patient.[facility] the event this information is protected by the Federal Confidentiality of Alcohol and Drug Abuse Patient Records regulations: The Federal rules restrict any use of the information to criminally investigate or prosecute any alcohol or drug abuse patient.[facility] HospitalIn the event this information is protected by the Federal Confidentiality of Alcohol and Drug Abuse Patient Records regulations: The Federal rules restrict any use of the information to criminally investigate or prosecute any alcohol or drug abuse patient.[facility] HospitalIn the event this information is protected by the Federal Confidentiality of Alcohol and Drug Abuse Patient Records regulations: The Federal rules restrict any use of the information to criminally investigate or prosecute any alcohol or drug abuse patient.[facility] HospitalIn the event this information is protected by the Federal Confidentiality of Alcohol and Drug Abuse Patient Records regulations: The Federal rules restrict any use of the information to criminally investigate or prosecute any alcohol or drug abuse patient.[facility] HospitalIn the event this information is protected by the Federal Confidentiality of Alcohol and Drug Abuse Patient Records regulations: The Federal rules restrict any use of the information to criminally investigate or prosecute any alcohol or drug abuse patient.[facility] HospitalIn the event this information is protected by the Federal Confidentiality of Alcohol and Drug Abuse Patient Records regulations: The Federal rules restrict any use of the information to criminally investigate or prosecute any alcohol or drug abuse patient.[facility] HospitalIn the event this information is protected by the Federal Confidentiality of Alcohol and Drug Abuse Patient Records regulations: The Federal rules restrict any use of the information to criminally investigate or prosecute any alcohol or drug abuse patient.[facility] HospitalIn the event this information is protected by the Federal Confidentiality of Alcohol and Drug Abuse Patient Records regulations: The Federal rules restrict any use of the information to criminally investigate or prosecute any alcohol or drug abuse patient.[facility] Reason for Visit (unrecogniz ed section [...] Care Teams (unrecognized sec tion and content) Country Singer Relationship Specialty Start Date End Date Harsha Duarte MD [address] [place] [address] PCP - General 05/26/09 Country Singer Relationship Specialty Start Date End Date Harsha Duarte MD [address] [place] [address] PCP - General 05/26/09 Country Singer Relationship Specialty Start Date End Date Harsha Duarte MD [address] [place] [address] PCP - General 05/26/09 Country Singer Relationship Specialty Start Date End Date Harsha Duarte MD [address] [place] [address] PCP - General 05/26/09 Country Singer Relationship Specialty Start Date End Date Harsha Duarte MD [address] [place] [address] PCP - General 05/26/09 Country Singer Relationship Specialty Start Date End Date Harsha Duarte MD [address] [place] [address] PCP - General 05/26/09 Team Status: Active [...] Care Provider, Attending Provider, Referring Provider Active Country Singer Relationship Specialty Start Date End Date Harsha Duarte MD [address] [place], [place] [address] PCP - General 05/26/09 Team Status: Active Member Role Status Dates Dr. Harsha Duarte MD Family Provider Active Dr. Harsha Duarte MD Primary Care Provider Acti ve Team Status: Inactive Member Role Status Dates Dr. Harsha Duarte MD Primary Care Provider, Attending Provider, Referring Provider Active Country Singer Relationship Specialty Start Date End Date Harsha Duarte MD [address] [facility] [place] [place] [id number] PCP - General 05/26/09 Country Singer Relationship Specialty Start Date End Date Harsha Duarte MD [address] [facility] [place] [place] [id number] PCP - General 05/26/09 Goals (unrecognized section [...] section and content) DATE CREATED AUTHOR 08/09/2024 [facility] DATE CREATED AUTHOR AUTHOR'S ORGANIZ ATION 09/10/2024 [facility] DATE CREATED AUTHOR AUTHOR'S ORGANIZ ATION 09/24/2024 [facility] DATE CREATED AUTHOR AUTHOR'S ORGANIZ ATION 01/27/2025 [facility] FOR RECORDS PERTAINING TO PATIENTS WHO [...] BE BASED ON THE PRIMARY CLINICAL RECORDS. [employer] [facility]. provides no warranty or guarantee of the accuracy or completeness of information in this document.
== END | disposition home or self-care (01) ==
LOC: OPMRI 13:06
PROVIDERS: PCP Family Medicine; Referring Provider Urology; Visit Provider Urology
DX: C61 Malignant neoplasm of prostate (principal); R97.20 Elevated prostate specific antigen [PSA]
CPT/HCPCS: 72197; A9575; A4216

== ENCOUNTER 2025-02-20 12:04 | Observation (INO) | payer OTHER, SELFPAY ==
--- NOTE | 2025-02-11 07:03 | EKG12_ITS ---
Test Reason : PREOP Blood Pressure : */* mmHG Vent. Rate : 52 BPM Atrial Rate : 52 BPM P-R Int : 176 ms QRS Dur : 112 ms QT Int : 466 ms P-R-T Axes : 5 -29 20 degrees QTcB Int : 433 ms Sinus bradycardia Otherwise normal ECG No previous ECGs available Confirmed by YU LYLES, SPARKLE ([id number]), editor city KOLE PHELPS ([id number]) on 02/11/2025 10:34:34 AM Referred By: Immanuel Centeno Confirmed By: SPARKLE NICHOLAS MD
[2025-02-11 08:55] LABS: Hematocrit 40.9 % (40-54); Hemoglobin 13.6 g/dL (13.0-16.5); Mean Corp Hgb Conc 33.3 g/dL (32-36); Mean Corpuscular Volume 90.1 fL (80-94); Mean Platelet Vol. 10.0 fl (6.2-12.0); Platelet Count 265 K/mm3 (150-450); RBC Distribution Width CV 12.8 % (11.6-14.6); RBC Distribution Width SD 42.0 fl (35.1-43.9); Red Blood Count 4.54 M/mm3 (4.6-6.2); White Blood Count 6.2 K/mm3 (4.4-11.0)
[2025-02-11 09:38] LABS: Anion Gap 10 (5-15); BUN 17 mg/dL (4-19); BUN/Creat Ratio 16.7 RATIO (10-20); Calcium,Total 9.1 mg/dL (7.6-11.0); Carbon Dioxide 24.0 mmol/L (21.0-32.0); Chloride 103 mmol/L (98-108); Glucose 97 mg/dL (70-99); Potassium 4.5 mmol/L (3.3-5.1)
[2025-02-20] VITALS (13 sets, daily range): BP systolic 100–148; BP diastolic 66–104; PULSE 59–103; RESP 16–18; TEMP 36–36.9; O2SAT 93–100; BMI 26.2
[2025-02-20] MEDS: Lactated Ringers 1,000 ML 15 ML IV (07:21)
--- NOTE | 2025-02-20 07:31 | PCM.PRE.AN2 ---
ASA Classification* ASA Classification ASA Classification: 3 Assessment & Plan Anesthesia* Anesthesia Assessment Anesthesia Assessment: Discussed sedation and/or anesthesia options, risks, benefits, and alternatives with patient/parents/legal guardian/POA. Questions invited. The patient/parents/legal guardian/POA seems to understand and agrees to proceed with anesthesia plan. Reviewed the physical assessment, medical history, allergy history and patient home medications list prior to surgery/procedure/anesthetic and documented any changes. Performed airway and anesthesia risk assessments. Anesthesia Type Anesthesia Type: General History Source History Obtained from:: Patient and Chart Anesthesia Focused Assessment* Temperature: 98.4 F Pulse Rate: 83 Blood Pressure: 118/82 Respiratory Rate: 16 Pulse Ox: 94 Oxygen Delivery Method: Room Air Airway Assessment Mouth opens: >3 cm Mallampati Score: II Labs Anesthesia Preop lab: CBC WBC, (4.4-11.0) 6.2 K/mm3 02/11/25, 07: RBC, (4.6-6.2) 4.54 M/mm3 L 02/11/25, 07: Hgb, (13.0-16.5) 13.6 g/dL 02/11/25, 07:27 Hct, (40-54) 40.9 % 02/11/25, 07: Plt Count, (150-450) 265 K/mm3 02/11/25, 07:27 CHEMISTRY Potassium, (3.3-5.1) 4.5 mmol/L 02/11/25, 07:28 Sodium, (133-145) 137 mmol/L 02/11/25, 07:28 Magnesium, (1.6-2.6) 2.1 mg/dL 05/29/18, 07:09 BUN, (4-19) 17 mg/dL 02/11/25, 07:28 Creatinine, (0.70-1.20) 0.99 mg/dL 02/11/25, 07:28 Glucose, (70-99) 97 mg/dL 02/11/25, 07:28 TSH, (0.358-3.74) 2.04 uIU/mL 05/29/18, 07:09 COAG Pre-Assessment Diagnosis/Proposed Procedure Planned Operative Procedure(s): (N/A) Lap Robotic Prostatectomy Anesthesia History Anesthesia History - hospital wellness coordinator: Anesthesia History - hospital wellness coordinator Hx Hospitalization No 02/06/25 08:32 Any Problems With Anesthesia No 02/06/25 08:32 Cholinesterase deficiency No 02/06/25 08:32 You/Your Family Experience No 02/06/25 08:32 fever (hyperthermia) with Relationship Recent Exposure to Contagious No 02/20/25 07:12 Disease Does patient have nerve No 02/06/25 08:32 stimulator Patient instructed to have device shut off --Does patient have Pacemaker No 02/20/25 07:12 or ICD? When Was Last Pacemaker Check QUESTION #4 FULL TEXT: You/Your Family Experience fever (hyperthermia) with Anesthesia Last Oral Intake Last Oral intake: Last Oral Intake NPO since 19:00 02/20/25 07:12 Meds taken in AM with sips of Yes 02/20/25 07:12 water? Meds patient instructed to metoprolol 02/20/25 07:12 take am of surgery xanax 0615 PONV PONV - hospital wellness coordinator: PONV - hospital wellness coordinator Female No 02/06/25 08:32 HX of Motion Sickness No 02/06/25 08:32 HX of N/V After Surgery No 02/06/25 08:32 Non-Smoker Yes 02/06/25 08:32 Duration of Surgery greater Yes 02/06/25 08:32 than 60 minutes Number of Risk Factors 2 02/06/25 08:32 PONV Score Moderate Risk 02/06/25 08:32 Height & Weight Height & Weight: Anesthesia: Height & Weight Height 6 ft 1 in 02/20/25 07:12 Weight: 90 kg 02/20/25 07:12 Body Mass Index (BMI) 26.2 02/20/25 07:12 Respiratory Assessment Respiratory Assessment - hospital wellness coordinator: Respiratory Tract Infection Hx - hospital wellness coordinator Hx Respiratory Tract Infection No 02/06/25 08:32 STOP Sleep Apnea STOP Sleep Apnea - hospital wellness coordinator: STOP Sleep Apnea - hospital wellness coordinator Hx Hypertension Yes 02/06/25 08:32 Hx Sleep Apnea No 02/06/25 08:32 CPAP BIPAP Do you snore loudly (louder No 02/06/25 08:32 than talking or can be heard Do you often feel tired/ No 02/06/25 08:32 fatigued/ sleepy during daytime? Has anyone observed you stop No 02/06/25 08:32 breathing during sleep? STOP Results Negative 02/06/25 08:32 QUESTION #5 FULL TEXT : Do you snore loudly (louder than talking or can be heard through closed doors)? Tobacco Use History Tobacco Use History - hospital wellness coordinator: Tobacco Use History - hospital wellness coordinator Tobacco Use Smoking Status Never smoker 02/06/25 08:32 Hx Tobacco Use Yes 02/06/25 08:32 Years Smoking Packs Smoked per Day Smoking Cessation Date was within the last 15 years Hx Smoking Cessation Date Hx Smoking Cessation Counseling Hematologic Medial History Hematologic Hx - hospital wellness coordinator: Hematologic Medical Hx - certified veterinary technician Hx of Blood Transfusion No 02/06/25 08:32 Hx of Transfusion in last 3 No 02/06/25 08:32 Months Date of Last Transfusion (if within last 3 months) Ever experience any problems No 02/06/25 08:32 with transfusion(s)? Specify any problems Hx of Preganancy in last 3 N/A 02/06/25 08:32 Months Nurse Filling Out Transfusion NBUCHER 02/06/25 08:32 & Questions: Date: 02/06/25 02/06/25 08:32 Time: 08:33 02/06/25 08:32 Patient unable to answer at this time (ie. confused, unrespo /Reproduction History /Reproductive History - hospital wellness coordinator: /Reproductive Hx- hospital wellness coordinator Hx Now No 02/06/25 08:32 Gestational Age (in weeks): EDC: Hx Hx Para Hx Section SAB No 02/06/25 08:32 Active Medications Active Medications: Current Medications Generic Name Dose Route Start Last Admin Trade Name Freq PRN Reason Stop Dose Admin Cefazolin Sodium 2 gm/ Sodium 110 mls @ 200 mls/hr 02/20/25 09:05 Chloride IV 02/20/25 09:37 INTRAOP ONE Lactated Ringer's 1,000 mls @ 15 mls/hr 02/20/25 07:00 02/20/25 07:21 IV 15 mls/hr .Q48H ALFREDO Administration PFSH Medical History Loss of hearing Cancer Prostate disease Smokeless tobacco use Diverticulosis Non-smoker Hypertension Bilateral inguinal hernia Prostate cancer Alcohol use disorder Panic disorder Wears hearing aid Depression Anxiety Back pain Injury of back History of diverticulitis Chewing tobacco dependence History of stress test HTN (hypertension), benign Home Medications ?Medication ?Instructions ?Recorded ?Last Taken ?Type metoprolol tartrate 25 mg tablet 12.5 mg PO BID htn 12/01/14 02/20/25 06:15 History cholecalciferol (vit D3) 1,000 1 tab PO DAILY supplement 09/26/24 Unknown History unit-vitamin K2 (MK4) 100 mcg tablet (K2 Plus D3) cyanocobalamin (vitamin B-12) 50 50 mcg PO DAILY supplement 09/26/24 Unknown History mcg tablet (Vitamin B-12) linaclotide 145 mcg capsule 145 mcg PO DAILY IBS 09/26/24 Unknown History (Linzess) magnesium glycinate (LC-655) 150 mg PO DAILY supplement 09/26/24 Unknown History zinc gluconate 30 mg tablet 30 mg PO DAILY supplement 09/26/24 Unknown History tamsulosin 0.4 mg capsule 0.8 mg PO QDAY bph 10/10/24 Unknown History diclofenac sodium 1 % topical gel 4.5 inch topical ONCE PRN pain 12/11/24 Unknown History calcium-magnesium 300 mg-300 mg 1 tab PO DAILY supplement 02/06/25 Unknown History tablet lorazepam 0.5 mg tablet 0.5 mg PO DAILY PRN anxiety 02/06/25 02/19/25 06:15 History amitriptyline 10 mg tablet 10 mg PO QHS panic disorder #30 02/18/25 Unknown Rx tabs Allergy/AdvReac Type Severity Reaction Status Date / Time citalopram (From Celexa) Allergy Mild Nausea/Vom/ Verified 02/18/25 14:57 Diarrhea doxepin Allergy Mild Constipatio Verified 02/18/25 14:57 n fentanyl Allergy Mild Itching Verified 02/18/25 14:57 sertraline (From Zoloft) Allergy Mild Other Verified 02/18/25 14:57 venlafaxine (From Effexor) Allergy Mild Other Verified 02/18/25 14:57 zolpidem (From Ambien) Allergy Mild Other Verified 02/18/25 14:57 Histamine H2 Inhibitors AdvReac anxiety Verified 02/18/25 14:57 Phenylpiperazine AdvReac NEEDS Verified 02/18/25 14:57 Antidepressant FOLLOW-UP Tetracyclic Antidepressants AdvReac NEEDS Verified 02/18/25 14:57 FOLLOW-UP Tricyclic Antidepressants AdvReac NEEDS Verified 02/18/25 14:57 and Tricy FOLLOW-UP Family History Father Colon cancer Mother Breast cancer Colon cancer Grandfather Cancer prostate Grandmother Diabetes Surgical History H/O prostate biopsy History of cardiac catheterization Hx of hemorrhoidectomy History of carpal tunnel surgery of left wrist Hx laparoscopic cholecystectomy History of uvulectomy History of back surgery Social History Smoking Status: Never smoker Smokeless tobacco user: chewing tobacco alcohol intake: former Addt'l Information Additional Findings: NSR; > 4METS Review of Systems (Anesthesia) ROS Narrative System reviewed and no additional complaints, except as documented. Physical Exam Const alert and oriented x3 Neck full ROM Resp normal respiratory effort and normal air movement Auscultation: clear to auscultation bilaterally Cardio regular rate and regular rhythm Back/Spine normal ROM Neuro oriented x3 and moves all extremities
[2025-02-20] MEDS: Midazolam 2 MG/2 ML Syringe IV (08:44)
[2025-02-20] MEDS: Cefazolin 1 GM/5 ML Vial 2 GM IV (08:45)
--- NOTE | 2025-02-20 09:05 | PROST_PTH ---
PATIENT: MERLENE GUNTER LOC: [facility] U#:[id number] AGE/SX: 65/M ROOM: NC318 RE02/20/[address]: Dr. Immanuel Centeno MD : 1960 BED: 1 DIS: 02/21/2025 SPEC #: [id number] RECD: 02/20/25 13:21 STATUS: CHANEL DOBBINSLauren #: [id number] MADDY: 02/20/25 09:[address]: Immanuel Centeno DEPT: SURGICAL PATHOLOGY RECD BY: Juan Miguel Crowder ENTERED: 02/20/25 15:10 SP TYPE: PROSTATE OTHR DR: Dr. Pacheco Duarte MD Tissues: A - Prostate, NOS B - Lymph node, NOS C - Lymph node, NOS Procedures: Immunohistochemical Stains Surgery Specimen Level V Surgery Specimen Level IHC Stain ADDITIONAL HEADER OPERATION: Laparoscopic robotic prostatectomy PRE-OP DIAGNOSIS: Malignant neoplasm of prostate, elevated PSA TISSUE SUBMITTED: A- Prostate, B- Left pelvic lymph node, C- Right pelvic lymph node MICROSCOPIC DIAGNOSIS A. Prostate, radical robotic prostatectomy: * Invasive adenocarcinoma focally involving the posterior surgical margin of the right lateral/posterior aspect of the mid-portion of the prostate (slice 3). * Delisa grade 3+3=6. * Involving less than 5% of the specimen. * Patchy acute inflammation. * See Synoptic Report. B. Lymph node, pelvic, left, excision: * Negative for malignancy - see note. Note: Most of the specimen is adipose. Scant lymphoid tissue is present. C. Lymph node, pelvic, right, excision: * Negative for malignancy. SYNOPTIC REPORT FOR CARCINOMA OF THE PROSTATE: Procedure:?RADICAL PROSTATECTOMY Histologic type:?ACINAR [place] score:?3+3=6 Grade group (1-5):?1 % pattern 4 in [place] 3+4=7 (na=not applicable):?na % tumor:?<5% ? Tumor extent (n=no, y=yes, na=not applicable):?Extraprostatic extension (f=focal, m=multifocal):?n ? Location of extraprostatic extension:?na ?? Microscopic invasion of bladder neck:?n ?? Seminal vesicle muscle wall invasion:?n ? Margins of main specimen (n=negative, p=positive, na=not applicable):?p ?? Distance of tumor to closest margin (cm):?0 ?? Longest contiguous positive margin (cm):?0.3 cm ?? Positive margin location:?right mid prostate, lateral/posterior aspect ? Regional lymph nodes: ?? Number examined:?2 ?? Number positive:?0 ? Additional findings (cribriform glands, intraductal carcinoma, lymphovascular invasion, therapy effect):?na pTNM:?pT2 N0 Comments:?The majority of the tumor is located in the left prostate. Mild patchy acute prostatitis is noted. IHC for PIN4 (A5, A16) highlights benign glandular hyperplasia ? Grade Group Definitions 1=Delisa 5-6,?2=[place] 3+4=7;?3=[place] 4+3=7,?4=Delisa 8;?5=[place] 9-10 ? Pathologic Staging Definitions (pTNM) Primary Tumor (pT) pT2:? Organ confined pT3a:??? Extraprostatic extension (focal is <1 high power field in 1-2 slides, multifocal is more) or Microscopic invasion of bladder neck (in thick muscle, no adjacent non-neoplastic glands) pT3b:??? Seminal vesicle muscle wall invasion pT4:? Invasion of external sphincter, rectum, bladder, levator muscles or pelvic wall Regional Lymph Nodes (pN) (periprostatic, pelvic, hypogastric, obturator, fossa of Marc[place], internal iliac, external iliac, sacral) pNX:? Cannot be assessed pN0:? No regional lymph node metastasis pN1:? Regional lymph node metastasis The above synoptic report complies, in slightly modified form, with the guidelines of the [employer] and the Association of Directors of Anatomic and Surgical Pathology for the reporting of cancer specimens ? ? MICROSCOPIC DESCRIPTION Slides are reviewed. All matched controls reacted appropriately. These tests were developed and their performance characteristics determined by [facility]. They may not have been cleared or approved by the U.S. Food and Drug Administration. The FDA has determined that such clearance or approval is not necessary. The above immunohistochemical markers and/or special stains have been reviewed by the Pathologist. GROSS DESCRIPTION Received in 3 formalin containers labeled with the patient's name and date of . Designated as: A. Prostate Is a 55.2 g radical prostatectomy with attached bilateral adnexa, measuring 5.3 (AB) x 4.6 (LR) x 3.1 (AP) cm. The capsule is shaggy however definitive capsular defects are not present. The specimen is inked as follows: Left: GreenRight: BlueAnterior: OrangePosterior: Black The specimen is serially sectioned from apex to base into 11 slices revealing knapp-yellow to white, spongy and nodular parenchyma; definitive mass lesions are not grossly appreciated. The left and right seminal vesicles/vasa deferentia measure as follows:Left vas deferens: 2.8 x 0.5 cmLeft seminal vesicle: 3.2 x 1.3 x 0.7 cmRight vas deferens 2.9 x 0.7 cmRight seminal vesicle: 2.9 x 1.3 x 1.0 cm Wet Machine Operator sections are submitted, sequentially from apex to base, as follows: Slice #1, apex (entirely submitted)A1: Left, radially sectionedA2: Right, radially sectioned Slice #3, apex (60% submitted)A3: Left lateral/posteriorA4: Right lateral/posterior Slice #5, mid (60% submitted)A5-A6: Left lateral/posteriorA7: Right lateral/posteriorSlice #6, mid (50% submitted)A8: Left lateral/posteriorA9: Left lateral Slice #7, mid (entirely submitted)A10: Left lateral/bpszhddaoT68: Left oqxqczwK30: Right lateral/repzlckqeO72: Right lateral Slice #9, base (entirely submitted)A14: Left lateral/uyxkenriuZ16: Right clhawmsxfQ42: Right lateral/posterior Slice #10, base (entirely submitted)A17-A19: Left, euxwkejdwbfuqW91-A32: Right, perpendicularSlice #11, adnexa insertion (50%, transportation services representative)A23: LeftA24: Right Vasa deferentia (entirely submitted)A25: Left, serially sectionedA 26: Right, serially sectioned Seminal vesicles (transportation services representative)A27: LeftA28: RightB. Left pelvic lymph node is a 3.2 x 2.3 x 1.0 cm portion of knapp-yellow, lobulated fat. Sectioning reveals glistening, fatty cut surfaces and a possible vessel. Entirely submitted in 3 cassettes. C. Right pelvic lymph node is a 3.3 x 2.6 x 1.0 cm portion of knapp-yellow, lobulated fat. Sectioning reveals focally firm, glistening fatty cut surfaces. Entirely submitted in 3 cassettes. SC 02/21/2025 CPT:[id number]
[2025-02-20] MEDS: 0.9% Normal Saline (1000mL) 1,000 ML 1000 ML IV (09:33)
[2025-02-20] MEDS: Lactated Ringers 2,000 ML 2000 ML IV (10:57)
[2025-02-20] MEDS: Lidocaine 1% (5 ml sdv) 5 ML Vial 15 ML IV (11:59)
--- NOTE | 2025-02-20 12:07 | OP.PCM_ITS ---
Operative Report (Standard) Operative Information Date of Procedure: 02/20/25 Pre-Operative Diagnosis: Prostate cancer Post-Operative Diagnosis: The same Surgery/Procedure Performed: Laparoscopic robotic assisted radical prostatectomy and bilateral pelvic complete lymph node dissection manager collection: No Type of Anesthesia: General RN Documented Start/Stop Times: Operation Date: 02/20/25 09:05 Case Time Into Pre-Op 02/20/25 06:59 Out of Pre-Op 02/20/25 08:29 Anesthesia Start 02/20/25 08:34 Into Room 02/20/25 08:34 Procedure Start 02/20/25 09:04 Procedure Start Time: 09:04 Procedure Stop Time: 12:07 Select all DRAINS/GRAFTS/IMPLANTS that apply: Drains Drain details: 18 [place] Bradley catheter Estimated Blood Loss: 500 cc Specimen collected: Yes Description of specimen(s) removed: Lymph nodes and prostate Description of surgery: Patient presented to the hospital for treatment of his prostate cancer with radical prostatectomy. In the preoperative setting we discussed the options of management for his prostate cancer including active surveillance, radiation treatments, radioactive seeds, and radical robotic prostatectomy. We discussed the side effects of surgery including the potential to lose erections. We discussed the potential to have bladder control problems with stress incontinence which can be temporary or permanent. We discussed the risk of the surgery including the risk of general anesthetic, risk of bleeding, risk of infection, and risk of formation of hernia either incisional hernia or inguinal hernia. After long discussion with the patient the preoperative setting and also reviewed this in the preop area patient signed the consent form and we proceeded with a radical prostatectomy. Patient was taken back to the operating room he was identified, time out procedure was performed and he was placed supine on the table he underwent general anesthesia with intubation. The abdomen was shaved prepped and draped in usual sterile fashion as well as the penis and testicles. A 16 [place]an catheter was placed into the bladder with clear return of urine. I then made an incision in the umbilicus and dissected down to the fascia advance a Veress needle into the peritoneal cavity and insufflated the peritoneal cavity with CO2 gas. I then placed a 12 mm trocar above the umbilicus. I then visualized the placement of the rest of the trochars, I placed a right arm robotic trocar, and air seal trocar, a suction port 5 mm trocar. And on the left side I placed 2 robotic arms. Once all the trochars were in placed the patient was put in steep Trendelenburg. And the robot was docked the arms were docked and then I placed the 0 degree camera through the robotic arm and also used a 30 degree camera during certain parts of the case. I used scissors in the right arm, prograsp in the third arm, and a bipolar in the second arm. Initial dissection was to free the sigmoid colon off the lateral wall this was done by meticulously dissecting off the peritoneum and the sigmoid colon off the left lateral wall. This then allowed the prograsp to retract the sigmoid colon out of the pelvis. I then went below the bladder and identified the vas deferens incised the peritoneum over the vas deferens and traced the vas deferens below the bladder to the prostate and identified the right and left vasa deferens. Below behind the vas deferens then the seminal vesicles were identified. I then dissected the seminal vesicle free using pinpoint electrocautery and then we identified the other seminal vesicle and then dissected this using pinpoint electrocautery I then elevated the vas deferens and several vesicles off the prostate and was able to sweep the Denonvilliers' fascia off the prostate posteriorly all the way up to the apex of the prostate. Working laterally I made sure I went as lateral as possible to sweep the Denonilliers' fascia off the posterior aspect of the prostate and worked my way back, I then transected the vas deferens and the left and right side the seminal vesicles were then dissected free. And then I pulled out of the pelvis. At this point the bladder was dropped creating the space of Retzius with the bladder on traction with the fourth arm. Using electrocautery I dissected in the anterior peritoneal fascia and then created the space of Retzius dissecting towards the prostate.The a total bilateral pelvic lymph node dissection was then performed. The right pelvic lymph nodes the nodes that were taken on the right side extended from the right iliac artery lateral pelvic sidewall up to the junction of the artery and the lymph nodes and down to the obturator nerve and then also below the drilling rig operator nerve all the lymph nodes were removed during to remove those lymph nodes we used clips and electrocautery to control small blood vessels and also the control lymphatic. I then went to the left side and again did an extensive lymph node dissection starting of the left iliac artery extending the left iliac vein on the lateral sidewall down to the obturator nerve and the left side beyond the drilling rig operator nerve down further behind it cleaning out all the lymphatic tissue all this tissue was sent off as a specimen we use clips and electrocautery during the dissection. At the end we cleaned out all the lymphatic tissue on the right pelvic wall and all the lymphatic tissue in the left pelvic wall.The prostate was then cleaned of the fat over the prostate and the fourth arm was used to retract the bladder and place traction. I then identified the endopelvic fascia that was overlying the prostate on the right side I incised endopelvic fascia and swept the levator muscles off the prostate all the way to the apex on the right side, I then worked my way anterior to the prostate then transected to the puboprostatic ligament and the underlying dorsal vein complex was not injured. I then went to the other side and identified the endopelvic fascia in the left side incised in a fashion the left side and swept the levator muscles off the prostate on the left side all the way up to the apex the puboprostatic ligament on the left side was then dissected and transected I then freed up the fascia overlying the dorsal vein complex. I then used the prograsp to encircled the dorsal vein complex with the prograsp and then switched over to the right and left needle dedicated intermodal truck driver and suture ligated the dorsal vein complex above the prograsp. The prograsp was then placed back in the bladder and put back on traction I then identified the junction between the bladder and the prostate and dissected down between the bladder and the prostate untilI came across the catheter we then dissected posteriorly to the bladder and prostate to free the prostate and the bladder off each other and the muscles between the bladder and the prostate was then cauterized to free up the bladder. I then went on top of the prostate and identified the endopelvic fascia on top of the prostate this was incised all the way to the apex and then we swept the endopelvic fascia off the prostate laterally and then identified the plane between endopelvic fascia and the prosthetic pseudocapsule and swept the fascia laterally until reaching the course of the neurovascular bundles and then released the neurovascular bundles off the prostate laterally all the way back in a retrograde fashion back to the junction of the pedicles then the prostate was placed on traction with the fourth arm pulling the prostate laterally identified the pedicle to the prostate between the seminal vesicles and the and the neurovascular bundle and this was taken using sequential small hemolocks. After the pedicle was taken the I then dissected underneath the prostate sweeping the neurovascular bundle off the prostate we able to follow the nice smooth plane between the neurovascular bundle and the pseudocapsule all the way to the apex once this was identified we swept this up all the way up to the apex and there was perfect nerve sparing on the right side. Then went to the left side the prostate identified the endopelvic fascia over the left side of the prostate I incised the endopelvic fascia all the way to the apex and then swept this off laterally I then released the neurovascular bundles on the left side of the prostate sweeping him off the prostate laterally I then elevated the prostate up up with the prostate and traction identified the pedicle to the prostate on the left side and then the pedicles taken with sequential Hem-o-leela clips I then was able to dissected the neurovascular bundle off the left posterior aspect the prostate this was a perfect dissection all the way up on the left side following the pseudocapsule all the way up the left side until we reached the apex of the prostate. After the both the neurovascular bundles has been swept off the posterior to the prostate I then went above and transected the dorsal vein complex there was minimal to no bleeding but then dissected down to the urethra and circumfencial dissected around the urethra I then switched the right and left arm with the needle drivers and I suture-ligated the dorsal vein complex again just to ensure that there was no bleeding from the dorsal vein complex. I then transected through the urethra with scissors and the prostate was then freed and released off the prostate bed and put an Endo Catch bag. At this point the bladder neck was reconstructed and then an anastomosis was performed between the prostate and the bladder with a 3 oh V-Loc stitch in a running fashion starting from the bladder neck at the 6 o'clock position working to the 12 o'clock position with continuous stitches to complete a perfect anastomosis between the bladder and the prostate. I then placed a new catheter into the bladder, an 18 [place]an la jolla tip catheter flushed the bladder and there was no leakage from the anastomosis I put 10 cc in the balloon and pulled it up pulled back gently. I then ensured that there was no bleeding from the dorsal vein complex no bleeding from the neurovascular bundles FloSeal was placed as necessary once hemostasis was ensured and adequate then I placed the bladder back in position in the pelvis the prostate was exchanged to the camera port I closed the air seal port with a 10 12 Hermes Unger stitch. And the extracted the prostate through the umbilicus. The robot was undocked all the ports were removed under direct visualization then closed the extraction site with 0 Vicryl with a CT1 needle once the extraction site was closed. I then closed all the incision with subcuticular stitches with 4-0 Monocryl and then bandages were placed on the incisions catheter was flushed to make sure it was draining well there was no clots and it was crystal clear patient's anesthetic was reversed he was extubated and taken back to the PACU in stable condition all the needles and sponges and instruments were accounted for. Blood loss was minimal and the dr slava was a 18 [place] Bradley catheter. No other surgical drain was left. I was present during the entire case. Surgical Findings: Very good bilateral nerve-sparing Complications Complications: No Admit VTE Documentation VTE Present on Admission: No VTE Mechan Device Prophylaxis: SCD's VTE Pharm Prophylaxis ordered?: No
--- NOTE | 2025-02-20 12:07 | PCM.DC ---
Discharge Instructions DC O2, CPAP, BIPAP needs Home O2 Discharge instructions: No Dressing / Incision Discharge Activity: Return to Normal Activity and May Not Drive (while taking narcotic pain medications.) Dressing / Incision Call your doctor if you observe: Fever of 101 or Higher Catheter: Bradley to leg bag and Bradley to large bag Drain: [place] Follow Up Care Please Follow Up With: Immanuel Centeno MD When: Call [phone] for an appointment Test Results: Test results from this visit will be discussed in further detail at your follow-up appointment, if applicable. Discharge Plan Admission Admit Date/Time: 02/20/25 06:49 Primary Reason for Your Visit: Radical prostatectomy Attending Provider: Immanuel Centeno Primary Care Provider: Pacheco Duarte Discharge Orders/Prescriptions Prescriptions: New oxycodone 5 mg tablet 5 mg PO Q6H PRN (Reason: pain) 7 Days Qty: 14 0RF ciprofloxacin HCl 500 mg tablet 500 mg PO BID Qty: 20 0RF docusate sodium [Colace] 100 mg capsule 100 mg PO BID Qty: 20 0RF Continued diclofenac sodium 1 % gel 4.5 inch topical ONCE PRN (Reason: pain) Rx Instructions: apply to single elbow, wrist or hand; for hand includes palm/fingers/back of hand amitriptyline 10 mg tablet 10 mg PO QHS Qty: 30 2RF metoprolol tartrate 25 MG tablet 12.5 mg PO BID calcium-magnesium 300-300 mg tablet 1 tab PO DAILY Rx Instructions: administer with a meal lorazepam 0.5 mg tablet 0.5 mg PO DAILY PRN (Reason: anxiety) zinc gluconate 30 mg tablet 30 mg PO DAILY Vitamin B-12 50 mcg tablet 50 mcg PO DAILY K2 Plus D3 1,000-100 unit-mcg tablet 1 tab PO DAILY LC-655 118 mg magnesium capsule 150 mg PO DAILY Linzess 145 mcg capsule 145 mcg PO DAILY Discontinued tamsulosin 0.4 mg capsule 0.8 mg PO QDAY Other Ambulatory Orders: 12 Lead EKG (Routine) Location: None Selected Ordered By: Dr. Austyn Soto Referrals / Follow Up: Pacheco Duarte MD [Primary Care Provider, Family Practice] Immanuel Centeno MD [Med Staff - Active Staff, Urology] Disposition Disposition (needs filled in before D/C Order can be placed): Home, Self Care
--- NOTE | 2025-02-20 12:24 | PCM.POST.ANE ---
Anesthesia: Postop Eval I Current Vital Signs Temperature: 97.3 F Pulse Rate: 75 Blood Pressure: 100/73 Respiratory Rate: 16 Pulse Ox: 95 Oxygen Delivery Method: Nasal Cannula Oxygen Flow Rate (L/min): 4 Assessment Airway patent: Yes Spontaneous unlabored respirations: Yes Mental status: Awake and Calm nausea: No Vomiting: No Anesthesia Complication: No Fluid Hydration Crystalloid volume administer (ml): 3,000 Total IV fluid infused: 3,000 Progress Note Anesthesia document: Postop Eval 1 completed: Yes
--- NOTE | 2025-02-20 14:27 | POSTOPAN2_ITS ---
Anesthesia Postop Eval I Sum Postop Eval Completion status Anesthesia document: Postop Eval 1 completed: Yes Anesthesia Postop Eval I Summary Anesthesia Postop Eval I Summary: Anesthesia Postop Eval I: Assessment Summary Airway patent Yes 02/20/25 12:25 [email or web address] Spontaneous unlabored Yes 02/20/25 12:25 [email or web address] [email or web address] respirations Mental status Awake,Calm 02/20/25 12:25 [email or web address] nausea No 02/20/25 12:25 [email or web address] [email or web address] Vomiting No 02/20/25 12:25 [email or web address] [email or web address] Anesthesia Postop Eval I: Fluid Summary Crystalloid volume administer 3,000 02/20/25 12:25 [email or web address] [email or web address] (ml) Colloids volume administered ( ml) Blood Product volume administered (ml) Total IV fluid infused 3,000 02/20/25 12:25 [email or web address] [email or web address] Anesthesia Postop Eval I: Summary Notes Anesthesia Complication No 02/20/25 12:25 [email or web address] Anesthesia Complication Comment: Post-operative progress note Anesthesia: Postop Eval II Evaluation Mental status: Awake and Calm Pain Level: 3 nausea: No Vomiting: No Complications Anesthesia Complication: No
--- NOTE | 2025-02-20 14:27 | PCM.POSTANE2 ---
Anesthesia Postop Eval I Sum Postop Eval Completion status Anesthesia document: Postop Eval 1 completed: Yes Anesthesia Postop Eval I Summary Anesthesia Postop Eval I Summary: Anesthesia Postop Eval I: Assessment Summary Airway patent Yes 02/20/25 12:25 [email or web address] Spontaneous unlabored Yes 02/20/25 12:25 [email or web address] [email or web address] respirations Mental status Awake,Calm 02/20/25 12:25 [email or web address] nausea No 02/20/25 12:25 [email or web address] [email or web address] Vomiting No 02/20/25 12:25 [email or web address] Anesthesia Postop Eval I: Fluid Summary Crystalloid volume administer 3,000 02/20/25 12:25 [email or web address] (ml) Colloids volume administered ( ml) Blood Product volume administered (ml) Total IV fluid infused 3,000 02/20/25 12:25 [email or web address] [email or web address] Anesthesia Postop Eval I: Summary Notes Anesthesia Complication No 02/20/25 12:25 [email or web address] Anesthesia Complication Comment: Post-operative progress note Anesthesia: Postop Eval II Evaluation Mental status: Awake and Calm Pain Level: 3 nausea: No Vomiting: No Complications Anesthesia Complication: No
[2025-02-20] MEDS: 0.9% Normal Saline (1000mL) 1,000 ML 125 ML IV ×2 (14:38→21:37)
[2025-02-20] MEDS: Nicotine (PBKC) 14 MG Patch TD (16:17)
[2025-02-21 00:44] VITALS: BP 155/107; PULSE 98; RESP 18; TEMP 37; O2SAT 95
[2025-02-21 05:25] VITALS: BP 159/104; PULSE 94; RESP 18; TEMP 36.8; O2SAT 93
--- NOTE | 2025-02-21 06:55 | PCM.DC.SUM ---
Providers Date of Admission: 02/20/25 Date of Discharge: 02/21/25 Primary Care Physician: Dr. Pacheco Duarte MD Reason For Visit: Lap Robotic Prostatectomy Medications at Discharge Home Medications metoprolol tartrate 25 mg tablet 12.5 mg PO BID htn 12/01/14 cholecalciferol (vit D3) 1,000 unit-vitamin K2 (MK4) 100 mcg tablet (K2 Plus D3) 1 tab PO DAILY supplement 09/26/24 cyanocobalamin (vitamin B-12) 50 mcg tablet (Vitamin B-12) 50 mcg PO DAILY supplement 09/26/24 linaclotide 145 mcg capsule (Linzess) 145 mcg PO DAILY IBS 09/26/24 magnesium glycinate (LC-655) 150 mg PO DAILY supplement 09/26/24 zinc gluconate 30 mg tablet 30 mg PO DAILY supplement 09/26/24 diclofenac sodium 1 % topical gel 4.5 inch topical ONCE PRN pain 12/11/24 calcium-magnesium 300 mg-300 mg tablet 1 tab PO DAILY supplement 02/06/25 lorazepam 0.5 mg tablet 0.5 mg PO DAILY PRN anxiety 02/06/25 amitriptyline 10 mg tablet 10 mg PO QHS panic disorder #30 tabs 02/18/25 ciprofloxacin HCl 500 mg tablet 500 mg PO BID #20 tabs 02/20/25 docusate sodium 100 mg capsule (Colace) 100 mg PO BID #20 caps 02/20/25 oxycodone 5 mg tablet 5 mg PO Q6H PRN pain 7 days #14 tabs 02/20/25 Hospital Course Operations - (Robotic Radical Prostatectomy) Summary of Care Provided Hospital Course: Doing well, home pod#1 after radical prostatectomy Weight / BMI Weight Weight: 90 kg Body Mass Index (BMI) 26.2 ABG / Lab / Microbiology Data 02/11/25 07:27 02/11/25 07:28 D/C Instructions Call your doctor if you observe: Fever of 101 or Higher Catheter: Bradley to leg bag and Bradley to large bag Drain: [place] DC O2, CPAP, BIPAP Needs Home O2 Discharge instructions: No Please Follow Up With: Immanuel Centeno MD When: Call [phone] for an appointment Meaningful Use Info Meaningful Use Meaningful Use Diagnoses (Choose all that apply): None applicable Discharge Plan Admission Admit Date/Time: 02/20/25 06:49 Primary Reason for Your Visit: Radical prostatectomy Attending Provider: Immanuel Centeno Primary Care Provider: Pacheco Duarte Discharge Orders/Prescriptions Prescriptions: New oxycodone 5 mg tablet 5 mg PO Q6H PRN (Reason: pain) 7 Days Qty: 14 0RF ciprofloxacin HCl 500 mg tablet 500 mg PO BID Qty: 20 0RF docusate sodium [Colace] 100 mg capsule 100 mg PO BID Qty: 20 0RF Continued diclofenac sodium 1 % gel 4.5 inch topical ONCE PRN (Reason: pain) Rx Instructions: apply to single elbow, wrist or hand; for hand includes palm/fingers/back of hand amitriptyline 10 mg tablet 10 mg PO QHS Qty: 30 2RF metoprolol tartrate 25 MG tablet 12.5 mg PO BID calcium-magnesium 300-300 mg tablet 1 tab PO DAILY Rx Instructions: administer with a meal lorazepam 0.5 mg tablet 0.5 mg PO DAILY PRN (Reason: anxiety) zinc gluconate 30 mg tablet 30 mg PO DAILY Vitamin B-12 50 mcg tablet 50 mcg PO DAILY K2 Plus D3 1,000-100 unit-mcg tablet 1 tab PO DAILY LC-655 118 mg magnesium capsule 150 mg PO DAILY Linzess 145 mcg capsule 145 mcg PO DAILY Discontinued tamsulosin 0.4 mg capsule 0.8 mg PO QDAY Other Ambulatory Orders: 12 Lead EKG (Routine) Location: None Selected Ordered By: Dr. Austyn Soto Referrals / Follow Up: Pacheco Duarte MD [Primary Care Provider, Family Practice] Immanuel Centeno MD [Med Staff - Active Staff, Urology] Disposition Disposition (needs filled in before D/C Order can be placed): Home, Self Care
[2025-02-21 08:36] VITALS: BP 194/96; PULSE 71
[2025-02-21 09:22] VITALS: BP 194/96; PULSE 71; RESP 16; TEMP 36.9; O2SAT 97
--- NOTE | 2025-02-21 10:10 | CASEMGMT ---
SHAUNNA TAM into pt room, pt sitting at bedside. Pt intends to DC home with family support. SHAUNNA TAM discussed Pt going home with benavides catheter, Pt and Pt state they are comfortable with this. Nurse will provide education before DC. Pt denies any needs or questions at this time.
[2025-02-21 12:30] VITALS: BP 147/86
--- OUTSIDE RECORDS SUMMARY | 2025-02-21 23:55 | XMS RPT_ITS | CCD ---
Author Organization [facility] Care Team Providers Care Mail Caller Name Role Phone Kristyn Manning LPN N Unavailable [phone] Kristyn Manning LPN Unavailable [phone] Felicia LYLES, Harsha Gautam Primary Care [...] Admitting Unavailable Harsha Duarte Primary Care Unavailable Hira Huff Attending Unavailable Harsha Duarte Referring Unavailable Harsha Duarte Primary Care Unavailable Kofi Delaney Attending Unavailable Harsha Duarte Primary Care Unavailable Kofi Delaney Attending Unavailable Judy Oconnor Attending Unavailable Harsha Duarte Primary Care Unavailable Ranney, Christopher Referring Unavailable Rancrane, [facility] R[facility] Primary Care Unavailable Kofi Delaney Attending Unavailable Lewis, Immanuel Hager Attending Unavailable Lewis, Magno Referring Unavailable Ranney, [facility] Primary Care Unavailable Lewis, Magno Attending Unavailable Lewis, Magno Referring Unavailable Ranney, [facility] Primary Care Unavailable Lewis, Magno Attending Unavailable Lewis, Magno Admitting Unavailable Lewis, Magno Referring Unavailable Ranney, [facility] Primary Care Unavailable Lewis, Magno Attending Unavailable Lewis, Magno Referring Unavailable Ranney, [facility] Primary Care Unavailable Ranney, [facility] Primary Care Unavailable Lewis, Magno Referring Unavailable Lewis, Magno Attending Unavailable Lewis, Magno Attending Unavailable Lewis, Magno Referring Unavailable Ranney, [facility] Primary Care Unavailable Beeler, Allyson Referring Unavailable Beeler, Allyson Attending Unavailable Rancrane, [place] Primary Care Unavailable Ranney, Christopher Attending Unavailable Rancrane, [place] Primary Care Unavailable Ranney, Christopher Referring Unavailable Rancrane, [place] Primary Care Unavailable Ranney, Christopher Referring Unavailable Ranney, Christopher Attending Unavailable Rancrane, [place] Primary Care Unavailable Kofi Delaney Attending Unavailable Allergies Allergy Classification Reported Allergen(s) Allergy Type Date of Onset Reaction(s) Facility (2 sources) ANTIHISTIMINES drug allergy Hyperactivity [facility] Work Phone: (10 sources) Antihistimine; Translations: [ANTIHISTIMINE] Drug Intolerance 07-23-19 11 Other: See Comments [facility] (5 sources) Antidepressants Propensity to adverse reactions 06-10-19 Other [facility] (5 sources) Antihistamines Propensity to adverse reactions 06-10-19 Other [facility] (2 sources) traZODone Drug Allergy 04-09-20 23 Intolerance [facility] (1 source) Histamine H2 Inhibitors Propensity to adverse reactions 04-09-20 23 NEEDS FOLLOW-UP [facility] (2 sources) Tetracyclic Antidepressants Propensity to adverse reactions 04-09-20 23 Intolerance [facility] (1 source) Tricyclic Antidepressants and Tricy Propensity to adverse reactions 04-09-20 NEEDS FOLLOW-UP [facility] (1 source) Histamine Drug Allergy 04-09-20 Intolerance [facility] (1 source) Histamine H>2< antagonist Drug Allergy 04-09-20 Intolerance [facility] (1 source) Tricyclic Antidepressants And Tricyclic Compounds Drug Allergy 04-09-20 Intolerance [facility] (1 source) Citalopram Drug Allergy 02-07-20 [facility] Repository (1 source) Doxepin Drug Allergy 02-07-20 [facility] Repository (1 source) fentaNYL Drug Allergy 02-07-20 [facility] (1 source) Histamine Drug Allergy 02-07-20 [facility] (1 source) Sertraline Drug Allergy 02-07-20 [facility] (1 source) venlafaxine Drug Allergy 02-07-20 [facility] (1 source) zolpidem Drug Allergy 02-07-20 [facility] (1 source) Tricyclic Antidepressants and Tricy Drug allergy (disorder) 02-07-20 [facility] Rep[facility] (1 source) Tetracyclic Antidepressants Drug allergy (disorder) 02-07-20 [facility] (1 source) Phenylpiperazine Antidepressant Drug allergy (disorder) 02-07-20 [facility] Medications Current Medications Medication [...] Start: 12-13-2011 take 1 tablet by olivia th twice daily BUSPIRONE HCL 15 MG TABS One tablet by mouth twice daily BUSPIRONE HCL [id number] Jasmyn Molina MD Start: 07-22-2011 take 1 tablet by olivia th twice daily BUSPIRONE HCL 7.5 MG TABS One tablet by mouth twice daily BUSPIRONE HCL [id number] Monse Rosales Comment on above: Take 10 [...] 200 M G TABS as directed IBUPROFEN [id number] Kristyn Manning LPN Start: 06-08-2011 IBUPROFEN TABS IBUPROFEN TABS [id number] Monse Rosales Start: 06-08-2011 End: 12-13-2011 IBUPROFEN TABS 04/28/23 IBUPROFEN TABS [id number] Jasmyn Molina MD linaclotide 0.072 mg oral [...] 500 MG PO TWICE A DAY 14 7 June 24, 2019 1:00am July 01, 2019 [...] BUPROPION HCL 75 MG TABS BUPROPION HCL [id number] Monse Rosales clonazePAM 0.5 mg oral tablet [...] to three times a day DICLOFENAC SODIUM [id number] Jasmyn Molina MD Start: 12-13-2011 VOLTAREN 1 % G EL 2gram apply to affected area twice daily to three times a day DICLOFENAC SODIUM 85861513458 Jasmyn Molina MD DULoxetine 60 mg delayed release oral capsule (6 sources) Serotonin and Norepinephrine Reuptake Inhibitor Start: 12-01-2014 End: 05-07-2017 take 60 mg by mouth once daily Duloxetine Discontinued 60 MG PO DAILY December 01, 2014 12:00am May 07, 2017 11:49am hydrocortisone 10 mg/ml / neomycin 3.5 mg/ml / polymyxin b 72562 unt/ml otic solution (2 sources) Aminoglycoside Antibacterial, Polymyxin-class Antibacterial, Corticosteroid Start: 11-13-2016 End: 11-20-2016 CORTISPORIN 3.5-51464-6 SOLN 4 drops left ear three times per day NEOMYCIN-POLYMYXIN -HC [id number] Taras ELKINS-Riley Start: 11-13-2016 End: 11-20-2016 CORTISPORIN 3.5-12239-7 SOLN 4 drops left ear three times per day NZFVPKSH-JZIOEFVHC-CJ [id number] Taras Noriega 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 HYDROmorphone hydrochloride 16 mg extended [...] 75 MG TABS as directed METOPROLOL TARTRATE [id number] Kristyn Manning LPN Start: 12-01-2014 take 12.5 mg [...] 500 MG PO TWICE A DAY 14 7 June 24, 2019 1:00am July 01, 2019 1:08am polyethylene glycol 3350 574643 mg / potassium chloride 2970 mg / sodium bicarbonate 6740 mg / sodium chloride 5860 mg / sodium sulfate 14272 mg powder for oral solution (4 sources) [...] prostate; Translations: [Malignant neoplasm of prostate] Onset: 02-07-2025 Chronic Cataract (1 source) Bilateral age-related nuclear [...] [Chronic pain syndrome] Onset: 03-12-2015 03-12-2015 Chronic Spondylosis; intervertebral disc disorders; other back problems [...] eye, initial encounter] Onset: 04-02-2020 04-02-2020 Episodic Other screening for suspected conditions (not mental disorders or infectious disease) (1 source) Elevated prostate specific antigen [PSA]; Translations: [Elevated prostate specific antigen [PSA]] Onset: 10-09-2024 Episodic Residual codes; unclassified (12 sources) Family [...] Test Name Value Interpretation Reference Range Facility 12 Lead EKGon 02-11-2025 12 Lead EKG [facility] Cardi[facility] Services [address] [place] [address] 12 Lead EKG 02/11/25 0711 MR#: [id number] Acct: [id number] Name: MERLENE UNGER Rep #: [id number] : 1960 65 From: Shad Chang MD Attending Dr: Dr. Immanuel Saucedo MD Status: PRE IN Ordering Dr: Austyn Soto MD Date: 02/11/25 [facility] Sex: M C Admitted: Test Reason : PREOP Blood Pressure : */* mmHG Vent. Rate : 52 BPM Atrial Rate : 52 BPM P-R Int : 176 ms QRS Dur : 112 ms QT Int : 466 ms P-R-T Axes : 5 -29 20 degrees QTcB Int : 433 ms Sinus bradycardia Otherwise normal ECG No previous ECGs available Confirmed by YU LYLES, SHAD ([id number]), copy editor KOLE PHELPS ([id number]) on 02/11/2025 10:34:34 AM Referred By: Immanuel Saucedo Confirmed By: SHAD CHANG MD 02/11/25 1034 Date Shad Chang MD CC: Dr. Harsha Duarte MD; Dr. Austyn Soto MD; Dr. Immanuel Saucedo MD Signed Normal [facility] Basic Metabolic Profile (BMP )on 02-11-2025 BUN/CRE 16.7 RATIO Normal 10-20 [facility] Comment on above: Performed By: #### L 500.2500 ####[facility] [address] [place], [address] Calcium [Mass/Vol] 9.1 mg/dL Normal 7.6-11.0 [facility] Comment on above: Performed By: #### L 500.2500 ####[facility] [address] [place], [address] Chloride [Moles/Vol] 103 mmol/L Normal 98-108 [facility] Comment on above: Performed By: #### L 500.2500 ####[facility] [address] [place], [address] CO2 [Moles/Vol] 24.0 mmol/L Normal 21.0-32.0 [facility] Comment on above: Performed By: #### L 500.2500 ####[facility] [address] [place], [address] Creatinine [Mass/Vol] 0.99 mg/dL Normal 0.70-1.20 [facility] Comment on above: Performed By: #### L 500.2500 ####[facility] [address] [place], [address] GAP 10 Normal 5-15 [facility] Comment on above: Performed By: #### L 500.2500 ####[facility] [address] [place], [address] GFR/1.73 sq M.predicted among non-blacks MDRD (S/P/Bld) [Vol rate/Area] 85 mL/min/{1.73_m2} Normal >60 [facility] Comment on above: Result Comment: mL/m in/1.73m2 CKD-EPI Creatinine Equation (2020) Performed By: #### L 500.2500 ####[facility] [address] [place], [address] Glucose [Mass/Vol] 97 mg/dL Normal 70-99 [facility] Comment on above: Performed By: #### L 500.2500 ####[facility] [address] [place], [address] Potassium [Moles/Vol] 4.5 mmol/L Normal 3.3-5.1 [facility] Comment on above: Performed By: #### L 500.2500 ####[facility] [address] [place], [address] Sodium [Moles/Vol] 137 mmol/L Normal 133-145 [facility] Comment on above: Performed By: #### L 500.2500 ####[facility] [address] [place], [address] Urea nitrogen [Mass/Vol] 17 mg/dL Normal 4-19 [facility] Comment on above: Performed By: #### L 500.2500 ####[facility] [address] [place], [address] CBC-Complete Blood [facility]nt [facility] Erythrocyte distribution width (RBC) [Ratio] 12.8 % Normal 11.6-14.6 [facility] Comment on above: Order Comment: SEND TO DOCTOR LEWIS Performed By: #### B TSPAT, L100.0500 ####[facility] [address] [place], [address] Hematocrit (Bld) [Volume fraction] 40.9 % Normal 40-54 [facility] Comment on above: Order Comment: SEND TO DOCTOR LEWIS Performed By: #### B TSPAT, L100.0500 ####[facility] [address] [place], [address] Hemoglobin (Bld) [Mass/Vol] 13.6 g/dL Normal 13.0-16.5 [facility] Comment on above: Order Comment: SEND TO DOCTOR LEWIS Performed By: #### B TSPAT, L100.0500 ####[facility] [address] [place], [address] MCH (RBC) [Entitic mass] 30.0 pg Normal 27.0-32.0 [facility] Comment on above: Order Comment: SEND TO DOCTOR LEWIS Performed By: #### B TSPAT, L100.0500 ####[facility] [address] [place], [address] MCHC (RBC) [Mass/Vol] 33.3 g/dL Normal 32-36 [facility] Comment on above: Order Comment: SEND TO DOCTOR LEWIS Performed By: #### B TSPAT, L100.0500 ####[facility] [address] [place], [address] MCV (RBC) [Entitic vol] 90.1 fL Normal 80-94 [facility] Comment on above: Order Comment: SEND TO DOCTOR LEWIS Performed By: #### B TSPAT, L100.0500 ####[facility] [address] [place], [address] Platelet mean volume (Bld) [Entitic vol] 10.0 fL Normal 6.2-12.0 [facility] Comment on above: Order Comment: SEND TO DOCTOR LEWIS Performed By: #### B TSPAT, L100.0500 ####[facility] [address] [place], [address] Platelets (Bld) [#/Vol] 265 10*3/uL Normal 150-450 [facility] Comment on above: Order Comment: SEND TO DOCTOR LEWIS Performed By: #### B TSPAT, L100.0500 ####[facility] [address] [place], [address] RBC (Bld) [#/Vol] 4.54 10*6/uL Low 4.6-6.2 [facility] Comment on above: Order Comment: SEND TO DOCTOR LEWIS Performed By: #### B TSPAT, L100.0500 ####[facility] [address] [place], [address] RDW SD 42.0 fl Normal 35.1-43.9 [facility] Comment on above: Order Comment: SEND TO DOCTOR LEWIS Performed By: #### B TSPAT, L100.0500 ####[facility] [address] [place], [address] WBC (Bld) [#/Vol] 6.2 10*3/uL Normal 4.4-11.0 [facility] Comment on above: Order Comment: SEND TO DOCTOR LEWIS Performed By: #### B TSPAT, L100.0500 ####[facility] [address] [place], [address] Type AND Screen - PAT ONLYon 02-11-2025 ABO and Rh group Nom (Bld) Blood group A Rh(D) negative Normal [facility] Comment on above: Order Comment: Reaso n for Laboratory Test [id number] prostatectomy Performed By: #### B TSPAT, L100.0500 ####[facility] [address] [place], [address] Pelvis W/WO Contraston 01-30 Pelvis W/WO Contrast [facility] Imaging Services [address] [place] [address] Pelvis W/WO Contrast MR#: [id number] Acct: [id number] Name: MERLENE UNGER Rep #: [id number] : 1960 M 65 From: Tim patricia MD PCP: Dr. Harsha Duarte MD Status: REG CLI Study: Pelvis W/WO Contrast Date of Exam: 01/30/25 Exam# [id number] Ordering Dr: Immanuel Saucedo MD EXAM: PELVIS W/WO CONTRAST 01/30/2025 CLINICAL HISTORY: RISING PSA LEVELS. History of prostate cancer TECHNIQUE: Procedure Code: MRIPELWW Modality: MR Procedure: PELVIS W/WO CONTRAST Multiplanar and multisequence images were obtained intravenous gadolinium contrast. CONTRAST: Clariscan VOLUME: 18 mL COMPARISON: Previous MRI of the prostate dated 09/19/2024 FINDINGS: Image quality:Diagnostic PSA:7.62ng/mL Prostate size: 5.5 x 4.9 x 4.3cms Prostate volume: 60.68mL PSA density:0.126 ng/mL??? Prostate Peripheral zone: Lenticular shaped lesion in the right peripheral zone midgland measuring 20 by 12 mm and demonstrating slight peripheral restricted diffusion and enhancement. Remaining peripheral zone is within normal limits. T2 weighted imaging score:5 DWI score: 5 DCE: Negative PI-RADS: PI-RADS 5: very high (clinically significant cancer is highly likely to be present) Transitional zone: Benign prostatic hyperplasia with numerous nodules appreciated. There is a dominant well-circumscribed encapsulated nodule measuring 16 x 15 mm within the left transitional zone anterior and posterior towards the base and extending to the midgland with restricted diffusion, dark ADC map and positive contrast enhancement T2 weighted imaging score:3. DWI: 2 DCE: Positive PI-RADS: PI-RADS 5: very high (clinically significant cancer is highly likely to be present) Extra prostatic extension: Capsule is intact. Seminal vesicles: Normal. Neurovascular involvement: None. Lymphadenopathy: No lymphadenopathy. Bladder: Normal. Osseous structures: Normal. Gastrointestinal: Diverticulosis without active diverticulitis.. Soft tissues: Fat containing left inguinal hernia. MRI/Pelvis W/WO Contrast IMPRESSION: Peripheral zone: Previously described PI-RADS 4 lesion obscured by underlying hemorrhage with persistent suspicious features. No definitive evidence of microinvasion on today's exam. Prostatic capsule is better delineated on today's study. No lymphadenopathy or neurovascular extension of disease. Hyperplastic nodule in the left transitional zone anterior gland base. PI-RADS 3: intermediate (the presence of clinically significant cancer is equivocal) Reading Location: [facility] CC: Dr. Harsha Duarte MD; Dr. Immanuel Saucedo MD Cigar Wrapper: Signed Normal [facility] MR/BMS.BPon 01-07-2025 MR/BMS.BP [facility] [address], [address] [place] [address] OFFICE VISIT Date of Service: 01/07/25 MR#: [id number] Acct: [id number] Name: MERLENE UNGER Rep #: [id number] : 1960 Provider: Dr. Kofi Niño se, DO Age/Sex: 64/M Location: [facility] Status: Signed Intake Vital Signs 11/21/24 14:55 [...] ok. Recently went on a trip to [place] and was able to drive himself there [...] joint pa (more content not included)... Normal [facility] PSA,Total- Diagnosticon 12-21 PSA, DIAGNOSTIC 7.62 ng/mL High 0.00-4.00 [facility] Comment on above: Result Comment: [...] baseline values. Performed By: #### L 501.9940 ####[facility] [address] [place], [address] Surgery Visit Reporton 12-11 Surgery Visit Report [facility] [address] [place] [address] OFFICE VISIT Date of Service: 12/11/24 MR#: [id number] Acct: [id number] Name: MERLENE UNGER Rep #: [id number] : 1960 Provider: Dr. Judy hanley MD Age/Sex: 64/M Location: [facility] Status: Signed Intake Vital Signs 11/21/24 14:55 12/11/24 09:28 Height 6 ft 1 in 6 ft 1 in Weight: 205 lb 209 lb BMI 27.0 27.6 BP 124/76 H 150/86 H Blood Pressure Location Lt brachial Rt brachial Position Sitting Sitting Respiration 16 18 Pulse 82 Pulse Source Monitor Intake Visit Reasons: INGUINAL HERNIA Chief Complaint: inguinal hernia Liaison Engineer Required: No Is patient in pain?: No [...] No hemorrhoids, (more content not included)... Normal [facility] MR/BMS.BPon 11-21-2024 MR/BMS.BP [facility] [address], [address] [place] [address] OFFICE VISIT Date of Service: 11/21/24 MR#: [id number] Acct: [id number] Name: MERLENE UNGER Rep #: [id number] : 1960 Provider: Dr. Kofi Niño se, DO Age/Sex: 64/M Location: [facility] Status: Signed Intake Vital Signs 10/10/24 15:01 [...] QDAY 10/10/24 11/21/24 H istory [facility] Medical History (Updated 10/11/24 @ 06:42 by [...] having put father in law in the skilled nursing in the last 6 months or so. [...] use disorder: (more content not included)... Normal [facility] MR/BMS.BPon 10-10-2024 MR/[place] [address] OFFICE VISIT Date of Service: 10/10/24 MR#: [id number] Acct: [id number] Name: MERLENE UNGER Rep #: [id number] : 1960 Provider: Dr. Kofi Niño se, DO Age/Sex: 64/M Location: [facility] Status: Signed Intake Vital Signs 04/09/23 08:10 [...] panic attack when driving on [address] towards [place]. Stopped in the ER in [place] and had workup which was largely normal. Ended up having cardiac workup which was also largely normal. Had another similar episode when driving [place] into to [place]. 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 Normal [facility] Urgent Care Visit Reporton 0 10-06-2024 Urgent Care Visit Report [facility] [address], [address] [place] [address] OFFICE VISIT Date of Service: 10/06/24 MR#: [id number] Acct: [id number] Name: MERLENE UNGER Rep #: [id number] : 1960 Provider: WALKER Collado Age/Sex: 64/M Location: [facility] Status: Signed Intake Vital Signs 10/03/24 10:15 [...] been going on since Tue. [facility] Medical History Wears hearing aid Depression Anxiety [...] 0RF cough (more content not included)... Normal [facility] Discharge Instructionon 09-20 Discharge Instruction [facility] Medical Records Department [address] [place] [address] Instructions for Home/Discharge Instructions 10/03/24 1514 MR#: [id number] Acct: [id number] Name: MERLENE UNGER Rep #: [id number] : 1960 64 From: Immanuel Saucedo MD [...] Up With: Immanuel Saucedo MD When: Call [phone] for an appointment Test Results: Test results from this visit will be discussed in further detail at your follow-up appointment, if applicable. Discharge Plan Admission Attending Provider: Immanuel Saucedo Primary Care Provider: Harsha Duarte Instructions Print Language: Czech Discharge Orders/Prescriptions Prescriptions: No Action metoprolol tartrate [...] can be placed): Home, Self Care 10/03/24 151 Immanuel Saucedo MD CC: Dr. Harsha Duarte MD Signed [facility] Immunohistochemical Stainson 10-03-2024 Immunohistochemical Stains Patient Age/Sex Location Account Attending Physician MERLENE UNGER 64/M [facility] [id number] Dr. Immanuel Saucedo MD Specimen: [id number] Received: 10/03/24 Status: CHANEL Roberth Num: [id number] Spec Type: PROST BX Subm Dr: Dr. [...] B. Prostate, left mid, biopsy: * Adenocarcinoma Delisa 3+3=6, 1 of 2 cores, involving 7% [...] developed and their performance characteristics determined by [facility] Laboratory. They may not have been cleared or approved by the U.S. Food and Drug Administration. The FDA has determined that such clearance or approval is not necessary.??? The above immunohistochemical/dual WILY???markers are ordered and reviewed by the Pathologist.. Patient Age/Sex Location Account Attending Physician MERLENE UNGER 64/M [facility] [id number] Dr. Immanuel Saucedo MD GROSS DESCRIPTION A. [...] soft tissue. Submitted in toto in G1. [facility] 10-04-2024 CPT:05971n0, 96396 Patient Age/Sex Location Account Attending Physician MERLENE UNGER 64/[place] [facility] [id number]. Immanuel Saucedo MD Signed (signature on file) Dr. Bella Gerber MD 10/08/24 1402 Normal [facility] Comment on above: Performed By: #### P BOBY #### [facility] Laboratory [address] [place], [place], [address] MR/POSTOP.[facility] 10-03-2024 MR/POSTOP.[facility] Medical Records Department [address] [place] [address] Anesthesia Postop Eval I 10/03/24 1624 MR#: [id number] Acct: [id number] Name: MERLENE UNGER Rep #: [id number] : 1960 64 From: Abraham Peraza CRNA PCP: Dr. Harsha Duarte MD Status:[facility] Y Race: C Location: [place] [address] Anesthesia: Postop Eval I Current Vital Signs [...] document: Postop Eval 1 completed: Yes 10/03/24 162 Date Abraham Peraza CRNA Cosigner Signature: Date CC: Signed Normal [facility] MR/SECRXPEO6ic 10-03-[address] Medical Records Department [address] [place] [address] Anesthesia Postop Eval II 10/03/24 1755 MR#: [id number] Acct: [id number] Name: MERLENE UNGER Rep #: [id number] : 1960 64 From: Conner Guzman MD PCP: Dr. 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.PKEL Spontaneous unlabored Yes 10/03/24 16:24 [employer] SHOE INSPECTOR AND REWORKER.PKEL respirations Mental status Awake,Calm 10/03/24 16:24 [employer] SHOE INSPECTOR AND REWORKER.PKEL nausea No 10/03/24 16:24 SAMPLE SHOE INSPECTOR AND REWORKER.PKEL Vomiting No 10/03/24 16:24 SAMPLE SHOE INSPECTOR AND REWORKER.PKEL Anesthesia Postop Eval I: Fluid Summary Crystalloid volume administer 900 10/03/24 16:24 SAMPLE SHOE INSPECTOR AND REWORKER.PKEL (ml) Colloids volume administered ( ml) Blood Product volume administered (ml) Total IV fluid infused 900 10/03/24 16:24 SAMPLE SHOE INSPECTOR AND REWORKER.PKEL Anesthesia Postop Eval I: Summary Notes Anesthesia Complication No 10/03/24 16:24 SAMPLE SHOE INSPECTOR AND REWORKER.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 10/03/24 1756 Date Conner Guzman MD Cosigner Signature: Date CC: Signed Normal [facility] Operative Reporton 5 Operative Report [facility] Medical Records Department [address] [place] [address] Operative Report 10/03/24 1613 MR#: [id number] Acct: [id number] Name: MERLENE UNGER Rep #: [id number] : 1960 64 From: Immanuel Saucedo MD PCP: Dr. Harsha Duarte MD Status:[facility] Location: [place] [address] Operative Report (Standard) Operative Information Date of Procedure: 10/03/24 Pre-Operative Diagnosis: Elevated PSA abnormal MRI Post-Operative Diagnosis: The same Surgery/Procedure Performed: Transperineal prostate biopsy directory carrier: No Type of Anesthesia: General RN Documented [...] Duarte MD; Dr. Immanuel Saucedo MD Signed Normal [facility] MRI PROSTATE W/ +W/O CONTRAS Ton 09-24-2024 MRI PROSTATE W/ +W/O CONTRAST ORIGINAL EXAMINATION: MRI OF THE PROSTATE WITH AND WITHOUT CONTRAST09/19/2024 3:24 pm MRI pelvis with and without contrast (Prostate protocol) TECHNIQUE: MRI of the prostate with and without contrast including 3D post processing on an independent [employer] workstation with active physician supervision and interpretation. [...] for clinically significant prostate cancer defined as Syosset 7 or greater including either Syosset 4 + 3, or Syosset 3 + 4 with a significant Delisa 4 component. Patients with Delisa 7 (3 + 4) cancer without significant Delisa 4 component, and Syosset 6 or less prostate cancer are not [...] 09/24/2024 8:55:45 AM Ordering Provider: IMMANUEL Abbott [facility] XR FOREIGN BODY LOC EYE BILA Zelalem 09-19-2024 XR FOREIGN BODY LOC EYE BILATERAL [...] 09/19/2024 2:02:37 PM Ordering Provider: IMMANUEL Abbott [facility] PSA Total+%Freeon 09-02-2024 PSA, FREE 1.26 ng/mL Normal N/A [facility] Comment on above: Order Comment: Order Date: 08/08/24 Order Info: 0756-1 - PSAT%F Result Comment: Esme MARTE methodology. Performed By: #### L 100.0500, L3110.0500, L500.4100, L500.4050 #### [facility] Laboratory [address] [place], [address] (046) PSA, FREE % 17.0 Normal . [facility] Comment on above: Order Comment: Order Date: 08/08/24 Order Info: 0756- - PSAT%F Result Comment: The table below [...] any other population of men. Performed at: [address] [id number] Trauma Counsellor: Matt Vieira PhD, Phone: [phone] Performed By: #### L 100.0500, L3110.0500, L500.4100, L500.4050 #### [facility] Laboratory [address] [place], [address] PSA, TOTAL ULTR 7.400 ng/mL Abnormal 0.000-4.000 [facility] Comment on above: Order Comment: Order Date: 08/08/24 Order Info: 0756-1 - PSAT%F Result Comment: Esme MARTE methodology. According to the [employer], Serum PSA should decrease and [...] of malignant disease. Performed By: #### L 100.0500, L3110.0500, L500.4100, L500.4050 #### [facility] Laboratory [address] [place], [address] CBC-Complete Blood Cnt No Di ffon 08-31-2024 Erythrocyte distribution width (RBC) [Ratio] 12.7 % Normal 11.6-14.6 [facility] Comment on above: Order Comment: Order Date: 08/08/24 Order Info: [id number] - CBC Performed By: #### L 100.0500, L3110.0500, L500.4100, L500.4050 #### [facility] Laboratory [address] [place], [address] Hematocrit (Bld) [Volume fraction] 43.0 % Normal 40-54 [facility] Comment on above: Order Comment: Order Date: 08/08/24 Order Info: [id number] - CBC Performed By: #### L 100.0500, L3110.0500, L500.4100, L500.4050 #### [facility] Laboratory [address] [place], [address] Hemoglobin (Bld) [Mass/Vol] 14.4 g/dL Normal 13.0-16.5 [facility] Comment on above: Order Comment: Order Date: 08/08/24 Order Info: [id number] - CBC Performed By: #### L 100.0500, L3110.0500, L500.4100, L500.4050 #### [facility] Laboratory [address] [place], [address] MCH (RBC) [Entitic mass] 31.8 pg Normal 27.0-32.0 [facility] Comment on above: Order Comment: Order Date: 08/08/24 Order Info: [id number] - CBC Performed By: #### L 100.0500, L3110.0500, L500.4100, L500.4050 #### [facility] Laboratory [address] [place], [address] MCHC (RBC) [Mass/Vol] 33.5 g/dL Normal 32-36 [facility] Comment on above: Order Comment: Order Date: 08/08/24 Order Info: [id number] - CBC Performed By: #### L 100.0500, L3110.0500, L500.4100, L500.4050 #### [facility] Laboratory [address] [place], [address] MCV (RBC) [Entitic vol] 94.9 fL High 80-94 [facility] Comment on above: Order Comment: Order Date: 08/08/24 Order Info: [id number] - CBC Performed By: #### L 100.0500, L3110.0500, L500.4100, L500.4050 #### [facility] Laboratory [address] [place], [address] Platelet mean volume (Bld) [Entitic vol] 9.7 fL Normal 6.2-12.0 [facility] Comment on above: Order Comment: Order Date: 08/08/24 Order Info: [id number] - CBC Performed By: #### L 100.0500, L3110.0500, L500.4100, L500.4050 #### [facility] Laboratory [address] [place], [address] Platelets (Bld) [#/Vol] 272 10*3/uL Normal 150-450 [facility] Comment on above: Order Comment: Order Date: 08/08/24 Order Info: [id number] - CBC Performed By: #### L 100.0500, L3110.0500, L500.4100, L500.4050 #### [facility] Laboratory [address] [place], [address] RBC (Bld) [#/Vol] 4.53 10*6/uL Low 4.6-6.2 [facility] Comment on above: Order Comment: Order Date: 08/08/24 Order Info: [id number] - CBC Performed By: #### L 100.0500, L3110.0500, L500.4100, L500.4050 #### [facility] Laboratory [address] [place], [address] RDW SD 43.8 fl Normal 35.1-43.9 [facility] Comment on above: Order Comment: Order Date: 08/08/24 Order Info: [id number] - CBC Performed By: #### L 100.0500, L3110.0500, L500.4100, L500.4050 #### [facility] Laboratory [address] [place], [address] WBC (Bld) [#/Vol] 7.5 10*3/uL Normal 4.4-11.0 [facility] Comment on above: Order Comment: Order Date: 08/08/24 Order Info: [id number] - CBC Performed By: #### L 100.0500, L3110.0500, L500.4100, L500.4050 #### [facility] Laboratory [address] [place], [address] [facility] 08-31-2024 Albumin [Mass/Vol] 4.5 g/dL Normal 3.4-4.8 [facility] Comment on above: Order Comment: Order Date: 08/08/24 Order Info: [id number] - CMP Order Info: [id number] - LIPID Performed By: #### L 100.0500, L3110.0500, L500.4100, L500.4050 #### [facility] [address] [place], [address] Albumin/Globulin [Mass ratio] 1.8 {ratio} Normal 0.9-2.4 [facility] Comment on above: Order Comment: Order Date: 08/08/24 Order Info: [id number] - CMP Order Info: [id number] - LIPID Performed By: #### L 100.0500, L3110.0500, L500.4100, L500.4050 #### [facility] Laboratory [address] [place], [address] ALK PHOS 54 U/L Normal 40-129 [facility] Comment on above: Order Comment: Order Date: 08/08/24 Order Info: 0786- - CMP Order Info: [id number] - LIPID Performed By: #### L 100.0500, L3110.0500, L500.4100, L500.4050 #### [facility] [address] [place], [address] ALT [Catalytic activity/Vol] 34 U/L Normal <=46 [facility] Comment on above: Order Comment: Order Date: 08/08/24 Order Info: 0786- - CMP Order Info: [id number] - LIPID Performed By: #### L 100.0500, L3110.0500, L500.4100, L500.4050 #### [facility] Laboratory [address] [place], [address] AST [Catalytic activity/Vol] 25 U/L Normal <=37 [facility] Comment on above: Order Comment: Order Date: 08/08/24 Order Info: [id number] - CMP Order Info: [id number] - LIPID Performed By: #### L 100.0500, L3110.0500, L500.4100, L500.4050 #### [facility] Laboratory [address] [place], [address] Bilirubin [Mass/Vol] 0.74 mg/dL Normal 0.00-1.30 [facility] Comment on above: Order Comment: Order Date: 08/08/24 Order Info: 0786-1 - CMP Order Info: [id number] - LIPID Performed By: #### L 100.0500, L3110.0500, L500.4100, L500.4050 #### [facility] Laboratory [address] [place], [address] BUN/CRE 14.6 RATIO Normal 10-20 [facility] Comment on above: Order Comment: Order Date: 08/08/24 Order Info: [id number] - CMP Order Info: [id number] - LIPID Performed By: #### L 100.0500, L3110.0500, L500.4100, L500.4050 #### [facility] Laboratory [address] [place], [address] Calcium [Mass/Vol] 9.5 mg/dL Normal 7.6-11.0 [facility] Comment on above: Order Comment: Order Date: 08/08/24 Order Info: 0786- - CMP Order Info: [id number] - LIPID Performed By: #### L 100.0500, L3110.0500, L500.4100, L500.4050 #### [facility] Laboratory [address] [place], [address] Chloride [Moles/Vol] 104 mmol/L Normal 98-108 [facility] Comment on above: Order Comment: Order Date: 08/08/24 Order Info: 0786- - CMP Order Info: [id number] - LIPID Performed By: #### L 100.0500, L3110.0500, L500.4100, L500.4050 #### [facility] [address] [place], [address] CO2 [Moles/Vol] 24.7 mmol/L Normal 21.0-32.0 [facility] Comment on above: Order Comment: Order Date: 08/08/24 Order Info: 0786-1 - CMP Order Info: [id number] - LIPID Performed By: #### L 100.0500, L3110.0500, L500.4100, L500.4050 #### [facility] Laboratory [address] [place], [address] Creatinine [Mass/Vol] 1.02 mg/dL Normal 0.70-1.20 [facility] Comment on above: Order Comment: Order Date: 08/08/24 Order Info: 0786-1 - CMP Order Info: [id number] - LIPID Performed By: #### L 100.0500, L3110.0500, L500.4100, L500.4050 #### [facility] Laboratory [address] [place], [address] GAP 12 Normal 5-15 [facility] Comment on above: Order Comment: Order Date: 08/08/24 Order Info: 0786 - CMP Order Info: [id number] - LIPID Performed By: #### L 100.0500, L3110.0500, L500.4100, L500.4050 #### [facility] [address] [place], [address] GFR/1.73 sq M.predicted among non-blacks MDRD (S/P/Bld) [Vol rate/Area] 83 mL/min/{1.73_m2} Normal >60 [facility] Comment on above: Order Comment: Order Date: 08/08/24 Order Info: 0786- - CMP Order Info: [id number] - LIPID Result Comment: mL/m in/1.73m2 CKD-EPI Creatinine Equation (2020) Performed By: #### L 100.0500, L3110.0500, L500.4100, L500.4050 #### [facility] [address] [place], [address] Globulin (S) [Mass/Vol] 2.5 g/dL Normal 2.2-4.2 [facility] Comment on above: Order Comment: Order Date: 08/08/24 Order Info: 0786- - CMP Order Info: [id number] - LIPID Performed By: #### L 100.0500, L3110.0500, L500.4100, L500.4050 #### [facility] [address] [place], [address] Glucose [Mass/Vol] 94 mg/dL Normal 70-99 [facility] Comment on above: Order Comment: Order Date: 08/08/24 Order Info: 0786- - CMP Order Info: [id number] - LIPID Performed By: #### L 100.0500, L3110.0500, L500.4100, L500.4050 #### [facility] [address] [place], [address] Potassium [Moles/Vol] 4.5 mmol/L Normal 3.3-5.1 [facility] Comment on above: Order Comment: Order Date: 08/08/24 Order Info: 0786- - CMP Order Info: [id number] - LIPID Performed By: #### L 100.0500, L3110.0500, L500.4100, L500.4050 #### [facility] [address] [place], [address] Sodium [Moles/Vol] 140 mmol/L Normal 133-145 [facility] Comment on above: Order Comment: Order Date: 08/08/24 Order Info: 0786- - CMP Order Info: [id number] - LIPID Performed By: #### L 100.0500, L3110.0500, L500.4100, L500.4050 #### [facility] [address] [place], [address] T PROT 6.9 g/dL Normal 5.9-8.4 [facility] Comment on above: Order Comment: Order Date: 08/08/24 Order Info: 0786- - CMP Order Info: [id number] - LIPID Performed By: #### L 100.0500, L3110.0500, L500.4100, L500.4050 #### [facility] [address] [place], [address] Urea nitrogen [Mass/Vol] 15 mg/dL Normal -19 [facility] Comment on above: Order Comment: Order Date: 08/08/24 Order Info: 0786-1 - CMP Order Info: [id number] - LIPID Performed By: #### L 100.0500, L3110.0500, L500.4100, L500.4050 #### [facility] [address] [place], [address] Lipid Profileon 08-31-2024 CHOL:HDL 4.52 Normal [facility] Comment on above: Order Comment: Order Date: 08/08/24 Order Info: 0786-1 - CMP Order Info: [id number] - LIPID Performed By: #### L 100.0500, L3110.0500, L500.4100, L500.4050 #### [facility] [address] [place], [address] Cholesterol [Mass/Vol] 252 mg/dL High <=200 [facility] Comment on above: Order Comment: Order Date: 08/08/24 Order Info: 0786-1 - CMP Order Info: [id number] - LIPID Result Comment: Chol esterol level, Desirable <200 mg/dL Borderline high cholesterol 200-239 mg/dL High cholesterol >=240 mg/dL Recommendations of the NCEP Adult Treatment Panel for the following risk-cutoff thresholds for the [place] population. Performed By: #### L 100.0500, L3110.0500, L500.4100, L500.4050 #### [facility] [address] [place], [address] Cholesterol in HDL [Mass/Vol] 56 mg/dL Normal [facility] Comment on above: Order Comment: Order Date: 08/08/24 Order Info: 0786-1 - CMP Order Info: [id number] - LIPID Result Comment: Cnidy onal Cholesterol Education Program (NCEP) guidelines: <40 mg/dL: Low HDL-cholesterol (major risk factor for CHD) >= 60 mg/dL: High HDL-cholesterol (negative risk factor for CHD) HDL-cholesterol is affected by a number of factors, e.g. smoking, exercise, hormones, sex and age. Performed By: #### L 100.0500, L3110.0500, L500.4100, L500.4050 #### [facility] [address] [place], [address] Cholesterol in LDL [Mass/Vol] 163 mg/dL Normal [facility] Comment on above: Order Comment: Order Date: 08/08/24 Order Info: 0786-1 - [facility] Order Info: [id number] - LIPID Result Comment: Bord iwxqyd=467-557 mg/dL Higher Fgre=025 mg/dL or greater Performed By: #### L 100.0500, L3110.0500, L500.4100, L500.4050 #### [facility] [address] [place], [address] Cholesterol in VLDL [Mass/Vol] 34 mg/dL Normal 5-40 [facility] Comment on above: Order Comment: Order Date: 08/08/24 Order Info: 0786-1 - [facility] Order Info: [id number] - LIPID Performed By: #### L 100.0500, L3110.0500, L500.4100, L500.4050 #### [facility] [address] [place], [address] Triglyceride [Mass/Vol] 168 mg/dL Normal [facility] Comment on above: Order Comment: Order Date: 08/08/24 Order Info: 0786-1 - [facility] Order Info: [id number] - LIPID Result Comment: The drugs N-Acetylcysteine and Metamizole may falsely depress this assay. Normal range: <150 mg/dL Borderline High: 150-199 mg/dL High: 200-499 mg/dL Very High: >500 mg/dL Performed By: #### L 100.0500, L3110.0500, L500.4100, L500.4050 #### [facility] [address] [place], [address] Vitamin D,25 Hydroxyon 08-31 Vitamin D 25-OH 58.1 ng/mL Normal 30-100 [facility] Comment on above: Order Comment: Order Date: 08/08/24 Order Info: 0786-1 - CMP Order Info: [id number] - LIPID Result Comment: Eva min D Status Deficiency: <20 ng/mL (50nmol/L) Insufficiency: 20-30 ng/mL (50-75 nmol/L) Sufficiency: 30-100 ng/mL (75-250 nmol/L) Toxicity: >100 ng/mL (>250 nmol/L) Performed By: #### L 506.1001 #### [facility] [address] [place], [address] PT D/C Summary (1)on 025 PT D/C Summary (1) [facility] Physical Therapy [facility] [address] [place] [address]. [address] [place] [address] / REHABILITATION SERVICES DISCHARGE SUMMARY MR#: [id number] Acct: [id number] Name: MERLENE UNGER Rep #: [id number] : 1960 64 From: Blayne Patten PT, ATC Referring Dr.: Dr. Harsha Duarte MD Status: REG RCR Insurance: [facility] SELF PAY INSURANCE Discharge Summary D/C summary: [...] please feel free to call me at [phone]. Thank you for the referral of this patient. Sincerely, Blayne Patten, PT, ATC Balance/Gait/Functional tests Balance/Special Test Scores Quick DASH Score: 29.5450 Improvement % Improvement: 10 08/08/24 0800 CC: Dr. Harsha Duarte MD [facility] Signed Normal [facility] PT D/C Summary (1) [facility] Physical Therapy [facility] [address] [place] [address] [address] [place] [address] / REHABILITATION SERVICES DISCHARGE SUMMARY MR#: [id number] Acct: [id number] Name: MERLENE UNGER Rep #: [id number] : 1960 64 From: Blayne Patten PT, ATC Referring Dr.: Dr. Harsha Duarte MD Status: REG R Insurance: [facility] SELF PAY INSURANCE Discharge Summary D/C summary: [...] please feel free to call me at [phone]. Thank you for the referral of this patient. Sincerely, Blayne Patten PT, ATC Balance/Gait/Functional tests Balance/Special Test Scores Quick DASH Score: 29.5450 Improvement % Improvement: 10 08/08/24 0753 CC: Dr. Harsha Duarte MD [facility] Signed Normal [facility] OCT MACULA CIRRUS OU (BOTH E YES)on 08-07-2024 [facility] Radiology Study observation (narrative) [facility] Inital Evaluation (1) - PTon 07-27-2024 Inital Evaluation (1) - PT [facility] Physical Therapy [facility] [place] [address] / REHABILITATION SERVICES INITIAL EVALUATION MR#: [id number] Acct: [id number] Name: MERLENE UNGER Rep #: [id number] : 1960 64 From: Blayne Patten PT, ATC Referring Dr.: Dr. Harsha Duarte MD Status: REG R Insurance: [facility] SELF PAY INSURANCE Patient's Visit Information Visit Information Visit Information: MERLENE UNGER is a 64 year old M referred to Physical Therapy by Dr. Harsha Duarte MD with a diagnosis of L shoulder rot cuff/biceps strain. Date of Evaluation: 07/27/24 Physical Therapist: Blayne Patten, PT, ATC Visit Plan Frequency: 2x /Week [...] to be FAXED BACK to us at [phone] for Medicare purposes. For Medicare only, by signing this I certify the plan of care. Please let me know if there are questions or concerns regarding this plan of care. Physician Signature: Date: ____ 07/27/24 0754 CC: Dr. Harsha Duarte MD [facility] Signed Normal [facility] [id number] (add)on 07-03-2024 [id number] (add) ---- Patient Age/Sex Location Account Attending Physician MERLENE UNGER 64/M [facility] [id number] Dr. Immanuel Saucedo MD Specimen: [id number] Received: 07/05/24 Status: CHANEL Lepe Num: [id number] Spec Type: IMMUNO Subm Dr: Dr. Immanuel Saucedo MD PHYSICIAN INSTITUTION [place] [id number] SPECIMEN INFORMATION: Tissue Source: E- Left mid, F- Left base Clinical Info: Elevated PSA Specimen Number: [id number] E, F CPT code: 39609,33375c1 METHODOLOGY: Deparaffinized sections of prefer/formalin-fixed tissue or [...] developed and their performance characteristics determined by [facility]. 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 SJ 07/06/2024 Signed (signature on file) Dr. Todd Garcia MD 07/06/24 1150 Normal [facility] Comment on above: Performed By: #### P [id number]. ####[facility] [id number] [place] [address], [address] PROSTATE BXon 07-03-2024 PROSTATE BX ---- Patient Age/Sex Location Account Attending Physician MERLENE UNGER 64/M [facility] [id number] Dr. mImanuel Saucedo MD Specimen: [id number] Received: 07/03/24 Status: CHANEL Lepe Num: [id number] Spec Type: PROST BX Subm Dr: Dr. [...] high-grade prostatic intraepithelial neoplasia (HGPIN). See comment. SJ.mr 07/05/2024 COMMENT E, F. Immunohistochemistry ([id number]) supports the above diagnosis. MICROSCOPIC DESCRIPTION Slides [...] Account Attending Physician MERLENE UNGER 64/M [facility] [id number] Dr. Immanuel Saucedo MD C - Received [...] is totally submitted in one cassette. / TREVON. 07/04/2024 TC:5 CPT: 14459 x6 Patient Age/Sex Location [id number]. Immanuel Saucedo MD Signed (signature on file) Dr. Todd Garcia MD 07/06/24 0936 Normal [facility] Comment on above: Performed By: #### P PROSB #### [facility] Laboratory [address] [place], [address] PSA,Total- Diagnosticon 02-0 PSA, DIAGNOSTIC 5.63 ng/mL High 0.0-4.0 [facility] Comment on above: Result Comment: This test was performed using the TPSA assay method for the [employer] chemistry system. Values obtained with different assay methods cannot be used interchangably. When changing PSA assays in the course of monitoring a patient, additional sequential testing should be carried out to confirm baseline values. Performed By: #### L [id number] ####[facility] [id number] [place], [address] Basophil percentageOrdered B y: Harsha Duarte on 08-27-2023 Bilirubin [Mass/Vol] 0.80 mg/dL 0.20-1.00 [facility] Comment on above: For patients on eltr ombopag therapy, use of Dimension [place] TBIL is not recommended. Chloride [Moles/Vol] 109 mmol/L 98-107 [facility] Cholesterol [Mass/Vol] 234 mg/dL <200 [facility] Comment on above: <200 mg/dL Desirable 200-240 mg/dL Borderline >240 mg/dL High Risk Glucose [Mass/Vol] 102 mg/dL 74-106 [facility] Comment on above: Fasting Glucose resu lt from 100 to 125 mg/dL suggests IMPAIRED HOMEOSTASIS per A.D.A. criteria. Potassium [Moles/Vol] 4.3 mmol/L 3.5-5.1 [facility] Protein [Mass/Vol] 7.1 g/dL 6.4-8.2 [facility] Sodium [Moles/Vol] 140 mmol/L 136-145 [facility] Triglyceride [Mass/Vol] 146 mg/dL <199 [facility] Comment on above: The drugs N-Acetylcy steine and Metamizole may falsely depress this assay.Serum Triglycerides Reference Interval Normal <150 mg/dL Borderline high 150 - 199 mg/dL High 200 - 499 mg/dL Very High > or = 500 mg/dL Laboratory - Chemistry and C hemistry - challengeOrdered By: Harsha Duarte on 08-27-2023 Albumin/Globulin [Mass ratio] 1.1 {ratio} 0.9-2.4 [facility] ALP [Catalytic activity/Vol] 57 U/L 45-117 [facility] ALT [Catalytic activity/Vol] 38 U/L 16-61 [facility] Cholesterol in HDL [Mass/Vol] 49 mg/dL >40 [facility] Comment on above: The drugs N-Acetylcy steine and Metamizole may falsely depress this assay. Reference Range HDL <40 mg/dL Low HDL Cholesterol HDL >or= 60 mg/dL High HDL Cholesterol Cholesterol in LDL [Mass/Vol] 156 mg/dL 0-130 [facility] CO2 [Moles/Vol] 26.0 mmol/L 21.0-32.0 [facility] Cobalamin (Vitamin B12) [Mass/Vol] 806 pg/mL 211-911 [facility] Globulin (S) [Mass/Vol] 3.4 g/dL 2.2-4.2 [facility] Urea nitrogen/Creatinine [Mass ratio] 13.3 mg/mg 10-20 [facility] No Panel InformationOrdered By: Harsha Duarte on 08-27-2023 Estimated GFR (MDRD) Amer 84 mL/min >60 [facility] Comment on above: GFR Calc Estimated GFR (MDRD) Non-Af Amer 70 mL/min >60 [facility] Comment on above: Non- GFR Calc Prostate Specific Antigen Screen 3.64 ng/mL 0.00-4.00 [facility] Comment on above: This test was perfor med using the TPSA assay method for the[employer] chemistry system. Values obtained with differentassay methods cannot be used interchangably.When changing PSA assays in the course of monitoring apatient, additional sequential testing should be carriedout to confirm baseline values. Vitamin D 25-Hydroxy 49.5 ng/mL [facility] Comment on above: Vitamin D 25(OH) Sta tus Range Deficiency <20 ng/mL (50nmol/L) Insufficiency 20 - 30 ng/mL (50 - 75 nmol/L) Sufficiency 30 - 100 ng/mL (75 - 250 nmol/L) Toxicity >100 ng/mL (>250 nmol/L) VLDL Cholesterol 29 mg/dL 5-40 [facility] Serum or plasma calcium suyapa urement (mass/volume)Ordered By: Harsha Duarte on 08-27-2023 Calcium [Mass/Vol] 8.8 mg/dL 8.5-10.1 [facility] Serum or plasma creatinine m easurement (mass/volume)Ordered By: Harsha Duarte on 08-27-2023 Creatinine [Mass/Vol] 1.13 mg/dL 0.70-1.30 [facility] Comment on above: The validity of the calculated GFR & GFRAA in patients over 70 years has not been determined. Clinical correlation is essential. Serum or plasma urea nitroge n measurement (mass/volume)Ordered By: Harsha Duarte on 08-27-2023 Urea nitrogen [Mass/Vol] 15 mg/dL 7-18 [facility] Thin prep Papanicolaou smear with manual screeningOrdered By: Harsha Duarte on 08-27-2023 Thin prep Papanicolaou smear with manual screening 3.7 g/dL 3.2-5.0 [facility] Thin prep Papanicolaou smear with manual screening 25 U/L 15-37 [facility] Thin prep Papanicolaou smear with manual screening 5 5-15 [facility] Absolute lymphocyte countOrd ered By: Dr. Duarte on 08-13-2022 Lymphocytes Auto (Unsp spec) [#/Vol] 1.61 10*3/uL 0.83-4.51 [facility] Basophil percentageOrdered B y: Dr. Duarte on 08-13-2022 Basophils/100 WBC (Bld) 0.8 % 0-1 [facility] Bilirubin [Mass/Vol] 0.80 mg/dL 0.20-1.00 [facility] Comment on above: For patients on eltr ombopag therapy, use of [employer] [place] TBIL is not recommended. Chloride [Moles/Vol] 105 mmol/L 98-107 [facility] Cholesterol [Mass/Vol] 189 mg/dL <200 [facility] Comment on above: <200 mg/dL Desirable 200-240 mg/dL Borderline >240 mg/dL High Risk Eosinophils/100 WBC (Bld) 2.5 % 0-5 [facility] Glucose [Mass/Vol] 95 mg/dL 74-106 [facility] Neutrophils (Bld) [#/Vol] 2.9 10*3/uL 2.0-7.7 [facility] Neutrophils/100 WBC (Bld) 57.3 % 47-70 [facility] Potassium [Moles/Vol] 4.4 mmol/L 3.5-5.1 [facility] Protein [Mass/Vol] 7.4 g/dL 6.4-8.2 [facility] Sodium [Moles/Vol] 140 mmol/L 136-145 [facility] Triglyceride [Mass/Vol] 80 mg/dL <199 [facility] Comment on above: The drugs N-Acetylcy steine and Metamizole may falsely depress this assay.Serum Triglycerides Reference Interval Normal <150 mg/dL Borderline high 150 - 199 mg/dL High 200 - 499 mg/dL Very High > or = 500 mg/dL WBC (Bld) [#/Vol] 5.1 10*3/uL 4.4-11.0 [facility] Blood erythrocytes count (nu mber/volume)Ordered By: Dr. Duarte on 08-13-2022 RBC (Bld) [#/Vol] 4.54 10*6/uL 4.6-6.2 [facility] Blood hemoglobin measurement (mass/volume)Ordered By: Dr. Duarte on 08-13-2022 Hemoglobin (Bld) [Mass/Vol] 13.8 g/dL 13.0-16.5 [facility] Blood lymphocytes/100 leukoc ytesOrdered By: Dr. Duarte on 08-13-2022 Lymphocytes/100 WBC (Bld) 31.6 % 19-41 [facility] Blood monocytes/100 leukocyt esOrdered By: Dr. Duarte on 08-13-2022 Monocytes/100 WBC (Bld) 7.6 % 0-10 [facility] Blood platelet mean volumeOr dered By: Dr. Daurte on 08-13-2022 Platelet mean volume (Bld) [Entitic vol] 9.9 fL 6.2-12.0 [facility] Determination of erythrocyte mean corpuscular volume (MCV)Ordered By: Dr. Duarte on 08-13-2022 MCV (RBC) [Entitic vol] 93.2 fL 80-94 [facility] Hematocrit Auto (Bld) [Volum e fraction]Ordered By: Dr. Duarte on 08-13-2022 Hematocrit (Bld) [Volume fraction] 42.3 % 40-54 [facility] Laboratory - Chemistry and C hemistry - challengeOrdered By: Dr. Duarte on 08-13-2022 ALP [Catalytic activity/Vol] 63 U/L 45-117 [facility] ALT [Catalytic activity/Vol] 45 U/L 16-61 [facility] CO2 [Moles/Vol] 27.0 mmol/L 21.0-32.0 [facility] Globulin (S) [Mass/Vol] 3.5 g/dL 2.2-4.2 [facility] Urea nitrogen/Creatinine [Mass ratio] 18.0 mg/mg 10-20 [facility] Laboratory - Hematology and Cell countsOrdered By: Dr. Duarte on 08-13-2022 Erythrocyte distribution width (RBC) [Entitic vol] 44.3 fL 35.1-43.9 [facility] Erythrocyte distribution width (RBC) [Ratio] 13.0 % 11.6-14.6 [facility] Immature granulocytes/100 WBC (Bld) 0.200 % 0.0-0.9 [facility] Comment on above: IG% - Immature Granu locytes (promyelocytes, myelocytes and metamyelocytes) > 1% indicates that a LEFT SHIFT is Present. MCH (RBC) [Entitic mass] 30.4 pg 27.0-32.0 [facility] Nucleated RBC/100 WBC (Bld) [Ratio] 0 % 0-5 [facility] MCHC Auto (RBC) [Mass/Vol]Or dered By: Dr. Duarte on 08-13-2022 MCHC (RBC) [Mass/Vol] 32.6 g/dL 32-36 [facility] No Panel InformationOrdered By: Dr. Duarte on 08-13-2022 Estimated GFR (MDRD) Amer 98 mL/min >60 [facility] Comment on above: GFR Calc Estimated GFR (MDRD) Non-Af Amer 81 mL/min >60 [facility] Comment on above: Non- GFR Calc Vitamin B12 Level > 2000 pg/mL 211-911 [facility] Vitamin D 25-Hydroxy 68.0 ng/mL [facility] Comment on above: Vitamin D 25(OH) Sta tus Range Deficiency <20 ng/mL (50nmol/L) Insufficiency 20 - 30 ng/mL (50 - 75 nmol/L) Sufficiency 30 - 100 ng/mL (75 - 250 nmol/L) Toxicity >100 ng/mL (>250 nmol/L) Platelets bldOrdered By: Dr. Duarte on 08-13-2022 Platelets (Bld) [#/Vol] 298 10*3/uL 150-450 [facility] Serum or plasma albumin suyapa urement (mass/volume)Ordered By: Dr. Duarte on 08-13-2022 Albumin [Mass/Vol] 3.9 g/dL 3.2-5.0 [facility] Serum or plasma albumin/glob ulin mass ratioOrdered By: Dr. Duarte on 08-13-2022 Albumin/Globulin [Mass ratio] 1.1 {ratio} 0.9-2.4 [facility] Serum or plasma calcium suyapa urement (mass/volume)Ordered By: Dr. Duarte on 08-13-2022 Calcium [Mass/Vol] 9.3 mg/dL 8.5-10.1 [facility] Serum or plasma cholesterol in HDL measurement (mass/volume)Ordered By: Dr. Duarte on 08-13-2022 Cholesterol in HDL [Mass/Vol] 58 mg/dL >40 [facility] Comment on above: The drugs N-Acetylcy steine and Metamizole may falsely depress this assay. Reference Range HDL <40 mg/dL Low HDL Cholesterol HDL >or= 60 mg/dL High HDL Cholesterol Serum or plasma cholesterol in VLDL measurement (mass/volume)Ordered By: Dr. Duarte on 08-13-2022 Cholesterol in VLDL [Mass/Vol] 16 mg/dL 5-40 [facility] Serum or plasma creatinine m easurement (mass/volume)Ordered By: Dr. Duarte on 08-13-2022 Creatinine [Mass/Vol] 1.00 mg/dL 0.70-1.30 [facility] Comment on above: The validity of the calculated GFR & GFRAA in patients over 70 years has not been determined. Clinical correlation is essential. Serum or plasma low density lipoprotein (LDL) cholesterol measurement (mass/volume)Ordered By: Dr. Duarte on 08-13-2022 Cholesterol in LDL [Mass/Vol] 115 mg/dL 0-130 [facility] Serum or plasma urea nitroge n measurement (mass/volume)Ordered By: Dr. Duarte on 08-13-2022 Urea nitrogen [Mass/Vol] 18 mg/dL 7-18 [facility] Thin prep Papanicolaou smear with manual screeningOrdered By: Dr. Duarte on 08-13-2022 Thin prep Papanicolaou smear with manual screening 28 U/L 15-37 [facility] Thin prep Papanicolaou smear with manual screening 8 5-15 [facility] Basophil percentageon 2021 Bilirubin [Mass/Vol] 0.80 mg/dL 0.20-1.00 [facility] Work Phone: Comment on above: For patients on eltr ombopag therapy, use of Dim[employer] [place] TBIL is not recommended. Chloride [Moles/Vol] 109 mmol/L 98-107 [facility] Work Phone: Cholesterol [Mass/Vol] 200 mg/dL <200 [facility] Work Phone: Comment on above: <200 mg/dL Desirable 200-240 mg/dL Borderline >240 mg/dL High Risk Glucose [Mass/Vol] 95 mg/dL 74-106 [facility] Work Phone: Potassium [Moles/Vol] 4.3 mmol/L 3.5-5.1 [facility] Work Phone: Protein [Mass/Vol] 7.4 g/dL 6.4-8.2 [facility] Work Phone: Sodium [Moles/Vol] 141 mmol/L 136-145 [facility] Work Phone: Triglyceride [Mass/Vol] 131 mg/dL <199 [facility] Work Phone: Comment on above: The drugs N-Acetylcy steine and Metamizole may falsely depress this assay.Serum Triglycerides Reference Interval Normal <150 mg/dL Borderline high 150 - 199 mg/dL High 200 - 499 mg/dL Very High > or = 500 mg/dL Laboratory - Chemistry and C hemistry - challengeon 03-05-2022 ALP [Catalytic activity/Vol] 69 U/L 45-117 [facility] Work Phone: ALT [Catalytic activity/Vol] 42 U/L 16-61 [facility] Work Phone: CO2 [Moles/Vol] 27.0 mmol/L 21.0-32.0 [facility] Work Phone: Globulin (S) [Mass/Vol] 3.6 g/dL 2.2-4.2 [facility] Work Phone: Urea nitrogen/Creatinine [Mass ratio] 10.8 mg/mg 10-20 [facility] Work Phone: No Panel Informationon 03-05 Estimated GFR (MDRD) Amer 87 mL/min >60 [facility] Work Phone: Comment on above: GFR Calc Estimated GFR (MDRD) Non-Af Amer 72 mL/min >60 [facility] Work Phone: Comment on above: Non- GFR Calc Percent Free Prostate Specific Ag 0.89 ng/mL N/A [facility] Work Phone: Comment on above: Feliz ECLIA methodol ogy. Prostate Specific Ag, Ultra-Sensitv 3.060 ng/mL 0.000-4.000 [facility] Work Phone: Comment on above: [employer] ECLIA methodol ogy.According to the [employer], Serum PSAshould decrease and remain [...] Prostate Specific Antigen Total 3.53 ng/mL 0.0-4.0 [facility] Work Phone: Comment on above: This test was perfor med using the TPSA assay method for [employer] chemistry system. Values obtained with differentassay methods cannot be used interchangably.When changing PSA assays in the course of monitoring apatient, additional sequential testing should be carriedout to confirm baseline values. Serum or plasma albumin suyapa urement (mass/volume)on 03-05-2022 Albumin [Mass/Vol] 3.8 g/dL 3.2-5.0 [facility] Work Phone: Serum or plasma albumin/glob ulin mass ratioon 03-05-2022 Albumin/Globulin [Mass ratio] 1.1 {ratio} 0.9-2.4 [facility] Work Phone: Serum or plasma calcium suyapa urement (mass/volume)on 03-05-2022 Calcium [Mass/Vol] 9.0 mg/dL 8.5-10.1 [facility] Work Phone: Serum or plasma cholesterol in HDL measurement (mass/volume)on 03-05-2022 Cholesterol in HDL [Mass/Vol] 45 mg/dL >40 [facility] Work Phone: Comment on above: The drugs N-Acetylcy steine and Metamizole may falsely depress this assay. Reference Range HDL <40 mg/dL Low HDL Cholesterol HDL >or= 60 mg/dL High HDL Cholesterol Serum or plasma cholesterol in VLDL measurement (mass/volume)on 03-05-2022 Cholesterol in VLDL [Mass/Vol] 26 mg/dL 5-40 [facility] Work Phone: Serum or plasma creatinine m easurement (mass/volume)on 03-05-2022 Creatinine [Mass/Vol] 1.11 mg/dL 0.70-1.30 [facility] Work Phone: Comment on above: The validity of the calculated GFR & GFRAA in patients over 70 years has not been determined. Clinical correlation is essential. Serum or plasma free prostat e specific antigen/total prostate specific antigen ratioon 03-05-2022 Free PSA/Total PSA [Mass fraction] 29.1 % . [facility] Work Phone: Comment on above: [...] for any other population of men.Performed at: [facility] [address] [id number] Director: Matt Vieira PhD, Phone: [phone] Serum or plasma low density lipoprotein (LDL) cholesterol measurement (mass/volume)on 03-05-2022 Cholesterol in LDL [Mass/Vol] 129 mg/dL 0-130 [facility] Work Phone: Serum or plasma urea nitroge n measurement (mass/volume)on 03-05-2022 Urea nitrogen [Mass/Vol] 12 mg/dL 7-18 [facility] Work Phone: Thin prep Papanicolaou smear with manual screeningon 03-05-2022 Thin prep Papanicolaou smear with manual screening 21 U/L 15-37 [facility] Work Phone: Thin prep Papanicolaou smear with manual screening 5 5-15 [facility] Work Phone: COLONOSCOPY SCREENINGon 11-21 [facility] EGD DIAGNOSTICon 12-15-2021 [facility] Basophil percentageon 2021 Creatinine [Mass/Vol] 1.3 mg/dL 0.70-1.30 [facility] Work Phone: No Panel Informationon 11-13 Bedside Estimated GFR (eGFR) > 60.0000 mL/min >60 [facility] Work Phone: Office Visit: UC: L ear pain on 11-13-2016 Documentation of current medications (procedure) Done Invalid Interpretation Code [facility] Work Phone: Protein mass conc Done [facility] Work Phone: Tobacco smoking status NHIS Current [facility] Work Phone: Tobacco smoking status PAIS Never smoker [facility] Work Phone: Tobacco use HS Never smoker Invalid Interpretation Code [facility] Work Phone: Vital Signs Date Time Vital Sign Value Performing Clinician Facility 01-11-2022 12:55-0400 Body height 185.4 cm Jillian CARDOSO-C Work Phone: [facility] 01-11-2022 12:55-0400 Body temperature 97.59 [degF] Jillian CARDOSO-C Work Phone: [facility] 01-11-2022 12:55-0400 Body weight 97.98 kg Jillian CARDOSO-C Work Phone: [facility] 01-11-2022 12:55-0400 Diastolic blood pressure 80 mm[Hg] Jillian [place] PA-C Work Phone: [facility] 01-11-2022 12:55-0400 Heart rate 84 /min Jillian [place] PA-C Work Phone: [facility] 01-11-2022 12:55-0400 Respiratory rate 14 /min Jillian [place] PA-C Work Phone: [facility] 01-11-2022 12:55-0400 SaO2% (BldA) [Mass fraction] 99 % Jillian [place] PA-C Work Phone: [facility] 01-11-2022 12:55-0400 Systolic blood pressure 116 mm[Hg] Jillian Alicia PA-C Work Phone: [facility] 12-15-2021 08:11-0400 Diastolic blood pressure 81 mm[Hg] Joshua Mcmahon MD Work Phone: [facility] 12-15-2021 08:11-0400 Heart rate 56 /min Joshua Mcmahon MD Work Phone: [facility] 12-15-2021 08:11-0400 Respiratory rate 16 /min Joshua Mcmahon MD Work Phone: [facility] 12-15-2021 08:11-0400 SaO2% (BldA) [Mass fraction] 94 % Joshua Mcmahon MD Work Phone: [facility] 12-15-2021 08:11-0400 Systolic blood pressure 122 mm[Hg] Joshua Mcmahon MD Work Phone: [facility] 12-15-2021 06:45-0400 Body temperature 97.3 [degF] Joshua Mcmahon MD Work Phone: [facility] 12-15-2021 06:45-0400 Body weight 99.3 kg Joshua Mcmahon MD Work Phone: [facility] 10-06-2021 14:23-0400 Body height 185.4 cm Joshua Mcmahon MD Work Phone: [facility] 10-06-2021 14:23-0400 Body temperature 97.11 [degF] Joshua Mcmahon MD Work Phone: [facility] 10-06-2021 14:23-0400 Body weight 99.34 kg Joshua Mcmahon MD Work Phone: [facility] 10-06-2021 14:23-0400 Diastolic blood pressure 78 mm[Hg] Joshua Mcmahon MD Work Phone: [facility] 10-06-2021 14:23-0400 Heart rate 67 /min Joshua Mcmahon MD Work Phone: [facility] 10-06-2021 14:23-0400 Respiratory rate 16 /min Joshua Mcmahon MD Work Phone: [facility] 10-06-2021 14:23-0400 SaO2% (BldA) [Mass fraction] 97 % Joshua Mcmahon MD Work Phone: [facility] 10-06-2021 14:23-0400 Systolic blood pressure 112 mm[Hg] Joshua Mcmahon MD Work Phone: [facility] 11-13-2016 08:25-0400 BMI (Body Mass Index) 24.93 kg/m2 Kristyn Manning LPN [facility] Work Phone: 11-13-2016 08:25-0400 Body Temperature 98 [degF] Kristyn Manning LPN [facility] Work Phone: 11-13-2016 08:25-0400 BP Diastolic 82 mm[Hg] Kristyn Manning LPN [facility] Work Phone: 11-13-2016 08:25-0400 BP Systolic 118 mm[Hg] Kristyn Manning LPN [facility] Work Phone: 11-13-2016 08:25-0400 Height 185.42 cm Kristyn Manning LPN [facility] Work Phone: 11-13-2016 08:25-0400 Pulse (Heart Rate) 58 /min Kristyn Manning LPN [facility] Work Phone: 11-13-2016 08:25-0400 Pulse Oximetry 98 % Kristyn Manning LPN [facility] Work Phone: 11-13-2016 08:25-0400 Respiratory Rate 16 /min Kristyn Manning LPN [facility] Work Phone: 11-13-2016 08:25-0400 Weight 85.73 kg Kristyn Manning LPN [facility] Work Phone: 12-20-2011 15:09-0400 BSA (Body Surface Area) 2.15 m2 Kristyn Manning LPN [facility] Work Phone: Encounters Encounter Date Encounter Type Care Provider Facility Start: 02-20-2025 ambulatory Immanuel Saucedo Faci lity:[facility] Start: 02-18-2025 ambulatory Harsha Duarte Faci lity:[facility] Start: 02-11-2025 Encounter for other preprocedural examination Immanuel Saucedo [facility] Start: 02-11-2025 ambulatory Immanuel Saucedo Faci lity:[facility] Start: 01-30-2025 End: 01-30-2025 ambulatory Immanuel Saucedo Facility:[facility] Start: 01-07-2025 End: 01-07-2025 ambulatory Harsha Duarte Facility:[facility] Start: 01-05-2025 End: 01-05-2025 ambulatory Allyson Rebollar Facility:[facility] Start: 12-11-2024 End: 12-11-2024 ambulatory Judy Oconnor Facility:[facility] Start: 11-21-2024 End: 11-21-2024 ambulatory Harsha Duarte Facility:[facility] Start: 10-10-2024 End: 10-10-2024 ambulatory Harsha Duarte Facility:[facility] Start: 10-06-2024 End: 10-06-2024 ambulatory Harsha Duarte Facility:[facility] Start: 10-03-2024 End: 10-03-2024 ambulatory Immanuel Saucedo Facility:[facility] Start: 09-19-2024 End: 09-19-[address] HARSHA DUARTE MD Facility:D Start: 09-12-2024 ambulatory IMMANUEL SAUCEDO Facility:[facility] Start: 09-10-[address] IMMANUEL SAUCEDO MD Facility:[facility] Start: 08-31-2024 End: 08-31-2024 ambulatory Harsha Duarte Facility:[facility] Start: 08-08-2024 End: 08-08-2024 ambulatory Harsha Duarte Facility:[facility] Start: 08-07-2024 End: 08-07-2024 ambulatory PRASANNA SEBASTIAN Facility:[facility] Start: 08-07-2024 End: 08-07-2024 Patient encounter procedure Prasanna Sebastian OD Work Phone: Ophthalmology Comment on above: Vitreous floaters of both eyes (Primary Dx); Posterior vitreous detachment of both eyes; Dry eye syndrome of both eyes; Pinguecula, bilateral; S/P LASIK (laser assisted in situ keratomileusis) of both eyes; Age-related nuclear cataract of both eyes Start: 07-03-2024 End: 07-03-2024 ambulatory Immanuel Saucedo Facility:[facility] Start: 06-25-2024 End: 06-25-2024 ambulatory Harsha Duarte Facility:[facility] Start: 12-30-2023 End: 12-30-2023 ambulatory TIESHA CHOI Facility:[facility] Start: 12-30-2023 End: 12-30-2023 Patient encounter procedure Tiesha Choi MD Work Phone: Ophthalmology Comment on above: Visual disturbance o f right eye (Primary Dx); Vitreous floaters of both eyes; Posterior vitreous detachment of both eyes; S/P LASIK (laser assisted in situ keratomileusis) of both eyes; Essential hypertension Start: 08-27-2023 End: 08-27-2023 ambulatory [facility] Work Phone: Start: 08-27-2023 End: 08-27-2023 Patient encounter procedure [facility]-Laboratory Work Phone: Start: 01-31-2023 End: 01-31-2023 Patient encounter procedure Pauline Yañez OD Work Phone: Ophthalmology Comment on above: Dry eye syndrome of both eyes (Primary Dx); Punctate keratitis, bilateral; Pinguecula, bilateral; S/P LASIK (laser assisted in situ keratomileusis) of both eyes; Vitreous floaters of both eyes Start: 08-13-2022 End: 08-13-2022 ambulatory [facility] Work Phone: Start: 08-13-2022 End: 08-13-[address] [facility] Start: 04-23-2022 End: 04-23-2022 ambulatory [facility] Work Phone: Start: 04-23-2022 End: 04-23-2022 Patient encounter procedure [facility]-Cat Scan, [facility] Start: 03-05-2022 End: 03-05-2022 ambulatory [facility] Work Phone: Start: 03-05-2022 End: 03-05-[address] [facility] Start: 02-17-2022 End: 02-17-2022 Patient encounter procedure Goyo Honeycutt MD Work Phone: Ophthalmology Comment on above: Dry eye syndrome of both eyes (Primary Dx); Punctate keratitis, bilateral; Pinguecula, bilateral; S/P LASIK (laser assisted in situ keratomileusis) of both eyes; Vitreous floaters of both eyes Start: 02-08-2022 End: 02-08-2022 Patient encounter procedure [facility] Start: 02-02-2022 End: 02-02-2022 [facility] Start: 01-11-2022 End: 01-11-2022 Patient [...] Start: 12-07-2021 End: 12-07-2021 Patient encounter procedure [facility], [facility] Start: 11-13-2021 End: 11-13-2021 Patient encounter procedure [facility]-Cat Scan, [facility] Start: 10-06-2021 End: 10-06-2021 Patient encounter procedure [...] RSV Vaccine (1 - 1-dose 75+ series) [facility] Start: 02-16-2031 Urine microalbumin profile DTaP,Tdap,Td Vaccine (2 - Td or Tdap) [facility] Start: 12-15-2026 Colonoscopy COLONOSCOPY [facility] Start: 12-15-2026 COLORECTAL CANCER SCREENING COLORECTAL CANCER SCREENING [facility] Start: 12-15-2026 Screening for malignant neoplasm of colon [facility] Start: 08-09-2025 End: 08-09-2025 Patient encounter procedure 08/09/2025 8:00 AM EDT Office Visit [facility] [address] [place] [address] Prasanna Sebastian, OD [address] [place] [address] Dilated Fundus Exam Ophthalmology Comment on above: Dilated Fundus Exam Start: 08-07-2024 End: 08-07-2024 Patient encounter procedure 08/07/2024 8:00 AM EDT Office Visit [facility] [address] [place] [address] Maude Wharton, OD [address] [address] pvd/floaters return in 6 months Ophthalmology Comment on above: pvd/floaters return in 6 months Start: 02-02-2024 End: 02-02-2024 Patient encounter procedure 02/02/2024 8:00 AM EDT Office Visit [facility] [address] [place] [address] Pauline Yañez, OD [address] [place] [address] Routine eye exam Ophthalmology Comment on above: Routine eye exam Start: 01-22-2024 Covid-19 Vaccine ( season) Covid-19 Vaccine ( season) [facility] Start: 01-22-2024 Influenza vaccination Influenza Vaccine (#1) [facility] Start: 01-21-2023 Covid-19 Vaccine ( season) Covid-19 Vaccine ( season) [facility] Start: 01-21-2023 Influenza vaccination INFLUENZA (#1) [facility] Start: 10-06-2022 BP CONTROLLED (<130/80) BP CONTROLLED (<130/80) [facility] Start: 07-08-2022 Colonoscopy COLONOSCOPY [facility] Start: 07-08-2022 COLORECTAL CANCER SCREENING COLORECTAL CANCER SCREENING [facility] Start: 05-23-2022 DEPRESSION ASSESSMENT DEPRESSION ASSESSMENT [facility] Start: 01-21-2022 Influenza vaccination [facility] Start: 07-25-2021 COVID-19 VACCINE (3 - Booster for Gabe series) COVID-19 VACCINE (3 - Booster for Gabe series) [facility] Start: 01-01-2022 DEPRESSION ASSESSMENT DEPRESSION ASSESSMENT [facility] Start: 05-22-2021 COVID-19 VACCINE (3 - Booster for Moderna series) COVID-19 VACCINE (3 - Booster for Moderna series) [facility] Start: 05-22-2021 COVID-19 VACCINE (3 - Moderna series) COVID-19 VACCINE (3 - Moderna series) [facility] Start: 2021 RSV Vaccine (1 - 1-dose 60+ series) RSV Vaccine (1 - 1-dose 60+ series) [facility] Start: 03-25-2018 DIABETES SCREEN DIABETES SCREEN [facility] Start: 03-25-2018 Diabetes Screening Diabetes Screening [facility] Start: 11-13-2016 End: 11-13-2016 Appointment Appointment [facility] Work Phone: Start: 02-26-2016 Adult depression screening assessment DEPRESSION SCREENING [facility] Start: 01-27-2016 PROSTATE CANCER SCREENING DISCUSSION PROSTATE CANCER SCREENING DISCUSSION [facility] Start: 01-27-2016 Prostate specific antigen measurement Prostate Cancer Screening Discussion [facility] Start: 12-13-2011 End: 12-15-2011 Follow up Appt 1 week Follow up Appt 1 week [facility] Work Phone: Start: 12-13-2011 End: 12-15-2011 X-ray exam of shoulder X-Ray, Shoulder [facility] Work Phone: Start: 2011 Pneumococcal Vaccine: 50+ (1 of 1 - PCV) Pneumococcal Vaccine: 50+ (1 of 1 - PCV) [facility] Start: 2011 SHINGRIX VACCINE (1 of 2) SHINGRIX VACCINE (1 of 2) [facility] Start: 2006 COLOGUARD (FIT-DNA) COLOGUARD (FIT-DNA) [facility] Start: [address] COLONOGRAPHY [facility] Start: 2006 FECAL OCCULT BLOOD FECAL OCCULT BLOOD [facility] Start: 2006 Screening for malignant neoplasm of colon [facility] Start: 2006 SIGMOIDOSCOPY SIGMOIDOSCOPY [facility] Start: 01-27-1996 Lipid panel Lipid Screening [facility] Start: 01-27-1996 LIPID SCREEN LIPID SCREEN [facility] Start: 01-27-1980 Urine microalbumin profile DTAP,TDAP,TD (1 - Tdap) [facility] Start: 1979 ANNUAL PCP TEAM CHRONIC DISEASE VISIT ANNUAL PCP TEAM CHRONIC DISEASE VISIT [facility] Start: 1979 Anxiety Screening Anxiety Screening [facility] Start: 1979 BP CONTROLLED (<130/80) BP CONTROLLED (<130/80) [facility] Start: 1979 Depression Screening Depression Screening [facility] Start: 1979 HEPATITIS C SCREENING HEPATITIS C SCREENING [facility] Start: 1979 Hepatitis C screening Hepatitis C Screening [facility] Start: 1979 HIV SCREENING HIV SCREENING [facility] Start: 1979 HIV screening HIV Screening [facility] End: 10-06-2022 EGD DIAGNOSTIC EGD DIAGNOSTIC Endoscopy Routine Gastroesophageal reflux disease without esophagitis Family history of colon cancer 1 Occurrences starting 10/06/2021 until 10/06/2022 [facility] Work Phone: Comment on above: 1 Occurrences starting 10/06/2021 until 10/06/2022 Patient Education OTITIS%20EXTERNA [facility] Work Phone: End: 10-06-2022 Screening colonoscopy COLONOSCOPY SCREENING Endoscopy Routine Gastroesophageal reflux disease without esophagitis Family history of colon cancer 1 Occurrences starting 10/06/2021 until 10/06/2022 [facility] Work Phone: Comment on above: 1 Occurrences starting 10/06/2021 until 10/06/2022 SURGICAL PATHOLOGY [facility] Work Phone: Comment on above: Release Upon Ordering for 1 Occurrences starting 12/15/2021, 1 completed [facility] Payers Date Payer Category Payer Self-pay [id number] 2019 Private Health Insurance [employer] A ETNA CHOICE POS II [id number] 2019-Present [phone] [address] [place] [address] POS [id number] 2019 Private Health Insurance [id number] 2019 Private Health Insurance [id number] 2013 Unknown [id number] 1960 Unknown [id number] 27 1961 Unknown [id number] [id number] 27 1961 Unknown [id number] [id number] 27 Unknown [id number] 2.16.840.1.080156.3.579.2.4 62 Unknown [id number] 2.16.840.1.358131.3.579.2.4 62 Unknown [id number] 2.16.840.1.147551.3.579.2.4 62 Unknown [id number] 2.16.840.1.344526.3.579.2.4 62 Unknown [id number] 2.16.840.1.032172.3.579.2.4 62 Unknown [id number] 2.16.840.1.665879.3.579.2.4 62 Unknown [id number] 2.16.840.1.829033.3.579.2.4 62 Unknown [id number] 2.16.840.1.151344.3.579.2.4 62 Unknown [id number] 2.16.840.1.174951.3.579.2.4 62 Unknown [id number] 2.16.840.1.623160.3.579.2.4 62 Unknown [id number] 2.16.840.1.982091.3.579.2.4 62 Unknown [id number] 2.16.840.1.374249.3.579.2.4 62 Unknown [id number] 2.16.840.1.767299.3.579.2.4 62 Unknown [id number] 2.16.840.1.983081.3.579.2.4 62 Unknown [id number] [id number] 62 Social History Date Type Detail Facility Start: 07-22-2010 End: 01-11-2022 Tobacco smoking status NHIS Never smoked tobacco [facility] Start: 07-22-2010 End: 01-11-2022 Tobacco use and exposure User of smokeless tobacco [facility] History of tobacco use Chews Tobacco [facility] Start: 10-06-2021 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) [facility] Start: 10-06-2021 History SDOH Alcohol Comment 2-3 [facility] Start: 07-22-2010 End: 01-11-2022 Tobacco Comment 47 years [facility] Start: 1960 Sex Assigned At Male C [facility] Start: 09-26-2021 End: 02-02-2022 Exposure to SARS-CoV-2 (event) Not sure [facility] Start: 06-10-2021 End: 04-09-2023 Tobacco smoking status PAIS Unknown if ever smoked [facility] Start: 11-22-2021 End: 12-02-2021 Exposure to SARS-CoV-2 (event) Unable to assess [facility] Work Phone: Start: 12-15-2021 End: 08-07-2024 Alcohol intake Current drinker of alcohol (finding) [facility] Start: 12-15-2021 History SDOH Alcohol Comment 2-3 beers daily [facility] Start: 01-31-2023 End: 08-07-2024 History of Social function [facility] Start: 01-31-2023 End: 08-07-2024 Tobacco use panel [facility] National Score (1-100), lower number is lower risk 52 [facility] Start: 10-05-2021 Gender identity Identifies as male gender (finding) [facility] Clinical Notes 10-06-2021 to 10-03-2024 Prasanna Sebastian, OD - 08/07/2024 8:18 AM Tiesha Oconnor MD - 12/30/2023 9:07 AM Pauline Lacey OD - 01/31/2023 8:59 AM Rose Honeycutt MD - 02/17/2022 8:53 AM EDTPatient Instructions Note Date & Type Note Facility 10-03-2024 Note [facility] Medical Records Department [address] [place] [address] History Physical Exam 10/03/24 1513 MR#: [id number] Acct: [id number] Name: MERLENE UNGER Rep #: [id number] : 1960 64 From: Immanuel Saucedo MD PCP: Dr. Harsha Duarte MD Status:[facility] Location: [place] [address] HPI - General General Date of Service: [...] be done under general anesthesia. [facility] Medical History Wears hearing aid Depression Anxiety [...] Duarte MD; Dr. Immanuel Saucedo MD Signed [facility] 08-07-2024 Note Date of Procedure 08/07/2024. First Aid Instructor Information Batch Unit Treater: RE. OCT Macula Interpretation Right Eye Normal without fluid. Left Eye Normal without fluid. Interval Change Right Eye Initial. Left Eye Initial. [facility] 08-07-2024 Note HNO ID: [id number] Author: PRASANNA SEBASTIAN OD Service: ? Author Type: CIVIL MANAGER Type: Progress Notes Filed: 08/07/2024 08:28 Note [...] Sebastian, OD August 07, 2024 8:27 AM [facility] 08-07-2024 History of Presen t illness Narrative [...] 2024 8:27 AM documented in this encounter [facility] 12-30-2023 Note HNO ID: [id number] Author: TIESHA CHOI MD Service: ? Author [...] Patient was instructed to call the office ([phone]) immediately upon noticing flashes of light, increase in floaters, or changes in vision. Please call the office ([phone]) immediately if you notice more flashes of [...] others. I have seen and examined Rafael Noe Cornel. I have discussed the case and the management of this patient's care with the Resident/Fellow, if applicable. I also have reviewed and agree with the assessment and plan as stated above and agree with all of its relevant components. Tiesha Choi MD [facility] 12-30-2023 History of Presen t illness Narrative [...] Patient was instructed to call the office ([phone]) immediately upon noticing flashes of light, increase in floaters, or changes in vision. Please call the office ([phone]) immediately if you notice more flashes of [...] Tiesha Choi MD documented in this encounter [facility] 01-31-2023 History of Presen t illness Narrative [...] 2023 8:59 AM documented in this encounter [facility] 02-17-2022 History of Presen t illness Narrative [...] Goyo Honeycutt MD documented in this encounter [facility] 01-11-2022 Instructions Jillian Vargas PA-C - 01/11/2022 [...] to your office visit today with the [facility] General Surgeons. INSTRUCTIONS FOLLOWING A [...] you should contact our office immediately @ [phone] and ask to be transferred to the General Surgery department. documented in this encounter [facility] 01-11-2022 History of Presen t illness Narrative FOLLOW UP VISIT - ENDOSCOPY NAME: Rafael Kusum Unger [facility] NO.: [id number] DATE OF SERVICE: 01/11/2022 : 1960 REFERRING [...] recommend follow up endoscopy in 5 years. updated and recall letter generated. Patient verbalized understanding of all above and agreed with the plan Diagnoses: (Z80.0) Family history of colon cancer (primary encounter diagnosis) (D36.9) Tubular adenoma (K57.90) Diverticulosis (K21.9) Gastroesophageal reflux disease, unspecified whether esophagitis present I spent a total of 24 minutes on the date of the service which included preparing to see the patient, [id number] patient care, completing clinical documentation, obtaining and/or reviewing separately obtained history, counseling and educating the patient/family/caregiver, independently interpreting results (not separately reported), and communicating results to the patient/family/caregiver. Jillian Vargas PA-C documented in this encounter [facility] 12-15-2021 Nurse Note Pt received in PACU. Pt awake. Denies pain or nausea. Abd soft and non distended. Keli Forbes RN documented in this encounter [facility] 12-15-2021 History and physical note UPDATED PROCEDURAL [...] colon cancer. I had last performed colonoscopy 2018 which was unremarkable and recommended 5-year follow-up. [...] Joshua Mcmahon MD documented in this encounter [facility] 10-07-2021 Miscellaneous Notes Called patient and informed soonest opening for [facility] with Salome is indeed 12/15 - in which is patients scheduled day. Informed [facility] is booked out until March. Patient understood and is okay with 12/15 Radha Gray Patient called back asking if there was anything sooner. Patient willing to go to [facility]. Please call patient and advise. 12/15/21 EGD & Colonoscopy Dr. Mcmahon at the [facility] with Kaushik prep documented in this encounter [facility] 10-06-2021 History of Presen t illness Narrative [...] colon cancer. I had last performed colonoscopy 2018 which was unremarkable and recommended 5-year follow-up. [...] entered by the nurse and reviewed by hi Nursing Notes: Morena Sutton 10/06/2021 2:29 PM [...] Joshua Mcmahon MD documented in this encounter [facility] 10-06-2021 Instructions Joshua Mcmahon MD - 10/06/2021 [...] If you do not have a responsible newspaper delivery driver (family member or friend) with you [...] at your local pharmacy or drugstore pharmacy. 1 04/2019 Bowel Preparation Instructions for: Golytely, Nulytely, [...] exam. 3 04/2019 documented in this encounter [facility] 10-06-2021 Nurse Note REVIEW OF SYSTEMS: General: [...] 07/08/2017 Morena Sutton documented in this encounter [facility] Evaluation note Diagnosis Gastroesophageal reflux disease without esophagitis- Primary Esophageal reflux Family history of colon cancer Family history of malignant neoplasm of gastrointestinal tract documented in this encounter [facility]No assessment [facility] Work Phone: Evaluation note* Diagnosis Gastroesophageal reflux disease without esophagitis Esophageal reflux Family history of colon cancer Family history of malignant neoplasm of gastrointestinal tract documented in this encounter [facility] note* Diagnosis Family history of colon cancer- Primary Family history of malignant neoplasm of gastrointestinal tract Tubular adenoma Benign neoplasm of unspecified site Diverticulosis Diverticulosis of colon (without mention of hemorrhage) Gastroesophageal reflux disease, unspecified whether esophagitis present documented in this encounter [facility] note* Diagnosis Dry eye syndrome of both eyes- Primary Punctate keratitis, bilateral Pinguecula, bilateral S/P LASIK (laser assisted in situ keratomileusis) of both eyes Vitreous floaters of both eyes documented in this encounter [facility] note* Diagnosis Dry eye syndrome of both eyes- Primary Punctate keratitis, bilateral Pinguecula, bilateral S/P LASIK (laser assisted in situ keratomileusis) of both eyes Vitreous floaters of both eyes documented in this encounter [facility] note* Diagnosis Visual disturbance of right eye- Primary Unspecified visual disturbance Vitreous floaters of both eyes Posterior vitreous detachment of both eyes Vitreous degeneration S/P LASIK (laser assisted in situ keratomileusis) of both eyes Essential hypertension Unspecified essential hypertension documented in this encounter [facility] note* Diagnosis Vitreous floaters of both eyes- Primary Posterior vitreous detachment of both eyes Vitreous degeneration Dry eye syndrome of both eyes Pinguecula, bilateral S/P LASIK (laser assisted in situ keratomileusis) of both eyes Age-related nuclear cataract of both eyes Senile nuclear sclerosis documented in this encounter [facility] for referral (narrative)* Outpatient Procedure (Routine) - Authorized Specialty Diagnoses / Procedures Referred By Cori cho Referred To Contact [facility] Diagnoses Gastroesophageal reflux disease without esophagitis Family history of colon cancer Procedures EGD DIAGNOSTIC ESOPHAGOGASTRODUODENOSC OPY TRANSORAL DIAGNOSTIC Joshua Mcmahon MD [address] [place] [address] [facility] [address] [place] [id number] Referral ID Status Reason Start Date Expiration Date Visits Requested Visits Authorized [id number] Authorized Auto-Generat ed Referral 10/06/2021 10/06/2022 1 1 * Outpatient Procedure (Routine) - Authorized Specialty Diagnoses / Procedures Referred By Cori cho Referred To Contact [facility] Diagnoses Gastroesophageal reflux disease without esophagitis Family history of colon cancer Procedures COLONOSCOPY SCREENING COLONOSCOPY FLX DX W/COLLJ SPEC WHEN Joshua Baker MD [address] [place] [address] [facility] Disease [address] [address] Referral ID Status Reason Start Date Expiration Date Visits Requested Visits Authorized [id number] Authorized Auto-Generat ed Referral 10/06/2021 10/06/2022 1 1 [facility] for referral (narrative)* Outpatient Procedure (Routine) - Closed Specialty Diagnoses / Procedures Referred By Cori cho Referred To Contact [facility] Diagnoses Gastroesophageal reflux disease without esophagitis Family history of colon cancer Procedures EGD DIAGNOSTIC ESOPHAGOGASTRODUODENOSC OPY TRANSORAL DIAGNOSTIC Joshua Mcmahon MD [address] [place] [address] [facility] Disease [address] [address] Referral ID Status Reason Start Date Expiration Date V isits Requested Visits Authorized [id number] Closed Auto-Generate d Referral 10/06/2021 10/06/2022 1 1 * Outpatient Procedure (Routine) - Closed Specialty Diagnoses / Procedures Referred By Cori cho Referred To Contact [facility] Diagnoses Gastroesophageal reflux disease without esophagitis Family history of colon cancer Procedures COLONOSCOPY SCREENING COLONOSCOPY FLX DX W/COLLJ SPEC WHEN Joshua Baker MD [address] [place] [address] [address] Referral ID Status Reason Start Date Expiration Date V isits Requested Visits Authorized [id number] Closed Auto-Generate d Referral 10/06/2021 10/06/2022 1 1 [facility] Outpatient Procedure (Routine) - Closed Specialty Diagnoses / Procedures Referred By Cori cho Referred To Contact [facility] Diagnoses Gastroesophageal reflux disease without esophagitis Family history of colon cancer Procedures COLONOSCOPY SCREENING COLONOSCOPY FLX DX W/COLLJ SPEC WHEN PFJoshua Nieto MD [address] [place] [address] [address] Referral ID Status Reason Start Date Expiration Date V isits Requested Visits Authorized [id number] Closed Auto-Generate d Referral 10/06/2021 10/06/2022 1 1 [facility] Advance Directives No Advanced Directives Records FoundDocuments on File Type Date Recorded 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 Advance Directive(s) 07/08/2017 10:00 AM Advance Directive Response Recorded Date/ Time Living Will No October 04, 2014 1 1:42pm Power of [place]agliola Mechanic No October 04, 2014 11:42pm Documents on File Type Date Recorded 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 Advance Directive(s) 07/08/2017 10:00 AM Documents on File Type Date Recorded 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 Advance Directive(s) 12/15/2021 6:16 AM Advance Directive(s) 07/08/2017 10:00 AM Advance Directive Response Recorded Date/ Time Living Will No October 04, 2014 1 0:42pm Power of Scagliola Mechanic No October 04, 2014 10:42pm Chief Complaint [...] Date Dose Rate Site benzocaine 20% 1 [place] (TOPEX) 1 [place], TOPICAL, DIRECTED, Starting on Tue12/15/21 at 0730, [...] 7:14 AM EDT 50 mcg Given by [facility] 12/15/2021 7:12 AM EDT 50 mcg lactated ringers iv infusion 30 mL/hr, INTRAVENOUS, CONTINUOUS, Starting on Tue12/15/21 at 0700, Until Tue12/15/21 at 0752, Preprocedure New Bag/Syringe/Bottle 12/15/2021 6:40 AM EDT 30 mL/hr 30 mL/hr Wrist, Right midazolam (PF) 1-5 mg injection (VERSED) 1-5 mg, INTRAVENOUS, DIRECTED, Starting on Tue12/15/21 at 0730, Until Tue12/15/21 at 112, DOSING DIRECTED BY PHYSICIAN FOR PROCEDURAL SEDATION ONLY, Intraprocedure Given by [facility] 12/15/2021 7:30 AM EDT 1 mg Given by [facility] 12/15/2021 7:16 AM EDT 1 mg Given [...] or prosecute any alcohol or drug abuse patient.[facility] the event this information is protected by the Federal Confidentiality of Alcohol and Drug Abuse Patient Records regulations: The Federal rules restrict any use of the information to criminally investigate or prosecute any alcohol or drug abuse patient.[facility] Center[facility] the event this information is protected by the Federal Confidentiality of Alcohol and Drug Abuse Patient Records regulations: The Federal rules restrict any use of the information to criminally investigate or prosecute any alcohol or drug abuse patient.[facility] the event this information is protected by the Federal Confidentiality of Alcohol and Drug Abuse Patient Records regulations: The Federal rules restrict any use of the information to criminally investigate or prosecute any alcohol or drug abuse patient.[facility] the event this information is protected by the Federal Confidentiality of Alcohol and Drug Abuse Patient Records regulations: The Federal rules restrict any use of the information to criminally investigate or prosecute any alcohol or drug abuse patient.[facility] Center[facility] the event this information is protected by the Federal Confidentiality of Alcohol and Drug Abuse Patient Records regulations: The Federal rules restrict any use of the information to criminally investigate or prosecute any alcohol or drug abuse patient.[facility] Center[facility] the event this information is protected by the Federal Confidentiality of Alcohol and Drug Abuse Patient Records regulations: The Federal rules restrict any use of the information to criminally investigate or prosecute any alcohol or drug abuse patient.[facility] Center[facility] the event this information is protected by the Federal Confidentiality of Alcohol and Drug Abuse Patient Records regulations: The Federal rules restrict any use of the information to criminally investigate or prosecute any alcohol or drug abuse patient.[facility] Center[facility] the event this information is protected by the Federal Confidentiality of Alcohol and Drug Abuse Patient Records regulations: The Federal rules restrict any use of the information to criminally investigate or prosecute any alcohol or drug abuse patient.[facility] Reason for Visit (unrecogniz ed section and content) Reason Comments New Patient GERD Reason Comments Follow Up Reason Comments Dry Eye Syndrome Follow Up Bilateral Punctate Keratitis Bilateral History of LASIK Vitreous Floaters Follow Up Bilateral Reason Comments 12/15/21 EGD & Colonoscopy Dr. Mcmhaon Reason Comments Comprehensive Eye Exam Reason Comments Visual Disturbance Right eye off and on lasting 30 minutes Reason Comments Posterior Vitreous Detachment Follow Up Vitreous Floaters Follow Up Both eyes Care Teams (unrecognized sec tion and content) Mail Caller Relationship Specialty Start Date End Date Harsha Duarte MD [address] [place] [address] PCP - General 05/26/09 Mail Caller Relationship Specialty Start Date End Date Harsha Duarte MD [address] [place] [address] PCP - General 05/26/09 Mail Caller Relationship Specialty Start Date End Date Harsha Duarte MD [address] [place] [address] PCP - General 05/26/09 Mail Caller Relationship Specialty Start Date End Date Harsha Duarte MD [address] [place] [address] PCP - General 05/26/09 Mail Caller Relationship Specialty Start Date End Date Harsha Duarte MD [address] [place] [address] PCP - General 05/26/09 Mail Caller Relationship Specialty Start Date End Date Harsha Duarte MD [address] [place] [address] PCP - General 05/26/09 Team Status: Active [...] Care Provider, Attending Provider, Referring Provider Active Mail Caller Relationship Specialty Start Date End Date Harsha Duarte MD [address] [place] [address] PCP - General 05/26/09 Team Status: Active Member Role Status Dates Dr. Harsha Duarte MD Family Provider Active Dr. Harsha Duarte MD Primary Care Provider Acti ve Team Status: Inactive Member Role Status Dates Dr. Harsha Duarte MD Primary Care Provider, Attending Provider, Referring Provider Active Mail Caller Relationship Specialty Start Date End Date Harsha Duarte MD [address] [place] [address] PCP - General 05/26/09 Mail Caller Relationship Specialty Start Date End Date Harsha Duarte MD [address] [place] [address] PCP - General 05/26/09 Goals (unrecognized section [...] section and content) DATE CREATED AUTHOR 08/09/2024 [facility] DATE CREATED AUTHOR AUTHOR'S ORGANIZ ATION 09/10/2024 [facility] DATE CREATED AUTHOR AUTHOR'S ORGANIZ ATION 09/24/2024 [facility] DATE CREATED AUTHOR AUTHOR'S ORGANIZ ATION 02/13/2025 [facility] FOR RECORDS PERTAINING TO PATIENTS WHO [...] BE BASED ON THE PRIMARY CLINICAL RECORDS. [facility]. provides no warranty or guarantee of the accuracy or completeness of information in this document.
== END 2025-02-21 13:41 | disposition home or self-care (01) ==
LOC: MS3 02-21 09:19
PROVIDERS: Anesthesiology; Admitting Provider Urology; PCP Family Medicine; Referring Provider Urology; Visit Provider Urology
PROC: 0VT04ZZ Resection of Prostate, Percutaneous Endoscopic Approach (ICD-10-PCS; CPT 55866; principal; 2025-02-20 08:45)
DX: C61 Malignant neoplasm of prostate (principal); I10 Essential (primary) hypertension; Z79.899 Other long term (current) drug therapy; N40.1 Benign prostatic hyperplasia with lower urinary tract symptoms; R35.1 Nocturia
CPT/HCPCS: 55866; 00865; 36415; 80048; 85027; 86850; 86900; 86901; 88307; 88309; 88341; 88342; 93005; 94668; 96361; 96365; 96366; 96375; 96376; 99221; A4216; G0378; J0744; J2405

== ENCOUNTER → 2025-04-01 | Outpatient (CLI) | payer OTHER, SELFPAY ==
[2025-04-01 09:32] LABS: PSA,Total- Diagnostic < 0.02 ng/mL (0.00-4.00)
== END | disposition home or self-care (01) ==
PROVIDERS: PCP Family Medicine; Referring Provider Urology; Visit Provider Urology
DX: C61 Malignant neoplasm of prostate (principal)
CPT/HCPCS: 36415; 84153

== ENCOUNTER → 2025-05-14 | Outpatient (CLI) | payer OTHER, SELFPAY ==
--- NOTE | 2025-05-14 15:42 | RAD_ITS ---
PROCEDURE: ABDOMEN SINGLE VIEW 05/14/2025 REASON FOR EXAM: ABDOMINAL PAIN TECHNIQUE: Procedure Code: RADABD Modality: DX Procedure: ABDOMEN SINGLE VIEW FINDINGS: There is a nonspecific bowel-gas pattern. The lower thorax is unremarkable. The osseous structures are intact. There are no suspicious calcifications. RAD/Abdomen Single View IMPRESSION: Nonspecific bowel-gas pattern. No suspicious calcifications. Reading Location: [id number]
[2025-05-14 17:52] LABS: AST(SGOT) 31 U/L (<=37); Alanine Aminotransfer ALT/SGPT 40 U/L (<=46); Albumin, Serum 4.5 g/dL (3.4-4.8); Alkaline Phosphatase 75 U/L (40-129); Anion Gap 7 (7-18); BUN 14 mg/dL (4-19); BUN/Creat Ratio 12.5 RATIO (10-20); Calcium,Total 9.6 mg/dL (7.6-11.0); Carbon Dioxide 27.6 mmol/L (20.0-29.0); Chloride 103 mmol/L (96-106); Globulin 2.6 g/dL (2.2-4.2); Glucose 84 mg/dL (70-99); Potassium 4.2 mmol/L (3.5-5.1)
[2025-05-14 17:59] LABS: Hematocrit 41.0 % (40-54); Hemoglobin 13.2 g/dL (13.0-16.5); Immature Granulocytes Count 0.020 X10^3/uL (0.0-0.0); Mean Corp Hgb Conc 32.2 g/dL (32-36); Mean Corpuscular Volume 89.7 fL (80-94); Mean Platelet Vol. 9.9 fl (6.2-12.0); NRBC Flagged by Analyzer 0 % (0-5); Platelet Count 261 K/mm3 (150-450); RBC Distribution Width CV 13.3 % (11.6-14.6); RBC Distribution Width SD 43.6 fl (35.1-43.9); Red Blood Count 4.57 M/mm3 (4.6-6.2); White Blood Count 7.1 K/mm3 (4.4-11.0)
== END | disposition home or self-care (01) ==
LOC: MTLAB 15:42
PROVIDERS: PCP Family Medicine
DX: K21.9 Gastro-esophageal reflux disease without esophagitis (principal)
CPT/HCPCS: 36415; 74018; 80053; 85025